=== PATIENT | female | born 1955 | race Two or more races ===

== ENCOUNTER 2017-06-18 13:33 | Inpatient (IN) | payer OTHER ==
[~2017-06-18] VITALS: Ht 160 cm; Wt 94.7 kg
[~2017-06-18 13:33] MED LIST: BENAZEPRIL; METFORMIN
[2017-06-18 15:47] VITALS: BP 140/78; RESP 18
[2017-06-18 16:08] VITALS: BMI 36.9
--- NOTE | 2017-06-18 17:47 | HP ---
Date/Time of Note Date/Time of Note DATE: 06/18/17 TIME: 17:35 Assessment/Plan VTE Prophylaxis VTE Prophylaxis Intervention: SCD's Lines/Catheters IV [facility]from [facility] [place] Assessment/Plan Chief Complaint/Hosp Course 1. 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 Diabetes NovoLog sliding scale 3. Hypertension Resume home meds Prophylaxis: SCDs Problems: HPI/ROS Admit Date/Time Admit Date/Time Jun 18, 2017 at 15:14 Hx of Present Illness Patient is a 61-year-old female with history of non-insulin requiring diabetes, hypertension as well as H pylori status post recent treatment. Patient does also have a history of reported ulcers and inflammation in her abdomen, patient did have a PET scan earlier this year with Dr Acosta that showed no malignancy in her abdomen. Patient also had a colonoscopy earlier this year that was negative. Patient states that for the past month she has been having abdominal pain, she initially had diarrhea approximately a month ago and was found to have H pylori was given antibiotics which she completed 2 weeks ago. Since then she reports constipation and she has not had a bowel movement for 1 week now. Patient continues to report abdominal discomfort, patient also reports a 15 pound weight loss and decreased appetite over the past month. Patient has no other complaints this time. ROS Weight loss with 15 pounds over the past month Constitutional: improved, no complaints Eyes: no complaints ENT: no complaints Respiratory: no complaints Cardiovascular: no complaints Gastrointestinal: constipation, pain Genitourinary: no complaints Musculoskeletal: no complaints Skin: no complaints Neurologic: no complaints Endocrine: no complaints Lymphatic: no complaints Psychological: nl mood/affect, no complaints Immunologic: no complaints PMH/Family/Social Past Medical History Non-insulin requiring diabetes, hypertension, H. pylori infection status post treatment, reported history of inflammation and ulcers in the bowel Family History Significant Family History: cancer (Father) Social History Alcohol Use: none Smoking Status: Never smoker Drug Use: none Exam/Review of Systems Vital Signs Vitals Vital Signs Date Time Temp Pulse Resp B/P Pulse Ox O2 Delivery O2 Flow Rate FiO2 06/18/17 15:47 99.1 85 18 140/78 97 Exam Constitutional: alert, oriented Head: normocephalic Respiratory: clear to auscultation Cardiovascular: regular rate and rhythm Gastrointestinal: soft, No distended Musculoskeletal: nl extremities to inspection JONA ELY Jun 18, 2017 17:46
[2017-06-18] MEDS ORDERED: BENA10TA48 PO (17:48)
[2017-06-18] MEDS ORDERED: METF500T4 PO (17:48)
[2017-06-18] MEDS ORDERED: DEXTROSE 50% 50 ML SYRINGE IV PRN ×4 (18:00→18:30)
[2017-06-18] MEDS ORDERED: GLUCOSE GEL 15 GRAM TUBE PO PRN ×4 (18:00→18:30)
[2017-06-18] MEDS ORDERED: GLUCOSE GEL 15 GRAM TUBE BUCCAL PRN ×2 (18:00→18:30)
[2017-06-18] MEDS: INSULIN ASPART [NOVOLOG] 3 ML PEN SC SCH ×2 (18:00→21:00)
[2017-06-18] MEDS ORDERED: MAGNESIUM HYDROXIDE 30ML CUP PO PRN (18:00)
[2017-06-18] MEDS ORDERED: ACETAMINOPHEN 325 MG TAB PO PRN (18:00)
[2017-06-18] MEDS ORDERED: NACL 0.9% 3 ML SYG IV SCH (18:00)
[2017-06-18] MEDS ORDERED: GLUCAGON 1 MG INJ IM PRN ×2 (18:00→18:30)
[2017-06-18] MEDS ORDERED: BISACODYL 10 MG SUPP PR ONE (18:00)
[2017-06-18] MEDS: SOD CHLORIDE 0.45% 1,000 ML IV SCH (18:10)
[2017-06-18] MEDS: BISACODYL (EC) 5 MG TAB PO SCH (18:46)
[2017-06-18] MEDS: DOCUSATE SODIUM 100 MG CAP PO SCH (18:46)
[2017-06-18] MEDS: BENAZEPRIL 10 MG TAB PO SCH (18:46)
[2017-06-18 19:30] LABS: CARCINOEMBRYONIC ANTIGEN 0.4 ng/ml (0.0-5.0)
[2017-06-18 19:44] LABS: CANCER ANTIGEN 19-9 < 1.4 U/ml (0.0-37.0)
[2017-06-18 19:51] VITALS: BP 150/69; RESP 18
[2017-06-18] MEDS ORDERED: INFLUENZA VIRUS VACCINE 0.5 ML SYG IM* ONE (22:00)
--- NOTE | 2017-06-18 22:09 | CONS ---
Date/Time of Note Date/Time of Note DATE: 06/18/17 TIME: 22:05 Assessment/Plan Assessment/Plan Chief Complaint/Hosp Course #. Concern for peritoneal carcinomatosis and bilateral adnexal masses per recent CT scan done at [place] -CA 125 is elevated to > 200, CEA and AFP normal -will need to review CT A/P which has already been ordered -recommend consult with [facility]. Pt may need laparoscopic exploration #Constipation -need to ensure there is no evidence of bowel obstruction. will follow up CT scan -continue senna/ colace as needed # Diabetes -continue NovoLog sliding scale # Hypertension -continue current blood pressure meds Problems: Consultation Date/Type/Reason Admit Date/Time Jun 18, 2017 at 15:14 Date of Consultation: Jun 19, 2017 Type of Consultation: oncology Reason for Consultation intraabdominal mass Referring Provider: JONA ELY of Present Illness 61-year-old female with multiple medical problems including history of non- insulin requiring diabetes, hypertension as well as H pylori status post recent treatment. History was obtained from patient's daughter who stated that in mid 2015 pt presented to [facility] ER with abdominal pain and was found with an abnormality on CT scan. Pt was seen by [address] Markie Acosta. Given that the scans looked like inflammation and did not appear to be malignancy, bx could not be done. Pt daughter pt now presents with 15 lb weight loss over the past month with constipation. Pt re-presented to [facility] ER for constipation. A CT A/P was done which revealed a constellation of findings highly suspicious for malignancy with peritoneal carcinomatosis, bilateral adnexal masses, and possible mesenteric lymphadenopathy. Pt was subsequently transferred to [facility] for insurance reasons. Patient apparently had a colonoscopy done earlier this year that was negative but was recently treated for H pylori. Eyes: no complaints ENT: no complaints Respiratory: no complaints Cardiovascular: no complaints Gastrointestinal: constipation, pain Genitourinary: no complaints Musculoskeletal: no complaints Skin: no complaints Neurologic: no complaints Lymphatic: no complaints Psychological: nl mood/affect, no complaints Immunologic: no complaints Past Medical History Non-insulin requiring diabetes hypertension H. pylori infection status post treatment history of peptic ulcer disease l Family History Significant Family History: no pertinent family hx Social History Alcohol Use: none Smoking Status: Never smoker Drug Use: none Exam/Review of Systems Vital Signs Vitals Vital Signs Date Time Temp Pulse Resp B/P Pulse Ox O2 Delivery O2 Flow Rate FiO2 06/18/17 19:51 98.1 88 18 150/69 96 Exam Constitutional: alert, oriented Psych: no complaints Head: normocephalic Eyes: nl conjunctiva ENMT: nl external ears & nose Neck: non-tender, supple Respiratory: clear to auscultation, normal air movement Cardiovascular: regular rate and rhythm Musculoskeletal: nl extremities to inspection Neurological: [employer]NA[employer] II-XII intact Results Results 24 hrs Laboratory Tests Test 06/18/17 18:18 06/18/17 18:23 06/18/17 21:31 Alpha Fetoprotein 2.77 Carcinoembryonic Antigen 0.4 CA 19-9 Antigen < 1.4 CA 125 Antigen 217.0 H Bedside Glucose 100 131 Medications Medications Current Medications Ondansetron HCl (Zofran Inj) 4 mg Q6H PRN IV NAUSEA AND/OR VOMITING; Start at 18:00 Acetaminophen (Tylenol Tab) 650 mg Q6H PRN PO PAIN LEVEL 1-3 OR FEVER; Start at 18:00 Acetaminophen/ Hydrocodone Bitart ([place] (5/325)) 1 tab Q6H PRN PO MODERATE PAIN LEVEL 4-6; Start 06/18/17 at 18:00 Morphine Sulfate (morphine) 2 mg Q4H PRN IV SEVERE PAIN LEVEL 7-10; Start 06/18 at 18:00 Docusate Sodium (Colace) 200 mg Q12H PO Last administered on 06/18/17 18:46; Admin Dose 200 MG; Start 06/18/17 at 18:00 Magnesium Hydroxide (Milk Of Mag) 30 ml DAILY PRN PO CONSTIPATION; Start at 18:00 Bisacodyl (Dulcolax) 10 mg DAILY PO Last administered on 06/18/17 18:46; Admin Dose 10 MG; Start 06/18/17 at 18:00 Bisacodyl (Dulcolax Supp) 10 mg DAILY PRN [place] CONSTIPATION; Start 06/19/17 at 09 :00 Zolpidem Tartrate 5 mg 5 mg QHS PRN PO SLEEP; Start 06/18/17 at 18:00 Sodium Chloride (1/2 NS) 1,000 ml @ 100 mls/hr Q10H IV Last administered on 18:10; Admin Dose 100 MLS/HR; Start 06/18/17 at 18:00; Stop 06/19/17 at 23:59 Benazepril HCl (Lotensin) 10 mg DAILY PO Last administered on 06/18/17 18:46; Admin Dose 10 MG; Start 06/18/17 at 18:00 Diagnostic Test (Pha) (Accu-Chek) 1 ea 02 XX ; Start 06/19/17 at 02:00 Miscellaneous Information 1 ea NOTE XX ; Start 06/18/17 at 18:00 Glucose (Glutose) 15 gm Q15M PRN PO DECREASED GLUCOSE; Start 06/18/17 at 18:00 Glucose (Glutose) 22.5 gm Q15M PRN PO DECREASED GLUCOSE; Start 06/18/17 at 18: 00 Dextrose (D50w Syringe) 25 ml Q15M PRN IV DECREASED GLUCOSE; Start 06/18/17 at 18:00 Dextrose (D50w Syringe) 50 ml Q15M PRN IV DECREASED GLUCOSE; Start 06/18/17 at 18:00 Glucagon (Glucagen) 1 mg Q15M PRN IM DECREASED GLUCOSE; Start 06/18/17 at 18:00 Glucose (Glutose) 15 gm Q15M PRN BUCCAL DECREASED GLUCOSE; Start 06/18/17 at 18 :00 Miscellaneous Information 1 ea NOTE XX ; Start 06/18/17 at 18:30 Glucose (Glutose) 15 gm Q15M PRN PO DECREASED GLUCOSE; Start 06/18/17 at 18:30 Glucose (Glutose) 22.5 gm Q15M PRN PO DECREASED GLUCOSE; Start 06/18/17 at 18: 30 Dextrose (D50w Syringe) 25 ml Q15M PRN IV DECREASED GLUCOSE; Start 06/18/17 at 18:30 Dextrose (D50w Syringe) 50 ml Q15M PRN IV DECREASED GLUCOSE; Start 06/18/17 at 18:30 Glucagon (Glucagen) 1 mg Q15M PRN IM DECREASED GLUCOSE; Start 06/18/17 at 18:30 Glucose (Glutose) 15 gm Q15M PRN BUCCAL DECREASED GLUCOSE; Start 06/18/17 at 18 :30 MINAL RICHARDSON M.D. Jun 18, 2017 22:09
[2017-06-18] MEDS ORDERED: INFLUENZA VIRUS VACCINE 0.5 ML (DISPENSING) IM* ONE (22:30)
[2017-06-18] MEDS: morphine 2 MG INJ IV PRN (23:01)
[2017-06-19] MEDS: ACCU-CHEK XX SCH (02:00)
[2017-06-19] MEDS ORDERED: ACCU-CHEK XX SCH (02:00)
[2017-06-19 02:17] VITALS: BP 119/60; RESP 19
[2017-06-19] MEDS: ONDANSETRON 4 MG INJ IV PRN ×2 (02:58→20:58)
[2017-06-19] MEDS: SOD CHLORIDE 0.45% 1,000 ML IV SCH ×3 (04:00→20:59)
[2017-06-19] MEDS: DOCUSATE SODIUM 100 MG CAP PO SCH ×2 (05:30→17:41)
[2017-06-19 06:43] LABS: BASOPHILS % 0.6 % (0.0-2.0); EOSINOPHILS # 0.1 10^3/ul (0.0-0.5); EOSINOPHILS % 1.8 % (0.0-7.0); HEMATOCRIT 37.9 % (37.0-47.0); HEMOGLOBIN 11.9 g/dl (12.0-16.0); LYMPHOCYTES % 14.8 % (15.0-51.0); MEAN CORPUSCULAR HEMOGLOBIN 28.3 pg (29.0-33.0); MEAN CORPUSCULAR HGB CONC 31.4 g/dl (32.0-37.0); MEAN PLATELET VOLUME 11.1 fl (7.4-10.4); MONOCYTE # 0.5 10^3/ul (0.3-0.9); MONOCYTES % 7.5 % (0.0-11.0); NEUTROPHIL # 5.1 10^3/ul (1.6-7.5); PLATELET COUNT 273 10^3/UL (140-415); RED BLOOD COUNT 4.21 10^6/ul (4.20-5.40); RED CELL DISTRIBUTION WIDTH 14.6 % (11.5-14.5); WHITE BLOOD COUNT 6.8 10^3/ul (4.8-10.8)
[2017-06-19 07:16] LABS: ALBUMIN 3.7 g/dl (3.3-4.9); ALBUMIN/GLOBULIN RATIO 1.08; BILIRUBIN,INDIRECT 0.4 mg/dl (0-1.1); BILIRUBIN,TOTAL 0.4 mg/dl (0.2-1.3); CALCIUM 8.8 mg/dl (8.4-10.2); CREATININE 0.6 mg/dl (0.44-1.00); MAGNESIUM 1.8 mg/dl (1.7-2.5); PHOSPHORUS 4.3 mg/dl (2.5-4.9); POTASSIUM 4.3 mmol/L (3.5-5.1); TOTAL PROTEIN 7.1 g/dl (6.1-8.1)
[2017-06-19 07:35] VITALS: BP 127/73; RESP 18
[2017-06-19] MEDS: INSULIN ASPART [NOVOLOG] 3 ML PEN SC SCH ×4 (07:50→21:00)
[2017-06-19] MEDS ORDERED: BISACODYL 10 MG SUPP PR PRN (09:00)
[2017-06-19] MEDS ORDERED: IODIXANOL LOCM 100 ML BTL ONE (09:14)
[2017-06-19] MEDS ORDERED: SOD CHLORIDE 0.9% 100 ML ONE (09:14)
[2017-06-19] MEDS: BENAZEPRIL 10 MG TAB PO SCH (09:50)
[2017-06-19] MEDS: BISACODYL (EC) 5 MG TAB PO SCH (09:51)
--- NOTE | 2017-06-19 11:43 | RADRPT ---
PROCEDURE: CT Chest, Abdomen and Pelvis with intravenous contrast CLINICAL INDICATION: Pain, adrenal mass. TECHNIQUE: CT of the chest, abdomen and pelvis was performed on a multidetector scanner following the uncomplicated IV administration of 100 cc of Visipaque 320. Coronal and sagittal images were re formatted from the axial data set. One or more of the following dose reduction techniques were used : automated exposure control, adjustment of the mA and/or kV according to patient size, use of iter ative reconstruction technique. CTDI = 16.78 mGy. DLP = 1268.65 mGy-cm. COMPARISON: None available FINDINGS: CT chest: There is mild bibasilar scarring/atelectasis. No acute infiltrate, pleural effusion, pulmonary edema or pneumothorax is identified. The central tracheobronchial tree is clear. No pulmonary nodule or m ass is identified. The heart size is normal, without pericardial effusion. There is no thoracic aortic aneurysm or diss ection. No mediastinal, hilar, axillary or supraclavicular lymphadenopathy is identified. CT abdomen and pelvis: Liver, gallbladder, biliary tree, pancreas, spleen, left adrenal gland and bilateral kidneys are unr emarkable. No urolithiasis or obstructive uropathy is identified. Fat density 2.8 cm right adrenal m ass is identified, compatible with a myelolipoma. The stomach is partially collapsed, but appears gr ossly unremarkable. There is no abdominal aortic aneurysm or dissection. There is no retroperitoneal lymphadenopathy. The melany hepatis region is clear. Complex solid and cystic masses are identified in the right adnexa, measuring 12.0 cm on the right ( 3-200) and 11.4 cm on the left (3-208), compatible with primary ovarian malignancy. Stranding and no dularity are identified throughout the omental fat, consistent with peritoneal carcinomatosis. Promi nent lymph nodes are present throughout the mesenteric fat, further concerning for metastatic diseas e. There is no bowel obstruction, free intraperitoneal air, or evidence of abscess. The appendix is well visualized and normal. There is no diverticulosis, diverticulitis or colitis. Urinary bladder i s grossly unremarkable. The surrounding osseous structures are remarkable for degenerative enthesopathy of the spine. No os teolytic or osteoblastic lesion is detected. IMPRESSION: 1. Complex solid and cystic masses are identified in the bilateral adnexa, measuring up to 12.0 cm on the right, compatible with primary ovarian malignancy. 2. Stranding and nodularity are seen throughout the omental fat, consistent with peritoneal carcino matosis. 3. Numerous prominent lymph nodes are present in the mesenteric fat, further concerning for metasta tic disease. 4. Fat density right adrenal mass identified, compatible with benign myelolipoma. 5. No evidence of neoplasm or metastatic disease is seen in the chest. RPTAT: AAOO .Alexys Helm MD, MD Date Time Electronically viewed and signed by .Alexys Helm MD, MD on 06/19/2017 11:43 .R/
--- NOTE | 2017-06-19 13:34 | PN ---
Date/Time of Note Date/Time of Note DATE: 06/19/17 TIME: 13:30 Assessment/Plan VTE Prophylaxis VTE Prophylaxis Intervention: SCD's Lines/Catheters IV [facility]from [facility] Peripheral IV Urinary Cath still in place: No Assessment/Plan Chief Complaint/Hosp Course 1. 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 Diabetes-stable A1c at 6.6 NovoLog sliding scale 3. Hypertension-stable Continue home meds Prophylaxis: SCDs Problems: Subjective 24 Hr Interval Summary Gastrointestinal: constipation Exam/Review of Systems Vital Signs Vitals Vital Signs Date Time Temp Pulse Resp B/P Pulse Ox O2 Delivery O2 Flow Rate FiO2 06/19/17 07:35 98.2 78 18 127/73 95 Intake and Output 06/18/17 06/18/17 06/19/17 15:00 23:00 07:00 Intake Total 150 ml 1000 ml Balance 150 ml 1000 ml Exam Constitutional: alert, oriented Head: normocephalic Respiratory: clear to auscultation Cardiovascular: regular rate and rhythm Gastrointestinal: soft, No distended Musculoskeletal: nl extremities to inspection Results Result Diagram: 06/19/17 0517 06/19/17 0517 Results 24 hrs Laboratory Tests Test 06/18/17 18:18 06/18/17 18:23 06/18/17 21:31 06/19/17 05:17 Alpha Fetoprotein 2.77 Carcinoembryonic Antigen 0.4 CA 19-9 Antigen < 1.4 CA 125 Antigen 217.0 H Bedside Glucose 100 131 White Blood Count 6.8 Red Blood Count 4.21 Hemoglobin 11.9 L Hematocrit 37.9 Mean Corpuscular Volume 90.0 Mean Corpuscular Hemoglobin 28.3 L Mean Corpuscular Hemoglobin Concent 31.4 L Red Cell Distribution Width 14.6 H Platelet Count 273 Mean Platelet Volume 11.1 H Neutrophils % 75.0 Lymphocytes % 14.8 L Monocytes % 7.5 Eosinophils % 1.8 Basophils % 0.6 Nucleated Red Blood Cells % 0.0 Neutrophils # 5.1 Lymphocytes # 1.0 Monocytes # 0.5 Eosinophils # 0.1 Basophils # 0.0 Nucleated Red Blood Cells # 0.0 Sodium Level 139 Potassium Level 4.3 Chloride Level 103 Carbon Dioxide Level 29 Anion Gap 11 Blood Urea Nitrogen 7 Creatinine 0.60 Glucose Level 135 Hemoglobin A1c 6.6 H Calcium Level 8.8 Phosphorus Level 4.3 Magnesium Level 1.8 Total Bilirubin 0.4 Direct Bilirubin 0.00 Indirect Bilirubin 0.4 Aspartate Amino Transf (AST/SGOT) 29 Alanine Aminotransferase (ALT/SGPT) 32 Alkaline Phosphatase 68 Total Protein 7.1 Albumin 3.7 Globulin 3.40 H Albumin/Globulin Ratio 1.08 Test 06/19/17 07:49 06/19/17 12:03 Bedside Glucose 111 98 Medications Medications Current Medications Ondansetron HCl (Zofran Inj) 4 mg Q6H PRN IV NAUSEA AND/OR VOMITING Last administered on 06/19/17 02:58; Admin Dose 4 MG; Start 06/18/17 at 18:00 Acetaminophen (Tylenol Tab) 650 mg Q6H PRN PO PAIN LEVEL 1-3 OR FEVER; Start at 18:00 Acetaminophen/ Hydrocodone Bitart ([place] (5/325)) 1 tab Q6H PRN PO MODERATE PAIN LEVEL 4-6; Start 06/18/17 at 18:00 Morphine Sulfate (morphine) 2 mg Q4H PRN IV SEVERE PAIN LEVEL 7-10 Last administered on 06/18/17 23:01; Admin Dose 2 MG; Start 06/18/17 at 18:00 Docusate Sodium (Colace) 200 mg Q12H PO Last administered on 06/19/17 05:30; Admin Dose 200 MG; Start 06/18/17 at 18:00 Magnesium Hydroxide (Milk Of Mag) 30 ml DAILY PRN PO CONSTIPATION; Start at 18:00 Bisacodyl (Dulcolax) 10 mg DAILY PO Last administered on 06/19/17 09:51; Admin Dose 10 MG; Start 06/18/17 at 18:00 Bisacodyl (Dulcolax Supp) 10 mg DAILY PRN [place] CONSTIPATION; Start 06/19/17 at 09 :00 Zolpidem Tartrate 5 mg 5 mg QHS PRN PO SLEEP; Start 06/18/17 at 18:00 Sodium Chloride (1/2 NS) 1,000 ml @ 100 mls/hr Q10H IV Last administered on 05:31; Admin Dose 100 MLS/HR; Start 06/18/17 at 18:00; Stop 06/19/17 at 23:59 Benazepril HCl (Lotensin) 10 mg DAILY PO Last administered on 06/19/17 09:50; Admin Dose 10 MG; Start 06/18/17 at 18:00 Diagnostic Test (Pha) (Accu-Chek) 1 ea 02 XX ; Start 06/19/17 at 02:00 Miscellaneous Information 1 ea NOTE XX ; Start 06/18/17 at 18:00 Glucose (Glutose) 15 gm Q15M PRN PO DECREASED GLUCOSE; Start 06/18/17 at 18:00 Glucose (Glutose) 22.5 gm Q15M PRN PO DECREASED GLUCOSE; Start 06/18/17 at 18: 00 Dextrose (D50w Syringe) 25 ml Q15M PRN IV DECREASED GLUCOSE; Start 06/18/17 at 18:00 Dextrose (D50w Syringe) 50 ml Q15M PRN IV DECREASED GLUCOSE; Start 06/18/17 at 18:00 Glucagon (Glucagen) 1 mg Q15M PRN IM DECREASED GLUCOSE; Start 06/18/17 at 18:00 Glucose (Glutose) 15 gm Q15M PRN BUCCAL DECREASED GLUCOSE; Start 06/18/17 at 18 :00 Miscellaneous Information 1 ea NOTE XX ; Start 06/18/17 at 18:30 Glucose (Glutose) 15 gm Q15M PRN PO DECREASED GLUCOSE; Start 06/18/17 at 18:30 Glucose (Glutose) 22.5 gm Q15M PRN PO DECREASED GLUCOSE; Start 06/18/17 at 18: 30 Dextrose (D50w Syringe) 25 ml Q15M PRN IV DECREASED GLUCOSE; Start 06/18/17 at 18:30 Dextrose (D50w Syringe) 50 ml Q15M PRN IV DECREASED GLUCOSE; Start 06/18/17 at 18:30 Glucagon (Glucagen) 1 mg Q15M PRN IM DECREASED GLUCOSE; Start 06/18/17 at 18:30 Glucose (Glutose) 15 gm Q15M PRN BUCCAL DECREASED GLUCOSE; Start 06/18/17 at 18 :30 Influenza Virus Vaccine (Fluzone) 0.5 ml ONCE ONCE IM* ; Start 06/18/17 at 22:30 ; Stop 06/18/17 at 22:31; Status UNV JONA ELY Jun 19, 2017 13:33
--- NOTE | 2017-06-19 14:22 | CONS ---
Date/Time of Note Date/Time of Note DATE: 06/19/17 TIME: 14:05 Assessment/Plan Assessment/Plan Additional Assessment/Plan Assessment * Abdominal pain/constipation CT scan abdomen . Complex solid and cystic masses are identified in the bilateral adnexa, measuring up to 12.0 cm on the right, compatible with primary ovarian malignancy. . Stranding and nodularity are seen throughout the omental fat, consistent with peritoneal carcinomatosis. Fat density right adrenal mass identified, compatible with benign myelolipoma. No evidence of neoplasm or metastatic disease is seen in the chest. * History of colonoscopy (07/2016) * Diabetes mellitus * Elevated Ca-125 Plan * continue present management * lactulose as needed * case discussed with Dr lua * further orders will depend on clinical course Consultation Date/Type/Reason Admit Date/Time Jun 18, 2017 at 15:14 Date of Consultation: Jun 19, 2017 Type of Consultation: Gastroenterology Reason for Consultation constipation Referring Provider: JONA ELY of Present Illness 61 year old female with past medical history of Diabetes mellitus ,hypertension was transferred to our institution because of insurance issues.Patient has been complaining of abdominal pain and constipation for the past week.Pain is described as crampy ,diffuse non radiating with associated constipation .She denies nausea ,vomiting ,but claims passage of flatus .She then consult [facility] CT scan of abdomen showed highly suspicious for malignancy with peritoneal carcinomatosis,tethering of the sigmoid colon to the cul de sac mass with suggestion of colocolonic fistula,probable mesenteric lymphadenopathy.Presently patient still constipated with vague abdominal pain and awaiting official result of CT abdomen/pelvis with contrast.Colonoscopy performed last year revealed Colonoscopy all the way to the cecum. Internal hemorrhoids.. No colon neoplasm was identified. CT abdomen/pelvis 1. Complex solid and cystic masses are identified in the bilateral adnexa, measuring up to 12.0 cm on the right, compatible with primary ovarian malignancy. 2. Stranding and nodularity are seen throughout the omental fat, consistent with peritoneal carcinomatosis. 3. Numerous prominent lymph nodes are present in the mesenteric fat, further concerning for metastatic disease. 4. Fat density right adrenal mass identified, compatible with benign myelolipoma. 5. No evidence of neoplasm or metastatic disease is seen in the chest. Constitutional: improved, no complaints Eyes: no complaints ENT: no complaints Respiratory: no complaints Cardiovascular: no complaints Gastrointestinal: constipation, pain Genitourinary: no complaints Musculoskeletal: no complaints Skin: no complaints Neurologic: no complaints Endocrine: no complaints Lymphatic: no complaints Psychological: no complaints Immunologic: no complaints Past Medical History Medical History: diabetes Past Surgical History Past Surgical Hx: other (colonoscopy) Social History Alcohol Use: none Smoking Status: Never smoker Drug Use: none Exam/Review of Systems Vital Signs Vitals Vital Signs Date Time Temp Pulse Resp B/P Pulse Ox O2 Delivery O2 Flow Rate FiO2 06/19/17 07:35 98.2 78 18 127/73 95 Intake and Output 06/18/17 06/18/17 06/19/17 15:00 23:00 07:00 Intake Total 150 ml 1000 ml Balance 150 ml 1000 ml Results Result Diagram: 06/19/1751606/19/17 05 Results 24 hrs Laboratory Tests Test 06/18/17 18:18 06/18/17 18:23 06/18/17 21:31 06/19/17 05:17 Alpha Fetoprotein 2.77 Carcinoembryonic Antigen 0.4 CA 19-9 Antigen < 1.4 CA 125 Antigen 217.0 H Bedside Glucose 100 131 White Blood Count 6.8 Red Blood Count 4.21 Hemoglobin 11.9 L Hematocrit 37.9 Mean Corpuscular Volume 90.0 Mean Corpuscular Hemoglobin 28.3 L Mean Corpuscular Hemoglobin Concent 31.4 L Red Cell Distribution Width 14.6 H Platelet Count 273 Mean Platelet Volume 11.1 H Neutrophils % 75.0 Lymphocytes % 14.8 L Monocytes % 7.5 Eosinophils % 1.8 Basophils % 0.6 Nucleated Red Blood Cells % 0.0 Neutrophils # 5.1 Lymphocytes # 1.0 Monocytes # 0.5 Eosinophils # 0.1 Basophils # 0.0 Nucleated Red Blood Cells # 0.0 Sodium Level 139 Potassium Level 4.3 Chloride Level 103 Carbon Dioxide Level 29 Anion Gap 11 Blood Urea Nitrogen 7 Creatinine 0.60 Glucose Level 135 Hemoglobin A1c 6.6 H Calcium Level 8.8 Phosphorus Level 4.3 Magnesium Level 1.8 Total Bilirubin 0.4 Direct Bilirubin 0.00 Indirect Bilirubin 0.4 Aspartate Amino Transf (AST/SGOT) 29 Alanine Aminotransferase (ALT/SGPT) 32 Alkaline Phosphatase 68 Total Protein 7.1 Albumin 3.7 Globulin 3.40 H Albumin/Globulin Ratio 1.08 Test 06/19/17 07:49 06/19/17 12:03 Bedside Glucose 111 98 Medications Medications Current Medications Ondansetron HCl (Zofran Inj) 4 mg Q6H PRN IV NAUSEA AND/OR VOMITING Last administered on 06/19/17 02:58; Admin Dose 4 MG; Start 06/18/17 at 18:00 Acetaminophen (Tylenol Tab) 650 mg Q6H PRN PO PAIN LEVEL 1-3 OR FEVER; Start at 18:00 Acetaminophen/ Hydrocodone Bitart ([place] (5/325)) 1 tab Q6H PRN PO MODERATE PAIN LEVEL 4-6; Start 06/18/17 at 18:00 Morphine Sulfate (morphine) 2 mg Q4H PRN IV SEVERE PAIN LEVEL 7-10 Last administered on 06/18/17 23:01; Admin Dose 2 MG; Start 06/18/17 at 18:00 Docusate Sodium (Colace) 200 mg Q12H PO Last administered on 06/19/17 05:30; Admin Dose 200 MG; Start 06/18/17 at 18:00 Magnesium Hydroxide (Milk Of Mag) 30 ml DAILY PRN PO CONSTIPATION Last administered on 06/19/17 13:33; Admin Dose 30 ML; Start 06/18/17 at 18:00 Bisacodyl (Dulcolax) 10 mg DAILY PO Last administered on 06/19/17 09:51; Admin Dose 10 MG; Start 06/18/17 at 18:00 Bisacodyl (Dulcolax Supp) 10 mg DAILY PRN [place] CONSTIPATION; Start 06/19/17 at 09 :00 Zolpidem Tartrate 5 mg 5 mg QHS PRN PO SLEEP; Start 06/18/17 at 18:00 Sodium Chloride (1/2 NS) 1,000 ml @ 100 mls/hr Q10H IV Last administered on 05:31; Admin Dose 100 MLS/HR; Start 06/18/17 at 18:00; Stop 06/19/17 at 23:59 Benazepril HCl (Lotensin) 10 mg DAILY PO Last administered on 06/19/17 09:50; Admin Dose 10 MG; Start 06/18/17 at 18:00 Diagnostic Test (Pha) (Accu-Chek) 1 ea 02 XX ; Start 06/19/17 at 02:00 Miscellaneous Information 1 ea NOTE XX ; Start 06/18/17 at 18:00 Glucose (Glutose) 15 gm Q15M PRN PO DECREASED GLUCOSE; Start 06/18/17 at 18:00 Glucose (Glutose) 22.5 gm Q15M PRN PO DECREASED GLUCOSE; Start 06/18/17 at 18: 00 Dextrose (D50w Syringe) 25 ml Q15M PRN IV DECREASED GLUCOSE; Start 06/18/17 at 18:00 Dextrose (D50w Syringe) 50 ml Q15M PRN IV DECREASED GLUCOSE; Start 06/18/17 at 18:00 Glucagon (Glucagen) 1 mg Q15M PRN IM DECREASED GLUCOSE; Start 06/18/17 at 18:00 Glucose (Glutose) 15 gm Q15M PRN BUCCAL DECREASED GLUCOSE; Start 06/18/17 at 18 :00 Miscellaneous Information 1 ea NOTE XX ; Start 06/18/17 at 18:30 Glucose (Glutose) 15 gm Q15M PRN PO DECREASED GLUCOSE; Start 06/18/17 at 18:30 Glucose (Glutose) 22.5 gm Q15M PRN PO DECREASED GLUCOSE; Start 06/18/17 at 18: 30 Dextrose (D50w Syringe) 25 ml Q15M PRN IV DECREASED GLUCOSE; Start 06/18/17 at 18:30 Dextrose (D50w Syringe) 50 ml Q15M PRN IV DECREASED GLUCOSE; Start 06/18/17 at 18:30 Glucagon (Glucagen) 1 mg Q15M PRN IM DECREASED GLUCOSE; Start 06/18/17 at 18:30 Glucose (Glutose) 15 gm Q15M PRN BUCCAL DECREASED GLUCOSE; Start 06/18/17 at 18 :30 Influenza Virus Vaccine (Fluzone) 0.5 ml ONCE ONCE IM* ; Start 06/18/17 at 22:30 ; Stop 06/18/17 at 22:31; Status UNV IRWIN PEPPER NP Jun 19, 2017 14:15
[2017-06-19 14:54] VITALS: BP 125/74; RESP 20
[2017-06-19] MEDS: HYDROCODONE/APAP (5/325) TAB PO PRN (19:05)
--- NOTE | 2017-06-19 19:14 | QN ---
Documentation Comment 61 y/o female with 2 wks of increasing abdominal girth and obvious ascites with 12 cm adnexal mass and multi site metastatic disease. Symptoms have been present for 2 weeks profoundly but started 6-8 weeks ago. Reviewed chart and did detailed examination on patient. Most likely IIIc ovarian cancer and very operable. Discussed in detail with patient and family. Will discuss with Dr. Warren and IM. Note all published data indicate best survival is from complete primary cytoreduction; multiple options of Carbo/ Taxol +/- Avastin vs IP chemo (multiple options) Will do complete consult dulce or shukri and call Med Onc, Thanks, Dwight Greene M.D. DWIGHT GREENE MD Jun 19, 2017 19:14
[2017-06-19 20:09] VITALS: BP 109/54; RESP 20
[2017-06-20] MEDS: METOCLOPRAMIDE 10 MG INJ IV PRN (00:57)
[2017-06-20] MEDS: HYDROCODONE/APAP (5/325) TAB PO PRN ×3 (00:58→21:07)
[2017-06-20] MEDS: ACCU-CHEK XX SCH (02:00)
[2017-06-20 02:20] VITALS: BP 121/63; RESP 20
[2017-06-20] MEDS: DOCUSATE SODIUM 100 MG CAP PO SCH ×2 (06:34→17:41)
[2017-06-20 07:33] VITALS: BP 127/73; RESP 18
[2017-06-20] MEDS: INSULIN ASPART [NOVOLOG] 3 ML PEN SC SCH (07:56)
[2017-06-20] MEDS: BISACODYL (EC) 5 MG TAB PO SCH (08:32)
[2017-06-20] MEDS: BENAZEPRIL 10 MG TAB PO SCH (08:33)
--- NOTE | 2017-06-20 11:47 | PN ---
Date/Time of Note Date/Time of Note DATE: 06/20/17 TIME: 11:45 Assessment/Plan VTE Prophylaxis VTE Prophylaxis Intervention: SCD's Lines/Catheters IV Catheter Type (from Nrs): Saline Lock Urinary Cath still in place: No Assessment/Plan Chief Complaint/Hosp Course 1. Constipation secondary to peritoneal carcinomatosis likely from ovarian primary CA 125 is elevated and repeat CT abdomen is suggestive of ovarian cancer, CT chest shows no malignancy in the chest [employer] oncology, GI, and medical oncology consults appreciated, patient will likely need debulking surgery and subsequent chemotherapy CT abdomen at [facility] also showed findings suspicious for malignancy with peritoneal carcinomatosis, bilateral adnexal masses suggestive of ovarian etiology versus a colonic primary, no evidence of obstruction and possible metastatic mesenteric lymphadenopathy Suppository, senna and Colace 2. Diabetes-stable A1c at 6.6 NovoLog sliding scale 3. Hypertension-stable Continue home meds Prophylaxis: SCDs Problems: Subjective 24 Hr Interval Summary Gastrointestinal: constipation Exam/Review of Systems Vital Signs Vitals Vital Signs Date Time Temp Pulse Resp B/P Pulse Ox O2 Delivery O2 Flow Rate FiO2 06/20/17 07:33 98.9 85 18 127/73 95 Intake and Output 06/19/17 06/19/17 06/20/17 15:00 23:00 07:00 Intake Total 1600 ml 1220 ml Output Total 800 ml Balance 1600 ml 420 ml Exam Constitutional: alert, oriented Head: normocephalic Respiratory: clear to auscultation Cardiovascular: regular rate and rhythm Gastrointestinal: soft, No distended Musculoskeletal: nl extremities to inspection Results Result Diagram: 06/19/17 0517 06/19/17 0517 Results 24 hrs Laboratory Tests Test 06/19/17 12:03 06/19/17 17:15 06/19/17 21:32 06/20/17 07:52 Bedside Glucose 98 126 122 125 Medications Medications Current Medications Ondansetron HCl (Zofran Inj) 4 mg Q6H PRN IV NAUSEA AND/OR VOMITING Last administered on 06/19/17t 20:58; Admin Dose 4 MG; Start 06/18/17 at 18:00 Acetaminophen (Tylenol Tab) 650 mg Q6H PRN PO PAIN LEVEL 1-3 OR FEVER; Start at 18:00 Acetaminophen/ Hydrocodone Bitart ([place] (5/325)) 1 tab Q6H PRN PO MODERATE PAIN LEVEL 4-6 Last administered on 06/20/17 10:55; Admin Dose 1 TAB; Start at 18:00 Morphine Sulfate (morphine) 2 mg Q4H PRN IV SEVERE PAIN LEVEL 7-10 Last administered on 06/18/17 23:01; Admin Dose 2 MG; Start 06/18/17 at 18:00 Docusate Sodium (Colace) 200 mg Q12H PO Last administered on 06/20/17 06:34; Admin Dose 200 MG; Start 06/18/17 at 18:00 Magnesium Hydroxide (Milk Of Mag) 30 ml DAILY PRN PO CONSTIPATION Last administered on 06/19/17 13:33; Admin Dose 30 ML; Start 06/18/17 at 18:00 Bisacodyl (Dulcolax) 10 mg DAILY PO Last administered on 06/20/17 08:32; Admin Dose 10 MG; Start 06/18/17 at 18:00 Bisacodyl (Dulcolax Supp) 10 mg DAILY PRN [place] CONSTIPATION; Start 06/19/17 at 09 :00 Zolpidem Tartrate (Ambien) 5 mg QHS PRN PO SLEEP; Start 06/18/17 at 18:00 Benazepril HCl (Lotensin) 10 mg DAILY PO Last administered on 06/20/17 08:33; Admin Dose 10 MG; Start 06/18/17 at 18:00 Diagnostic Test (Pha) (Accu-Chek) 1 ea 02 XX ; Start 06/19/17 at 02:00 Miscellaneous Information 1 ea NOTE XX ; Start 06/18/17 at 18:00 Glucose (Glutose) 15 gm Q15M PRN PO DECREASED GLUCOSE; Start 06/18/17 at 18:00 Glucose (Glutose) 22.5 gm Q15M PRN PO DECREASED GLUCOSE; Start 06/18/17 at 18: 00 Dextrose (D50w Syringe) 25 ml Q15M PRN IV DECREASED GLUCOSE; Start 06/18/17 at 18:00 Dextrose (D50w Syringe) 50 ml Q15M PRN IV DECREASED GLUCOSE; Start 06/18/17 at 18:00 Glucagon (Glucagen) 1 mg Q15M PRN IM DECREASED GLUCOSE; Start 06/18/17 at 18:00 Glucose (Glutose) 15 gm Q15M PRN BUCCAL DECREASED GLUCOSE; Start 06/18/17 at 18 :00 Miscellaneous Information 1 ea NOTE XX ; Start 06/18/17 at 18:30 Glucose (Glutose) 15 gm Q15M PRN PO DECREASED GLUCOSE; Start 06/18/17 at 18:30 Glucose (Glutose) 22.5 gm Q15M PRN PO DECREASED GLUCOSE; Start 06/18/17 at 18: 30 Dextrose (D50w Syringe) 25 ml Q15M PRN IV DECREASED GLUCOSE; Start 06/18/17 at 18:30 Dextrose (D50w Syringe) 50 ml Q15M PRN IV DECREASED GLUCOSE; Start 06/18/17 at 18:30 Glucagon (Glucagen) 1 mg Q15M PRN IM DECREASED GLUCOSE; Start 06/18/17 at 18:30 Glucose (Glutose) 15 gm Q15M PRN BUCCAL DECREASED GLUCOSE; Start 06/18/17 at 18 :30 Influenza Virus Vaccine (Fluzone) 0.5 ml ONCE ONCE IM* ; Start 06/18/17 at 22:30 ; Stop 06/18/17 at 22:31; Status UNV Metoclopramide HCl (Reglan) 10 mg Q6H PRN IV NAUSEA AND/OR VOMITING Last administered on 06/20/17t 00:57; Admin Dose 10 MG; Start 06/19/17 at 23:30 JONA ELY Jun 20, 2017 11:46
[2017-06-20] MEDS: SENNA TAB PO SCH ×2 (12:37→21:07)
[2017-06-20 13:25] VITALS: BP 106/59; RESP 16
--- NOTE | 2017-06-20 17:16 | PN ---
Date/Time of Note Date/Time of Note DATE: 06/20/17 TIME: 17:14 Assessment/Plan VTE Prophylaxis VTE Prophylaxis Intervention: SCD's Lines/Catheters [facility] Saline Lock Urinary Cath still in place: No Assessment/Plan Assessment/Plan Assessment * Abdominal pain/constipation CT scan abdomen . Complex solid and cystic masses are identified in the bilateral adnexa, measuring up to 12.0 cm on the right, compatible with primary ovarian malignancy. . Stranding and nodularity are seen throughout the omental fat, consistent with peritoneal carcinomatosis. Fat density right adrenal mass identified, compatible with benign myelolipoma. No evidence of neoplasm or metastatic disease is seen in the chest. * History of colonoscopy (07/2016) * Diabetes mellitus * Elevated Ca-125 Plan * continue present management * colonoscopy tomorrow risks and benefit explained to patient agreed with the planned procedure * case discussed with Dr lua * further orders will depend on clinical course Subjective 24 Hr Interval Summary Free Text/Dictation * Course reviewed * Patient seen and examined * still no bowel movement Exam/Review of Systems Vital Signs Vitals Vital Signs Date Time Temp Pulse Resp B/P Pulse Ox O2 Delivery O2 Flow Rate FiO2 06/20/17 13:25 99.0 83 16 106/59 93 Intake and Output 06/19/17 06/19/17 06/20/17 15:00 23:00 07:00 Intake Total 1600 ml 1220 ml Output Total 800 ml Balance 1600 ml 420 ml Exam Constitutional: alert, oriented Head: atraumatic, normocephalic Respiratory: clear to auscultation, normal air movement Cardiovascular: nl pulses, regular rate and rhythm Gastrointestinal: non-tender, soft Musculoskeletal: nl extremities to inspection, nl gait and stance Extremities: normal pulses Neurological: nl mental status Results Result Diagram: 06/19/1751606/19/17516 Results 24 hrs Laboratory Tests Test 06/19/17 17:15 06/19/17 21:32 06/20/17 07:52 Bedside Glucose 126 122 125 Medications Medications Current Medications Ondansetron HCl (Zofran Inj) 4 mg Q6H PRN IV NAUSEA AND/OR VOMITING Last administered on 06/19/17t 20:58; Admin Dose 4 MG; Start 06/18/17 at 18:00 Acetaminophen (Tylenol Tab) 650 mg Q6H PRN PO PAIN LEVEL 1-3 OR FEVER; Start at 18:00 Acetaminophen/ Hydrocodone Bitart ([place] (5/325)) 1 tab Q6H PRN PO MODERATE PAIN LEVEL 4-6 Last administered on 06/20/17 10:55; Admin Dose 1 TAB; Start at 18:00 Morphine Sulfate (morphine) 2 mg Q4H PRN IV SEVERE PAIN LEVEL 7-10 Last administered on 06/18/17 23:01; Admin Dose 2 MG; Start 06/18/17 at 18:00 Docusate Sodium (Colace) 200 mg Q12H PO Last administered on 06/20/17 06:34; Admin Dose 200 MG; Start 06/18/17 at 18:00 Magnesium Hydroxide (Milk Of Mag) 30 ml DAILY PRN PO CONSTIPATION Last administered on 06/19/17 13:33; Admin Dose 30 ML; Start 06/18/17 at 18:00 Bisacodyl (Dulcolax) 10 mg DAILY PO Last administered on 06/20/17 08:32; Admin Dose 10 MG; Start 06/18/17 at 18:00 Bisacodyl (Dulcolax Supp) 10 mg DAILY PRN [place] CONSTIPATION; Start 06/19/17 at 09 :00 Zolpidem Tartrate (Ambien) 5 mg QHS PRN PO SLEEP; Start 06/18/17 at 18:00 Benazepril HCl (Lotensin) 10 mg DAILY PO Last administered on 06/20/17 08:33; Admin Dose 10 MG; Start 06/18/17 at 18:00 Miscellaneous Information 1 ea NOTE XX ; Start 06/18/17 at 18:00 Glucose (Glutose) 15 gm Q15M PRN PO DECREASED GLUCOSE; Start 06/18/17 at 18:00 Glucose (Glutose) 22.5 gm Q15M PRN PO DECREASED GLUCOSE; Start 06/18/17 at 18: 00 Dextrose (D50w Syringe) 25 ml Q15M PRN IV DECREASED GLUCOSE; Start 06/18/17 at 18:00 Dextrose (D50w Syringe) 50 ml Q15M PRN IV DECREASED GLUCOSE; Start 06/18/17 at 18:00 Glucagon (Glucagen) 1 mg Q15M PRN IM DECREASED GLUCOSE; Start 06/18/17 at 18:00 Glucose (Glutose) 15 gm Q15M PRN BUCCAL DECREASED GLUCOSE; Start 06/18/17 at 18 :00 Miscellaneous Information 1 ea NOTE XX ; Start 06/18/17 at 18:30 Glucose (Glutose) 15 gm Q15M PRN PO DECREASED GLUCOSE; Start 06/18/17 at 18:30 Glucose (Glutose) 22.5 gm Q15M PRN PO DECREASED GLUCOSE; Start 06/18/17 at 18: 30 Dextrose (D50w Syringe) 25 ml Q15M PRN IV DECREASED GLUCOSE; Start 06/18/17 at 18:30 Dextrose (D50w Syringe) 50 ml Q15M PRN IV DECREASED GLUCOSE; Start 06/18/17 at 18:30 Glucagon (Glucagen) 1 mg Q15M PRN IM DECREASED GLUCOSE; Start 06/18/17 at 18:30 Glucose (Glutose) 15 gm Q15M PRN BUCCAL DECREASED GLUCOSE; Start 06/18/17 at 18 :30 Metoclopramide HCl (Reglan) 10 mg Q6H PRN IV NAUSEA AND/OR VOMITING Last administered on 06/20/17 00:57; Admin Dose 10 MG; Start 06/19/17 at 23:30 Senna (Senokot) 2 tab BID PO Last administered on 06/20/17 12:37; Admin Dose 2 TAB; Start 06/20/17 at 12:00 Influenza Virus Vaccine (Fluzone) 0.5 ml ONCE ONCE IM* ; Start 06/21/17 at 13:00 ; Stop 06/21/17 at 13:01 Bisacodyl (Dulcolax) 10 mg ONCE ONCE PO ; Start 06/20/17 at 17:30; Stop at 17:31 Magnesium Citrate (Citroma) 300 ml ONCE ONCE PO ; Start 06/20/17 at 17:30; Stop 06/20/17 at 17:31 Polyethylene Glycol (Miralax) 119 gm ONCE ONCE PO ; Start 06/20/17 at 18:30; Stop 06/20/17 at 18:31 IRWIN PEPPER NP Jun 20, 2017 17:16
[2017-06-20] MEDS ORDERED: BISACODYL (EC) 5 MG TAB PO ONE (17:30)
[2017-06-20] MEDS ORDERED: MAGNESIUM CITRATE 300 ML BTL PO ONE (17:30)
[2017-06-20] MEDS ORDERED: POLYETHYLENE GLYCOL 3350 119 GM POWDER PO ONE (18:30)
[2017-06-20 19:34] VITALS: BP 124/71; RESP 20
[2017-06-20 21:00] VITALS: BP 118/60; PULSE 89; RESP 18
--- NOTE | 2017-06-20 22:38 | CONS ---
Date/Time of Note Date/Time of Note DATE: 06/20/17 TIME: 22:38 Consultation Date/Type/Reason Admit Date/Time Jun 18, 2017 at 15:14 Reason for Consultation Dwight Greene M.D. [facility] History and Physical Examination Nohemi Azar Jun 19, 2017 Age:61 :1955 Physicians: [employer] Oncologist Referring MD: History of the Present Illness: This is a 61 female with abdominal/pelvic discomfort, abdominal distention consistent with ascites, a pelvic mass 12 cm and an elevated ca-125 of 217 with a normal CA 19-9 and normal CEA..There is some nausea. Medical history/ROS: all other systems unremarkable. Surgical history: no significant abdominal procedures. Medications: reviewed gardisil Allergies: No active allergies recorded Family history: unremarkable. Social history: no identified high-risk categories. Review of Systems: Negative except for above noted Physical Examination General: Alert. HEENT: Pupils are equal, round, reactive to light and accommodation. Neck: Supple with no masses of lymphadenopathy. Breast: Deferred due to recent examination and responsibility of primary care physician. Chest: Clear to auscultation and percussion with no rales, rhonchi, or wheeze. Heart: Normal rhythm with no murmur. Abdominal Exam: normal, soft, nondistended, NT, nl bowel sounds. Pelvic exam: Right sided pelvic mass and central irregular minimal cul-de-sac nodularity noted Rectal: confirmatory with pelvic exam. Neurological: Grossly intact Assessment: Probable ovarian cancer Plan: JESUS/BSO, possible cytoreduction, possiblebowel resection, fecal diversion. All risks and benefits of this procedure have been discussed in detail with the patient, as well as alternative treatment strategies and their implications. The patient is aware that there is some possibility of a blood transfusion and its associated risks and benefits. She wishes to proceed and gives her informed consent. Dwight Greene M.D. Constitutional: improved, no complaints Eyes: no complaints ENT: no complaints Respiratory: no complaints Cardiovascular: no complaints Gastrointestinal: constipation Genitourinary: no complaints Musculoskeletal: no complaints Skin: no complaints Neurologic: no complaints Endocrine: no complaints Lymphatic: no complaints Psychological: no complaints Immunologic: no complaints Past Medical History Medical History: diabetes Past Surgical History Past Surgical Hx: other (colonoscopy) Social History Alcohol Use: none Smoking Status: Never smoker Drug Use: none Exam/Review of Systems Vital Signs Vitals Vital Signs Date Time Temp Pulse Resp B/P Pulse Ox O2 Delivery O2 Flow Rate FiO2 06/20/17 19:34 98.3 107 20 124/71 94 Intake and Output 06/19/17 06/19/17 06/20/17 15:00 23:00 07:00 Intake Total 1600 ml 1220 ml Output Total 800 ml Balance 1600 ml 420 ml Results Result Diagram: 06/19/1751606/19/17516 Results 24 hrs Laboratory Tests Test 06/20/17 07:52 Bedside Glucose 125 Medications Medications Current Medications Ondansetron HCl (Zofran Inj) 4 mg Q6H PRN IV NAUSEA AND/OR VOMITING Last administered on 06/19/17 20:58; Admin Dose 4 MG; Start 06/18/17 at 18:00 Acetaminophen (Tylenol Tab) 650 mg Q6H PRN PO PAIN LEVEL 1-3 OR FEVER; Start at 18:00 Acetaminophen/ Hydrocodone Bitart ([place] (5/325)) 1 tab Q6H PRN PO MODERATE PAIN LEVEL 4-6 Last administered on 06/20/17 21:07; Admin Dose 1 TAB; Start at 18:00 Morphine Sulfate (morphine) 2 mg Q4H PRN IV SEVERE PAIN LEVEL 7-10 Last administered on 06/18/17 23:01; Admin Dose 2 MG; Start 06/18/17 at 18:00 Docusate Sodium (Colace) 200 mg Q12H PO Last administered on 06/20/17 17:41; Admin Dose 200 MG; Start 06/18/17 at 18:00 Magnesium Hydroxide (Milk Of Mag) 30 ml DAILY PRN PO CONSTIPATION Last administered on 06/19/17 13:33; Admin Dose 30 ML; Start 06/18/17 at 18:00 Bisacodyl (Dulcolax) 10 mg DAILY PO Last administered on 06/20/17 08:32; Admin Dose 10 MG; Start 06/18/17 at 18:00 Bisacodyl (Dulcolax Supp) 10 mg DAILY PRN [place] CONSTIPATION; Start 06/19/17 at 09 :00 Zolpidem Tartrate (Ambien) 5 mg QHS PRN PO SLEEP; Start 06/18/17 at 18:00 Benazepril HCl (Lotensin) 10 mg DAILY PO Last administered on 06/20/17 08:33; Admin Dose 10 MG; Start 06/18/17 at 18:00 Miscellaneous Information 1 ea NOTE XX ; Start 06/18/17 at 18:00 Glucose (Glutose) 15 gm Q15M PRN PO DECREASED GLUCOSE; Start 06/18/17 at 18:00 Glucose (Glutose) 22.5 gm Q15M PRN PO DECREASED GLUCOSE; Start 06/18/17 at 18: 00 Dextrose (D50w Syringe) 25 ml Q15M PRN IV DECREASED GLUCOSE; Start 06/18/17 at 18:00 Dextrose (D50w Syringe) 50 ml Q15M PRN IV DECREASED GLUCOSE; Start 06/18/17 at 18:00 Glucagon (Glucagen) 1 mg Q15M PRN [place] DECREASED GLUCOSE; Start 06/18/17 at 18:00 Glucose (Glutose) 15 gm Q15M PRN BUCCAL DECREASED GLUCOSE; Start 06/18/17 at 18 :00 Miscellaneous Information 1 ea NOTE XX ; Start 06/18/17 at 18:30 Glucose (Glutose) 15 gm Q15M PRN PO DECREASED GLUCOSE; Start 06/18/17 at 18:30 Glucose (Glutose) 22.5 gm Q15M PRN PO DECREASED GLUCOSE; Start 06/18/17 at 18: 30 Dextrose (D50w Syringe) 25 ml Q15M PRN IV DECREASED GLUCOSE; Start 06/18/17 at 18:30 Dextrose (D50w Syringe) 50 ml Q15M PRN IV DECREASED GLUCOSE; Start 06/18/17 at 18:30 Glucagon (Glucagen) 1 mg Q15M PRN IM DECREASED GLUCOSE; Start 06/18/17 at 18:30 Glucose (Glutose) 15 gm Q15M PRN BUCCAL DECREASED GLUCOSE; Start 06/18/17 at 18 :30 Metoclopramide HCl (Reglan) 10 mg Q6H PRN IV NAUSEA AND/OR VOMITING Last administered on 06/20/17 00:57; Admin Dose 10 MG; Start 06/19/17 at 23:30 Senna (Senokot) 2 tab BID PO Last administered on 06/20/17 21:07; Admin Dose 2 TAB; Start 06/20/17 at 12:00 Influenza Virus Vaccine (Fluzone) 0.5 ml ONCE ONCE IM* ; Start 06/21/17 at 13:00 ; Stop 06/21/17 at 13:01 DWIGHT GREENE MD Jun 20, 2017 22:38
--- NOTE | 2017-06-20 22:51 | PN ---
Date/Time of Note Date/Time of Note DATE: 06/20/17 TIME: 22:41 Assessment/Plan VTE Prophylaxis VTE Prophylaxis Intervention: SCD's Lines/Catheters IV Catheter Type (from [facility]): Saline Lock Urinary Cath still in place: No Assessment/Plan Chief Complaint/Hosp Course A- probable IIIc ovarian cancer given CA-125 of 217 and entirely normal CA-19-9 and CEA. P- I am arranging OR time as soon as possible with the operating room; but the patient told be she is having a colonoscopy tomorrow. NOTE; she had a negative colonoscopy 10 months ago. This is almost definitely a IIIC ovarian cancer given the elevated CA-125 and normal other markers but if it were a primary colon (very unikely) she would still benefit from the same primary cytoreduction. NOTE; doing a colonoscopy and biopsy even if mucinous lesion were found would not determine whether primary is colonic or ovarian with metastatic disease to colon which I commonly see and address. Problems: Subjective 24 Hr Interval Summary Free Text/Dictation Feels about the same and anxious for me to start the planned surgery. Exam/Review of Systems Vital Signs Vitals Vital Signs Date Time Temp Pulse Resp B/P Pulse Ox O2 Delivery O2 Flow Rate FiO2 06/20/17 19:34 98.3 107 20 124/71 94 Intake and Output 06/19/17 06/19/17 06/20/17 15:00 23:00 07:00 Intake Total 1600 ml 1220 ml Output Total 800 ml Balance 1600 ml 420 ml Exam Resp- clear CVS- NSR Abd- distension and mildly tender Ext- NT mild bilat edema Results Result Diagram: 06/19/1751606/19/17516 Results 24 hrs Laboratory Tests Test 06/20/17 07:52 Bedside Glucose 125 Medications Medications Current Medications Ondansetron HCl (Zofran Inj) 4 mg Q6H PRN IV NAUSEA AND/OR VOMITING Last administered on 06/19/17 20:58; Admin Dose 4 MG; Start 06/18/17 at 18:00 Acetaminophen (Tylenol Tab) 650 mg Q6H PRN PO PAIN LEVEL 1-3 OR FEVER; Start at 18:00 Acetaminophen/ Hydrocodone Bitart ([place] (5/325)) 1 tab Q6H PRN PO MODERATE PAIN LEVEL 4-6 Last administered on 06/20/17 21:07; Admin Dose 1 TAB; Start at 18:00 Morphine Sulfate (morphine) 2 mg Q4H PRN IV SEVERE PAIN LEVEL 7-10 Last administered on 06/18/17 23:01; Admin Dose 2 MG; Start 06/18/17 at 18:00 Docusate Sodium (Colace) 200 mg Q12H PO Last administered on 06/20/17 17:41; Admin Dose 200 MG; Start 06/18/17 at 18:00 Magnesium Hydroxide (Milk Of Mag) 30 ml DAILY PRN PO CONSTIPATION Last administered on 06/19/17 13:33; Admin Dose 30 ML; Start 06/18/17 at 18:00 Bisacodyl (Dulcolax) 10 mg DAILY PO Last administered on 06/20/17 08:32; Admin Dose 10 MG; Start 06/18/17 at 18:00 Bisacodyl (Dulcolax Supp) 10 mg DAILY PRN [place] CONSTIPATION; Start 06/19/17 at 09 :00 Zolpidem Tartrate (Ambien) 5 mg QHS PRN PO SLEEP; Start 06/18/17 at 18:00 Benazepril HCl (Lotensin) 10 mg DAILY PO Last administered on 06/20/17 08:33; Admin Dose 10 MG; Start 06/18/17 at 18:00 Miscellaneous Information 1 ea NOTE XX ; Start 06/18/17 at 18:00 Glucose (Glutose) 15 gm Q15M PRN PO DECREASED GLUCOSE; Start 06/18/17 at 18:00 Glucose (Glutose) 22.5 gm Q15M PRN PO DECREASED GLUCOSE; Start 06/18/17 at 18: 00 Dextrose (D50w Syringe) 25 ml Q15M PRN IV DECREASED GLUCOSE; Start 06/18/17 at 18:00 Dextrose (D50w Syringe) 50 ml Q15M PRN IV DECREASED GLUCOSE; Start 06/18/17 at 18:00 Glucagon (Glucagen) 1 mg Q15M PRN IM DECREASED GLUCOSE; Start 06/18/17 at 18:00 Glucose (Glutose) 15 gm Q15M PRN BUCCAL DECREASED GLUCOSE; Start 06/18/17 at 18 :00 Miscellaneous Information 1 ea NOTE XX ; Start 06/18/17 at 18:30 Glucose (Glutose) 15 gm Q15M PRN PO DECREASED GLUCOSE; Start 06/18/17 at 18:30 Glucose (Glutose) 22.5 gm Q15M PRN PO DECREASED GLUCOSE; Start 06/18/17 at 18: 30 Dextrose (D50w Syringe) 25 ml Q15M PRN IV DECREASED GLUCOSE; Start 06/18/17 at 18:30 Dextrose (D50w Syringe) 50 ml Q15M PRN IV DECREASED GLUCOSE; Start 06/18/17 at 18:30 Glucagon (Glucagen) 1 mg Q15M PRN IM DECREASED GLUCOSE; Start 06/18/17 at 18:30 Glucose (Glutose) 15 gm Q15M PRN BUCCAL DECREASED GLUCOSE; Start 06/18/17 at 18 :30 Metoclopramide HCl (Reglan) 10 mg Q6H PRN IV NAUSEA AND/OR VOMITING Last administered on 06/20/17 00:57; Admin Dose 10 MG; Start 06/19/17 at 23:30 Senna (Senokot) 2 tab BID PO Last administered on 06/20/17 21:07; Admin Dose 2 TAB; Start 06/20/17 at 12:00 Influenza Virus Vaccine (Fluzone) 0.5 ml ONCE ONCE IM* ; Start 06/21/17 at 13:00 ; Stop 06/21/17 at 13:01 INGRID GREENE MD Jun 20, 2017 22:50
--- NOTE | 2017-06-20 22:52 | CONS ---
Date/Time of Note Date/Time of Note DATE: 06/20/17 TIME: 22:47 Assessment/Plan Assessment/Plan Chief Complaint/Hosp Course #. Concern for peritoneal carcinomatosis and bilateral adnexal masses per recent CT scan done at [place] -CA 125 is elevated to > 200, CEA and AFP normal -will need to review CT A/P which has already been ordered -appreciate EXTRUDER OPERATOR HORIZONTAL ONC recommendations -pt will need optimal debulking surgery given the high likelihood of underlying malignancy -further recommendations for adjuvant chemotherapy will depend on the results of the surgical pathology #Abd pain -pt is scheduled for colonoscopy tomorrow # Diabetes -continue NovoLog sliding scale # Hypertension -continue current blood pressure meds Approximately 1 hour was spent in face to face time and in speaking and counseling her daughter as well as in coordination of her care Problems: Consultation Date/Type/Reason Admit Date/Time Jun 18, 2017 at 15:14 Initial Consult Date 06/19/17 Type of Consultation: Hematology Reason for Consultation EXTRUDER OPERATOR HORIZONTAL malignancy Referring Provider: JONA ELY 24 HR Interval Summary Free Text/Dictation pt was evaluated by seed and fertilizer specialist onc. still with abdominal pain and discomfort Exam/Review of Systems Vital Signs Vitals Vital Signs Date Time Temp Pulse Resp B/P Pulse Ox O2 Delivery O2 Flow Rate FiO2 06/20/17 19:34 98.3 107 20 124/71 94 Intake and Output 06/19/17 06/19/17 06/20/17 15:00 23:00 07:00 Intake Total 1600 ml 1220 ml Output Total 800 ml Balance 1600 ml 420 ml Exam Constitutional: alert Psych: no complaints Head: normocephalic Eyes: nl conjunctiva ENMT: nl external ears & nose Neck: non-tender, supple Respiratory: clear to auscultation, normal air movement Cardiovascular: nl pulses, regular rate and rhythm Gastrointestinal: soft Musculoskeletal: nl extremities to inspection Results Result Diagram: 06/19/1751606/19/17516 Results 24 hrs Laboratory Tests Test 06/20/17 07:52 Bedside Glucose 125 Medications Medications Current Medications Ondansetron HCl (Zofran Inj) 4 mg Q6H PRN IV NAUSEA AND/OR VOMITING Last administered on 06/19/17t 20:58; Admin Dose 4 MG; Start 06/18/17 at 18:00 Acetaminophen (Tylenol Tab) 650 mg Q6H PRN PO PAIN LEVEL 1-3 OR FEVER; Start at 18:00 Acetaminophen/ Hydrocodone Bitart ([place] (5/325)) 1 tab Q6H PRN PO MODERATE PAIN LEVEL 4-6 Last administered on 06/20/17 21:07; Admin Dose 1 TAB; Start at 18:00 Morphine Sulfate (morphine) 2 mg Q4H PRN IV SEVERE PAIN LEVEL 7-10 Last administered on 06/18/17 23:01; Admin Dose 2 MG; Start 06/18/17 at 18:00 Docusate Sodium (Colace) 200 mg Q12H PO Last administered on 06/20/17 17:41; Admin Dose 200 MG; Start 06/18/17 at 18:00 Magnesium Hydroxide (Milk Of Mag) 30 ml DAILY PRN PO CONSTIPATION Last administered on 06/19/17 13:33; Admin Dose 30 ML; Start 06/18/17 at 18:00 Bisacodyl (Dulcolax) 10 mg DAILY PO Last administered on 06/20/17 08:32; Admin Dose 10 MG; Start 06/18/17 at 18:00 Bisacodyl (Dulcolax Supp) 10 mg DAILY PRN [place] CONSTIPATION; Start 06/19/17 at 09 :00 Zolpidem Tartrate (Ambien) 5 mg QHS PRN PO SLEEP; Start 06/18/17 at 18:00 Benazepril HCl (Lotensin) 10 mg DAILY PO Last administered on 06/20/17 08:33; Admin Dose 10 MG; Start 06/18/17 at 18:00 Miscellaneous Information 1 ea NOTE XX ; Start 06/18/17 at 18:00 Glucose (Glutose) 15 gm Q15M PRN PO DECREASED GLUCOSE; Start 06/18/17 at 18:00 Glucose (Glutose) 22.5 gm Q15M PRN PO DECREASED GLUCOSE; Start 06/18/17 at 18: 00 Dextrose (D50w Syringe) 25 ml Q15M PRN IV DECREASED GLUCOSE; Start 06/18/17 at 18:00 Dextrose (D50w Syringe) 50 ml Q15M PRN IV DECREASED GLUCOSE; Start 06/18/17 at 18:00 Glucagon (Glucagen) 1 mg Q15M PRN IM DECREASED GLUCOSE; Start 06/18/17 at 18:00 Glucose (Glutose) 15 gm Q15M PRN BUCCAL DECREASED GLUCOSE; Start 06/18/17 at 18 :00 Miscellaneous Information 1 ea NOTE XX ; Start 06/18/17 at 18:30 Glucose (Glutose) 15 gm Q15M PRN PO DECREASED GLUCOSE; Start 06/18/17 at 18:30 Glucose (Glutose) 22.5 gm Q15M PRN PO DECREASED GLUCOSE; Start 06/18/17 at 18: 30 Dextrose (D50w Syringe) 25 ml Q15M PRN IV DECREASED GLUCOSE; Start 06/18/17 at 18:30 Dextrose (D50w Syringe) 50 ml Q15M PRN IV DECREASED GLUCOSE; Start 06/18/17 at 18:30 Glucagon (Glucagen) 1 mg Q15M PRN IM DECREASED GLUCOSE; Start 06/18/17 at 18:30 Glucose (Glutose) 15 gm Q15M PRN BUCCAL DECREASED GLUCOSE; Start 06/18/17 at 18 :30 Metoclopramide HCl (Reglan) 10 mg Q6H PRN IV NAUSEA AND/OR VOMITING Last administered on 06/20/17 00:57; Admin Dose 10 MG; Start 06/19/17 at 23:30 Senna (Senokot) 2 tab BID PO Last administered on 06/20/17 21:07; Admin Dose 2 TAB; Start 06/20/17 at 12:00 Influenza Virus Vaccine (Fluzone) 0.5 ml ONCE ONCE IM* ; Start 06/21/17 at 13:00 ; Stop 06/21/17 at 13:01 MINAL RICHARDSON M.D. Jun 20, 2017 22:52
[2017-06-21 02:55] VITALS: BP 117/56; RESP 16
[2017-06-21] MEDS: DOCUSATE SODIUM 100 MG CAP PO SCH ×2 (05:39→17:42)
[2017-06-21] MEDS ORDERED: POLYETHYLENE GLYCOL 3350 119 GM POWDER PO ONE (06:00)
[2017-06-21 07:54] VITALS: BP 111/55; RESP 18
[2017-06-21] MEDS ORDERED: BISACODYL (EC) 5 MG TAB PO ONE (08:00)
[2017-06-21] MEDS: SENNA TAB PO SCH ×2 (08:45→20:47)
[2017-06-21] MEDS: BISACODYL (EC) 5 MG TAB PO SCH (08:52)
[2017-06-21] MEDS: metFORMIN 500 MG TAB PO SCH (08:52)
[2017-06-21] MEDS: BENAZEPRIL 10 MG TAB PO SCH (08:54)
[2017-06-21] MEDS: ONDANSETRON 4 MG INJ IV PRN (10:15)
[2017-06-21] MEDS ORDERED: INFLUENZA VIRUS VACCINE 0.5 ML SYG IM* ONE (13:00)
[2017-06-21 13:32] VITALS: BP 111/58; RESP 20
--- NOTE | 2017-06-21 16:44 | PN ---
Date/Time of Note Date/Time of Note DATE: 06/21/17 TIME: 16:42 Assessment/Plan VTE Prophylaxis VTE Prophylaxis Intervention: SCD's Lines/Catheters [facility] Saline Lock Urinary Cath still in place: No Assessment/Plan Assessment/Plan Assessment * Abdominal pain/constipation CT scan abdomen . Complex solid and cystic masses are identified in the bilateral adnexa, measuring up to 12.0 cm on the right, compatible with primary ovarian malignancy. . Stranding and nodularity are seen throughout the omental fat, consistent with peritoneal carcinomatosis. Fat density right adrenal mass identified, compatible with benign myelolipoma. No evidence of neoplasm or metastatic disease is seen in the chest. * History of colonoscopy (07/2016) * Diabetes mellitus * Elevated Ca-125 Plan * continue present management * will sign out but will see patient as needs arise * case discussed with Dr lua * further orders will depend on clinical course Subjective 24 Hr Interval Summary Free Text/Dictation * course reviewed * colonoscopy discontinued * no untoward events Exam/Review of Systems Vital Signs Vitals Vital Signs Date Time Temp Pulse Resp B/P Pulse Ox O2 Delivery O2 Flow Rate FiO2 06/21/17 13:32 99.4 64 20 111/58 93 06/20/17 21:00 Room Air Intake and Output 06/20/17 06/20/17 06/21/17 15:00 23:00 07:00 Intake Total 760 ml Output Total 400 ml Balance 360 ml Exam Constitutional: alert, well developed Respiratory: clear to auscultation, normal air movement Cardiovascular: nl pulses, regular rate and rhythm Gastrointestinal: distended, non-tender, soft Musculoskeletal: nl extremities to inspection, nl gait and stance Results Result Diagram: 06/19/1751606/19/17516 Medications Medications Current Medications Ondansetron HCl (Zofran Inj) 4 mg Q6H PRN IV NAUSEA AND/OR VOMITING Last administered on 06/21/17 10:15; Admin Dose 4 MG; Start 06/18/17 at 18:00 Acetaminophen (Tylenol Tab) 650 mg Q6H PRN PO PAIN LEVEL 1-3 OR FEVER; Start at 18:00 Acetaminophen/ Hydrocodone Bitart ([place] (5/325)) 1 tab Q6H PRN PO MODERATE PAIN LEVEL 4-6 Last administered on 06/20/17 21:07; Admin Dose 1 TAB; Start at 18:00 Morphine Sulfate (morphine) 2 mg Q4H PRN IV SEVERE PAIN LEVEL 7-10 Last administered on 06/18/17 23:01; Admin Dose 2 MG; Start 06/18/17 at 18:00 Docusate Sodium (Colace) 200 mg Q12H PO Last administered on 06/21/17 05:39; Admin Dose 200 MG; Start 06/18/17 at 18:00 Magnesium Hydroxide (Milk Of Mag) 30 ml DAILY PRN PO CONSTIPATION Last administered on 06/19/17 13:33; Admin Dose 30 ML; Start 06/18/17 at 18:00 Bisacodyl (Dulcolax) 10 mg DAILY PO Last administered on 06/21/17 08:52; Admin Dose 10 MG; Start 06/18/17 at 18:00 Bisacodyl (Dulcolax Supp) 10 mg DAILY PRN [place] CONSTIPATION; Start 06/19/17 at 09 :00 Zolpidem Tartrate (Ambien) 5 mg QHS PRN PO SLEEP; Start 06/18/17 at 18:00 Benazepril HCl (Lotensin) 10 mg DAILY PO Last administered on 06/21/17 08:54; Admin Dose 10 MG; Start 06/18/17 at 18:00 Miscellaneous Information 1 ea NOTE XX ; Start 06/18/17 at 18:00 Glucose (Glutose) 15 gm Q15M PRN PO DECREASED GLUCOSE; Start 06/18/17 at 18:00 Glucose (Glutose) 22.5 gm Q15M PRN PO DECREASED GLUCOSE; Start 06/18/17 at 18: 00 Dextrose (D50w Syringe) 25 ml Q15M PRN IV DECREASED GLUCOSE; Start 06/18/17 at 18:00 Dextrose (D50w Syringe) 50 ml Q15M PRN IV DECREASED GLUCOSE; Start 06/18/17 at 18:00 Glucagon (Glucagen) 1 mg Q15M PRN IM DECREASED GLUCOSE; Start 06/18/17 at 18:00 Glucose (Glutose) 15 gm Q15M PRN BUCCAL DECREASED GLUCOSE; Start 06/18/17 at 18 :00 Miscellaneous Information 1 ea NOTE XX ; Start 06/18/17 at 18:30 Glucose (Glutose) 15 gm Q15M PRN PO DECREASED GLUCOSE; Start 06/18/17 at 18:30 Glucose (Glutose) 22.5 gm Q15M PRN PO DECREASED GLUCOSE; Start 06/18/17 at 18: 30 Dextrose (D50w Syringe) 25 ml Q15M PRN IV DECREASED GLUCOSE; Start 06/18/17 at 18:30 Dextrose (D50w Syringe) 50 ml Q15M PRN IV DECREASED GLUCOSE; Start 06/18/17 at 18:30 Glucagon (Glucagen) 1 mg Q15M PRN IM DECREASED GLUCOSE; Start 06/18/17 at 18:30 Glucose (Glutose) 15 gm Q15M PRN BUCCAL DECREASED GLUCOSE; Start 06/18/17 at 18 :30 Metoclopramide HCl (Reglan) 10 mg Q6H PRN IV NAUSEA AND/OR VOMITING Last administered on 06/20/17 00:57; Admin Dose 10 MG; Start 06/19/17 at 23:30 Senna (Senokot) 2 tab BID PO Last administered on 06/21/17 08:45; Admin Dose 2 TAB; Start 06/20/17 at 12:00 IRWIN PEPPER NP Jun 21, 2017 16:44
--- NOTE | 2017-06-21 18:55 | PN ---
Date/Time of Note Date/Time of Note DATE: 06/21/17 TIME: 18:53 Assessment/Plan VTE Prophylaxis VTE Prophylaxis Intervention: SCD's Lines/Catheters IV Catheter Type (from Nrs): Saline Lock Urinary Cath still in place: No Assessment/Plan Chief Complaint/Hosp Course 1. Constipation secondary to peritoneal carcinomatosis likely from ovarian primary Patient had bowel movement this a.m. CA 125 is elevated and repeat CT abdomen is suggestive of ovarian cancer, CT chest shows no malignancy in the chest H[facility]ER oncology, GI, and medical oncology consults appreciated, patient will need debulking surgery and subsequent chemotherapy Plan is for colonoscopy today and debulking surgery likely on Saturday CT abdomen at [facility] also showed findings suspicious for malignancy with peritoneal carcinomatosis, bilateral adnexal masses suggestive of ovarian etiology versus a colonic primary, no evidence of obstruction and possible metastatic mesenteric lymphadenopathy Suppository, senna and Colace 2. Diabetes-stable A1c at 6.6 NovoLog sliding scale 3. Hypertension-stable Continue home meds Prophylaxis: SCDs Problems: Subjective 24 Hr Interval Summary Constitutional: no complaints Exam/Review of Systems Vital Signs Vitals Vital Signs Date Time Temp Pulse Resp B/P Pulse Ox O2 Delivery O2 Flow Rate FiO2 06/21/17 13:32 99.4 64 20 111/58 93 06/20/17 21:00 Room Air Intake and Output 06/20/17 06/20/17 06/21/17 15:00 23:00 07:00 Intake Total 760 ml Output Total 400 ml Balance 360 ml Exam Constitutional: alert, oriented Respiratory: clear to auscultation Cardiovascular: regular rate and rhythm Gastrointestinal: soft, No distended Musculoskeletal: nl extremities to inspection Results Result Diagram: 06/19/17 0517 06/19/17516 Results 24 hrs Laboratory Tests Test 06/21/17 17:47 Bedside Glucose 126 Medications Medications Current Medications Ondansetron HCl (Zofran Inj) 4 mg Q6H PRN IV NAUSEA AND/OR VOMITING Last administered on 06/21/17t 10:15; Admin Dose 4 MG; Start 06/18/17 at 18:00 Acetaminophen (Tylenol Tab) 650 mg Q6H PRN PO PAIN LEVEL 1-3 OR FEVER; Start at 18:00 Acetaminophen/ Hydrocodone Bitart ([place] (5/325)) 1 tab Q6H PRN PO MODERATE PAIN LEVEL 4-6 Last administered on 06/20/17 21:07; Admin Dose 1 TAB; Start at 18:00 Morphine Sulfate (morphine) 2 mg Q4H PRN IV SEVERE PAIN LEVEL 7-10 Last administered on 06/18/17 23:01; Admin Dose 2 MG; Start 06/18/17 at 18:00 Docusate Sodium (Colace) 200 mg Q12H PO Last administered on 06/21/17 05:39; Admin Dose 200 MG; Start 06/18/17 at 18:00 Magnesium Hydroxide (Milk Of Mag) 30 ml DAILY PRN PO CONSTIPATION Last administered on 06/19/17 13:33; Admin Dose 30 ML; Start 06/18/17 at 18:00 Bisacodyl (Dulcolax) 10 mg DAILY PO Last administered on 06/21/17 08:52; Admin Dose 10 MG; Start 06/18/17 at 18:00 Bisacodyl (Dulcolax Supp) 10 mg DAILY PRN [place] CONSTIPATION; Start 06/19/17 at 09 :00 Zolpidem Tartrate (Ambien) 5 mg QHS PRN PO SLEEP; Start 06/18/17 at 18:00 Benazepril HCl (Lotensin) 10 mg DAILY PO Last administered on 06/21/17 08:54; Admin Dose 10 MG; Start 06/18/17 at 18:00 Miscellaneous Information 1 ea NOTE XX ; Start 06/18/17 at 18:00 Glucose (Glutose) 15 gm Q15M PRN PO DECREASED GLUCOSE; Start 06/18/17 at 18:00 Glucose (Glutose) 22.5 gm Q15M PRN PO DECREASED GLUCOSE; Start 06/18/17 at 18: 00 Dextrose (D50w Syringe) 25 ml Q15M PRN IV DECREASED GLUCOSE; Start 06/18/17 at 18:00 Dextrose (D50w Syringe) 50 ml Q15M PRN IV DECREASED GLUCOSE; Start 06/18/17 at 18:00 Glucagon (Glucagen) 1 mg Q15M PRN IM DECREASED GLUCOSE; Start 06/18/17 at 18:00 Glucose (Glutose) 15 gm Q15M PRN BUCCAL DECREASED GLUCOSE; Start 06/18/17 at 18 :00 Miscellaneous Information 1 ea NOTE XX ; Start 06/18/17 at 18:30 Glucose (Glutose) 15 gm Q15M PRN PO DECREASED GLUCOSE; Start 06/18/17 at 18:30 Glucose (Glutose) 22.5 gm Q15M PRN PO DECREASED GLUCOSE; Start 06/18/17 at 18: 30 Dextrose (D50w Syringe) 25 ml Q15M PRN IV DECREASED GLUCOSE; Start 06/18/17 at 18:30 Dextrose (D50w Syringe) 50 ml Q15M PRN IV DECREASED GLUCOSE; Start 06/18/17 at 18:30 Glucagon (Glucagen) 1 mg Q15M PRN IM DECREASED GLUCOSE; Start 06/18/17 at 18:30 Glucose (Glutose) 15 gm Q15M PRN BUCCAL DECREASED GLUCOSE; Start 06/18/17 at 18 :30 Metoclopramide HCl (Reglan) 10 mg Q6H PRN IV NAUSEA AND/OR VOMITING Last administered on 06/20/17 00:57; Admin Dose 10 MG; Start 06/19/17 at 23:30 Senna (Senokot) 2 tab BID PO Last administered on 06/21/17 08:45; Admin Dose 2 TAB; Start 06/20/17 at 12:00 JONA ELY Jun 21, 2017 18:55
--- NOTE | 2017-06-21 21:30 | PN ---
Date/Time of Note Date/Time of Note DATE: 06/21/17 TIME: 21:27 Assessment/Plan VTE Prophylaxis VTE Prophylaxis Intervention: LMWH Lines/Catheters IV [facility] Saline Lock Urinary Cath still in place: No Assessment/Plan Chief Complaint/Hosp Course A- probable IIIc ovarian cancer given CA-125 of 217 and entirely normal CA-19-9 and CEA. P- I am arranging OR time as soon as possible with the operating room; but the patient told be she is having a colonoscopy tomorrow. NOTE; she had a negative colonoscopy 10 months ago. This is almost definitely a IIIC ovarian cancer given the elevated CA-125 and normal other markers but if it were a primary colon (very unikely) she would still benefit from the same primary cytoreduction. NOTE; doing a colonoscopy and biopsy even if mucinous lesion were found would not determine whether primary is colonic or ovarian with metastatic disease to colon which I commonly see and address. Problems: Assessment/Plan A- no chg and plan surg Tue P- will get a doppler as a pregaution as there is a 2-5 % risk and then prep and to OR Tue Subjective 24 Hr Interval Summary Free Text/Dictation Feels about the same with some loose stools and cramps. Exam/Review of Systems Vital Signs Vitals Vital Signs Date Time Temp Pulse Resp B/P Pulse Ox O2 Delivery O2 Flow Rate FiO2 06/21/17 13:32 99.4 64 20 111/58 93 06/20/17 21:00 Room Air Intake and Output 06/20/17 06/20/17 06/21/17 15:00 23:00 07:00 Intake Total 760 ml Output Total 400 ml Balance 360 ml Exam Resp- clear Cvs- NSR Abd- soft and distended, mildly tender Ext NT no edema Results Result Diagram: 06/19/1751606/19/17516 Results 24 hrs Laboratory Tests Test 06/21/17 17:47 Bedside Glucose 126 Medications Medications Current Medications Ondansetron HCl (Zofran Inj) 4 mg Q6H PRN IV NAUSEA AND/OR VOMITING Last administered on 06/21/17t 10:15; Admin Dose 4 MG; Start 06/18/17 at 18:00 Acetaminophen (Tylenol Tab) 650 mg Q6H PRN PO PAIN LEVEL 1-3 OR FEVER; Start at 18:00 Acetaminophen/ Hydrocodone Bitart ([place] (5/325)) 1 tab Q6H PRN PO MODERATE PAIN LEVEL 4-6 Last administered on 06/20/17 21:07; Admin Dose 1 TAB; Start at 18:00 Morphine Sulfate (morphine) 2 mg Q4H PRN IV SEVERE PAIN LEVEL 7-10 Last administered on 06/18/17 23:01; Admin Dose 2 MG; Start 06/18/17 at 18:00 Docusate Sodium (Colace) 200 mg Q12H PO Last administered on 06/21/17 05:39; Admin Dose 200 MG; Start 06/18/17 at 18:00 Magnesium Hydroxide (Milk Of Mag) 30 ml DAILY PRN PO CONSTIPATION Last administered on 06/19/17 13:33; Admin Dose 30 ML; Start 06/18/17 at 18:00 Bisacodyl (Dulcolax) 10 mg DAILY PO Last administered on 06/21/17 08:52; Admin Dose 10 MG; Start 06/18/17 at 18:00 Bisacodyl (Dulcolax Supp) 10 mg DAILY PRN [place] CONSTIPATION; Start 06/19/17 at 09 :00 Zolpidem Tartrate (Ambien) 5 mg QHS PRN PO SLEEP; Start 06/18/17 at 18:00 Benazepril HCl (Lotensin) 10 mg DAILY PO Last administered on 06/21/17 08:54; Admin Dose 10 MG; Start 06/18/17 at 18:00 Miscellaneous Information 1 ea NOTE XX ; Start 06/18/17 at 18:00 Glucose (Glutose) 15 gm Q15M PRN PO DECREASED GLUCOSE; Start 06/18/17 at 18:00 Glucose (Glutose) 22.5 gm Q15M PRN PO DECREASED GLUCOSE; Start 06/18/17 at 18: 00 Dextrose (D50w Syringe) 25 ml Q15M PRN IV DECREASED GLUCOSE; Start 06/18/17 at 18:00 Dextrose (D50w Syringe) 50 ml Q15M PRN IV DECREASED GLUCOSE; Start 06/18/17 at 18:00 Glucagon (Glucagen) 1 mg Q15M PRN IM DECREASED GLUCOSE; Start 06/18/17 at 18:00 Glucose (Glutose) 15 gm Q15M PRN BUCCAL DECREASED GLUCOSE; Start 06/18/17 at 18 :00 Miscellaneous Information 1 ea NOTE XX ; Start 06/18/17 at 18:30 Glucose (Glutose) 15 gm Q15M PRN PO DECREASED GLUCOSE; Start 06/18/17 at 18:30 Glucose (Glutose) 22.5 gm Q15M PRN PO DECREASED GLUCOSE; Start 06/18/17 at 18: 30 Dextrose (D50w Syringe) 25 ml Q15M PRN IV DECREASED GLUCOSE; Start 06/18/17 at 18:30 Dextrose (D50w Syringe) 50 ml Q15M PRN IV DECREASED GLUCOSE; Start 06/18/17 at 18:30 Glucagon (Glucagen) 1 mg Q15M PRN IM DECREASED GLUCOSE; Start 06/18/17 at 18:30 Glucose (Glutose) 15 gm Q15M PRN BUCCAL DECREASED GLUCOSE; Start 06/18/17 at 18 :30 Metoclopramide HCl (Reglan) 10 mg Q6H PRN IV NAUSEA AND/OR VOMITING Last administered on 06/20/17 00:57; Admin Dose 10 MG; Start 06/19/17 at 23:30 Senna (Senokot) 2 tab BID PO Last administered on 06/21/17 08:45; Admin Dose 2 TAB; Start 06/20/17 at 12:00 INGRID GREENE MD Jun 21, 2017 21:29
[2017-06-21 21:45] VITALS: BP 125/78; RESP 20
--- NOTE | 2017-06-21 22:33 | RADRPT ---
PROCEDURE: US bilateral lower extremity veins. CLINICAL INDICATION: Bilateral leg pain and swelling. TECHNIQUE: Multiple longitudinal and transverse images of the bilateral lower extremity veins were obtained with tolentino scale and color Doppler imaging. The common femoral vein, femoral vein, and popl iteal vein were evaluated. 2D grayscale measurements with compression sonography, color Doppler, and pulsed Doppler with augmentation. COMPARISON: No prior studies are available for comparison. FINDINGS: The bilateral common femoral, femoral and popliteal veins are normally compressible throughout. Col or flow demonstrates normal filling of the vessels. Normal waveforms are visualized and there is no rmal response to augmentation. IMPRESSION: 1. No evidence of deep vein thrombosis involving either lower extremity. RPTAT: QQ .Emilio Snow MD, MD Date Time Electronically viewed and signed by .Emilio Snow MD, on 06/21/2017 22:33 .R/
[2017-06-22 01:17] VITALS: BP 135/71; RESP 18
[2017-06-22] MEDS: DOCUSATE SODIUM 100 MG CAP PO SCH ×2 (05:53→17:39)
[2017-06-22 07:45] VITALS: BP 128/60; RESP 18
[2017-06-22] MEDS: SENNA TAB PO SCH ×2 (08:18→20:59)
[2017-06-22] MEDS: BENAZEPRIL 10 MG TAB PO SCH (08:18)
[2017-06-22] MEDS: metFORMIN 500 MG TAB PO SCH (08:19)
[2017-06-22] MEDS: BISACODYL (EC) 5 MG TAB PO SCH (08:19)
--- NOTE | 2017-06-22 12:32 | PN ---
Date/Time of Note Date/Time of Note DATE: 06/22/17 TIME: 12:30 Assessment/Plan VTE Prophylaxis VTE Prophylaxis Intervention: LMWH Lines/Catheters IV C[facility]ter Type (from [facility] Saline Lock Urinary Cath still in place: No Assessment/Plan Chief Complaint/Hosp Course A- probable IIIc ovarian cancer given CA-125 of 217 and entirely normal CA-19-9 and CEA. P- I am arranging OR time as soon as possible with the operating room; but the patient told be she is having a colonoscopy tomorrow. NOTE; she had a negative colonoscopy 10 months ago. This is almost definitely a IIIC ovarian cancer given the elevated CA-125 and normal other markers but if it were a primary colon (very unikely) she would still benefit from the same primary cytoreduction. NOTE; doing a colonoscopy and biopsy even if mucinous lesion were found would not determine whether primary is colonic or ovarian with metastatic disease to colon which I commonly see and address. Problems: Assessment/Plan A- awaits OR time and doppler schd as precaution P- check doppler and start prep in a.m. Subjective 24 Hr Interval Summary Free Text/Dictation Some nausea but able to eat and OOB. Exam/Review of Systems Vital Signs Vitals Vital Signs Date Time Temp Pulse Resp B/P Pulse Ox O2 Delivery O2 Flow Rate FiO2 06/22/17 07:45 98.6 75 18 128/60 95 06/20/17 21:00 Room Air Intake and Output 06/21/17 06/21/17 06/22/17 15:00 23:00 07:00 Intake Total 1200 ml 300 ml Balance 1200 ml 300 ml Exam Resp- clear Cvs- NSR Abd- soft and distended, mildly tender Ext NT no edema Results Result Diagram: 06/19/1751606/19/17516 Results 24 hrs Laboratory Tests Test 06/21/17 17:47 06/22/17 08:02 Bedside Glucose 126 128 Medications Medications Current Medications Ondansetron HCl (Zofran Inj) 4 mg Q6H PRN IV NAUSEA AND/OR VOMITING Last administered on 06/21/17t 10:15; Admin Dose 4 MG; Start 06/18/17 at 18:00 Acetaminophen (Tylenol Tab) 650 mg Q6H PRN PO PAIN LEVEL 1-3 OR FEVER; Start at 18:00 Acetaminophen/ Hydrocodone Bitart ([place] (5/325)) 1 tab Q6H PRN PO MODERATE PAIN LEVEL 4-6 Last administered on 06/20/17 21:07; Admin Dose 1 TAB; Start at 18:00 Morphine Sulfate (morphine) 2 mg Q4H PRN IV SEVERE PAIN LEVEL 7-10 Last administered on 06/18/17 23:01; Admin Dose 2 MG; Start 06/18/17 at 18:00 Docusate Sodium (Colace) 200 mg Q12H PO Last administered on 06/22/17 05:53; Admin Dose 200 MG; Start 06/18/17 at 18:00 Magnesium Hydroxide (Milk Of Mag) 30 ml DAILY PRN PO CONSTIPATION Last administered on 06/19/17 13:33; Admin Dose 30 ML; Start 06/18/17 at 18:00 Bisacodyl (Dulcolax) 10 mg DAILY PO Last administered on 06/22/17 08:19; Admin Dose 10 MG; Start 06/18/17 at 18:00 Bisacodyl (Dulcolax Supp) 10 mg DAILY PRN [place] CONSTIPATION; Start 06/19/17 at 09 :00 Zolpidem Tartrate (Ambien) 5 mg QHS PRN PO SLEEP; Start 06/18/17 at 18:00 Miscellaneous Information 1 ea NOTE XX ; Start 06/18/17 at 18:00 Glucose (Glutose) 15 gm Q15M PRN PO DECREASED GLUCOSE; Start 06/18/17 at 18:00 Glucose (Glutose) 22.5 gm Q15M PRN PO DECREASED GLUCOSE; Start 06/18/17 at 18: 00 Dextrose (D50w Syringe) 25 ml Q15M PRN IV DECREASED GLUCOSE; Start 06/18/17 at 18:00 Dextrose (D50w Syringe) 50 ml Q15M PRN IV DECREASED GLUCOSE; Start 06/18/17 at 18:00 Glucagon (Glucagen) 1 mg Q15M PRN IM DECREASED GLUCOSE; Start 06/18/17 at 18:00 Glucose (Glutose) 15 gm Q15M PRN BUCCAL DECREASED GLUCOSE; Start 06/18/17 at 18 :00 Miscellaneous Information 1 ea NOTE XX ; Start 06/18/17 at 18:30 Glucose (Glutose) 15 gm Q15M PRN PO DECREASED GLUCOSE; Start 06/18/17 at 18:30 Glucose (Glutose) 22.5 gm Q15M PRN PO DECREASED GLUCOSE; Start 06/18/17 at 18: 30 Dextrose (D50w Syringe) 25 ml Q15M PRN IV DECREASED GLUCOSE; Start 06/18/17 at 18:30 Dextrose (D50w Syringe) 50 ml Q15M PRN IV DECREASED GLUCOSE; Start 06/18/17 at 18:30 Glucagon (Glucagen) 1 mg Q15M PRN IM DECREASED GLUCOSE; Start 06/18/17 at 18:30 Glucose (Glutose) 15 gm Q15M PRN BUCCAL DECREASED GLUCOSE; Start 06/18/17 at 18 :30 Metoclopramide HCl (Reglan) 10 mg Q6H PRN IV NAUSEA AND/OR VOMITING Last administered on 06/20/17 00:57; Admin Dose 10 MG; Start 06/19/17 at 23:30 Senna (Senokot) 2 tab BID PO Last administered on 06/22/17 08:18; Admin Dose 2 TAB; Start 06/20/17 at 12:00 INGRID GREENE MD Jun 22, 2017 12:32
[2017-06-22 13:20] VITALS: BP 107/57; RESP 18
[2017-06-22] MEDS: HYDROCODONE/APAP (5/325) TAB PO PRN (13:47)
--- NOTE | 2017-06-22 14:23 | PN ---
Date/Time of Note Date/Time of Note DATE: 06/22/17 TIME: 14:21 Assessment/Plan VTE Prophylaxis VTE Prophylaxis Intervention: LMWH Lines/Catheters IV Catheter Type (from Nrs): Saline Lock Urinary Cath still in place: No Assessment/Plan Chief Complaint/Hosp Course 61 yo female presentign wt abdominal pain and found to have diffuse peritoneal malginancy, likely ovarian ca - Plan for colonoscopy - Pain control - Management per sales forecast analyst/onc Problems: Subjective 24 Hr Interval Summary Free Text/Dictation Feels genearlly well Mild lower abdominal discomfort Awaiting procedure Exam/Review of Systems Vital Signs Vitals Vital Signs Date Time Temp Pulse Resp B/P Pulse Ox O2 Delivery O2 Flow Rate FiO2 06/22/17 13:20 98.8 92 18 107/57 95 06/20/17 21:00 Room Air Intake and Output 06/21/17 06/21/17 06/22/17 15:00 23:00 07:00 Intake Total 1200 ml 300 ml Balance 1200 ml 300 ml Exam Constitutional: alert, oriented, well developed Psych: nl mood/affect, no complaints Head: atraumatic, normocephalic Eyes: EOMI, PERRL, nl conjunctiva, nl lids, nl sclera ENMT: nl external ears & nose, nl lips & teeth, nl nasal mucosa & septum Neck: non-tender, supple Respiratory: clear to auscultation, normal air movement Cardiovascular: nl pulses, regular rate and rhythm Gastrointestinal: nl liver, spleen, non-tender, soft Musculoskeletal: nl extremities to inspection, nl gait and stance Extremities: normal pulses Neurological: 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, nl mental status, nl speech, nl strength Skin: nl turgor, No rash or lesions Lymph: nl lymph nodes Results Result Diagram: 06/19/1751606/19/17516 Results 24 hrs Laboratory Tests Test 06/21/17 17:47 06/22/17 08:02 Bedside Glucose 126 128 Medications Medications Current Medications Ondansetron HCl (Zofran Inj) 4 mg Q6H PRN IV NAUSEA AND/OR VOMITING Last administered on 06/21/17t 10:15; Admin Dose 4 MG; Start 06/18/17 at 18:00 Acetaminophen (Tylenol Tab) 650 mg Q6H PRN PO PAIN LEVEL 1-3 OR FEVER; Start at 18:00 Acetaminophen/ Hydrocodone Bitart ([place] (5/325)) 1 tab Q6H PRN PO MODERATE PAIN LEVEL 4-6 Last administered on 06/22/17 13:47; Admin Dose 1 TAB; Start at 18:00 Morphine Sulfate (morphine) 2 mg Q4H PRN IV SEVERE PAIN LEVEL 7-10 Last administered on 06/18/17 23:01; Admin Dose 2 MG; Start 06/18/17 at 18:00 Docusate Sodium (Colace) 200 mg Q12H PO Last administered on 06/22/17 05:53; Admin Dose 200 MG; Start 06/18/17 at 18:00 Magnesium Hydroxide (Milk Of Mag) 30 ml DAILY PRN PO CONSTIPATION Last administered on 06/19/17 13:33; Admin Dose 30 ML; Start 06/18/17 at 18:00 Bisacodyl (Dulcolax) 10 mg DAILY PO Last administered on 06/22/17 08:19; Admin Dose 10 MG; Start 06/18/17 at 18:00 Bisacodyl (Dulcolax Supp) [address] CONSTIPATION; Start 06/19/17 at 09 :00 Zolpidem Tartrate (Ambien) 5 mg QHS PRN PO SLEEP; Start 06/18/17 at 18:00 Miscellaneous Information 1 ea NOTE XX ; Start 06/18/17 at 18:00 Glucose (Glutose) 15 gm Q15M PRN PO DECREASED GLUCOSE; Start 06/18/17 at 18:00 Glucose (Glutose) 22.5 gm Q15M PRN PO DECREASED GLUCOSE; Start 06/18/17 at 18: 00 Dextrose (D50w Syringe) 25 ml Q15M PRN IV DECREASED GLUCOSE; Start 06/18/17 at 18:00 Dextrose (D50w Syringe) 50 ml Q15M PRN IV DECREASED GLUCOSE; Start 06/18/17 at 18:00 Glucagon (Glucagen) 1 mg Q15M PRN IM DECREASED GLUCOSE; Start 06/18/17 at 18:00 Glucose (Glutose) 15 gm Q15M PRN BUCCAL DECREASED GLUCOSE; Start 06/18/17 at 18 :00 Miscellaneous Information 1 ea NOTE XX ; Start 06/18/17 at 18:30 Glucose (Glutose) 15 gm Q15M PRN PO DECREASED GLUCOSE; Start 06/18/17 at 18:30 Glucose (Glutose) 22.5 gm Q15M PRN PO DECREASED GLUCOSE; Start 06/18/17 at 18: 30 Dextrose (D50w Syringe) 25 ml Q15M PRN IV DECREASED GLUCOSE; Start 06/18/17 at 18:30 Dextrose (D50w Syringe) 50 ml Q15M PRN IV DECREASED GLUCOSE; Start 06/18/17 at 18:30 Glucagon (Glucagen) 1 mg Q15M PRN IM DECREASED GLUCOSE; Start 06/18/17 at 18:30 Glucose (Glutose) 15 gm Q15M PRN BUCCAL DECREASED GLUCOSE; Start 06/18/17 at 18 :30 Metoclopramide HCl (Reglan) 10 mg Q6H PRN IV NAUSEA AND/OR VOMITING Last administered on 06/20/17 00:57; Admin Dose 10 MG; Start 06/19/17 at 23:30 Senna (Senokot) 2 tab BID PO Last administered on 06/22/17 08:18; Admin Dose 2 TAB; Start 06/20/17 at 12:00 DIXIE BURLESON MD Jun 22, 2017 14:23
[2017-06-22 19:28] VITALS: BP 104/53; RESP 20
[2017-06-23 03:21] VITALS: BP 119/56; RESP 18
[2017-06-23] MEDS: DOCUSATE SODIUM 100 MG CAP PO SCH ×2 (06:26→17:46)
[2017-06-23 06:54] LABS: BASOPHILS % 0.5 % (0.0-2.0); EOSINOPHILS # 0.2 10^3/ul (0.0-0.5); EOSINOPHILS % 2.3 % (0.0-7.0); HEMATOCRIT 36.6 % (37.0-47.0); HEMOGLOBIN 11.4 g/dl (12.0-16.0); LYMPHOCYTES % 15.9 % (15.0-51.0); MEAN CORPUSCULAR HEMOGLOBIN 28.5 pg (29.0-33.0); MEAN CORPUSCULAR HGB CONC 31.1 g/dl (32.0-37.0); MEAN CORPUSCULAR VOLUME 91.5 fl (82.0-101.0); MEAN PLATELET VOLUME 11.2 fl (7.4-10.4); MONOCYTE # 0.5 10^3/ul (0.3-0.9); NEUTROPHIL # 4.7 10^3/ul (1.6-7.5); NEUTROPHILS % 72.8 % (39.0-77.0); PLATELET COUNT 277 10^3/UL (140-415); RED CELL DISTRIBUTION WIDTH 14.8 % (11.5-14.5); WHITE BLOOD COUNT 6.5 10^3/ul (4.8-10.8)
[2017-06-23 07:11] LABS: INR 1.22; PROTIME 15.5 Sec (12.2-14.2); PT RATIO 1.2
[2017-06-23 07:27] VITALS: BP 125/59; RESP 18
[2017-06-23 07:45] LABS: ALBUMIN 3.2 g/dl (3.3-4.9); ALBUMIN/GLOBULIN RATIO 0.86; BILIRUBIN,INDIRECT 0.2 mg/dl (0-1.1); BILIRUBIN,TOTAL 0.2 mg/dl (0.2-1.3); CALCIUM 8.9 mg/dl (8.4-10.2); CREATININE 0.62 mg/dl (0.44-1.00); TOTAL PROTEIN 6.9 g/dl (6.1-8.1)
[2017-06-23] MEDS: SENNA TAB PO SCH ×2 (09:35→20:30)
[2017-06-23] MEDS: BISACODYL (EC) 5 MG TAB PO SCH (09:35)
[2017-06-23] MEDS ORDERED: PEG/ELECTROLYTES 4L BTL PO ONE (11:00)
[2017-06-23 13:35] VITALS: BP 131/64; RESP 20
--- NOTE | 2017-06-23 15:18 | PN ---
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 Problems: Subjective 24 Hr Interval Summary Free Text/Dictation No change to clinical status Pain controlled Awaiting colonoscopy Exam/Review of Systems Vital Signs Vitals Vital Signs Date Time Temp Pulse Resp B/P Pulse Ox O2 Delivery O2 Flow Rate FiO2 06/23/17 13:35 98.2 79 20 131/64 94 06/20/17 21:00 Room Air Intake and Output 06/22/17 06/22/17 06/23/17 15:00 23:00 07:00 Intake Total 840 ml Balance 840 ml Exam Constitutional: alert, oriented, well developed Psych: nl mood/affect, no complaints Head: atraumatic, normocephalic Eyes: EOMI, PERRL, nl conjunctiva, nl lids, nl sclera ENMT: nl external ears & nose, nl lips & teeth, nl nasal mucosa & septum Neck: non-tender, supple Respiratory: clear to auscultation, normal air movement Cardiovascular: nl pulses, regular rate and rhythm Gastrointestinal: nl liver, spleen, non-tender, soft Musculoskeletal: nl extremities to inspection, nl gait and stance Extremities: normal pulses Neurological: 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 II-XII intact, nl mental status, nl speech, nl strength Skin: nl turgor, No rash or lesions Lymph: nl lymph nodes Results Result Diagram: 06/23/17 0458 06/23/17 0458 Results 24 hrs Laboratory Tests Test 06/23/17 04:58 White Blood Count 6.5 Red Blood Count 4.00 L Hemoglobin 11.4 L Hematocrit 36.6 L Mean Corpuscular Volume 91.5 Mean Corpuscular Hemoglobin 28.5 L Mean Corpuscular Hemoglobin Concent 31.1 L Red Cell Distribution Width 14.8 H Platelet Count 277 Mean Platelet Volume 11.2 H Neutrophils % 72.8 Lymphocytes % 15.9 Monocytes % 8.0 Eosinophils % 2.3 Basophils % 0.5 Nucleated Red Blood Cells % 0.0 Neutrophils # 4.7 Lymphocytes # 1.0 Monocytes # 0.5 Eosinophils # 0.2 Basophils # 0.0 Nucleated Red Blood Cells # 0.0 Prothrombin Time 15.5 H Prothrombin Time Ratio 1.2 INR International Normalized Ratio 1.22 Sodium Level 137 Potassium Level 4.0 Chloride Level 102 Carbon Dioxide Level 29 Anion Gap 10 Blood Urea Nitrogen 12 Creatinine 0.62 Glucose Level 109 Calcium Level 8.9 Total Bilirubin 0.2 Direct Bilirubin 0.00 Indirect Bilirubin 0.2 Aspartate Amino Transf (AST/SGOT) 29 Alanine Aminotransferase (ALT/SGPT) 38 Alkaline Phosphatase 63 Total Protein 6.9 Albumin 3.2 L Globulin 3.70 H Albumin/Globulin Ratio 0.86 Medications Medications Current Medications Ondansetron HCl (Zofran Inj) 4 mg Q6H PRN IV NAUSEA AND/OR VOMITING Last administered on 06/21/17 10:15; Admin Dose 4 MG; Start 06/18/17 at 18:00 Acetaminophen (Tylenol Tab) 650 mg Q6H PRN PO PAIN LEVEL 1-3 OR FEVER; Start at 18:00 Acetaminophen/ Hydrocodone Bitart ([place] (5/325)) 1 tab Q6H PRN PO MODERATE PAIN LEVEL 4-6 Last administered on 06/22/17 13:47; Admin Dose 1 TAB; Start at 18:00 Morphine Sulfate (morphine) 2 mg Q4H PRN IV SEVERE PAIN LEVEL 7-10 Last administered on 06/18/17 23:01; Admin Dose 2 MG; Start 06/18/17 at 18:00 Docusate Sodium (Colace) 200 mg Q12H PO Last administered on 06/23/17 06:26; Admin Dose 200 MG; Start 06/18/17 at 18:00 Magnesium Hydroxide (Milk Of Mag) 30 ml DAILY PRN PO CONSTIPATION Last administered on 06/19/17 13:33; Admin Dose 30 ML; Start 06/18/17 at 18:00 Bisacodyl (Dulcolax) 10 mg DAILY PO Last administered on 06/23/17 09:35; Admin Dose 10 MG; Start 06/18/17 at 18:00 Bisacodyl (Dulcolax Supp) 10 mg DAILY PRN [place] CONSTIPATION; Start 06/19/17 at 09 :00 Zolpidem Tartrate (Ambien) 5 mg QHS PRN PO SLEEP; Start 06/18/17 at 18:00 Miscellaneous Information 1 ea NOTE XX ; Start 06/18/17 at 18:00 Glucose (Glutose) 15 gm Q15M PRN PO DECREASED GLUCOSE; Start 06/18/17 at 18:00 Glucose (Glutose) 22.5 gm Q15M PRN PO DECREASED GLUCOSE; Start 06/18/17 at 18: 00 Dextrose (D50w Syringe) 25 ml Q15M PRN IV DECREASED GLUCOSE; Start 06/18/17 at 18:00 Dextrose (D50w Syringe) 50 ml Q15M PRN IV DECREASED GLUCOSE; Start 06/18/17 at 18:00 Glucagon (Glucagen) 1 mg Q15M PRN IM DECREASED GLUCOSE; Start 06/18/17 at 18:00 Glucose (Glutose) 15 gm Q15M PRN BUCCAL DECREASED GLUCOSE; Start 06/18/17 at 18 :00 Miscellaneous Information 1 ea NOTE XX ; Start 06/18/17 at 18:30 Glucose (Glutose) 15 gm Q15M PRN PO DECREASED GLUCOSE; Start 06/18/17 at 18:30 Glucose (Glutose) 22.5 gm Q15M PRN PO DECREASED GLUCOSE; Start 06/18/17 at 18: 30 Dextrose (D50w Syringe) 25 ml Q15M PRN IV DECREASED GLUCOSE; Start 06/18/17 at 18:30 Dextrose (D50w Syringe) 50 ml Q15M PRN IV DECREASED GLUCOSE; Start 06/18/17 at 18:30 Glucagon (Glucagen) 1 mg Q15M PRN IM DECREASED GLUCOSE; Start 06/18/17 at 18:30 Glucose (Glutose) 15 gm Q15M PRN BUCCAL DECREASED GLUCOSE; Start 06/18/17 at 18 :30 Metoclopramide HCl (Reglan) 10 mg Q6H PRN IV NAUSEA AND/OR VOMITING Last administered on 06/20/17 00:57; Admin Dose 10 MG; Start 06/19/17 at 23:30 Senna (Senokot) 2 tab BID PO Last administered on 06/23/17 09:35; Admin Dose 2 TAB; Start 06/20/17 at 12:00 DIXIE BURELSON MD Jun 23, 2017 15:18
--- NOTE | 2017-06-23 18:28 | PN ---
Date/Time of Note Date/Time of Note DATE: 06/23/17 TIME: 18:25 Assessment/Plan VTE Prophylaxis VTE Prophylaxis Intervention: SCD's Lines/Catheters IV [facility]ter Type (from [email or web address] Saline Lock Urinary Cath still in place: No Assessment/Plan Chief Complaint/Hosp Course A- probable IIIc ovarian cancer given CA-125 of 217 and entirely normal CA-19-9 and CEA. P- I am arranging OR time as soon as possible with the operating room; but the patient told be she is having a colonoscopy tomorrow. NOTE; she had a negative colonoscopy 10 months ago. This is almost definitely a IIIC ovarian cancer given the elevated CA-125 and normal other markers but if it were a primary colon (very unikely) she would still benefit from the same primary cytoreduction. NOTE; doing a colonoscopy and biopsy even if mucinous lesion were found would not determine whether primary is colonic or ovarian with metastatic disease to colon which I commonly see and address. Problems: Assessment/Plan A- getting bowel prepped and prepared. P continue prep and will type and cross and consent a.m. Discussed again with pt and family. Subjective 24 Hr Interval Summary Free Text/Dictation Tolerating bowel prep marginally. OOB more. Exam/Review of Systems Vital Signs Vitals Vital Signs Date Time Temp Pulse Resp B/P Pulse Ox O2 Delivery O2 Flow Rate FiO2 06/23/17 13:35 98.2 79 20 131/64 94 06/20/17 21:00 Room Air Intake and Output 06/22/17 06/22/17 06/23/17 15:00 23:00 07:00 Intake Total 840 ml Balance 840 ml Exam Resp- clear CVS- NSR Abd- soft mildly tender and distended. Ext NT no edema Results Result Diagram: 06/23/178 06/23/17 0458 Results 24 hrs Laboratory Tests Test 06/23/17 04:58 White Blood Count 6.5 Red Blood Count 4.00 L Hemoglobin 11.4 L Hematocrit 36.6 L Mean Corpuscular Volume 91.5 Mean Corpuscular Hemoglobin 28.5 L Mean Corpuscular Hemoglobin Concent 31.1 L Red Cell Distribution Width 14.8 H Platelet Count 277 Mean Platelet Volume 11.2 H Neutrophils % 72.8 Lymphocytes % 15.9 Monocytes % 8.0 Eosinophils % 2.3 Basophils % 0.5 Nucleated Red Blood Cells % 0.0 Neutrophils # 4.7 Lymphocytes # 1.0 Monocytes # 0.5 Eosinophils # 0.2 Basophils # 0.0 Nucleated Red Blood Cells # 0.0 Prothrombin Time 15.5 H Prothrombin Time Ratio 1.2 INR International Normalized Ratio 1.22 Sodium Level 137 Potassium Level 4.0 Chloride Level 102 Carbon Dioxide Level 29 Anion Gap 10 Blood Urea Nitrogen 12 Creatinine 0.62 Glucose Level 109 Calcium Level 8.9 Total Bilirubin 0.2 Direct Bilirubin 0.00 Indirect Bilirubin 0.2 Aspartate Amino Transf (AST/SGOT) 29 Alanine Aminotransferase (ALT/SGPT) 38 Alkaline Phosphatase 63 Total Protein 6.9 Albumin 3.2 L Globulin 3.70 H Albumin/Globulin Ratio 0.86 Medications Medications Current Medications Ondansetron HCl (Zofran Inj) 4 mg Q6H PRN IV NAUSEA AND/OR VOMITING Last administered on 06/21/17 10:15; Admin Dose 4 MG; Start 06/18/17 at 18:00 Acetaminophen (Tylenol Tab) 650 mg Q6H PRN PO PAIN LEVEL 1-3 OR FEVER; Start at 18:00 Acetaminophen/ Hydrocodone Bitart ([place] (5/325)) 1 tab Q6H PRN PO MODERATE PAIN LEVEL 4-6 Last administered on 06/22/17 13:47; Admin Dose 1 TAB; Start at 18:00 Morphine Sulfate (morphine) 2 mg Q4H PRN IV SEVERE PAIN LEVEL 7-10 Last administered on 06/18/17 23:01; Admin Dose 2 MG; Start 06/18/17 at 18:00 Docusate Sodium (Colace) 200 mg Q12H PO Last administered on 06/23/17 17:46; Admin Dose 200 MG; Start 06/18/17 at 18:00 Magnesium Hydroxide (Milk Of Mag) 30 ml DAILY PRN PO CONSTIPATION Last administered on 06/19/17 13:33; Admin Dose 30 ML; Start 06/18/17 at 18:00 Bisacodyl (Dulcolax) 10 mg DAILY PO Last administered on 06/23/17 09:35; Admin Dose 10 MG; Start 06/18/17 at 18:00 Bisacodyl (Dulcolax Supp) 10 mg DAILY PRN [place] CONSTIPATION; Start 06/19/17 at 09 :00 Zolpidem Tartrate (Ambien) 5 mg QHS PRN PO SLEEP; Start 06/18/17 at 18:00 Miscellaneous Information 1 ea NOTE XX ; Start 06/18/17 at 18:00 Glucose (Glutose) 15 gm Q15M PRN PO DECREASED GLUCOSE; Start 06/18/17 at 18:00 Glucose (Glutose) 22.5 gm Q15M PRN PO DECREASED GLUCOSE; Start 06/18/17 at 18: 00 Dextrose (D50w Syringe) 25 ml Q15M PRN IV DECREASED GLUCOSE; Start 06/18/17 at 18:00 Dextrose (D50w Syringe) 50 ml Q15M PRN IV DECREASED GLUCOSE; Start 06/18/17 at 18:00 Glucagon (Glucagen) 1 mg Q15M PRN IM DECREASED GLUCOSE; Start 06/18/17 at 18:00 Glucose (Glutose) 15 gm Q15M PRN BUCCAL DECREASED GLUCOSE; Start 06/18/17 at 18 :00 Miscellaneous Information 1 ea NOTE XX ; Start 06/18/17 at 18:30 Glucose (Glutose) 15 gm Q15M PRN PO DECREASED GLUCOSE; Start 06/18/17 at 18:30 Glucose (Glutose) 22.5 gm Q15M PRN PO DECREASED GLUCOSE; Start 06/18/17 at 18: 30 Dextrose (D50w Syringe) 25 ml Q15M PRN IV DECREASED GLUCOSE; Start 06/18/17 at 18:30 Dextrose (D50w Syringe) 50 ml Q15M PRN IV DECREASED GLUCOSE; Start 06/18/17 at 18:30 Glucagon (Glucagen) 1 mg Q15M PRN IM DECREASED GLUCOSE; Start 06/18/17 at 18:30 Glucose (Glutose) 15 gm Q15M PRN BUCCAL DECREASED GLUCOSE; Start 06/18/17 at 18 :30 Metoclopramide HCl (Reglan) 10 mg Q6H PRN IV NAUSEA AND/OR VOMITING Last administered on 06/20/17 00:57; Admin Dose 10 MG; Start 06/19/17 at 23:30 Senna (Senokot) 2 tab BID PO Last administered on 06/23/17 09:35; Admin Dose 2 TAB; Start 06/20/17 at 12:00 INGRID GREENE MD Jun 23, 2017 18:27
[2017-06-23 20:13] VITALS: BP 139/52; RESP 18
[2017-06-23] MEDS: ZOLPIDEM 5 MG TAB PO PRN (22:55)
[2017-06-24 02:05] VITALS: BP 127/60; RESP 18
[2017-06-24] MEDS: DOCUSATE SODIUM 100 MG CAP PO SCH ×2 (05:53→17:55)
[2017-06-24 07:00] VITALS: BP 116/57; RESP 18
[2017-06-24] MEDS: BISACODYL (EC) 5 MG TAB PO SCH (08:38)
[2017-06-24] MEDS: SENNA TAB PO SCH ×2 (08:38→21:03)
[2017-06-24] MEDS: ONDANSETRON 4 MG INJ IV PRN (09:33)
[2017-06-24 14:00] VITALS: BP 138/80; RESP 18
[2017-06-24] MEDS ORDERED: PEG/ELECTROLYTES 4L BTL PO SCH (18:00)
[2017-06-24 19:57] VITALS: BP 137/85; RESP 18
--- NOTE | 2017-06-24 22:20 | RADRPT ---
PROCEDURE: XR Chest. CLINICAL INDICATION: Preoperative. TECHNIQUE: Single frontal view. COMPARISON: None. FINDINGS: There is elevation of the right hemidiaphragm. The lungs are clear. The heart size is normal. There is no pleural effusion. There is no pneumothorax. IMPRESSION: 1. Elevation of the right hemidiaphragm. 2. Clear lungs. RPTAT: QQ .Emilio Snow MD, MD Date Time Electronically viewed and signed by .Emilio Snow MD, on 06/24/2017 22:20 .R/
--- NOTE | 2017-06-24 23:10 | QN ---
Documentation Comment Re-emphasized procedure with risks and benefits to procurement clerk and family member and they will proceed with surgery tomorrow. INGRID GREENE MD Jun 24, 2017 23:10
[2017-06-24] MEDS ORDERED: PHYTONADIONE 10 MG in DEXTROSE 5% 50 ML IVPB ONE (23:59)
[2017-06-25] VITALS (51 sets, daily range): BP systolic 76–129; BP diastolic 56–82; PULSE 94–122; RESP 11–25
[2017-06-25] MEDS: DOCUSATE SODIUM 100 MG CAP PO SCH ×2 (05:35→18:00)
[2017-06-25 06:17] LABS: BASOPHILS % 0.6 % (0.0-2.0); EOSINOPHILS # 0.1 10^3/ul (0.0-0.5); EOSINOPHILS % 1.7 % (0.0-7.0); HEMOGLOBIN 12.1 g/dl (12.0-16.0); LYMPHOCYTES # 1.3 10^3/ul (0.8-2.9); LYMPHOCYTES % 18.5 % (15.0-51.0); MEAN CORPUSCULAR HEMOGLOBIN 27.8 pg (29.0-33.0); MEAN CORPUSCULAR VOLUME 89.4 fl (82.0-101.0); MEAN PLATELET VOLUME 10.5 fl (7.4-10.4); MONOCYTE # 0.6 10^3/ul (0.3-0.9); MONOCYTES % 8.1 % (0.0-11.0); NEUTROPHIL # 4.9 10^3/ul (1.6-7.5); NEUTROPHILS % 70.5 % (39.0-77.0); PLATELET COUNT 301 10^3/UL (140-415); RED BLOOD COUNT 4.36 10^6/ul (4.20-5.40); RED CELL DISTRIBUTION WIDTH 14.4 % (11.5-14.5); WHITE BLOOD COUNT 6.9 10^3/ul (4.8-10.8)
[2017-06-25 06:40] LABS: INR 1.17; PT RATIO 1.2
[2017-06-25 06:41] LABS: PARTIAL THROMBOPLASTIN TIME 37.1 Sec (25.0-35.0)
[2017-06-25 06:44] LABS: ALBUMIN 3.7 g/dl (3.3-4.9); ALBUMIN/GLOBULIN RATIO 1.02; BILIRUBIN,INDIRECT 0.4 mg/dl (0-1.1); BILIRUBIN,TOTAL 0.4 mg/dl (0.2-1.3); CREATININE 0.59 mg/dl (0.44-1.00); POTASSIUM 3.8 mmol/L (3.5-5.1); TOTAL PROTEIN 7.3 g/dl (6.1-8.1)
[2017-06-25] MEDS ORDERED: MIDAZOLAM 1 MG/ML 2 ML INJ ONE (07:08)
[2017-06-25] MEDS ORDERED: PROPOFOL 20 ML ONE (07:08)
[2017-06-25] MEDS ORDERED: LIDOCAINE 2% (SDV) 5 ML INJ ONE (07:08)
[2017-06-25] MEDS ORDERED: SUCCINYLCHOLINE CHLORIDE 100 MG/5 ML SYG IV ONE (07:08)
[2017-06-25] MEDS ORDERED: ROCURONIUM 50 MG INJ ONE ×2 (07:08→09:19)
[2017-06-25] MEDS ORDERED: THROMBIN 5000 UNIT VIAL ONE (07:09)
[2017-06-25] MEDS ORDERED: METHYLENE BLUE 1% 10 ML INJ ONE (07:10)
[2017-06-25] MEDS ORDERED: VASOPRESSIN 20 UNITS INJ ONE (07:10)
--- NOTE | 2017-06-25 08:00 | HPN ---
Date/Time of Note Date/Time of Note DATE: 06/25/17 TIME: 07:59 Interval H&P Admission Note Pt. seen H&P reviewed: No system changes INGRID GREENE MD Jun 25, 2017 08:00
[2017-06-25] MEDS ORDERED: EPHEDrine SULFATE 50 MG/5 ML SYG ONE (08:27)
[2017-06-25] MEDS ORDERED: CEFAZOLIN 1 GM INJ ONE (08:27)
[2017-06-25] MEDS ORDERED: metroNIDAZOLE 500 MG/NS (PMX) 100 ML IVPB ONE (08:27)
[2017-06-25] MEDS: SENNA TAB PO SCH ×2 (09:00→20:09)
[2017-06-25] MEDS: BISACODYL (EC) 5 MG TAB PO SCH (09:00)
[2017-06-25] MEDS ORDERED: MINERAL OIL LIGHT 10 ML VIAL ONE (09:04)
[2017-06-25] MEDS ORDERED: HYDROmorphONE 2 MG/ML SYG ONE (09:20)
[2017-06-25] MEDS ORDERED: ONDANSETRON 4 MG INJ ONE (09:20)
[2017-06-25] MEDS ORDERED: FAMOTIDINE 20 MG INJ ONE (09:20)
[2017-06-25] MEDS ORDERED: SUGAMMADEX SODIUM 200 MG/2 ML VIAL IV ONE (12:20)
--- NOTE | 2017-06-25 12:45 | SIPON ---
Date/Time of Note Date/Time of Note DATE: 06/25/17 TIME: 12:42 Operative Report Preoperative Diagnosis Ovarian cancer Postoperative Diagnosis probable IIIC Operation/Procedure Performed hysterectomy BSO, UDx2, Omentectomy with cytoreduction, appy, P/A LND Surgeon see signature line litigation legal assistant Twila HAHN Anesthesia: general Estimated blood loss: other Transfusion Required none Specimen multiple Grafts/Implants none Complications none INGRID GREENE MD Jun 25, 2017 12:45
[2017-06-25] MEDS ORDERED: FENTAnyl 50 MCG/ML VIAL IV PRN (13:30)
[2017-06-25] MEDS ORDERED: DIPHENHYDRAMINE 50 MG INJ IV PRN (13:30)
[2017-06-25] MEDS ORDERED: INSULIN ASPART [NOVOLOG] 3 ML PEN SC ONE (13:30)
[2017-06-25] MEDS ORDERED: PROCHLORPERAZINE 10 MG INJ IV PRN (13:30)
[2017-06-25] MEDS ORDERED: ONDANSETRON 4 MG INJ IV PRN (13:30)
[2017-06-25] MEDS ORDERED: HYDROmorphONE (0.2 MG/ML) 10ML SYG IV PRN ×3 (13:30)
[2017-06-25] MEDS ORDERED: MEPERIDINE 25 MG INJ IV PRN (13:30)
[2017-06-25 14:09] LABS: BASOPHILS % 0.2 % (0.0-2.0); HEMATOCRIT 27.9 % (37.0-47.0); HEMOGLOBIN 9.3 g/dl (12.0-16.0); LYMPHOCYTES # 0.9 10^3/ul (0.8-2.9); LYMPHOCYTES % 5.4 % (15.0-51.0); MEAN CORPUSCULAR HEMOGLOBIN 29.6 pg (29.0-33.0); MEAN CORPUSCULAR HGB CONC 33.3 g/dl (32.0-37.0); MEAN CORPUSCULAR VOLUME 88.9 fl (82.0-101.0); MEAN PLATELET VOLUME 10.8 fl (7.4-10.4); MONOCYTE # 0.9 10^3/ul (0.3-0.9); MONOCYTES % 5.7 % (0.0-11.0); NEUTROPHIL # 14.1 10^3/ul (1.6-7.5); NEUTROPHILS % 88.3 % (39.0-77.0); PLATELET COUNT 325 10^3/UL (140-415); RED BLOOD COUNT 3.14 10^6/ul (4.20-5.40); RED CELL DISTRIBUTION WIDTH 14.3 % (11.5-14.5)
--- NOTE | 2017-06-25 14:37 | PN ---
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 Problems: Subjective 24 Hr Interval Summary Free Text/Dictation Patient went to OR today, not seen on the floor Exam/Review of Systems Vital Signs Vitals Vital Signs Date Time Temp Pulse Resp B/P Pulse Ox O2 Delivery O2 Flow Rate FiO2 06/25/17 14:26 Nasal Cannula 2.0 06/25/17 01:57 98.1 85 18 129/70 92 Intake and Output 06/24/17 06/24/17 06/25/17 15:00 23:00 07:00 Intake Total 1040 ml 51 ml Output Total 4 ml Balance 1040 ml 47 ml Results Result Diagram: 06/25/17 1358 06/25/17 0532 Results 24 hrs Laboratory Tests Test 06/25/17 05:32 06/25/17 13:07 06/25/17 13:58 White Blood Count 6.9 16.0 #H Red Blood Count 4.36 3.14 #L Hemoglobin 12.1 9.3 #L Hematocrit 39.0 27.9 #L Mean Corpuscular Volume 89.4 88.9 Mean Corpuscular Hemoglobin 27.8 L 29.6 Mean Corpuscular Hemoglobin Concent 31.0 L 33.3 Red Cell Distribution Width 14.4 14.3 Platelet Count 301 325 Mean Platelet Volume 10.5 H 10.8 H Neutrophils % 70.5 88.3 H Lymphocytes % 18.5 5.4 L Monocytes % 8.1 5.7 Eosinophils % 1.7 0.0 Basophils % 0.6 0.2 Nucleated Red Blood Cells % 0.0 0.0 Neutrophils # 4.9 14.1 H Lymphocytes # 1.3 0.9 Monocytes # 0.6 0.9 Eosinophils # 0.1 0.0 Basophils # 0.0 0.0 Nucleated Red Blood Cells # 0.0 0.0 Prothrombin Time 15.0 H Prothrombin Time Ratio 1.2 INR International Normalized Ratio 1.17 Activated Partial Thromboplast Time 37.1 H Sodium Level 141 Potassium Level 3.8 Chloride Level 103 Carbon Dioxide Level 30 Anion Gap 12 Blood Urea Nitrogen 7 Creatinine 0.59 Glucose Level 104 Calcium Level 9.0 Total Bilirubin 0.4 Direct Bilirubin 0.00 Indirect Bilirubin 0.4 Aspartate Amino Transf (AST/SGOT) 29 Alanine Aminotransferase (ALT/SGPT) 39 Alkaline Phosphatase 67 Total Protein 7.3 Albumin 3.7 Globulin 3.60 H Albumin/Globulin Ratio 1.02 Bedside Glucose 204 Medications Medications Current Medications Ondansetron HCl (Zofran Inj) 4 mg Q6H PRN IV NAUSEA AND/OR VOMITING Last administered on 06/24/17 09:33; Admin Dose 4 MG; Start 06/18/17 at 18:00 Acetaminophen (Tylenol Tab) 650 mg Q6H PRN PO PAIN LEVEL 1-3 OR FEVER; Start at 18:00 Acetaminophen/ Hydrocodone Bitart ([place] (5/325)) 1 tab Q6H PRN PO MODERATE PAIN LEVEL 4-6 Last administered on 06/22/17 13:47; Admin Dose 1 TAB; Start at 18:00 Morphine Sulfate (morphine) 2 mg Q4H PRN IV SEVERE PAIN LEVEL 7-10 Last administered on 06/18/17 23:01; Admin Dose 2 MG; Start 06/18/17 at 18:00 Docusate Sodium (Colace) 200 mg Q12H PO Last administered on 06/24/17 17:55; Admin Dose 200 MG; Start 06/18/17 at 18:00 Magnesium Hydroxide (Milk Of Mag) 30 ml DAILY PRN PO CONSTIPATION Last administered on 06/19/17 13:33; Admin Dose 30 ML; Start 06/18/17 at 18:00 Bisacodyl (Dulcolax) 10 mg DAILY PO Last administered on 06/24/17 08:38; Admin Dose 10 MG; Start 06/18/17 at 18:00 Bisacodyl (Dulcolax Supp) 10 mg DAILY PRN [place] CONSTIPATION; Start 06/19/17 at 09 :00 Zolpidem Tartrate (Ambien) 5 mg QHS PRN PO SLEEP Last administered on 22:55; Admin Dose 5 MG; Start 06/18/17 at 18:00 Miscellaneous Information 1 ea NOTE XX ; Start 06/18/17 at 18:00 Glucose (Glutose) 15 gm Q15M PRN PO DECREASED GLUCOSE; Start 06/18/17 at 18:00 Glucose (Glutose) 22.5 gm Q15M PRN PO DECREASED GLUCOSE; Start 06/18/17 at 18: 00 Dextrose (D50w Syringe) 25 ml Q15M PRN IV DECREASED GLUCOSE; Start 06/18/17 at 18:00 Dextrose (D50w Syringe) 50 ml Q15M PRN IV DECREASED GLUCOSE; Start 06/18/17 at 18:00 Glucagon (Glucagen) 1 mg Q15M PRN IM DECREASED GLUCOSE; Start 06/18/17 at 18:00 Glucose (Glutose) 15 gm Q15M PRN BUCCAL DECREASED GLUCOSE; Start 06/18/17 at 18 :00 Miscellaneous Information 1 ea NOTE XX ; Start 06/18/17 at 18:30 Glucose (Glutose) 15 gm Q15M PRN PO DECREASED GLUCOSE; Start 06/18/17 at 18:30 Glucose (Glutose) 22.5 gm Q15M PRN PO DECREASED GLUCOSE; Start 06/18/17 at 18: 30 Dextrose (D50w Syringe) 25 ml Q15M PRN IV DECREASED GLUCOSE; Start 06/18/17 at 18:30 Dextrose (D50w Syringe) 50 ml Q15M PRN IV DECREASED GLUCOSE; Start 06/18/17 at 18:30 Glucagon (Glucagen) 1 mg Q15M PRN IM DECREASED GLUCOSE; Start 06/18/17 at 18:30 Glucose (Glutose) 15 gm Q15M PRN BUCCAL DECREASED GLUCOSE; Start 06/18/17 at 18 :30 Metoclopramide HCl (Reglan) 10 mg Q6H PRN IV NAUSEA AND/OR VOMITING Last administered on 06/20/17 00:57; Admin Dose 10 MG; Start 06/19/17 at 23:30 Senna 2 tab 2 tab BID PO Last administered on 06/24/17 21:03; Admin Dose 2 TAB ; Start 06/20/17 at 12:00 Cefazolin Sodium 50 ml @ 100 mls/hr Q8H IVPB ; Start 06/25/17 at 14:00; Stop 06/26/17 at 13:59 Metronidazole (Flagyl 500 Mg (Pmx)) 100 ml @ 100 mls/hr Q8H IVPB ; Start at 15:00; Stop 06/26/17 at 14:59 Hydromorphone HCl (Dilaudid) 1 mg Q2 PRN IV PAIN LEVEL 6-10; Start 06/25/17 at 13:00 Diphenhydramine HCl (Benadryl) 25 mg Q6H PRN IV ITCHING; Start 06/25/17 at 13: 00 Ondansetron HCl (Zofran Inj) 4 mg Q6H PRN IV NAUSEA AND/OR VOMITING; Start 06/25/17 at 13:00 Famotidine 20 mg 20 mg Q12 IV ; Start 06/25/17 at 14:00 Potassium Chloride/Lactated Ringer's (KCl/Lr) 1,010 ml @ 150 mls/hr Q6H44M IV ; Start 06/25/17 at 14:00 DIXIE BURLESON MD Jun 25, 2017 14:37
[2017-06-25] MEDS ORDERED: LABETALOL HCL 20MG INJ ONE (14:55)
[2017-06-25] MEDS ORDERED: LABETALOL HCL 20MG INJ IV ONE (15:00)
[2017-06-25] MEDS: metroNIDAZOLE 500 MG/NS (PMX) 100 ML IVPB SCH ×2 (15:23→22:23)
[2017-06-25 15:50] LABS: CALCIUM 7.3 mg/dl (8.4-10.2); CREATININE 0.47 mg/dl (0.44-1.00); POTASSIUM 3.9 mmol/L (3.5-5.1)
[2017-06-25] MEDS ORDERED: CEFAZOLIN 1 GM/50 ML (PMX) 50 ML IVPB ONE (17:23)
[2017-06-25] MEDS: FAMOTIDINE 20 MG INJ IV SCH ×2 (17:24→21:15)
[2017-06-25] MEDS: POTASSIUM CHLORIDE 20 MEQ in LACTATED RINGER'S 1,000 ML IV SCH ×2 (17:24→21:23)
[2017-06-25] MEDS: CEFAZOLIN 1 GM/50 ML (PMX) 50 ML IVPB SCH ×2 (17:24→21:23)
[2017-06-25] MEDS ORDERED: ALBUMIN HUMAN 25% 0 ML ONE (20:16)
[2017-06-25] MEDS: ALBUMIN HUMAN 5% 250 ML IV SCH ×2 (20:30→21:18)
[2017-06-25] MEDS: ONDANSETRON 4 MG INJ IV PRN (22:34)
[2017-06-25] MEDS: morphine 2 MG INJ IV PRN (22:38)
[2017-06-26] VITALS (42 sets, daily range): BP systolic 90–129; BP diastolic 56–84; PULSE 95–113; RESP 14–32
[2017-06-26] MEDS: HYDROmorphONE 1 MG/ML SYG IV PRN ×4 (02:30→21:30)
[2017-06-26] MEDS ORDERED: CEFAZOLIN 1 GM/50 ML (PMX) 50 ML IVPB ONE (05:06)
[2017-06-26] MEDS: CEFAZOLIN 1 GM/50 ML (PMX) 50 ML IVPB SCH (05:08)
[2017-06-26] MEDS: DOCUSATE SODIUM 100 MG CAP PO SCH ×2 (05:09→17:04)
[2017-06-26] MEDS: POTASSIUM CHLORIDE 20 MEQ in LACTATED RINGER'S 1,000 ML IV SCH ×3 (05:09→17:00)
[2017-06-26 05:20] LABS: BASOPHILS % 0.1 % (0.0-2.0); EOSINOPHILS % 0.1 % (0.0-7.0); HEMATOCRIT 23.2 % (37.0-47.0); HEMOGLOBIN 7.4 g/dl (12.0-16.0); LYMPHOCYTES # 0.9 10^3/ul (0.8-2.9); LYMPHOCYTES % 9.9 % (15.0-51.0); MEAN CORPUSCULAR HEMOGLOBIN 28.5 pg (29.0-33.0); MEAN CORPUSCULAR HGB CONC 31.9 g/dl (32.0-37.0); MEAN CORPUSCULAR VOLUME 89.2 fl (82.0-101.0); MEAN PLATELET VOLUME 10.7 fl (7.4-10.4); MONOCYTE # 0.8 10^3/ul (0.3-0.9); NEUTROPHIL # 6.9 10^3/ul (1.6-7.5); NEUTROPHILS % 80.4 % (39.0-77.0); PLATELET COUNT 262 10^3/UL (140-415); RED CELL DISTRIBUTION WIDTH 14.4 % (11.5-14.5); WHITE BLOOD COUNT 8.6 10^3/ul (4.8-10.8)
[2017-06-26 05:34] LABS: INR 1.56; PROTIME 18.8 Sec (12.2-14.2); PT RATIO 1.5
[2017-06-26 05:39] LABS: ALBUMIN 2.4 g/dl (3.3-4.9); ALBUMIN/GLOBULIN RATIO 0.92; BILIRUBIN,INDIRECT 0.3 mg/dl (0-1.1); BILIRUBIN,TOTAL 0.3 mg/dl (0.2-1.3); CALCIUM 7.9 mg/dl (8.4-10.2); CREATININE 0.55 mg/dl (0.44-1.00); POTASSIUM 4.2 mmol/L (3.5-5.1)
[2017-06-26] MEDS: metroNIDAZOLE 500 MG/NS (PMX) 100 ML IVPB SCH (06:17)
[2017-06-26] MEDS: morphine 2 MG INJ IV PRN (07:50)
[2017-06-26] MEDS: BISACODYL (EC) 5 MG TAB PO SCH (09:08)
[2017-06-26] MEDS: FAMOTIDINE 20 MG INJ IV SCH ×2 (09:08→21:12)
[2017-06-26] MEDS: SENNA TAB PO SCH ×2 (09:08→21:00)
[2017-06-26 11:15] LABS: BASOPHILS % 0.2 % (0.0-2.0); EOSINOPHILS % 0.1 % (0.0-7.0); HEMOGLOBIN 7.4 g/dl (12.0-16.0); MEAN CORPUSCULAR HGB CONC 32.2 g/dl (32.0-37.0); MEAN CORPUSCULAR VOLUME 90.2 fl (82.0-101.0); MEAN PLATELET VOLUME 10.4 fl (7.4-10.4); MONOCYTE # 0.9 10^3/ul (0.3-0.9); MONOCYTES % 9.1 % (0.0-11.0); PLATELET COUNT 256 10^3/UL (140-415); RED BLOOD COUNT 2.55 10^6/ul (4.20-5.40); RED CELL DISTRIBUTION WIDTH 14.4 % (11.5-14.5); WHITE BLOOD COUNT 9.9 10^3/ul (4.8-10.8)
--- NOTE | 2017-06-26 16:03 | PN ---
Date/Time of Note Date/Time of Note DATE: 06/26/17 TIME: 16:00 Assessment/Plan VTE Prophylaxis VTE Prophylaxis Intervention: LMWH Lines/Catheters IV Catheter Type (from Nrs): Peripheral IV Urinary Cath still in place: Yes Reason Cath still needed: urinary retention Assessment/Plan Chief Complaint/Hosp Course 61 yo female presentign wtih abdominal pain and found to have diffuse peritoneal malginancy, likely ovarian ca - s/p abdominal hysterectomy, bilateral salpingooopherectomy, omentectomy w. 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 cyto reduction, appendectomy & lymph node dissection yetserday Transferred to ICU post op Doing well, not much pain Exam/Review of Systems Vital Signs Vitals Vital Signs Date Time Temp Pulse Resp B/P Pulse Ox O2 Delivery O2 Flow Rate FiO2 06/26/17 15:00 101 21 125/60 96 Nasal Cannula 2.0 06/26/17 12:00 97.6 Intake and Output 06/25/17 06/25/17 06/26/17 14:59 22:59 06:59 Intake Total 5300 ml 1350 ml 1125 ml Output Total 1010 ml 370 ml 320 ml Balance 4290 ml 980 ml 805 ml Results Result Diagram: 06/26/17 1030 06/26/17 0430 Results 24 hrs Laboratory Tests Test 06/25/17 17:40 06/26/17 04:30 06/26/17 10:30 Bedside Glucose 195 White Blood Count 8.6 # 9.9 Red Blood Count 2.60 L 2.55 L Hemoglobin 7.4 #L 7.4 L Hematocrit 23.2 L 23.0 L Mean Corpuscular Volume 89.2 90.2 Mean Corpuscular Hemoglobin 28.5 L 29.0 Mean Corpuscular Hemoglobin Concent 31.9 L 32.2 Red Cell Distribution Width 14.4 14.4 Platelet Count 262 256 Mean Platelet Volume 10.7 H 10.4 Neutrophils % 80.4 H 80.0 H Lymphocytes % 9.9 L 10.0 L Monocytes % 9.0 9.1 Eosinophils % 0.1 0.1 Basophils % 0.1 0.2 Nucleated Red Blood Cells % 0.0 0.0 Neutrophils # 6.9 8.0 H Lymphocytes # 0.9 1.0 Monocytes # 0.8 0.9 Eosinophils # 0.0 0.0 Basophils # 0.0 0.0 Nucleated Red Blood Cells # 0.0 0.0 Prothrombin Time 18.8 #H Prothrombin Time Ratio 1.5 INR International Normalized Ratio 1.56 Sodium Level 135 Potassium Level 4.2 Chloride Level 104 Carbon Dioxide Level 27 Anion Gap 8 Blood Urea Nitrogen 8 Creatinine 0.55 Glucose Level 164 Calcium Level 7.9 L Total Bilirubin 0.3 Direct Bilirubin 0.00 Indirect Bilirubin 0.3 Aspartate Amino Transf (AST/SGOT) 36 Alanine Aminotransferase (ALT/SGPT) 45 Alkaline Phosphatase 33 #L Total Protein 5.0 #L Albumin 2.4 #L Globulin 2.60 Albumin/Globulin Ratio 0.92 Medications Medications Current Medications Acetaminophen (Tylenol Tab) 650 mg Q6H PRN PO PAIN LEVEL 1-3 OR FEVER; Start at 18:00 Acetaminophen/ Hydrocodone Bitart ([place] (5/325)) 1 tab Q6H PRN PO MODERATE PAIN LEVEL 4-6 Last administered on 06/22/17 13:47; Admin Dose 1 TAB; Start at 18:00 Morphine Sulfate (morphine) 2 mg Q4H PRN IV SEVERE PAIN LEVEL 7-10 Last administered on 06/26/17 07:50; Admin Dose 2 MG; Start 06/18/17 at 18:00 Docusate Sodium (Colace) 200 mg Q12H PO Last administered on 06/24/17 17:55; Admin Dose 200 MG; Start 06/18/17 at 18:00 Magnesium Hydroxide (Milk Of Mag) 30 ml DAILY PRN PO CONSTIPATION Last administered on 06/19/17 13:33; Admin Dose 30 ML; Start 06/18/17 at 18:00 Bisacodyl (Dulcolax) 10 mg DAILY PO Last administered on 06/26/17 09:08; Admin Dose 10 MG; Start 06/18/17 at 18:00 Bisacodyl (Dulcolax Supp) 10 mg DAILY PRN [place] CONSTIPATION; Start 06/19/17 at 09 :00 Zolpidem Tartrate (Ambien) 5 mg QHS PRN PO SLEEP Last administered on 22:55; Admin Dose 5 MG; Start 06/18/17 at 18:00 Miscellaneous Information 1 ea NOTE XX ; Start 06/18/17 at 18:00 Glucose (Glutose) 15 gm Q15M PRN PO DECREASED GLUCOSE; Start 06/18/17 at 18:00 Glucose (Glutose) 22.5 gm Q15M PRN PO DECREASED GLUCOSE; Start 06/18/17 at 18: 00 Dextrose (D50w Syringe) 25 ml Q15M PRN IV DECREASED GLUCOSE; Start 06/18/17 at 18:00 Dextrose (D50w Syringe) 50 ml Q15M PRN IV DECREASED GLUCOSE; Start 06/18/17 at 18:00 Glucagon (Glucagen) 1 mg Q15M PRN IM DECREASED GLUCOSE; Start 06/18/17 at 18:00 Glucose (Glutose) 15 gm Q15M PRN BUCCAL DECREASED GLUCOSE; Start 06/18/17 at 18 :00 Metoclopramide HCl (Reglan) 10 mg Q6H PRN IV NAUSEA AND/OR VOMITING Last administered on 06/20/17 00:57; Admin Dose 10 MG; Start 06/19/17 at 23:30 Senna (Senokot) 2 tab BID PO Last administered on 06/26/17 09:08; Admin Dose 2 TAB; Start 06/20/17 at 12:00 Hydromorphone HCl (Dilaudid) 1 mg Q2 PRN IV PAIN LEVEL 6-10 Last administered on 06/26/17 09:43; Admin Dose 1 MG; Start 06/25/17 at 13:00 Diphenhydramine HCl (Benadryl) 25 mg Q6H PRN IV ITCHING; Start 06/25/17 at 13: 00 Ondansetron HCl (Zofran Inj) 4 mg Q6H PRN IV NAUSEA AND/OR VOMITING; Start 06/25/17 at 13:00 Famotidine 20 mg 20 mg Q12 IV Last administered on 06/26/17 09:08; Admin Dose 20 MG; Start 06/25/17 at 14:00 Potassium Chloride/Lactated Ringer's (KCl/Lr) 1,010 ml @ 150 mls/hr Q6H44M IV Last administered on 06/26/17 05:09; Admin Dose 150 MLS/HR; Start 06/25/17 at 14:00 DIXIE BURLESON MD Jun 26, 2017 16:03
[2017-06-26] MEDS: ZOLPIDEM 5 MG TAB PO PRN (21:30)
[2017-06-27] VITALS (32 sets, daily range): BP systolic 99–134; BP diastolic 54–82; PULSE 85–107; RESP 14–26
[2017-06-27] MEDS: POTASSIUM CHLORIDE 20 MEQ in LACTATED RINGER'S 1,000 ML IV SCH ×4 (00:26→22:12)
[2017-06-27] MEDS: HYDROmorphONE 1 MG/ML SYG IV PRN ×5 (03:56→19:58)
[2017-06-27] MEDS: ONDANSETRON 4 MG INJ IV PRN (03:56)
[2017-06-27 05:16] LABS: BASOPHILS % 0.2 % (0.0-2.0); EOSINOPHILS # 0.1 10^3/ul (0.0-0.5); EOSINOPHILS % 0.8 % (0.0-7.0); HEMATOCRIT 26.9 % (37.0-47.0); HEMOGLOBIN 8.8 g/dl (12.0-16.0); LYMPHOCYTES % 9.3 % (15.0-51.0); MEAN CORPUSCULAR HEMOGLOBIN 29.2 pg (29.0-33.0); MEAN CORPUSCULAR HGB CONC 32.7 g/dl (32.0-37.0); MEAN CORPUSCULAR VOLUME 89.4 fl (82.0-101.0); MEAN PLATELET VOLUME 10.5 fl (7.4-10.4); MONOCYTE # 0.8 10^3/ul (0.3-0.9); MONOCYTES % 7.9 % (0.0-11.0); NEUTROPHIL # 8.6 10^3/ul (1.6-7.5); NEUTROPHILS % 81.2 % (39.0-77.0); PLATELET COUNT 227 10^3/UL (140-415); RED BLOOD COUNT 3.01 10^6/ul (4.20-5.40); RED CELL DISTRIBUTION WIDTH 14.8 % (11.5-14.5); WHITE BLOOD COUNT 10.6 10^3/ul (4.8-10.8)
[2017-06-27 05:53] LABS: ALBUMIN 2.4 g/dl (3.3-4.9); ALBUMIN/GLOBULIN RATIO 0.96; BILIRUBIN,INDIRECT 0.6 mg/dl (0-1.1); BILIRUBIN,TOTAL 0.6 mg/dl (0.2-1.3); CALCIUM 7.8 mg/dl (8.4-10.2); CREATININE 0.5 mg/dl (0.44-1.00); POTASSIUM 4.2 mmol/L (3.5-5.1); TOTAL PROTEIN 4.9 g/dl (6.1-8.1)
[2017-06-27] MEDS: DOCUSATE SODIUM 100 MG CAP PO SCH ×2 (06:00→17:12)
[2017-06-27] MEDS: BISACODYL (EC) 5 MG TAB PO SCH (09:00)
[2017-06-27] MEDS: SENNA TAB PO SCH ×2 (09:00→21:00)
--- NOTE | 2017-06-27 09:16 | RADRPT ---
Vent Rate: 81 bpm RR Interval: 0 msec AL Interval: 156 msec QRS Duration: 74 msec QT Interval: 374 msec QTC Interval: 434 msec P-R-T [place]: 62 - 5 - 49 degrees Normal sinus rhythm Low voltage QRS Cannot rule out Anterior infarct , age undetermined Abnormal ECG Electronically Signed By: Garett Carrera [id number]
[2017-06-27] MEDS: FAMOTIDINE 20 MG INJ IV SCH ×2 (09:40→20:33)
--- NOTE | 2017-06-27 12:10 | OPR ---
Date/Time of Note Date/Time of Note DATE: 06/27/17 TIME: 12:07 Operative Report Free Text/Dictation 4 OPERATIVE REPORT [facility] Name: Lawson Azar Medical Date: 06/24/17 Preoperative Diagnosis: 1-Pelvic mass and elevated CA-125 2- Probable ovarian cancer 3- Ascites. Postoperative Diagnosis: Procedures: 1- Extended supracervical hysterectomy with bilateral salpingoophorectomy 2- Bilateral ureteral dissection with repositioning 3- Pelvic and aortic lymph node dissection 4- Omentectomy and cytoreduction 5- Appendectomy Surgeon: Dr. Escalona Electrical Automation Engineer: Twila Zavala Anesthesia: General Indications for surgery: The patient is a 61- year old female with primary advanced stage ovarian cancer cancer on the basis of physical findings with elevated markers, radiographic findings, and symptoms of whom a cytoreduction was undertaken after addressing all options with risks and benefits. Findings and Summary After opening and exploration we removed 600cc ascites and noted upper abdominal disease involving the omentum, diaphragm minimally, and bowel with minimal metastatic implants which were addressed and the pelvic disease was Name: Lawson Pringle resected. The retroperitoneal nodes were enlarged. At the completion of the procedure the patient was rendered visibly free of residual disease although disease distribution and desmoplastic reaction would suggest possible residual disease that was sub-millimeter. Procedure: After being prepped and draped in the usual manner a midline skin incision was made of appropriate length. The electrocautery was then used to dissect thru the adipose tissue to the level of the fascia. The fascia was incised sharply and the peritoneum identified. At this time the peritoneum was elevated and incised with a Metzenbaum scissors. Upon entering the peritoneal cavity and during enterolysis 600 cc of ascetic fluid was removed. At this time adhesions of intestine to the anterior abdominal wall were lysed with great care. We then searched the abdominal and pelvic contents and found that the left upper quadrant metastatic disease involved the greater omentum with confluent disease involving the gastrocolic ligament, (rank #2). The right upper quadrant diseases involved approximately 5 % of the diaphragm surface hepatic surface with tiny nodularity (rank #1). Exploration of the central abdomen revealed approximately 5-10 implants involving the mesentery, intestinal, and gutter regions with dimensions of 1 mm to 2 mm (rank # 1). The pelvic disease consisted of involvement of possibly both adnexia with the cul-de-sac involved with confluent metastatic disease (rank 2). The largest metastatic disease was 4-5 cm in dimension and involved the omentum and [id number]-[id number]-pelvic organs. We then placed an aortic Bellfower retractor. At this time, the omentum was dissected from the transverse colon with sharp dissection and electrocautery when possible. Vessels to large to be managed by electrocautery or too close to the colon were addressed with the cutting phase of the Gyrus bipolar cutting forceps or sutured with 3-0 silk suture if needed. This procedure was carried out throughout the length of the omentum and transverse colon. Larger vascular pedicles were divided using the Ligasure if the pedicle was vascular but Name: Lawson Azar [facility] somewhat skeletonized. Oozing areas in the cautery line with either devise were either recauterized or sutured with 3-0 silk. We then entered the lesser sac bluntly and the gastro-colic ligament from the greater curvature of the stomach with electrocautery and 3-0 silk suture used as needed. Any small disease in the lesser sac was ablated with an argon beam conductor sleeping car. The Gyrus bipolar cutting forceps forceps was used for small pedicles and Ligasure for larger pedicles as the gastro-colic ligament was from the stomach. Oozing areas in any cautery lines were either cauterized or sutured with 3-0 silk depending on the proximity to adjacent gastric serosa. The specimen was removed en-bloc, after which the transverse colon was thoroughly inspected and any sero-muscular defects encountered were repaired with interrupted 3-0 Silk suture. Subsequently the minimal RUQ metastatic disease was biopsied and then ablated with the argon beam conductor sleeping car at appropriate wattage. The central disease was then addressed. Additional enterolysis was completed and the appendix was noted to be densely adherent to the sidewall and right sided pelvic mass. The appendix was mobilized with sharp dissection and digitally but due to possible involvement was removed. Initially the base of the appendix was dissected away from the cecum with a tonsil. Subsequently, the appendix was from the cecum with and endo-LESLYE stapler. We then divided the appendiceal mesentery with a Gyrus bipolar cutting forceps and Ligasure with additional 3-0 Silk suture used as needed. At this time, the pelvic disease was addressed. Because of the extensive disease involving the reproductive organs, especially the right adnexa densely adherent to the sidewall as well as the pelvic peritoneum an en-bloc procedure was planned with ureteral dissection and repositioning to facilitate resection. Initially the right round ligament was transected with a Gyrus bipolar cutting forceps uneventfully. The retroperitoneal area was opened and the ureter was identified. The ureter was dissected with a right angle clamp and lateralized and then further repositioned with a peanut and digital dissection due to adherent metastatic disease on the peritoneum and Name: Lawson Azar [facility] adjacent firm/large mass. After repositioning the ureter laterally away from the adherent peritoneum that was densely involved with disease, the infundibulopelvic ligament was transected by cauterizing with a Gyrus bipolar cutting forceps and then clamping, transecting and suturing with 0- Vicryl suture. Attention was then addressed contralateralally in that the left round ligament was transected with an a Ligasure uneventfully. The retroperitoneal area was opened and the ureter was identified. The ureter were dissected with a right angle clamp and lateralized and then further repositioned with a peanut and digitally due to adherent metastatic disease on the peritoneum and adjacent smaller but notable mass. After repositioning the ureter laterally away from the adherent peritoneum that was densely involved with disease, the IP ligament was transected by cauterizing with a Gyrus bipolar cutting forceps and then clamping, transecting and suturing with 0- Vicryl suture. The bladder flap was then developed with a Bovie and any implants on the anterior bladder peritoneum were ablated with an ABC conductor sleeping car. At this time a large right angle clamp was used to dissect the ureters bilaterally, away from the uterine vessels in a manner used during a type-2 hysterectomy. The uterine arteries were clipped and cut, along with the veins. The ureters were then tunneled through the parametria with a large right angle clamp, and the parametrial pedicles were transected with an endo-LESLYE bilaterally. The bladder pillars were then dissected and clipped, after which the ureters were confirmed to be undamaged. Hence, remaining parametrial tissue was transected with the Gyrus bipolar cutting forceps and the uterosacral ligaments were clamped with Toro clamps. The rectum and colon were also mobilized considerably from the lower uterine segment and cervix, allowing the rectum to be from the cul-de- sac and the confluent disease to be included with the specimen, leaving the rectum deperitonealized but intact as proven by inserting and EEA sizer. The uterus was from the cervix and the cervix closed with figure of eight sutures using 0-vicryl. Additional implants were excised from the sigmoid and the muscular-serosal defects repaired with Name: Lawson Azar [facility] interrupted 3-0 silk suture and possible serosal implants and sidewall metastatic disease aspirated with a CUSA and ablated with the argon beam conductor sleeping car at appropriate low wattage. After confirming hemostasis we addressed the lymph node dissection since we had adequate exposure. Initially lymph node tissue adjacent to the right external iliac artery and vein, hypogastric artery and vein, as well as obturator fossa were removed with sharp and blunt dissection, using the Gyrus bipolar cutting forceps for hemostasis and lymphostasis. The dissection was continued to include alirio tissue adjacent to the common iliac vessels. The retractors were adjusted and alirio tissue adjacent to the vena cava, as well as aorto-caval nodes were removed using identical technique. At this time we adjusted the retractors and all lymph node tissue adjacent to the left external iliac artery and vein, hypogastric artery and vein, as well as obturator fossa were removed with sharp and blunt dissection, using the Gyrus bipolar cutting forceps for hemostasis and lymphostasis. The dissection was continued to include alirio tissue adjacent to the common iliac vessels. Subsequently, the retractors were adjusted and any alirio tissue adjacent to the aorta were dissected using sharp and blunt dissection with the Gyrus bipolar cutting forceps for hemostasis and lymphostasis. At this time, after all packing was removed, the abdomen thoroughly irrigated, hemostasis confirmed. Subsequently anterior abdomen implants were resected with electrocautery and ablated with the argon beam conductor sleeping car at appropriate wattage. At this time, after all packing was removed , the abdomen thoroughly irrigated with water to visualize any bleeding, and hemostasis confirmed, and a Pelvic Angelo drain was placed. A figure of eight suture was placed at the caudal apex of the incision with 1- Vicryl suture and used for exposure by elevating with a Pean clamp. Continuous 1 Vicryl suture was used from the rostral apex and run to the supra-pubic area. The final suture was tied appropriately, after which the figure of eight was tied. The subcutaneous tissue was irrigated and the skin was closed with a deep layer of 3 -0 Vicryl suture and 4-0 subcutaneous Monocryl suture. The sponge, needle, Name: Lawson Azar [facility] and instrument were correct two times. The estimated blood loss was 500ml. The patient tolerated the procedure well and left the OR in good condition. It should be noted that all visible disease was resected, ablated, or aspirated, although disease distribution and desmoplastic reaction would suggest a possibility of residual disease that was sub-millimeter that was not possible to observe. Ingrid Escalona M.D. Preoperative Diagnosis as above Postoperative Diagnosis as above Operation/Procedure Performed as above Surgeon see signature line Electrical Automation Engineer as above Anesthesia Type: general Estimated Blood Loss: other Transfusion none Specimen multiple Grafts/Implants none Tubes/Drains as above Complications none Procedure Description as above INGRID ESCALONA MD Jun 27, 2017 12:10
--- NOTE | 2017-06-27 17:35 | PN ---
Date/Time of Note Date/Time of Note DATE: 06/27/17 TIME: 17:34 Assessment/Plan VTE Prophylaxis VTE Prophylaxis Intervention: LMWH Lines/Catheters IV Catheter Type (from Nrsg): Peripheral IV Urinary Cath still in place: Yes Reason Cath still needed: urinary retention Assessment/Plan Chief Complaint/Hosp Course 61 yo female presentign wtih abdominal pain and found to have diffuse peritoneal malginancy, likely ovarian ca - s/p abdominal hysterectomy, bilateral salpingooopherectomy, omentectomy w. cyto reduction, appendectomy & lymph node dissection 06/26 - Post op care per Dr Escalona - Pain control - Management of malignancy per Dr Monroy pending biopsy result - Biopsy results pending Problems: Subjective 24 Hr Interval Summary Free Text/Dictation Patient stable Pain controlled Requests food Requests further info about prognosis Exam/Review of Systems Vital Signs Vitals Vital Signs Date Time Temp Pulse Resp B/P Pulse Ox O2 Delivery O2 Flow Rate FiO2 06/27/17 14:00 Nasal Cannula 2.0 06/27/17 14:00 98.8 90 20 116/59 96 Intake and Output 06/26/17 06/26/17 06/27/17 15:00 23:00 07:00 Intake Total 450 ml 505 ml 1425 ml Output Total 260 ml 325 ml 450 ml Balance 190 ml 180 ml 975 ml Results Result Diagram: 06/27/17 0445 06/27/17 0445 Results 24 hrs Laboratory Tests Test 06/27/17 04:45 06/27/17 05:12 White Blood Count 10.6 Red Blood Count 3.01 L Hemoglobin 8.8 L Hematocrit 26.9 L Mean Corpuscular Volume 89.4 Mean Corpuscular Hemoglobin 29.2 Mean Corpuscular Hemoglobin Concent 32.7 Red Cell Distribution Width 14.8 H Platelet Count 227 Mean Platelet Volume 10.5 H Neutrophils % 81.2 H Lymphocytes % 9.3 L Monocytes % 7.9 Eosinophils % 0.8 Basophils % 0.2 Nucleated Red Blood Cells % 0.0 Neutrophils # 8.6 H Lymphocytes # 1.0 Monocytes # 0.8 Eosinophils # 0.1 Basophils # 0.0 Nucleated Red Blood Cells # 0.0 Sodium Level 137 Potassium Level 4.2 Chloride Level 104 Carbon Dioxide Level 29 Anion Gap 8 Blood Urea Nitrogen 6 L Creatinine 0.50 Glucose Level 110 # Calcium Level 7.8 L Total Bilirubin 0.6 Direct Bilirubin 0.00 Indirect Bilirubin 0.6 Aspartate Amino Transf (AST/SGOT) 22 Alanine Aminotransferase (ALT/SGPT) 34 Alkaline Phosphatase 36 L Total Protein 4.9 L Albumin 2.4 L Globulin 2.50 Albumin/Globulin Ratio 0.96 Lab Scanned Report BLOOD TRANSFUSION Medications Medications Current Medications Acetaminophen (Tylenol Tab) 650 mg Q6H PRN PO PAIN LEVEL 1-3 OR FEVER; Start at 18:00 Acetaminophen/ Hydrocodone Bitart ([place] (5/325)) 1 tab Q6H PRN PO MODERATE PAIN LEVEL 4-6 Last administered on 06/22/17 13:47; Admin Dose 1 TAB; Start at 18:00 Morphine Sulfate (morphine) 2 mg Q4H PRN IV SEVERE PAIN LEVEL 7-10 Last administered on 06/26/17 07:50; Admin Dose 2 MG; Start 06/18/17 at 18:00 Docusate Sodium (Colace) 200 mg Q12H PO Last administered on 06/24/17 17:55; Admin Dose 200 MG; Start 06/18/17 at 18:00 Magnesium Hydroxide (Milk Of Mag) 30 ml DAILY PRN PO CONSTIPATION Last administered on 06/19/17 13:33; Admin Dose 30 ML; Start 06/18/17 at 18:00 Bisacodyl (Dulcolax) 10 mg DAILY PO Last administered on 06/26/17 09:08; Admin Dose 10 MG; Start 06/18/17 at 18:00 Bisacodyl (Dulcolax Supp) 10 mg DAILY PRN [place] CONSTIPATION; Start 06/19/17 at 09 :00 Zolpidem Tartrate (Ambien) 5 mg QHS PRN PO SLEEP Last administered on 21:30; Admin Dose 5 MG; Start 06/18/17 at 18:00 Miscellaneous Information 1 ea NOTE XX ; Start 06/18/17 at 18:00 Glucose (Glutose) 15 gm Q15M PRN PO DECREASED GLUCOSE; Start 06/18/17 at 18:00 Glucose (Glutose) 22.5 gm Q15M PRN PO DECREASED GLUCOSE; Start 06/18/17 at 18: 00 Dextrose (D50w Syringe) 25 ml Q15M PRN IV DECREASED GLUCOSE; Start 06/18/17 at 18:00 Dextrose (D50w Syringe) 50 ml Q15M PRN IV DECREASED GLUCOSE; Start 06/18/17 at 18:00 Glucagon (Glucagen) 1 mg Q15M PRN IM DECREASED GLUCOSE; Start 06/18/17 at 18:00 Glucose (Glutose) 15 gm Q15M PRN BUCCAL DECREASED GLUCOSE; Start 06/18/17 at 18 :00 Metoclopramide HCl (Reglan) 10 mg Q6H PRN IV NAUSEA AND/OR VOMITING Last administered on 06/20/17 00:57; Admin Dose 10 MG; Start 06/19/17 at 23:30 Senna (Senokot) 2 tab BID PO Last administered on 06/26/17 09:08; Admin Dose 2 TAB; Start 06/20/17 at 12:00 Hydromorphone HCl (Dilaudid) 1 mg Q2 PRN IV PAIN LEVEL 6-10 Last administered on 06/27/17 14:57; Admin Dose 1 MG; Start 06/25/17 at 13:00 Diphenhydramine HCl (Benadryl) 25 mg Q6H PRN IV ITCHING; Start 06/25/17 at 13: 00 Ondansetron HCl (Zofran Inj) 4 mg Q6H PRN IV NAUSEA AND/OR VOMITING Last administered on 06/27/17 03:56; Admin Dose 4 MG; Start 06/25/17 at 13:00 Famotidine 20 mg 20 mg Q12 IV Last administered on 06/27/17 09:40; Admin Dose 20 MG; Start 06/25/17 at 14:00 Potassium Chloride/Lactated Ringer's (KCl/Lr) 1,010 ml @ 150 mls/hr Q6H44M IV Last administered on 06/27/17 15:04; Admin Dose 150 MLS/HR; Start 06/25/17 at 14:00 DIXIE BURLESON MD Jun 27, 2017 17:35
--- NOTE | 2017-06-27 18:20 | PN ---
Date/Time of Note Date/Time of Note DATE: 06/27/17 TIME: 18:15 Assessment/Plan VTE Prophylaxis VTE Prophylaxis Intervention: SCD's Lines/Catheters [facility] ([facility] Peripheral IV Urinary Cath still in place: Yes Reason Cath still needed: urinary retention Assessment/Plan Chief Complaint/Hosp Course A- probable IIIc ovarian cancer given CA-125 of 217 and entirely normal CA-19-9 and CEA. P- I am arranging OR time as soon as possible with the operating room; but the patient told be she is having a colonoscopy tomorrow. NOTE; she had a negative colonoscopy 10 months ago. This is almost definitely a IIIC ovarian cancer given the elevated CA-125 and normal other markers but if it were a primary colon (very unikely) she would still benefit from the same primary cytoreduction. NOTE; doing a colonoscopy and biopsy even if mucinous lesion were found would not determine whether primary is colonic or ovarian with metastatic disease to colon which I commonly see and address. Problems: Assessment/Plan A- improving P- mobilize. Operation discussed Subjective 24 Hr Interval Summary Free Text/Dictation Less pain but not OOB and no latus Exam/Review of Systems Vital Signs Vitals Vital Signs Date Time Temp Pulse Resp B/P Pulse Ox O2 Delivery O2 Flow Rate FiO2 06/27/17 14:00 Nasal Cannula 2.0 06/27/17 14:00 98.8 90 20 116/59 96 Intake and Output 06/26/17 06/26/17 06/27/17 15:00 23:00 07:00 Intake Total 450 ml 505 ml 1425 ml Output Total 260 ml 325 ml 450 ml Balance 190 ml 180 ml 975 ml Exam Resp- clear CVS- NSR Abd- soft NT Ext NT no edema Results Result Diagram: 06/27/1744406/27/17444 Results 24 hrs Laboratory Tests Test 06/27/17 04:45 06/27/17 05:12 White Blood Count 10.6 Red Blood Count 3.01 L Hemoglobin 8.8 L Hematocrit 26.9 L Mean Corpuscular Volume 89.4 Mean Corpuscular Hemoglobin 29.2 Mean Corpuscular Hemoglobin Concent 32.7 Red Cell Distribution Width 14.8 H Platelet Count 227 Mean Platelet Volume 10.5 H Neutrophils % 81.2 H Lymphocytes % 9.3 L Monocytes % 7.9 Eosinophils % 0.8 Basophils % 0.2 Nucleated Red Blood Cells % 0.0 Neutrophils # 8.6 H Lymphocytes # 1.0 Monocytes # 0.8 Eosinophils # 0.1 Basophils # 0.0 Nucleated Red Blood Cells # 0.0 Sodium Level 137 Potassium Level 4.2 Chloride Level 104 Carbon Dioxide Level 29 Anion Gap 8 Blood Urea Nitrogen 6 L Creatinine 0.50 Glucose Level 110 # Calcium Level 7.8 L Total Bilirubin 0.6 Direct Bilirubin 0.00 Indirect Bilirubin 0.6 Aspartate Amino Transf (AST/SGOT) 22 Alanine Aminotransferase (ALT/SGPT) 34 Alkaline Phosphatase 36 L Total Protein 4.9 L Albumin 2.4 L Globulin 2.50 Albumin/Globulin Ratio 0.96 Lab Scanned Report BLOOD TRANSFUSION Medications Medications Current Medications Acetaminophen (Tylenol Tab) 650 mg Q6H PRN PO PAIN LEVEL 1-3 OR FEVER; Start at 18:00 Acetaminophen/ Hydrocodone Bitart ([place] (5/325)) 1 tab Q6H PRN PO MODERATE PAIN LEVEL 4-6 Last administered on 06/22/17 13:47; Admin Dose 1 TAB; Start at 18:00 Morphine Sulfate (morphine) 2 mg Q4H PRN IV SEVERE PAIN LEVEL 7-10 Last administered on 06/26/17 07:50; Admin Dose 2 MG; Start 06/18/17 at 18:00 Docusate Sodium (Colace) 200 mg Q12H PO Last administered on 06/24/17 17:55; Admin Dose 200 MG; Start 06/18/17 at 18:00 Magnesium Hydroxide (Milk Of Mag) 30 ml DAILY PRN PO CONSTIPATION Last administered on 06/19/17 13:33; Admin Dose 30 ML; Start 06/18/17 at 18:00 Bisacodyl (Dulcolax) 10 mg DAILY PO Last administered on 06/26/17 09:08; Admin Dose 10 MG; Start 06/18/17 at 18:00 Bisacodyl (Dulcolax Supp) 10 mg DAILY PRN [place] CONSTIPATION; Start 06/19/17 at 09 :00 Zolpidem Tartrate (Ambien) 5 mg QHS PRN PO SLEEP Last administered on 21:30; Admin Dose 5 MG; Start 06/18/17 at 18:00 Miscellaneous Information 1 ea NOTE XX ; Start 06/18/17 at 18:00 Glucose (Glutose) 15 gm Q15M PRN PO DECREASED GLUCOSE; Start 06/18/17 at 18:00 Glucose (Glutose) 22.5 gm Q15M PRN PO DECREASED GLUCOSE; Start 06/18/17 at 18: 00 Dextrose (D50w Syringe) 25 ml Q15M PRN IV DECREASED GLUCOSE; Start 06/18/17 at 18:00 Dextrose (D50w Syringe) 50 ml Q15M PRN IV DECREASED GLUCOSE; Start 06/18/17 at 18:00 Glucagon (Glucagen) 1 mg Q15M PRN IM DECREASED GLUCOSE; Start 06/18/17 at 18:00 Glucose (Glutose) 15 gm Q15M PRN BUCCAL DECREASED GLUCOSE; Start 06/18/17 at 18 :00 Metoclopramide HCl (Reglan) 10 mg Q6H PRN IV NAUSEA AND/OR VOMITING Last administered on 06/20/17 00:57; Admin Dose 10 MG; Start 06/19/17 at 23:30 Senna (Senokot) 2 tab BID PO Last administered on 06/26/17 09:08; Admin Dose 2 TAB; Start 06/20/17 at 12:00 Hydromorphone HCl (Dilaudid) 1 mg Q2 PRN IV PAIN LEVEL 6-10 Last administered on 06/27/17 14:57; Admin Dose 1 MG; Start 06/25/17 at 13:00 Diphenhydramine HCl (Benadryl) 25 mg Q6H PRN IV ITCHING; Start 06/25/17 at 13: 00 Ondansetron HCl (Zofran Inj) 4 mg Q6H PRN IV NAUSEA AND/OR VOMITING Last administered on 06/27/17 03:56; Admin Dose 4 MG; Start 06/25/17 at 13:00 Famotidine 20 mg 20 mg Q12 IV Last administered on 06/27/17 09:40; Admin Dose 20 MG; Start 06/25/17 at 14:00 Potassium Chloride/Lactated Ringer's (KCl/Lr) 1,010 ml @ 150 mls/hr Q6H44M IV Last administered on 06/27/17 15:04; Admin Dose 150 MLS/HR; Start 06/25/17 at 14:00 Enoxaparin Sodium (Lovenox) 40 mg DAILY SC ; Start 06/28/17 at 09:00 INGRID GREENE MD Jun 27, 2017 18:20
[2017-06-28 00:23] VITALS: BP 116/62; RESP 20
[2017-06-28] MEDS: HYDROmorphONE 1 MG/ML SYG IV PRN ×4 (01:13→21:17)
[2017-06-28] MEDS: POTASSIUM CHLORIDE 20 MEQ in LACTATED RINGER'S 1,000 ML IV SCH ×4 (04:24→19:56)
[2017-06-28] MEDS: DOCUSATE SODIUM 100 MG CAP PO SCH ×2 (06:00→18:00)
[2017-06-28 06:05] LABS: BASOPHILS % 0.3 % (0.0-2.0); EOSINOPHILS # 0.2 10^3/ul (0.0-0.5); EOSINOPHILS % 1.5 % (0.0-7.0); HEMATOCRIT 28.2 % (37.0-47.0); LYMPHOCYTES # 1.1 10^3/ul (0.8-2.9); MEAN CORPUSCULAR HEMOGLOBIN 29.1 pg (29.0-33.0); MEAN CORPUSCULAR HGB CONC 31.9 g/dl (32.0-37.0); MEAN CORPUSCULAR VOLUME 91.3 fl (82.0-101.0); MEAN PLATELET VOLUME 10.5 fl (7.4-10.4); MONOCYTE # 0.7 10^3/ul (0.3-0.9); MONOCYTES % 6.6 % (0.0-11.0); NEUTROPHIL # 8.1 10^3/ul (1.6-7.5); PLATELET COUNT 250 10^3/UL (140-415); RED BLOOD COUNT 3.09 10^6/ul (4.20-5.40); RED CELL DISTRIBUTION WIDTH 14.5 % (11.5-14.5); WHITE BLOOD COUNT 10.1 10^3/ul (4.8-10.8)
[2017-06-28 06:46] LABS: CALCIUM 8.3 mg/dl (8.4-10.2); CREATININE 0.51 mg/dl (0.44-1.00); POTASSIUM 4.6 mmol/L (3.5-5.1)
[2017-06-28 07:25] VITALS: BP 142/82; RESP 18
[2017-06-28] MEDS: SENNA TAB PO SCH ×2 (09:00→20:07)
[2017-06-28] MEDS: BISACODYL (EC) 5 MG TAB PO SCH (09:00)
[2017-06-28] MEDS: FAMOTIDINE 20 MG INJ IV SCH ×2 (09:15→20:25)
[2017-06-28] MEDS: ENOXAPARIN 40 MG/0.4 ML SYG SC SCH (09:34)
--- NOTE | 2017-06-28 14:23 | PN ---
Date/Time of Note Date/Time of Note DATE: 06/28/17 TIME: 14:21 Assessment/Plan VTE Prophylaxis VTE Prophylaxis Intervention: LMWH Lines/Catheters IV Catheter Type (from Nrs): [place] Urinary Cath still in place: Yes Reason Cath still needed: urinary retention Assessment/Plan Chief Complaint/Hosp Course 61 yo female presentign wtih abdominal pain and found to have diffuse peritoneal malginancy, likely ovarian ca - s/p abdominal hysterectomy, bilateral salpingooopherectomy, omentectomy w. cyto reduction, appendectomy & lymph node dissection 06/26 - Path showing stage IIIC ovarian carcinoma - Post op care per Dr Escalona - Pain control - Management of malignancy per Dr Monroy - Clear liquid diet tonight Problems: Subjective 24 Hr Interval Summary Free Text/Dictation NG still in place Eager to eat, though not sure if she has passed flatus No BM yet Very much wants to hear prognosis, treatment plan Pathology prelim shows ovarian stage IIIC Exam/Review of Systems Vital Signs Vitals Vital Signs Date Time Temp Pulse Resp B/P Pulse Ox O2 Delivery O2 Flow Rate FiO2 06/28/17 09:15 Nasal Cannula 3.0 06/28/17 07:25 98.1 78 18 142/82 98 Intake and Output 06/27/17 06/27/17 06/28/17 15:00 23:00 07:00 Intake Total 900 ml 310 ml 0 ml Output Total 745 ml 510 ml 2820 ml Balance 155 ml -200 ml -2820 ml Results Result Diagram: 06/28/17 0442 06/28/17 0442 Results 24 hrs Laboratory Tests Test 06/28/17 04:42 White Blood Count 10.1 Red Blood Count 3.09 L Hemoglobin 9.0 L Hematocrit 28.2 L Mean Corpuscular Volume 91.3 Mean Corpuscular Hemoglobin 29.1 Mean Corpuscular Hemoglobin Concent 31.9 L Red Cell Distribution Width 14.5 Platelet Count 250 Mean Platelet Volume 10.5 H Neutrophils % 80.0 H Lymphocytes % 11.0 L Monocytes % 6.6 Eosinophils % 1.5 Basophils % 0.3 Nucleated Red Blood Cells % 0.0 Neutrophils # 8.1 H Lymphocytes # 1.1 Monocytes # 0.7 Eosinophils # 0.2 Basophils # 0.0 Nucleated Red Blood Cells # 0.0 Sodium Level 135 Potassium Level 4.6 Chloride Level 100 Carbon Dioxide Level 33 H Anion Gap 7 L Blood Urea Nitrogen 5 L Creatinine 0.51 Glucose Level 76 Calcium Level 8.3 L Medications Medications Current Medications Acetaminophen (Tylenol Tab) 650 mg Q6H PRN PO PAIN LEVEL 1-3 OR FEVER; Start at 18:00 Acetaminophen/ Hydrocodone Bitart ([place] (5/325)) 1 tab Q6H PRN PO MODERATE PAIN LEVEL 4-6 Last administered on 06/22/17 13:47; Admin Dose 1 TAB; Start at 18:00 Morphine Sulfate (morphine) 2 mg Q4H PRN IV SEVERE PAIN LEVEL 7-10 Last administered on 06/26/17 07:50; Admin Dose 2 MG; Start 06/18/17 at 18:00 Docusate Sodium (Colace) 200 mg Q12H PO Last administered on 06/24/17 17:55; Admin Dose 200 MG; Start 06/18/17 at 18:00 Magnesium Hydroxide (Milk Of Mag) 30 ml DAILY PRN PO CONSTIPATION Last administered on 06/19/17 13:33; Admin Dose 30 ML; Start 06/18/17 at 18:00 Bisacodyl (Dulcolax) 10 mg DAILY PO Last administered on 06/26/17 09:08; Admin Dose 10 MG; Start 06/18/17 at 18:00 Bisacodyl (Dulcolax Supp) 10 mg DAILY PRN [place] CONSTIPATION; Start 06/19/17 at 09 :00 Zolpidem Tartrate (Ambien) 5 mg QHS PRN PO SLEEP Last administered on 21:30; Admin Dose 5 MG; Start 06/18/17 at 18:00 Miscellaneous Information 1 ea NOTE XX ; Start 06/18/17 at 18:00 Glucose (Glutose) 15 gm Q15M PRN PO DECREASED GLUCOSE; Start 06/18/17 at 18:00 Glucose (Glutose) 22.5 gm Q15M PRN PO DECREASED GLUCOSE; Start 06/18/17 at 18: 00 Dextrose (D50w Syringe) 25 ml Q15M PRN IV DECREASED GLUCOSE; Start 06/18/17 at 18:00 Dextrose (D50w Syringe) 50 ml Q15M PRN IV DECREASED GLUCOSE; Start 06/18/17 at 18:00 Glucagon (Glucagen) 1 mg Q15M PRN IM DECREASED GLUCOSE; Start 06/18/17 at 18:00 Glucose (Glutose) 15 gm Q15M PRN BUCCAL DECREASED GLUCOSE; Start 06/18/17 at 18 :00 Metoclopramide HCl (Reglan) 10 mg Q6H PRN IV NAUSEA AND/OR VOMITING Last administered on 06/20/17 00:57; Admin Dose 10 MG; Start 06/19/17 at 23:30 Senna (Senokot) 2 tab BID PO Last administered on 06/26/17 09:08; Admin Dose 2 TAB; Start 06/20/17 at 12:00 Hydromorphone HCl (Dilaudid) 1 mg Q2 PRN IV PAIN LEVEL 6-10 Last administered on 06/28/17 09:15; Admin Dose 1 MG; Start 06/25/17 at 13:00 Diphenhydramine HCl (Benadryl) 25 mg Q6H PRN IV ITCHING; Start 06/25/17 at 13: 00 Ondansetron HCl (Zofran Inj) 4 mg Q6H PRN IV NAUSEA AND/OR VOMITING Last administered on 06/27/17 03:56; Admin Dose 4 MG; Start 06/25/17 at 13:00 Famotidine 20 mg 20 mg Q12 IV Last administered on 06/28/17 09:15; Admin Dose 20 MG; Start 06/25/17 at 14:00 Potassium Chloride/Lactated Ringer's (KCl/Lr) 1,010 ml @ 150 mls/hr Q6H44M IV Last administered on 06/28/17 10:48; Admin Dose 150 MLS/HR; Start 06/25/17 at 14:00 Enoxaparin Sodium (Lovenox) 40 mg DAILY SC Last administered on 06/28/17 09:34 ; Admin Dose 40 MG; Start 06/28/17 at 09:00 DIXIE BURLESON MD Jun 28, 2017 14:23
[2017-06-28 20:55] VITALS: BP 118/66; RESP 20
--- NOTE | 2017-06-28 21:07 | CONS ---
Date/Time of Note Date/Time of Note DATE: 06/28/17 TIME: 20:59 Assessment/Plan Assessment/Plan Chief Complaint/Hosp Course #. STAGE IIIC ovarian cancer -pt now s/p optimal debulking surgery -CA 125 is elevated to > 200, CEA and AFP normal -given patient has stage III disease, she will need adjuvant chemotherapy with carboplatin and taxol -once patient has recovered from surgery, will try to give first dose of chemotherapy in the hospital #Abd pain -pt is scheduled for colonoscopy tomorrow # Diabetes -continue NovoLog sliding scale # Hypertension -continue current blood pressure meds Approximately 1 hour was spent in face to face time and in speaking and counseling her, her son and daughter as well as in coordination of her care Problems: Consultation Date/Type/Reason Admit Date/Time Jun 18, 2017 at 15:14 Initial Consult Date 06/19/17 Type of Consultation: Oncology Reason for Consultation STAGE IIIC ovarian cancer Referring Provider: JONA ELY 24 HR Interval Summary Free Text/Dictation pt is s/p optimal debulking surgery . 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 pt is recovering from surgery. states her pain is controlled Exam/Review of Systems Vital Signs Vitals Vital Signs Date Time Temp Pulse Resp B/P Pulse Ox O2 Delivery O2 Flow Rate FiO2 06/28/17 09:15 Nasal Cannula 3.0 06/28/17 07:25 98.1 78 18 142/82 98 Intake and Output 06/27/17 06/27/17 06/28/17 15:00 23:00 07:00 Intake Total 900 ml 310 ml 0 ml Output Total 745 ml 510 ml 2820 ml Balance 155 ml -200 ml -2820 ml Exam Constitutional: alert, frail, oriented Psych: anxiety, depression, no complaints Head: normocephalic Eyes: nl conjunctiva ENMT: nl external ears & nose, other (NGT in place) Neck: non-tender, supple Respiratory: clear to auscultation Cardiovascular: nl pulses, regular rate and rhythm Gastrointestinal: soft, surgical scars, tender Musculoskeletal: nl extremities to inspection Extremities: normal pulses Results Result Diagram: 06/28/172 06/28/17441 Results 24 hrs Laboratory Tests Test 06/28/17 04:42 White Blood Count 10.1 Red Blood Count 3.09 L Hemoglobin 9.0 L Hematocrit 28.2 L Mean Corpuscular Volume 91.3 Mean Corpuscular Hemoglobin 29.1 Mean Corpuscular Hemoglobin Concent 31.9 L Red Cell Distribution Width 14.5 Platelet Count 250 Mean Platelet Volume 10.5 H Neutrophils % 80.0 H Lymphocytes % 11.0 L Monocytes % 6.6 Eosinophils % 1.5 Basophils % 0.3 Nucleated Red Blood Cells % 0.0 Neutrophils # 8.1 H Lymphocytes # 1.1 Monocytes # 0.7 Eosinophils # 0.2 Basophils # 0.0 Nucleated Red Blood Cells # 0.0 Sodium Level 135 Potassium Level 4.6 Chloride Level 100 Carbon Dioxide Level 33 H Anion Gap 7 L Blood Urea Nitrogen 5 L Creatinine 0.51 Glucose Level 76 Calcium Level 8.3 L Medications Medications Current Medications Acetaminophen (Tylenol Tab) 650 mg Q6H PRN PO PAIN LEVEL 1-3 OR FEVER; Start at 18:00 Acetaminophen/ Hydrocodone Bitart ([place] (5/325)) 1 tab Q6H PRN PO MODERATE PAIN LEVEL 4-6 Last administered on 06/22/17 13:47; Admin Dose 1 TAB; Start at 18:00 Morphine Sulfate (morphine) 2 mg Q4H PRN IV SEVERE PAIN LEVEL 7-10 Last administered on 06/26/17 07:50; Admin Dose 2 MG; Start 06/18/17 at 18:00 Docusate Sodium (Colace) 200 mg Q12H PO Last administered on 06/24/17 17:55; Admin Dose 200 MG; Start 06/18/17 at 18:00 Magnesium Hydroxide (Milk Of Mag) 30 ml DAILY PRN PO CONSTIPATION Last administered on 06/19/17 13:33; Admin Dose 30 ML; Start 06/18/17 at 18:00 Bisacodyl (Dulcolax) 10 mg DAILY PO Last administered on 06/26/17 09:08; Admin Dose 10 MG; Start 06/18/17 at 18:00 Bisacodyl (Dulcolax Supp) 10 mg DAILY PRN [place] CONSTIPATION; Start 06/19/17 at 09 :00 Zolpidem Tartrate (Ambien) 5 mg QHS PRN PO SLEEP Last administered on 21:30; Admin Dose 5 MG; Start 06/18/17 at 18:00 Miscellaneous Information 1 ea NOTE XX ; Start 06/18/17 at 18:00 Glucose (Glutose) 15 gm Q15M PRN PO DECREASED GLUCOSE; Start 06/18/17 at 18:00 Glucose (Glutose) 22.5 gm Q15M PRN PO DECREASED GLUCOSE; Start 06/18/17 at 18: 00 Dextrose (D50w Syringe) 25 ml Q15M PRN IV DECREASED GLUCOSE; Start 06/18/17 at 18:00 Dextrose (D50w Syringe) 50 ml Q15M PRN IV DECREASED GLUCOSE; Start 06/18/17 at 18:00 Glucagon (Glucagen) 1 mg Q15M PRN IM DECREASED GLUCOSE; Start 06/18/17 at 18:00 Glucose (Glutose) 15 gm Q15M PRN BUCCAL DECREASED GLUCOSE; Start 06/18/17 at 18 :00 Metoclopramide HCl (Reglan) 10 mg Q6H PRN IV NAUSEA AND/OR VOMITING Last administered on 06/20/17 00:57; Admin Dose 10 MG; Start 06/19/17 at 23:30 Senna (Senokot) 2 tab BID PO Last administered on 06/26/17 09:08; Admin Dose 2 TAB; Start 06/20/17 at 12:00 Hydromorphone HCl (Dilaudid) 1 mg Q2 PRN IV PAIN LEVEL 6-10 Last administered on 06/28/17 14:22; Admin Dose 1 MG; Start 06/25/17 at 13:00 Diphenhydramine HCl (Benadryl) 25 mg Q6H PRN IV ITCHING; Start 06/25/17 at 13: 00 Ondansetron HCl (Zofran Inj) 4 mg Q6H PRN IV NAUSEA AND/OR VOMITING Last administered on 06/27/17 03:56; Admin Dose 4 MG; Start 06/25/17 at 13:00 Famotidine 20 mg 20 mg Q12 IV Last administered on 06/28/17 20:25; Admin Dose 20 MG; Start 06/25/17 at 14:00 Potassium Chloride/Lactated Ringer's (KCl/Lr) 1,010 ml @ 150 mls/hr Q6H44M IV Last administered on 06/28/17 19:56; Admin Dose 150 MLS/HR; Start 06/25/17 at 14:00 Enoxaparin Sodium (Lovenox) 40 mg DAILY SC Last administered on 06/28/17t 09:34 ; Admin Dose 40 MG; Start 06/28/17 at 09:00 MINAL RICHARDSON M.D. Jun 28, 2017 21:07
[2017-06-28] MEDS: DIPHENHYDRAMINE 50 MG INJ IV PRN (21:23)
[2017-06-29 02:12] VITALS: BP 121/65; RESP 20
[2017-06-29] MEDS: POTASSIUM CHLORIDE 20 MEQ in LACTATED RINGER'S 1,000 ML IV SCH ×2 (02:50→11:36)
[2017-06-29] MEDS: DOCUSATE SODIUM 100 MG CAP PO SCH (05:56)
[2017-06-29] MEDS: BISACODYL (EC) 5 MG TAB PO SCH (08:22)
[2017-06-29] MEDS: SENNA TAB PO SCH ×2 (08:22→21:00)
[2017-06-29 08:46] VITALS: BP 129/64; RESP 18
--- NOTE | 2017-06-29 09:03 | PN ---
Date/Time of Note Date/Time of Note DATE: 06/29/17 TIME: 09:00 Assessment/Plan VTE Prophylaxis VTE Prophylaxis Intervention: SCD's Lines/Catheters IV [facility] Type (from [email or web address] Saline Lock Urinary Cath still in place: Yes Reason Cath still needed: urinary retention Assessment/Plan Chief Complaint/Hosp Course A- probable IIIc ovarian cancer given CA-125 of 217 and entirely normal CA-19-9 and CEA. P- I am arranging OR time as soon as possible with the operating room; but the patient told be she is having a colonoscopy tomorrow. NOTE; she had a negative colonoscopy 10 months ago. This is almost definitely a IIIC ovarian cancer given the elevated CA-125 and normal other markers but if it were a primary colon (very unikely) she would still benefit from the same primary cytoreduction. NOTE; doing a colonoscopy and biopsy even if mucinous lesion were found would not determine whether primary is colonic or ovarian with metastatic disease to colon which I commonly see and address. Problems: Assessment/Plan A- doing well P- adv diet further tomorrow and bladder train Subjective 24 Hr Interval Summary Free Text/Dictation + BM and less pain. Exam/Review of Systems Vital Signs Vitals Vital Signs Date Time Temp Pulse Resp B/P Pulse Ox O2 Delivery O2 Flow Rate FiO2 06/29/17 08:46 99.1 82 18 129/64 100 06/29/17 06:26 2.0 06/28/17 09:15 Nasal Cannula Intake and Output 06/28/17 06/28/17 06/29/17 15:00 23:00 07:00 Intake Total 1010 ml 900 ml 1310 ml Output Total 30 ml 2520 ml Balance 1010 ml 870 ml -1210 ml Exam Resp- clear CVS- NSR Abd- Soft NT and clean Ext - NT no edema Results Result Diagram: 06/28/1744106/28/17441 Results 24 hrs Laboratory Tests Test 06/29/17 08:19 Bedside Glucose 70 Medications Medications Current Medications Acetaminophen (Tylenol Tab) 650 mg Q6H PRN PO PAIN LEVEL 1-3 OR FEVER; Start at 18:00 Acetaminophen/ Hydrocodone Bitart ([place] (5/325)) 1 tab Q6H PRN PO MODERATE PAIN LEVEL 4-6 Last administered on 06/22/17t 13:47; Admin Dose 1 TAB; Start at 18:00 Morphine Sulfate (morphine) 2 mg Q4H PRN IV SEVERE PAIN LEVEL 7-10 Last administered on 06/26/17 07:50; Admin Dose 2 MG; Start 06/18/17 at 18:00 Docusate Sodium (Colace) 200 mg Q12H PO Last administered on 06/29/17 05:56; Admin Dose 200 MG; Start 06/18/17 at 18:00 Magnesium Hydroxide (Milk Of Mag) 30 ml DAILY PRN PO CONSTIPATION Last administered on 06/19/17 13:33; Admin Dose 30 ML; Start 06/18/17 at 18:00 Bisacodyl (Dulcolax) 10 mg DAILY PO Last administered on 06/26/17 09:08; Admin Dose 10 MG; Start 06/18/17 at 18:00 Bisacodyl (Dulcolax Supp) 10 mg DAILY PRN [place] CONSTIPATION; Start 06/19/17 at 09 :00 Zolpidem Tartrate (Ambien) 5 mg QHS PRN PO SLEEP Last administered on 21:30; Admin Dose 5 MG; Start 06/18/17 at 18:00 Miscellaneous Information 1 ea NOTE XX ; Start 06/18/17 at 18:00 Glucose (Glutose) 15 gm Q15M PRN PO DECREASED GLUCOSE; Start 06/18/17 at 18:00 Glucose (Glutose) 22.5 gm Q15M PRN PO DECREASED GLUCOSE; Start 06/18/17 at 18: 00 Dextrose (D50w Syringe) 25 ml Q15M PRN IV DECREASED GLUCOSE; Start 06/18/17 at 18:00 Dextrose (D50w Syringe) 50 ml Q15M PRN IV DECREASED GLUCOSE; Start 06/18/17 at 18:00 Glucagon (Glucagen) 1 mg Q15M PRN IM DECREASED GLUCOSE; Start 06/18/17 at 18:00 Glucose (Glutose) 15 gm Q15M PRN BUCCAL DECREASED GLUCOSE; Start 06/18/17 at 18 :00 Metoclopramide HCl (Reglan) 10 mg Q6H PRN IV NAUSEA AND/OR VOMITING Last administered on 06/20/17 00:57; Admin Dose 10 MG; Start 06/19/17 at 23:30 Senna (Senokot) 2 tab BID PO Last administered on 06/26/17 09:08; Admin Dose 2 TAB; Start 06/20/17 at 12:00 Hydromorphone HCl (Dilaudid) 1 mg Q2 PRN IV PAIN LEVEL 6-10 Last administered on 06/28/17 21:17; Admin Dose 1 MG; Start 06/25/17 at 13:00 Diphenhydramine HCl (Benadryl) 25 mg Q6H PRN IV ITCHING Last administered on 21:23; Admin Dose 25 MG; Start 06/25/17 at 13:00 Ondansetron HCl (Zofran Inj) 4 mg Q6H PRN IV NAUSEA AND/OR VOMITING Last administered on 06/27/17 03:56; Admin Dose 4 MG; Start 06/25/17 at 13:00 Famotidine 20 mg 20 mg Q12 IV Last administered on 06/28/17 20:25; Admin Dose 20 MG; Start 06/25/17 at 14:00 Potassium Chloride/Lactated Ringer's (KCl/Lr) 1,010 ml @ 150 mls/hr Q6H44M IV Last administered on 06/29/17 02:50; Admin Dose 150 MLS/HR; Start 06/25/17 at 14:00 Enoxaparin Sodium (Lovenox) 40 mg DAILY SC Last administered on 06/28/17 09:34 ; Admin Dose 40 MG; Start 06/28/17 at 09:00 INGRID GREENE MD Jun 29, 2017 09:03
[2017-06-29] MEDS: ENOXAPARIN 40 MG/0.4 ML SYG SC SCH (09:07)
[2017-06-29] MEDS: FAMOTIDINE 20 MG INJ IV SCH ×2 (09:09→21:26)
[2017-06-29] MEDS: HYDROCODONE/APAP (5/325) TAB PO PRN (12:24)
[2017-06-29 13:59] VITALS: BP 134/63; RESP 17
--- NOTE | 2017-06-29 14:02 | PN ---
Date/Time of Note Date/Time of Note DATE: 06/29/17 TIME: 14:01 Assessment/Plan VTE Prophylaxis VTE Prophylaxis Intervention: LMWH Lines/Catheters IV C[facility]ter Type (from [facility]): Saline Lock Urinary Cath still in place: Yes Reason Cath still needed: urinary retention Assessment/Plan Chief Complaint/Hosp Course 61 yo female presentign [facility] abdominal pain and found to have diffuse peritoneal malginancy, found to have ovarian cancer stage IIIC Ovarian cancer IIIC: - s/p abdominal hysterectomy, bilateral salpingooopherectomy, omentectomy w. cyto reduction, appendectomy & lymph node dissection 06/26 - Path showing stage IIIC ovarian carcinoma - Management of malignancy per Dr Monroy, prefers chemo in house when stable from surgery - Clear liquid diet, advance as tolerated LMWH ppx Problems: Subjective 24 Hr Interval Summary Free Text/Dictation Arpan seemed emotionally upset today, did not want to speak to me much Is eating food, does not want to advance diet Had a BM Exam/Review of Systems Vital Signs Vitals Vital Signs Date Time Temp Pulse Resp B/P Pulse Ox O2 Delivery O2 Flow Rate FiO2 06/29/17 13:59 98.7 91 17 134/63 100 06/29/17 06:26 2.0 06/28/17 09:15 Nasal Cannula Intake and Output 06/28/17 06/28/17 06/29/17 15:00 23:00 07:00 Intake Total 1010 ml 900 ml 1310 ml Output Total 30 ml 2520 ml Balance 1010 ml 870 ml -1210 ml Exam Constitutional: alert, oriented, well developed Psych: nl mood/affect, no complaints Head: atraumatic, normocephalic Eyes: EOMI, PERRL, nl conjunctiva, nl lids, nl sclera ENMT: nl external ears & nose, nl lips & teeth, nl nasal mucosa & septum Neck: non-tender, supple Respiratory: clear to auscultation, normal air movement Cardiovascular: nl pulses, regular rate and rhythm Gastrointestinal: nl liver, spleen, non-tender, soft Musculoskeletal: nl extremities to inspection, nl gait and stance Extremities: normal pulses Neurological: [employer] II-XII intact, nl mental status, nl speech, nl strength Skin: nl turgor, No rash or lesions Lymph: nl lymph nodes Results Result Diagram: 06/28/1744106/28/17441 Results 24 hrs Laboratory Tests Test 06/29/17 08:19 06/29/17 12:26 Bedside Glucose 70 76 Medications Medications Current Medications Acetaminophen (Tylenol Tab) 650 mg Q6H PRN PO PAIN LEVEL 1-3 OR FEVER; Start at 18:00 Acetaminophen/ Hydrocodone Bitart ([place] (5/325)) 1 tab Q6H PRN PO MODERATE PAIN LEVEL 4-6 Last administered on 06/29/17 12:24; Admin Dose 1 TAB; Start at 18:00 Morphine Sulfate (morphine) 2 mg Q4H PRN IV SEVERE PAIN LEVEL 7-10 Last administered on 06/26/17 07:50; Admin Dose 2 MG; Start 06/18/17 at 18:00 Magnesium Hydroxide (Milk Of Mag) 30 ml DAILY PRN PO CONSTIPATION Last administered on 06/19/17 13:33; Admin Dose 30 ML; Start 06/18/17 at 18:00 Bisacodyl (Dulcolax) 10 mg DAILY PO Last administered on 06/26/17 09:08; Admin Dose 10 MG; Start 06/18/17 at 18:00 Bisacodyl (Dulcolax Supp) 10 mg DAILY PRN [place] CONSTIPATION; Start 06/19/17 at 09 :00 Zolpidem Tartrate (Ambien) 5 mg QHS PRN PO SLEEP Last administered on 21:30; Admin Dose 5 MG; Start 06/18/17 at 18:00 Miscellaneous Information 1 ea NOTE XX ; Start 06/18/17 at 18:00 Glucose (Glutose) 15 gm Q15M PRN PO DECREASED GLUCOSE; Start 06/18/17 at 18:00 Glucose (Glutose) 22.5 gm Q15M PRN PO DECREASED GLUCOSE; Start 06/18/17 at 18: 00 Dextrose (D50w Syringe) 25 ml Q15M PRN IV DECREASED GLUCOSE; Start 06/18/17 at 18:00 Dextrose (D50w Syringe) 50 ml Q15M PRN IV DECREASED GLUCOSE; Start 06/18/17 at 18:00 Glucagon (Glucagen) 1 mg Q15M PRN IM DECREASED GLUCOSE; Start 06/18/17 at 18:00 Glucose (Glutose) 15 gm Q15M PRN BUCCAL DECREASED GLUCOSE; Start 06/18/17 at 18 :00 Metoclopramide HCl (Reglan) 10 mg Q6H PRN IV NAUSEA AND/OR VOMITING Last administered on 06/20/17 00:57; Admin Dose 10 MG; Start 06/19/17 at 23:30 Senna (Senokot) 2 tab BID PO Last administered on 06/26/17 09:08; Admin Dose 2 TAB; Start 06/20/17 at 12:00 Hydromorphone HCl (Dilaudid) 1 mg Q2 PRN IV PAIN LEVEL 6-10 Last administered on 06/28/17 21:17; Admin Dose 1 MG; Start 06/25/17 at 13:00 Diphenhydramine HCl (Benadryl) 25 mg Q6H PRN IV ITCHING Last administered on 21:23; Admin Dose 25 MG; Start 06/25/17 at 13:00 Ondansetron HCl (Zofran Inj) 4 mg Q6H PRN IV NAUSEA AND/OR VOMITING Last administered on 06/27/17 03:56; Admin Dose 4 MG; Start 06/25/17 at 13:00 Famotidine 20 mg 20 mg Q12 IV Last administered on 06/29/17 09:09; Admin Dose 20 MG; Start 06/25/17 at 14:00 Potassium Chloride/Lactated Ringer's (KCl/Lr) 1,010 ml @ 80 mls/hr [id number] IV Last administered on 06/29/17 11:36; Admin Dose 80 MLS/HR; Start 06/25/17 at 14 :00 Enoxaparin Sodium (Lovenox) 40 mg DAILY SC Last administered on 06/29/17 09:07 ; Admin Dose 40 MG; Start 06/28/17 at 09:00 DIXIE BURLESON MD Jun 29, 2017 14:02
[2017-06-29] MEDS: INSULIN ASPART [NOVOLOG] 3 ML PEN SC SCH ×2 (17:55→21:00)
[2017-06-29 20:35] VITALS: BP 133/64; RESP 19
[2017-06-29] MEDS: ACCU-CHEK XX SCH (21:00)
[2017-06-29] MEDS: DIPHENHYDRAMINE 50 MG INJ IV PRN (23:06)
[2017-06-30] MEDS: ACCU-CHEK XX SCH ×5 (02:00→21:19)
[2017-06-30 02:27] VITALS: BP 130/72; RESP 18
[2017-06-30 05:25] LABS: BASOPHILS % 0.6 % (0.0-2.0); EOSINOPHILS # 0.2 10^3/ul (0.0-0.5); EOSINOPHILS % 2.1 % (0.0-7.0); HEMATOCRIT 30.9 % (37.0-47.0); HEMOGLOBIN 9.9 g/dl (12.0-16.0); LYMPHOCYTES % 13.5 % (15.0-51.0); MEAN CORPUSCULAR HEMOGLOBIN 29.1 pg (29.0-33.0); MEAN CORPUSCULAR VOLUME 90.9 fl (82.0-101.0); MEAN PLATELET VOLUME 9.9 fl (7.4-10.4); MONOCYTE # 0.6 10^3/ul (0.3-0.9); MONOCYTES % 8.1 % (0.0-11.0); NEUTROPHIL # 5.4 10^3/ul (1.6-7.5); NEUTROPHILS % 74.5 % (39.0-77.0); PLATELET COUNT 314 10^3/UL (140-415); RED CELL DISTRIBUTION WIDTH 14.2 % (11.5-14.5); WHITE BLOOD COUNT 7.3 10^3/ul (4.8-10.8)
[2017-06-30 05:48] LABS: CALCIUM 8.3 mg/dl (8.4-10.2); CREATININE 0.49 mg/dl (0.44-1.00); POTASSIUM 4.1 mmol/L (3.5-5.1)
[2017-06-30] MEDS: INSULIN ASPART [NOVOLOG] 3 ML PEN SC SCH ×4 (07:50→21:00)
[2017-06-30 08:00] VITALS: BP 134/85; RESP 18
[2017-06-30] MEDS: FAMOTIDINE 20 MG INJ IV SCH ×2 (09:06→21:19)
[2017-06-30] MEDS: BISACODYL (EC) 5 MG TAB PO SCH (09:11)
[2017-06-30] MEDS: SENNA TAB PO SCH ×2 (09:11→21:00)
[2017-06-30] MEDS: ENOXAPARIN 40 MG/0.4 ML SYG SC SCH (09:23)
[2017-06-30] MEDS: HYDROCODONE/APAP (5/325) TAB PO PRN (10:28)
[2017-06-30 14:00] VITALS: BP 133/79; RESP 19
--- NOTE | 2017-06-30 15:25 | PN ---
Date/Time of Note Date/Time of Note DATE: 06/30/17 TIME: 15:22 Assessment/Plan VTE Prophylaxis VTE Prophylaxis Intervention: LMWH Lines/Catheters IV C[facility] Type (from [facility] Saline Lock Urinary Cath still in place: Yes Reason Cath still needed: urinary retention Assessment/Plan Chief Complaint/Hosp Course A- probable IIIc ovarian cancer given CA-125 of 217 and entirely normal CA-19-9 and CEA. P- I am arranging OR time as soon as possible with the operating room; but the patient told be she is having a colonoscopy tomorrow. NOTE; she had a negative colonoscopy 10 months ago. This is almost definitely a IIIC ovarian cancer given the elevated CA-125 and normal other markers but if it were a primary colon (very unikely) she would still benefit from the same primary cytoreduction. NOTE; doing a colonoscopy and biopsy even if mucinous lesion were found would not determine whether primary is colonic or ovarian with metastatic disease to colon which I commonly see and address. Problems: Assessment/Plan A- doing well dx IIIC clear cell ovarian P: Adv diet tomorrow and OOB, bladder train Subjective 24 Hr Interval Summary Free Text/Dictation Feels better and + flatus and BM. Minimally OOB. Exam/Review of Systems Vital Signs Vitals Vital Signs Date Time Temp Pulse Resp B/P Pulse Ox O2 Delivery O2 Flow Rate FiO2 06/30/17 14:00 98.5 99 19 133/79 95 06/29/17 15:59 2.0 28 06/28/17 09:15 Nasal Cannula Intake and Output 06/29/17 06/29/17 06/30/17 15:00 23:00 07:00 Intake Total 700 ml 700 ml 360 ml Output Total 2120 ml 1510 ml Balance 700 ml -1420 ml -1150 ml Exam Resp- clear CVS- NSR Abd- soft NT Ext: NT no edema Results Result Diagram: 06/30/177 06/30/17456 Results 24 hrs Laboratory Tests Test 06/29/17 17:24 06/29/17 21:06 06/30/17 04:57 06/30/17 08:39 Bedside Glucose 91 87 88 White Blood Count 7.3 # Red Blood Count 3.40 L Hemoglobin 9.9 L Hematocrit 30.9 L Mean Corpuscular Volume 90.9 Mean Corpuscular Hemoglobin 29.1 Mean Corpuscular Hemoglobin Concent 32.0 Red Cell Distribution Width 14.2 Platelet Count 314 # Mean Platelet Volume 9.9 Neutrophils % 74.5 Lymphocytes % 13.5 L Monocytes % 8.1 Eosinophils % 2.1 Basophils % 0.6 Nucleated Red Blood Cells % 0.0 Neutrophils # 5.4 Lymphocytes # 1.0 Monocytes # 0.6 Eosinophils # 0.2 Basophils # 0.0 Nucleated Red Blood Cells # 0.0 Sodium Level 138 Potassium Level 4.1 Chloride Level 102 Carbon Dioxide Level 28 Anion Gap 12 Blood Urea Nitrogen 6 L Creatinine 0.49 Glucose Level 93 Calcium Level 8.3 L Test 06/30/17 12:39 Bedside Glucose 97 Medications Medications Current Medications Acetaminophen (Tylenol Tab) 650 mg Q6H PRN PO PAIN LEVEL 1-3 OR FEVER; Start at 18:00 Acetaminophen/ Hydrocodone Bitart ([place] (5/325)) 1 tab Q6H PRN PO MODERATE PAIN LEVEL 4-6 Last administered on 06/30/17 10:28; Admin Dose 1 TAB; Start at 18:00 Morphine Sulfate (morphine) 2 mg Q4H PRN IV SEVERE PAIN LEVEL 7-10 Last administered on 06/26/17 07:50; Admin Dose 2 MG; Start 06/18/17 at 18:00 Magnesium Hydroxide (Milk Of Mag) 30 ml DAILY PRN PO CONSTIPATION Last administered on 06/19/17 13:33; Admin Dose 30 ML; Start 06/18/17 at 18:00 Bisacodyl (Dulcolax) 10 mg DAILY PO Last administered on 06/30/17 09:11; Admin Dose 10 MG; Start 06/18/17 at 18:00 Bisacodyl (Dulcolax Supp) 10 mg DAILY PRN [place] CONSTIPATION; Start 06/19/17 at 09 :00 Zolpidem Tartrate (Ambien) 5 mg QHS PRN PO SLEEP Last administered on 21:30; Admin Dose 5 MG; Start 06/18/17 at 18:00 Miscellaneous Information 1 ea NOTE XX ; Start 06/18/17 at 18:00 Glucose (Glutose) 15 gm Q15M PRN PO DECREASED GLUCOSE; Start 06/18/17 at 18:00 Glucose (Glutose) 22.5 gm Q15M PRN PO DECREASED GLUCOSE; Start 06/18/17 at 18: 00 Dextrose (D50w Syringe) 25 ml Q15M PRN IV DECREASED GLUCOSE; Start 06/18/17 at 18:00 Dextrose (D50w Syringe) 50 ml Q15M PRN IV DECREASED GLUCOSE; Start 06/18/17 at 18:00 Glucagon (Glucagen) 1 mg Q15M PRN IM DECREASED GLUCOSE; Start 06/18/17 at 18:00 Glucose (Glutose) 15 gm Q15M PRN BUCCAL DECREASED GLUCOSE; Start 06/18/17 at 18 :00 Metoclopramide HCl (Reglan) 10 mg Q6H PRN IV NAUSEA AND/OR VOMITING Last administered on 06/20/17 00:57; Admin Dose 10 MG; Start 06/19/17 at 23:30 Senna (Senokot) 2 tab BID PO Last administered on 06/30/17 09:11; Admin Dose 2 TAB; Start 06/20/17 at 12:00 Hydromorphone HCl (Dilaudid) 1 mg Q2 PRN IV PAIN LEVEL 6-10 Last administered on 06/28/17 21:17; Admin Dose 1 MG; Start 06/25/17 at 13:00 Diphenhydramine HCl (Benadryl) 25 mg Q6H PRN IV ITCHING Last administered on 23:06; Admin Dose 25 MG; Start 06/25/17 at 13:00 Ondansetron HCl (Zofran Inj) 4 mg Q6H PRN IV NAUSEA AND/OR VOMITING Last administered on 06/27/17 03:56; Admin Dose 4 MG; Start 06/25/17 at 13:00 Famotidine (Pepcid Iv) 20 mg Q12 IV Last administered on 06/30/17 09:06; Admin Dose 20 MG; Start 06/25/17 at 14:00 Enoxaparin Sodium (Lovenox) 40 mg DAILY SC Last administered on 06/30/17 09:23 ; Admin Dose 40 MG; Start 06/28/17 at 09:00 Diagnostic Test (Pha) (Accu-Chek) 1 ea 02 XX ; Start 06/30/17 at 02:00 INGRID GREENE MD Jun 30, 2017 15:25
--- NOTE | 2017-06-30 17:32 | PN ---
Date/Time of Note Date/Time of Note DATE: 06/30/17 TIME: 17:31 Assessment/Plan VTE Prophylaxis VTE Prophylaxis Intervention: LMWH Lines/Catheters IV [facility] Type (from [facility] Saline Lock Urinary Cath still in place: Yes Reason Cath still needed: urinary retention Assessment/Plan Chief Complaint/Hosp Course 61 yo female presentign wt abdominal pain and found to have diffuse peritoneal malginancy, found to have ovarian cancer stage IIIC Ovarian cancer IIIC: - s/p abdominal hysterectomy, bilateral salpingooopherectomy, omentectomy w. cyto reduction, appendectomy & lymph node dissection 06/26 - Path showing stage IIIC ovarian carcinoma - Management of malignancy per Dr Monroy, prefers chemo in house when stable from surgery - Clear liquid diet, advance as tolerated - Post operative care per Dr Escalona LMWH ppx Problems: Subjective 24 Hr Interval Summary Free Text/Dictation Doing well Tolerating diet Pain controlled Exam/Review of Systems Vital Signs Vitals Vital Signs Date Time Temp Pulse Resp B/P Pulse Ox O2 Delivery O2 Flow Rate FiO2 06/30/17 14:00 98.5 99 19 133/79 95 06/29/17 15:59 2.0 28 06/28/17 09:15 Nasal Cannula Intake and Output 06/29/17 06/29/17 06/30/17 15:00 23:00 07:00 Intake Total 700 ml 700 ml 360 ml Output Total 2120 ml 1510 ml Balance 700 ml -1420 ml -1150 ml Results Result Diagram: 06/30/17 0457 06/30/17 0457 Results 24 hrs Laboratory Tests Test 06/29/17 21:06 06/30/17 04:57 06/30/17 08:39 06/30/17 12:39 Bedside Glucose 87 88 97 White Blood Count 7.3 # Red Blood Count 3.40 L Hemoglobin 9.9 L Hematocrit 30.9 L Mean Corpuscular Volume 90.9 Mean Corpuscular Hemoglobin 29.1 Mean Corpuscular Hemoglobin Concent 32.0 Red Cell Distribution Width 14.2 Platelet Count 314 # Mean Platelet Volume 9.9 Neutrophils % 74.5 Lymphocytes % 13.5 L Monocytes % 8.1 Eosinophils % 2.1 Basophils % 0.6 Nucleated Red Blood Cells % 0.0 Neutrophils # 5.4 Lymphocytes # 1.0 Monocytes # 0.6 Eosinophils # 0.2 Basophils # 0.0 Nucleated Red Blood Cells # 0.0 Sodium Level 138 Potassium Level 4.1 Chloride Level 102 Carbon Dioxide Level 28 Anion Gap 12 Blood Urea Nitrogen 6 L Creatinine 0.49 Glucose Level 93 Calcium Level 8.3 L Medications Medications Current Medications Acetaminophen (Tylenol Tab) 650 mg Q6H PRN PO PAIN LEVEL 1-3 OR FEVER; Start at 18:00 Acetaminophen/ Hydrocodone Bitart ([place] (5/325)) 1 tab Q6H PRN PO MODERATE PAIN LEVEL 4-6 Last administered on 06/30/17 10:28; Admin Dose 1 TAB; Start at 18:00 Morphine Sulfate (morphine) 2 mg Q4H PRN IV SEVERE PAIN LEVEL 7-10 Last administered on 06/26/17 07:50; Admin Dose 2 MG; Start 06/18/17 at 18:00 Magnesium Hydroxide (Milk Of Mag) 30 ml DAILY PRN PO CONSTIPATION Last administered on 06/19/17 13:33; Admin Dose 30 ML; Start 06/18/17 at 18:00 Bisacodyl (Dulcolax) 10 mg DAILY PO Last administered on 06/30/17 09:11; Admin Dose 10 MG; Start 06/18/17 at 18:00 Bisacodyl (Dulcolax Supp) 10 mg DAILY PRN [place] CONSTIPATION; Start 06/19/17 at 09 :00 Zolpidem Tartrate (Ambien) 5 mg QHS PRN PO SLEEP Last administered on 21:30; Admin Dose 5 MG; Start 06/18/17 at 18:00 Miscellaneous Information 1 ea NOTE XX ; Start 06/18/17 at 18:00 Glucose (Glutose) 15 gm Q15M PRN PO DECREASED GLUCOSE; Start 06/18/17 at 18:00 Glucose (Glutose) 22.5 gm Q15M PRN PO DECREASED GLUCOSE; Start 06/18/17 at 18: 00 Dextrose (D50w Syringe) 25 ml Q15M PRN IV DECREASED GLUCOSE; Start 06/18/17 at 18:00 Dextrose (D50w Syringe) 50 ml Q15M PRN IV DECREASED GLUCOSE; Start 06/18/17 at 18:00 Glucagon (Glucagen) 1 mg Q15M PRN IM DECREASED GLUCOSE; Start 06/18/17 at 18:00 Glucose (Glutose) 15 gm Q15M PRN BUCCAL DECREASED GLUCOSE; Start 06/18/17 at 18 :00 Metoclopramide HCl (Reglan) 10 mg Q6H PRN IV NAUSEA AND/OR VOMITING Last administered on 06/20/17 00:57; Admin Dose 10 MG; Start 06/19/17 at 23:30 Senna (Senokot) 2 tab BID PO Last administered on 06/30/17 09:11; Admin Dose 2 TAB; Start 06/20/17 at 12:00 Hydromorphone HCl (Dilaudid) 1 mg Q2 PRN IV PAIN LEVEL 6-10 Last administered on 06/28/17 21:17; Admin Dose 1 MG; Start 06/25/17 at 13:00 Diphenhydramine HCl (Benadryl) 25 mg Q6H PRN IV ITCHING Last administered on 23:06; Admin Dose 25 MG; Start 06/25/17 at 13:00 Ondansetron HCl (Zofran Inj) 4 mg Q6H PRN IV NAUSEA AND/OR VOMITING Last administered on 06/27/17 03:56; Admin Dose 4 MG; Start 06/25/17 at 13:00 Famotidine (Pepcid Iv) 20 mg Q12 IV Last administered on 06/30/17 09:06; Admin Dose 20 MG; Start 06/25/17 at 14:00 Enoxaparin Sodium (Lovenox) 40 mg DAILY SC Last administered on 06/30/17 09:23 ; Admin Dose 40 MG; Start 06/28/17 at 09:00 Diagnostic Test (Pha) (Accu-Chek) 1 ea 02 XX ; Start 06/30/17 at 02:00 DIXIE BURLESON MD Jun 30, 2017 17:32
[2017-06-30 20:27] VITALS: BP 125/69; RESP 18
[2017-07-01] MEDS: ACCU-CHEK XX SCH ×5 (02:00→21:58)
[2017-07-01 02:45] VITALS: BP 131/71; RESP 19
[2017-07-01 05:11] LABS: BASOPHILS % 0.5 % (0.0-2.0); EOSINOPHILS # 0.2 10^3/ul (0.0-0.5); EOSINOPHILS % 1.9 % (0.0-7.0); HEMATOCRIT 30.6 % (37.0-47.0); HEMOGLOBIN 9.7 g/dl (12.0-16.0); LYMPHOCYTES % 11.3 % (15.0-51.0); MEAN CORPUSCULAR HEMOGLOBIN 28.4 pg (29.0-33.0); MEAN CORPUSCULAR HGB CONC 31.7 g/dl (32.0-37.0); MEAN CORPUSCULAR VOLUME 89.7 fl (82.0-101.0); MEAN PLATELET VOLUME 10.4 fl (7.4-10.4); MONOCYTE # 0.6 10^3/ul (0.3-0.9); NEUTROPHIL # 6.8 10^3/ul (1.6-7.5); NEUTROPHILS % 77.9 % (39.0-77.0); PLATELET COUNT 320 10^3/UL (140-415); RED BLOOD COUNT 3.41 10^6/ul (4.20-5.40); RED CELL DISTRIBUTION WIDTH 14.6 % (11.5-14.5); WHITE BLOOD COUNT 8.8 10^3/ul (4.8-10.8)
[2017-07-01 05:16] LABS: ALBUMIN 2.8 g/dl (3.3-4.9); ALBUMIN/GLOBULIN RATIO 0.8; BILIRUBIN,INDIRECT 0.2 mg/dl (0-1.1); BILIRUBIN,TOTAL 0.2 mg/dl (0.2-1.3); CALCIUM 8.6 mg/dl (8.4-10.2); CREATININE 0.55 mg/dl (0.44-1.00); TOTAL PROTEIN 6.3 g/dl (6.1-8.1)
[2017-07-01] MEDS: INSULIN ASPART [NOVOLOG] 3 ML PEN SC SCH ×4 (07:50→21:00)
[2017-07-01 07:57] VITALS: BP 138/74; RESP 19
[2017-07-01] MEDS: FAMOTIDINE 20 MG INJ IV SCH ×2 (08:33→20:40)
[2017-07-01] MEDS: ENOXAPARIN 40 MG/0.4 ML SYG SC SCH (08:40)
[2017-07-01] MEDS: SENNA TAB PO SCH ×2 (08:42→21:00)
[2017-07-01] MEDS: BISACODYL (EC) 5 MG TAB PO SCH (08:42)
[2017-07-01] MEDS: HYDROCODONE/APAP (5/325) TAB PO PRN ×2 (13:55→20:41)
--- NOTE | 2017-07-01 15:08 | PN ---
Date/Time of Note Date/Time of Note DATE: 07/01/17 TIME: 15:05 Assessment/Plan VTE Prophylaxis VTE Prophylaxis Intervention: SCD's Lines/Catheters IV Catheter Type (from [facility]): Saline Lock Assessment/Plan Chief Complaint/Hosp Course 1. STAGE IIIC ovarian cancer -pt now s/p optimal debulking surgery -Plan is for adjuvant chemotherapy with carboplatin and taxol in house once patient has recovered from surgery 2. Diabetes -continue NovoLog sliding scale 3. Hypertension -continue current blood pressure meds Prophylaxis: SCDs Problems: Subjective 24 Hr Interval Summary Constitutional: no complaints Exam/Review of Systems Vital Signs Vitals Vital Signs Date Time Temp Pulse Resp B/P Pulse Ox O2 Delivery O2 Flow Rate FiO2 07/01/17 08:15 Nasal Cannula 07/01/17 07:57 98.0 97 19 138/74 98 06/29/17 15:59 2.0 28 Intake and Output 06/30/17 06/30/17 07/01/17 15:00 23:00 07:00 Intake Total 1300 ml 480 ml Output Total 615 ml 560 ml Balance 685 ml -80 ml Exam Constitutional: alert, oriented Respiratory: clear to auscultation Cardiovascular: regular rate and rhythm Gastrointestinal: soft, No distended Musculoskeletal: nl extremities to inspection Results Result Diagram: 07/01/1741907/01/17 0420 Results 24 hrs Laboratory Tests Test 06/30/17 17:38 06/30/17 21:09 07/01/17 04:20 07/01/17 08:34 Bedside Glucose 100 124 101 White Blood Count 8.8 # Red Blood Count 3.41 L Hemoglobin 9.7 L Hematocrit 30.6 L Mean Corpuscular Volume 89.7 Mean Corpuscular Hemoglobin 28.4 L Mean Corpuscular Hemoglobin Concent 31.7 L Red Cell Distribution Width 14.6 H Platelet Count 320 Mean Platelet Volume 10.4 Neutrophils % 77.9 H Lymphocytes % 11.3 L Monocytes % 7.0 Eosinophils % 1.9 Basophils % 0.5 Nucleated Red Blood Cells % 0.0 Neutrophils # 6.8 Lymphocytes # 1.0 Monocytes # 0.6 Eosinophils # 0.2 Basophils # 0.0 Nucleated Red Blood Cells # 0.0 Sodium Level 136 Potassium Level 4.0 Chloride Level 102 Carbon Dioxide Level 27 Anion Gap 11 Blood Urea Nitrogen 8 Creatinine 0.55 Glucose Level 115 Calcium Level 8.6 Total Bilirubin 0.2 Direct Bilirubin 0.00 Indirect Bilirubin 0.2 Aspartate Amino Transf (AST/SGOT) 31 Alanine Aminotransferase (ALT/SGPT) 35 Alkaline Phosphatase 54 Total Protein 6.3 Albumin 2.8 L Globulin 3.50 H Albumin/Globulin Ratio 0.80 Test 07/01/17 12:04 Bedside Glucose 115 Medications Medications Current Medications Acetaminophen (Tylenol Tab) 650 mg Q6H PRN PO PAIN LEVEL 1-3 OR FEVER; Start at 18:00 Acetaminophen/ Hydrocodone Bitart ([place] (5/325)) 1 tab Q6H PRN PO MODERATE PAIN LEVEL 4-6 Last administered on 07/01/17 13:55; Admin Dose 1 TAB; Start at 18:00 Morphine Sulfate (morphine) 2 mg Q4H PRN IV SEVERE PAIN LEVEL 7-10 Last administered on 06/26/17 07:50; Admin Dose 2 MG; Start 06/18/17 at 18:00 Magnesium Hydroxide (Milk Of Mag) 30 ml DAILY PRN PO CONSTIPATION Last administered on 06/19/17 13:33; Admin Dose 30 ML; Start 06/18/17 at 18:00 Bisacodyl (Dulcolax) 10 mg DAILY PO Last administered on 06/30/17 09:11; Admin Dose 10 MG; Start 06/18/17 at 18:00 Bisacodyl (Dulcolax Supp) 10 mg DAILY PRN [place] CONSTIPATION; Start 06/19/17 at 09 :00 Zolpidem Tartrate (Ambien) 5 mg QHS PRN PO SLEEP Last administered on 21:30; Admin Dose 5 MG; Start 06/18/17 at 18:00 Miscellaneous Information 1 ea NOTE XX ; Start 06/18/17 at 18:00 Glucose (Glutose) 15 gm Q15M PRN PO DECREASED GLUCOSE; Start 06/18/17 at 18:00 Glucose (Glutose) 22.5 gm Q15M PRN PO DECREASED GLUCOSE; Start 06/18/17 at 18: 00 Dextrose (D50w Syringe) 25 ml Q15M PRN IV DECREASED GLUCOSE; Start 06/18/17 at 18:00 Dextrose (D50w Syringe) 50 ml Q15M PRN IV DECREASED GLUCOSE; Start 06/18/17 at 18:00 Glucagon (Glucagen) 1 mg Q15M PRN IM DECREASED GLUCOSE; Start 06/18/17 at 18:00 Glucose (Glutose) 15 gm Q15M PRN BUCCAL DECREASED GLUCOSE; Start 06/18/17 at 18 :00 Metoclopramide HCl (Reglan) 10 mg Q6H PRN IV NAUSEA AND/OR VOMITING Last administered on 06/20/17 00:57; Admin Dose 10 MG; Start 06/19/17 at 23:30 Senna (Senokot) 2 tab BID PO Last administered on 06/30/17 09:11; Admin Dose 2 TAB; Start 06/20/17 at 12:00 Hydromorphone HCl (Dilaudid) 1 mg Q2 PRN IV PAIN LEVEL 6-10 Last administered on 06/28/17 21:17; Admin Dose 1 MG; Start 06/25/17 at 13:00 Diphenhydramine HCl (Benadryl) 25 mg Q6H PRN IV ITCHING Last administered on 23:06; Admin Dose 25 MG; Start 06/25/17 at 13:00 Ondansetron HCl (Zofran Inj) 4 mg Q6H PRN IV NAUSEA AND/OR VOMITING Last administered on 06/27/17 03:56; Admin Dose 4 MG; Start 06/25/17 at 13:00 Famotidine (Pepcid Iv) 20 mg Q12 IV Last administered on 07/01/17 08:33; Admin Dose 20 MG; Start 06/25/17 at 14:00 Enoxaparin Sodium (Lovenox) 40 mg DAILY SC Last administered on 07/01/17 08:40 ; Admin Dose 40 MG; Start 06/28/17 at 09:00 Diagnostic Test (Pha) (Accu-Chek) 1 ea 02 XX ; Start 06/30/17 at 02:00 JONA ELY Jul 01, 2017 15:08
[2017-07-01 19:15] VITALS: BP 132/64; RESP 18
--- NOTE | 2017-07-01 21:59 | CONS ---
Date/Time of Note Date/Time of Note DATE: 07/01/17 TIME: 21:57 Assessment/Plan Assessment/Plan Chief Complaint/Hosp Course #. STAGE IIIC ovarian cancer -pt now s/p optimal debulking surgery -CA 125 is elevated to > 200, CEA and AFP normal -given patient has stage III disease, she will need adjuvant chemotherapy with carboplatin and taxol -pt still recovering from surgery. now OOB . -once patient has recovered from surgery and is tolerating a diet, will try to give first dose of chemotherapy in the hospital # Diabetes -continue NovoLog sliding scale # Hypertension -continue current blood pressure meds Approximately 40min was spent in face to face time and in speaking and counseling her, as well as in coordination of her care Problems: Consultation Date/Type/Reason Admit Date/Time Jun 18, 2017 at 15:14 Initial Consult Date 06/19/17 Type of Consultation: Oncology Reason for Consultation ovarian ca, clear cell Referring Provider: JONA ELY 24 HR Interval Summary Free Text/Dictation pt is slowly trying to ambulate. passing gas. to try po intake today Exam/Review of Systems Vital Signs Vitals Vital Signs Date Time Temp Pulse Resp B/P Pulse Ox O2 Delivery O2 Flow Rate FiO2 07/01/17 19:15 98.3 87 18 132/64 95 07/01/17 08:15 Nasal Cannula 06/29/17 15:59 2.0 28 Intake and Output 06/30/17 06/30/17 07/01/17 15:00 23:00 07:00 Intake Total 1300 ml 480 ml Output Total 615 ml 560 ml Balance 685 ml -80 ml Exam Constitutional: alert, frail, oriented Psych: no complaints Head: normocephalic Eyes: nl conjunctiva ENMT: nl external ears & nose Neck: non-tender, supple Respiratory: clear to auscultation Cardiovascular: regular rate and rhythm Gastrointestinal: surgical scars, tender Results Result Diagram: 07/01/1741907/01/17419 Results 24 hrs Laboratory Tests Test 07/01/17 04:20 07/01/17 08:34 07/01/17 12:04 07/01/17 17:51 White Blood Count 8.8 # Red Blood Count 3.41 L Hemoglobin 9.7 L Hematocrit 30.6 L Mean Corpuscular Volume 89.7 Mean Corpuscular Hemoglobin 28.4 L Mean Corpuscular Hemoglobin Concent 31.7 L Red Cell Distribution Width 14.6 H Platelet Count 320 Mean Platelet Volume 10.4 Neutrophils % 77.9 H Lymphocytes % 11.3 L Monocytes % 7.0 Eosinophils % 1.9 Basophils % 0.5 Nucleated Red Blood Cells % 0.0 Neutrophils # 6.8 Lymphocytes # 1.0 Monocytes # 0.6 Eosinophils # 0.2 Basophils # 0.0 Nucleated Red Blood Cells # 0.0 Sodium Level 136 Potassium Level 4.0 Chloride Level 102 Carbon Dioxide Level 27 Anion Gap 11 Blood Urea Nitrogen 8 Creatinine 0.55 Glucose Level 115 Calcium Level 8.6 Total Bilirubin 0.2 Direct Bilirubin 0.00 Indirect Bilirubin 0.2 Aspartate Amino Transf (AST/SGOT) 31 Alanine Aminotransferase (ALT/SGPT) 35 Alkaline Phosphatase 54 Total Protein 6.3 Albumin 2.8 L Globulin 3.50 H Albumin/Globulin Ratio 0.80 Bedside Glucose 101 115 109 Test 07/01/17 20:48 Bedside Glucose 120 Medications Medications Current Medications Acetaminophen (Tylenol Tab) 650 mg Q6H PRN PO PAIN LEVEL 1-3 OR FEVER; Start at 18:00 Acetaminophen/ Hydrocodone Bitart ([place] (5/325)) 1 tab Q6H PRN PO MODERATE PAIN LEVEL 4-6 Last administered on 07/01/17 20:41; Admin Dose 1 TAB; Start at 18:00 Morphine Sulfate (morphine) 2 mg Q4H PRN IV SEVERE PAIN LEVEL 7-10 Last administered on 06/26/17 07:50; Admin Dose 2 MG; Start 06/18/17 at 18:00 Magnesium Hydroxide (Milk Of Mag) 30 ml DAILY PRN PO CONSTIPATION Last administered on 06/19/17 13:33; Admin Dose 30 ML; Start 06/18/17 at 18:00 Bisacodyl (Dulcolax) 10 mg DAILY PO Last administered on 06/30/17 09:11; Admin Dose 10 MG; Start 06/18/17 at 18:00 Bisacodyl (Dulcolax Supp) 10 mg DAILY PRN [place] CONSTIPATION; Start 06/19/17 at 09 :00 Zolpidem Tartrate (Ambien) 5 mg QHS PRN PO SLEEP Last administered on 21:30; Admin Dose 5 MG; Start 06/18/17 at 18:00 Miscellaneous Information 1 ea NOTE XX ; Start 06/18/17 at 18:00 Glucose (Glutose) 15 gm Q15M PRN PO DECREASED GLUCOSE; Start 06/18/17 at 18:00 Glucose (Glutose) 22.5 gm Q15M PRN PO DECREASED GLUCOSE; Start 06/18/17 at 18: 00 Dextrose (D50w Syringe) 25 ml Q15M PRN IV DECREASED GLUCOSE; Start 06/18/17 at 18:00 Dextrose (D50w Syringe) 50 ml Q15M PRN IV DECREASED GLUCOSE; Start 06/18/17 at 18:00 Glucagon (Glucagen) 1 mg Q15M PRN IM DECREASED GLUCOSE; Start 06/18/17 at 18:00 Glucose (Glutose) 15 gm Q15M PRN BUCCAL DECREASED GLUCOSE; Start 06/18/17 at 18 :00 Metoclopramide HCl (Reglan) 10 mg Q6H PRN IV NAUSEA AND/OR VOMITING Last administered on 06/20/17 00:57; Admin Dose 10 MG; Start 06/19/17 at 23:30 Senna (Senokot) 2 tab BID PO Last administered on 06/30/17 09:11; Admin Dose 2 TAB; Start 06/20/17 at 12:00 Hydromorphone HCl (Dilaudid) 1 mg Q2 PRN IV PAIN LEVEL 6-10 Last administered on 06/28/17 21:17; Admin Dose 1 MG; Start 06/25/17 at 13:00 Diphenhydramine HCl (Benadryl) 25 mg Q6H PRN IV ITCHING Last administered on 23:06; Admin Dose 25 MG; Start 06/25/17 at 13:00 Ondansetron HCl (Zofran Inj) 4 mg Q6H PRN IV NAUSEA AND/OR VOMITING Last administered on 06/27/17 03:56; Admin Dose 4 MG; Start 06/25/17 at 13:00 Famotidine (Pepcid Iv) 20 mg Q12 IV Last administered on 07/01/17 20:40; Admin Dose 20 MG; Start 06/25/17 at 14:00 Enoxaparin Sodium (Lovenox) 40 mg DAILY SC Last administered on 07/01/17 08:40 ; Admin Dose 40 MG; Start 06/28/17 at 09:00 Diagnostic Test (Pha) (Accu-Chek) 1 02 XX ; Start 06/30/17 at 02:00 MINAL RICHARDSON M.D. Jul 01, 2017 21:59
[2017-07-02] MEDS: ACCU-CHEK XX SCH ×5 (02:00→21:26)
[2017-07-02 02:37] VITALS: BP 122/72; RESP 18
[2017-07-02 07:35] VITALS: BP 128/69; RESP 18
[2017-07-02] MEDS: SENNA TAB PO SCH ×2 (08:20→21:35)
[2017-07-02] MEDS: BISACODYL (EC) 5 MG TAB PO SCH (08:20)
[2017-07-02] MEDS: FAMOTIDINE 20 MG INJ IV SCH ×2 (08:21→21:35)
[2017-07-02] MEDS: ENOXAPARIN 40 MG/0.4 ML SYG SC SCH (08:28)
[2017-07-02] MEDS: INSULIN ASPART [NOVOLOG] 3 ML PEN SC SCH ×4 (08:50→21:00)
[2017-07-02] MEDS ORDERED: LIDOCAINE 1% (MPF) 5 ML VIAL SC ONE (10:00)
--- NOTE | 2017-07-02 11:43 | CONS ---
Date/Time of Note Date/Time of Note DATE: 07/02/17 TIME: 11:38 Assessment/Plan Assessment/Plan Chief Complaint/Hosp Course #. STAGE IIIC ovarian cancer -pt now s/p optimal debulking surgery -CA 125 is elevated to > 200, CEA and AFP normal -given patient has stage III disease, she will need adjuvant chemotherapy with carboplatin and taxol -will order chemotherapy today and try to start tomorrow depending on when medication arrives -once patient has recovered from surgery and is tolerating a diet, will try to give first dose of chemotherapy in the hospital # Diabetes -continue NovoLog sliding scale # Hypertension -continue current blood pressure meds Approximately 40min was spent in face to face time and in speaking and counseling her, as well as in coordination of her care Problems: Consultation Date/Type/Reason Admit Date/Time Jun 18, 2017 at 15:14 Initial Consult Date 06/19/17 Type of Consultation: Oncology Reason for Consultation stage IIIc ovarian cancer Referring Provider: JONA ELY 24 HR Interval Summary Free Text/Dictation pt is now ambulating and tolerating her diet Exam/Review of Systems Vital Signs Vitals Vital Signs Date Time Temp Pulse Resp B/P Pulse Ox O2 Delivery O2 Flow Rate FiO2 07/02/17 07:35 98.1 82 18 128/69 91 07/01/17 08:15 Nasal Cannula 06/29/17 15:59 2.0 28 Intake and Output 07/01/17 07/01/17 07/02/17 15:00 23:00 07:00 Intake Total 720 ml 600 ml Output Total 560 ml 705 ml Balance 160 ml -105 ml Exam Constitutional: alert, oriented Psych: no complaints Head: normocephalic Eyes: nl conjunctiva ENMT: nl external ears & nose Neck: supple Respiratory: clear to auscultation, normal air movement Cardiovascular: regular rate and rhythm Musculoskeletal: nl extremities to inspection Extremities: normal pulses Results Result Diagram: 07/01/1741907/01/17419 Results 24 hrs Laboratory Tests Test 07/01/17 12:04 07/01/17 17:51 07/01/17 20:48 07/02/17 08:49 Bedside Glucose 115 109 120 99 Medications Medications Current Medications Acetaminophen (Tylenol Tab) 650 mg Q6H PRN PO PAIN LEVEL 1-3 OR FEVER; Start at 18:00 Acetaminophen/ Hydrocodone Bitart ([place] (5/325)) 1 tab Q6H PRN PO MODERATE PAIN LEVEL 4-6 Last administered on 07/01/17 20:41; Admin Dose 1 TAB; Start at 18:00 Morphine Sulfate (morphine) 2 mg Q4H PRN IV SEVERE PAIN LEVEL 7-10 Last administered on 06/26/17 07:50; Admin Dose 2 MG; Start 06/18/17 at 18:00 Magnesium Hydroxide (Milk Of Mag) 30 ml DAILY PRN PO CONSTIPATION Last administered on 06/19/17 13:33; Admin Dose 30 ML; Start 06/18/17 at 18:00 Bisacodyl (Dulcolax) 10 mg DAILY PO Last administered on 06/30/17 09:11; Admin Dose 10 MG; Start 06/18/17 at 18:00 Bisacodyl (Dulcolax Supp) 10 mg DAILY PRN [place] CONSTIPATION; Start 06/19/17 at 09 :00 Zolpidem Tartrate (Ambien) 5 mg QHS PRN PO SLEEP Last administered on 21:30; Admin Dose 5 MG; Start 06/18/17 at 18:00 Miscellaneous Information 1 ea NOTE XX ; Start 06/18/17 at 18:00 Glucose (Glutose) 15 gm Q15M PRN PO DECREASED GLUCOSE; Start 06/18/17 at 18:00 Glucose (Glutose) 22.5 gm Q15M PRN PO DECREASED GLUCOSE; Start 06/18/17 at 18: 00 Dextrose (D50w Syringe) 25 ml Q15M PRN IV DECREASED GLUCOSE; Start 06/18/17 at 18:00 Dextrose (D50w Syringe) 50 ml Q15M PRN IV DECREASED GLUCOSE; Start 06/18/17 at 18:00 Glucagon (Glucagen) 1 mg Q15M PRN IM DECREASED GLUCOSE; Start 06/18/17 at 18:00 Glucose (Glutose) 15 gm Q15M PRN BUCCAL DECREASED GLUCOSE; Start 06/18/17 at 18 :00 Metoclopramide HCl (Reglan) 10 mg Q6H PRN IV NAUSEA AND/OR VOMITING Last administered on 06/20/17 00:57; Admin Dose 10 MG; Start 06/19/17 at 23:30 Senna (Senokot) 2 tab BID PO Last administered on 06/30/17 09:11; Admin Dose 2 TAB; Start 06/20/17 at 12:00 Hydromorphone HCl (Dilaudid) 1 mg Q2 PRN IV PAIN LEVEL 6-10 Last administered on 06/28/17 21:17; Admin Dose 1 MG; Start 06/25/17 at 13:00 Diphenhydramine HCl (Benadryl) 25 mg Q6H PRN IV ITCHING Last administered on 23:06; Admin Dose 25 MG; Start 06/25/17 at 13:00 Ondansetron HCl (Zofran Inj) 4 mg Q6H PRN IV NAUSEA AND/OR VOMITING Last administered on 06/27/17 03:56; Admin Dose 4 MG; Start 06/25/17 at 13:00 Famotidine (Pepcid Iv) 20 mg Q12 IV Last administered on 07/02/17 08:21; Admin Dose 20 MG; Start 06/25/17 at 14:00 Enoxaparin Sodium (Lovenox) 40 mg DAILY SC Last administered on 07/02/17 08: 28; Admin Dose 40 MG; Start 06/28/17 at 09:00 Diagnostic Test (Pha) (Accu-Chek) 1 02 XX ; Start 06/30/17 at 02:00 MINAL RICHARDSON M.D. Jul 02, 2017 11:43
[2017-07-02] MEDS: HYDROCODONE/APAP (5/325) TAB PO PRN ×2 (11:48→21:34)
[2017-07-02 14:39] VITALS: BP 129/64; RESP 18
--- NOTE | 2017-07-02 15:04 | PN ---
Date/Time of Note Date/Time of Note DATE: 07/02/17 TIME: 15:00 Assessment/Plan VTE Prophylaxis VTE Prophylaxis Intervention: SCD's Lines/Catheters IV Catheter Type (from Nrsg): [place] Assessment/Plan Chief Complaint/Hosp Course 1. STAGE IIIC ovarian cancer -pt now s/p optimal debulking surgery -Plan is for adjuvant chemotherapy with carboplatin and taxol in house once patient has recovered from surgery, in 1-2 days 2. Diabetes -continue NovoLog sliding scale 3. Hypertension -continue current blood pressure meds Prophylaxis: SCDs Problems: Subjective 24 Hr Interval Summary Constitutional: no complaints Exam/Review of Systems Vital Signs Vitals Vital Signs Date Time Temp Pulse Resp B/P Pulse Ox O2 Delivery O2 Flow Rate FiO2 07/02/17 14:39 98.0 80 18 129/64 98 07/01/17 08:15 Nasal Cannula 06/29/17 15:59 2.0 28 Intake and Output 07/01/17 07/01/17 07/02/17 15:00 23:00 07:00 Intake Total 720 ml 600 ml Output Total 560 ml 705 ml Balance 160 ml -105 ml Exam Constitutional: alert Respiratory: clear to auscultation Cardiovascular: regular rate and rhythm Gastrointestinal: soft, No distended Musculoskeletal: nl extremities to inspection Results Result Diagram: 07/01/1741907/01/17419 Results 24 hrs Laboratory Tests Test 07/01/17 17:51 07/01/17 20:48 07/02/17 08:49 07/02/17 13:09 Bedside Glucose 109 120 99 106 Medications Medications Current Medications Acetaminophen (Tylenol Tab) 650 mg Q6H PRN PO PAIN LEVEL 1-3 OR FEVER; Start at 18:00 Acetaminophen/ Hydrocodone Bitart ([place] (5/325)) 1 tab Q6H PRN PO MODERATE PAIN LEVEL 4-6 Last administered on 07/02/17 11:48; Admin Dose 1 TAB; Start at 18:00 Morphine Sulfate (morphine) 2 mg Q4H PRN IV SEVERE PAIN LEVEL 7-10 Last administered on 06/26/17 07:50; Admin Dose 2 MG; Start 06/18/17 at 18:00 Magnesium Hydroxide (Milk Of Mag) 30 ml DAILY PRN PO CONSTIPATION Last administered on 06/19/17 13:33; Admin Dose 30 ML; Start 06/18/17 at 18:00 Bisacodyl (Dulcolax) 10 mg DAILY PO Last administered on 06/30/17 09:11; Admin Dose 10 MG; Start 06/18/17 at 18:00 Bisacodyl (Dulcolax Supp) 10 mg DAILY PRN [place] CONSTIPATION; Start 06/19/17 at 09 :00 Zolpidem Tartrate (Ambien) 5 mg QHS PRN PO SLEEP Last administered on 21:30; Admin Dose 5 MG; Start 06/18/17 at 18:00 Miscellaneous Information 1 ea NOTE XX ; Start 06/18/17 at 18:00 Glucose (Glutose) 15 gm Q15M PRN PO DECREASED GLUCOSE; Start 06/18/17 at 18:00 Glucose (Glutose) 22.5 gm Q15M PRN PO DECREASED GLUCOSE; Start 06/18/17 at 18: 00 Dextrose (D50w Syringe) 25 ml Q15M PRN IV DECREASED GLUCOSE; Start 06/18/17 at 18:00 Dextrose (D50w Syringe) 50 ml Q15M PRN IV DECREASED GLUCOSE; Start 06/18/17 at 18:00 Glucagon (Glucagen) 1 mg Q15M PRN IM DECREASED GLUCOSE; Start 06/18/17 at 18:00 Glucose (Glutose) 15 gm Q15M PRN BUCCAL DECREASED GLUCOSE; Start 06/18/17 at 18 :00 Metoclopramide HCl (Reglan) 10 mg Q6H PRN IV NAUSEA AND/OR VOMITING Last administered on 06/20/17 00:57; Admin Dose 10 MG; Start 06/19/17 at 23:30 Senna (Senokot) 2 tab BID PO Last administered on 06/30/17 09:11; Admin Dose 2 TAB; Start 06/20/17 at 12:00 Hydromorphone HCl (Dilaudid) 1 mg Q2 PRN IV PAIN LEVEL 6-10 Last administered on 06/28/17 21:17; Admin Dose 1 MG; Start 06/25/17 at 13:00 Diphenhydramine HCl (Benadryl) 25 mg Q6H PRN IV ITCHING Last administered on 23:06; Admin Dose 25 MG; Start 06/25/17 at 13:00 Ondansetron HCl (Zofran Inj) 4 mg Q6H PRN IV NAUSEA AND/OR VOMITING Last administered on 06/27/17 03:56; Admin Dose 4 MG; Start 06/25/17 at 13:00 Famotidine (Pepcid Iv) 20 mg Q12 IV Last administered on 07/02/17 08:21; Admin Dose 20 MG; Start 06/25/17 at 14:00 Enoxaparin Sodium (Lovenox) 40 mg DAILY SC Last administered on 07/02/17 08: 28; Admin Dose 40 MG; Start 06/28/17 at 09:00 Diagnostic Test (Pha) (Accu-Chek) 1 ea 02 XX ; Start 06/30/17 at 02:00 JONA ELY Jul 02, 2017 15:04
--- NOTE | 2017-07-02 16:48 | RADRPT ---
PROCEDURE: XR Chest. CLINICAL INDICATION: Check PICC line position. TECHNIQUE: Single frontal view. COMPARISON: 06/24/2017. FINDINGS: There is a left arm PICC line with the tip in the lower right atrium. There is mild atelectasis at the right lung base and elevation of the right hemidiaphragm. The lungs are otherwise clear. The heart size is normal. There is no pleural effusion. There is no pneumothorax. IMPRESSION: 1. Left arm PICC line tip in lower right atrium. This should be retracted 4 cm. PICC line are somew here. 2. Mild right basilar atelectasis and elevation of the right hemidiaphragm. 3. Otherwise unremarkable study. RPTAT: QQ .Emilio Snow MD, Date Time Electronically viewed and signed by .Emilio Snow MD, on 07/02/2017 16:48 .R/
--- NOTE | 2017-07-02 16:49 | RADRPT ---
PROCEDURE: XR Chest. CLINICAL INDICATION: Check PICC line position. TECHNIQUE: Single frontal view. COMPARISON: Prior study done earlier the same day. FINDINGS: There is a left arm PICC line with the tip in the cavoatrial junction. There is mild elevation of t he right hemidiaphragm and right basilar atelectasis. The lungs are otherwise clear. The heart size is normal. There is no pleural effusion. There is no pneumothorax. IMPRESSION: 1. Left arm PICC line tip in satisfactory position. 2. Mild elevation of the right hemidiaphragm and right basilar atelectasis, unchanged. 3. Otherwise unremarkable study. RPTAT: QQ .Emilio Snow MD, Date Time Electronically viewed and signed by .Emilio Snow MD, on 07/02/2017 16:49 .R/
--- NOTE | 2017-07-02 17:09 | RADRPT ---
PROCEDURE: US guidance for PICC line CLINICAL INDICATION: PICC line placement TECHNIQUE: Multiple real-time images were acquired of the patient's arm utilizing a high resolutio n transducer. This was performed by the PICC line nurse for venous access. COMPARISON: None FINDINGS: Ultrasound guidance for PICC line placement. IMPRESSION: Ultrasound guidance for PICC line placement. RPTAT: AA .Marciano Thomas MD, MD Date Time Electronically viewed and signed by .Marciano Thomas MD, on 07/02/2017 17:09 .S/
[2017-07-02] MEDS ORDERED: SOD CHLORIDE 0.9% 100 ML ONE (17:31)
[2017-07-02 19:05] VITALS: BP 135/63; RESP 20
[2017-07-02] MEDS ORDERED: VITAMIN A & D 5 GM OINT PACKET TOP ONE (19:34)
[2017-07-02] MEDS: SILVER SULFADIAZINE 1% 25 GM CR TOP SCH (22:28)
[2017-07-03 01:57] VITALS: BP 138/78; RESP 18
[2017-07-03] MEDS: ACCU-CHEK XX SCH ×5 (02:00→21:00)
[2017-07-03] MEDS: HYDROCODONE/APAP (5/325) TAB PO PRN (05:09)
[2017-07-03 07:41] VITALS: BP 118/73; RESP 20
[2017-07-03] MEDS: INSULIN ASPART [NOVOLOG] 3 ML PEN SC SCH ×4 (08:30→21:00)
[2017-07-03] MEDS: ENOXAPARIN 40 MG/0.4 ML SYG SC SCH (08:53)
[2017-07-03] MEDS: HYDROmorphONE 1 MG/ML SYG IV PRN (08:53)
[2017-07-03] MEDS: BISACODYL (EC) 5 MG TAB PO SCH (08:54)
[2017-07-03] MEDS: SENNA TAB PO SCH ×2 (08:54→21:20)
[2017-07-03] MEDS: SILVER SULFADIAZINE 1% 25 GM CR TOP SCH ×2 (08:54→21:00)
[2017-07-03] MEDS: FAMOTIDINE 20 MG INJ IV SCH (10:00)
[2017-07-03] MEDS: METOCLOPRAMIDE 10 MG INJ IV PRN (14:09)
--- NOTE | 2017-07-03 17:00 | CONS ---
Date/Time of Note Date/Time of Note DATE: 07/03/17 TIME: 16:59 Assessment/Plan Assessment/Plan Chief Complaint/Hosp Course #. STAGE IIIC ovarian cancer -pt now s/p optimal debulking surgery -CA 125 is elevated to > 200, CEA and AFP normal -given patient has stage III disease, she will need adjuvant chemotherapy with carboplatin and taxol -will order chemotherapy today and try to start tomorrow depending on when medication arrives -once patient has recovered from surgery and is tolerating a diet, will try to give first dose of chemotherapy in the hospital # Diabetes -continue NovoLog sliding scale # Hypertension -continue current blood pressure meds Approximately 40min was spent in face to face time and in speaking and counseling her, as well as in coordination of her care Problems: Consultation Date/Type/Reason Admit Date/Time Jun 18, 2017 at 15:14 Initial Consult Date 06/19/17 Type of Consultation: Oncology Reason for Consultation stage IIIc ovarian cancer Referring Provider: JONA ELY 24 HR Interval Summary Free Text/Dictation pt felt nausea this am. Exam/Review of Systems Vital Signs Vitals Vital Signs Date Time Temp Pulse Resp B/P Pulse Ox O2 Delivery O2 Flow Rate FiO2 07/03/17 07:41 97.8 82 20 118/73 93 07/01/17 08:15 Nasal Cannula 06/29/17 15:59 2.0 28 Intake and Output 07/02/17 07/02/17 07/03/17 15:00 23:00 07:00 Intake Total 1160 ml 480 ml Output Total 710 ml 907 ml Balance 450 ml -427 ml Exam Constitutional: alert Psych: nl mood/affect, no complaints Head: normocephalic Eyes: nl conjunctiva ENMT: nl external ears & nose Neck: non-tender, supple Respiratory: clear to auscultation Cardiovascular: regular rate and rhythm Musculoskeletal: other (picc line in place) Results Result Diagram: 07/01/1741907/01/17419 Results 24 hrs Laboratory Tests Test 07/02/17 17:58 07/02/17 21:16 07/03/17 08:28 07/03/17 12:35 Bedside Glucose 108 151 99 145 Medications Medications Current Medications Acetaminophen (Tylenol Tab) 650 mg Q6H PRN PO PAIN LEVEL 1-3 OR FEVER; Start at 18:00 Acetaminophen/ Hydrocodone Bitart ([place] (5/325)) 1 tab Q6H PRN PO MODERATE PAIN LEVEL 4-6 Last administered on 07/03/17 05:09; Admin Dose 1 TAB; Start at 18:00 Morphine Sulfate (morphine) 2 mg Q4H PRN IV SEVERE PAIN LEVEL 7-10 Last administered on 06/26/17 07:50; Admin Dose 2 MG; Start 06/18/17 at 18:00 Magnesium Hydroxide (Milk Of Mag) 30 ml DAILY PRN PO CONSTIPATION Last administered on 06/19/17 13:33; Admin Dose 30 ML; Start 06/18/17 at 18:00 Bisacodyl (Dulcolax) 10 mg DAILY PO Last administered on 07/03/17 08:54; Admin Dose 10 MG; Start 06/18/17 at 18:00 Bisacodyl (Dulcolax Supp) 10 mg DAILY PRN [place] CONSTIPATION; Start 06/19/17 at 09 :00 Zolpidem Tartrate (Ambien) 5 mg QHS PRN PO SLEEP Last administered on 21:30; Admin Dose 5 MG; Start 06/18/17 at 18:00 Miscellaneous Information 1 ea NOTE XX ; Start 06/18/17 at 18:00 Glucose (Glutose) 15 gm Q15M PRN PO DECREASED GLUCOSE; Start 06/18/17 at 18:00 Glucose (Glutose) 22.5 gm Q15M PRN PO DECREASED GLUCOSE; Start 06/18/17 at 18: 00 Dextrose (D50w Syringe) 25 ml Q15M PRN IV DECREASED GLUCOSE; Start 06/18/17 at 18:00 Dextrose (D50w Syringe) 50 ml Q15M PRN IV DECREASED GLUCOSE; Start 06/18/17 at 18:00 Glucagon (Glucagen) 1 mg Q15M PRN IM DECREASED GLUCOSE; Start 06/18/17 at 18:00 Glucose (Glutose) 15 gm Q15M PRN BUCCAL DECREASED GLUCOSE; Start 06/18/17 at 18 :00 Metoclopramide HCl (Reglan) 10 mg Q6H PRN IV NAUSEA AND/OR VOMITING Last administered on 07/03/17 14:09; Admin Dose 10 MG; Start 06/19/17 at 23:30 Senna (Senokot) 2 tab BID PO Last administered on 07/03/17 08:54; Admin Dose 2 TAB; Start 06/20/17 at 12:00 Hydromorphone HCl (Dilaudid) 1 mg Q2 PRN IV PAIN LEVEL 6-10 Last administered on 07/03/17 08:53; Admin Dose 1 MG; Start 06/25/17 at 13:00 Diphenhydramine HCl (Benadryl) 25 mg Q6H PRN IV ITCHING Last administered on 23:06; Admin Dose 25 MG; Start 06/25/17 at 13:00 Ondansetron HCl (Zofran Inj) 4 mg Q6H PRN IV NAUSEA AND/OR VOMITING Last administered on 06/27/17 03:56; Admin Dose 4 MG; Start 06/25/17 at 13:00 Famotidine (Pepcid Iv) 20 mg Q12 IV Last administered on 07/02/17 21:35; Admin Dose 20 MG; Start 06/25/17 at 14:00 Enoxaparin Sodium (Lovenox) 40 mg DAILY SC Last administered on 07/03/17 08: 53; Admin Dose 40 MG; Start 06/28/17 at 09:00 Diagnostic Test (Pha) (Accu-Chek) 1 ea 02 XX ; Start 06/30/17 at 02:00 IV Flush (NS 10 ml) 10 ml PRN PRN IV IV PROTOCOL; Start 07/02/17 at 17:00 Silver Sulfadiazine (Thermazene 1% 25 Gm) 1 applic BID TOP Last administered on 07/03/17 08:54; Admin Dose 1 APPLIC; Start 07/02/17 at 22:30 MINAL RICHARDSON M.D. Jul 03, 2017 17:00
--- NOTE | 2017-07-03 18:05 | PN ---
Date/Time of Note Date/Time of Note DATE: 07/03/17 TIME: 18:04 Assessment/Plan VTE Prophylaxis VTE Prophylaxis Intervention: SCD's Assessment/Plan Chief Complaint/Hosp Course 1. STAGE IIIC ovarian cancer -pt now s/p optimal debulking surgery -Plan is for adjuvant chemotherapy with carboplatin and taxol in house tomorrow 2. Diabetes -continue NovoLog sliding scale 3. Hypertension -continue current blood pressure meds Prophylaxis: SCDs Problems: Subjective 24 Hr Interval Summary Constitutional: no complaints Exam/Review of Systems Vital Signs Vitals Vital Signs Date Time Temp Pulse Resp B/P Pulse Ox O2 Delivery O2 Flow Rate FiO2 07/03/17 07:41 97.8 82 20 118/73 93 07/01/17 08:15 Nasal Cannula 06/29/17 15:59 2.0 28 Intake and Output 07/02/17 07/02/17 07/03/17 15:00 23:00 07:00 Intake Total 1160 ml 480 ml Output Total 710 ml 907 ml Balance 450 ml -427 ml Exam Constitutional: alert, oriented Respiratory: clear to auscultation Cardiovascular: regular rate and rhythm Gastrointestinal: soft, No distended Musculoskeletal: nl extremities to inspection Results Result Diagram: 07/01/170 07/01/17 0420 Results 24 hrs Laboratory Tests Test 07/02/17 21:16 07/03/17 08:28 07/03/17 12:35 07/03/17 17:37 Bedside Glucose 151 99 145 148 Medications Medications Current Medications Acetaminophen (Tylenol Tab) 650 mg Q6H PRN PO PAIN LEVEL 1-3 OR FEVER; Start at 18:00 Acetaminophen/ Hydrocodone Bitart ([place] (5/325)) 1 tab Q6H PRN PO MODERATE PAIN LEVEL 4-6 Last administered on 07/03/17 05:09; Admin Dose 1 TAB; Start at 18:00 Morphine Sulfate (morphine) 2 mg Q4H PRN IV SEVERE PAIN LEVEL 7-10 Last administered on 06/26/17 07:50; Admin Dose 2 MG; Start 06/18/17 at 18:00 Magnesium Hydroxide (Milk Of Mag) 30 ml DAILY PRN PO CONSTIPATION Last administered on 06/19/17 13:33; Admin Dose 30 ML; Start 06/18/17 at 18:00 Bisacodyl (Dulcolax) 10 mg DAILY PO Last administered on 07/03/17 08:54; Admin Dose 10 MG; Start 06/18/17 at 18:00 Bisacodyl (Dulcolax Supp) 10 mg DAILY PRN [place] CONSTIPATION; Start 06/19/17 at 09 :00 Zolpidem Tartrate (Ambien) 5 mg QHS PRN PO SLEEP Last administered on 21:30; Admin Dose 5 MG; Start 06/18/17 at 18:00 Miscellaneous Information 1 ea NOTE XX ; Start 06/18/17 at 18:00 Glucose (Glutose) 15 gm Q15M PRN PO DECREASED GLUCOSE; Start 06/18/17 at 18:00 Glucose (Glutose) 22.5 gm Q15M PRN PO DECREASED GLUCOSE; Start 06/18/17 at 18: 00 Dextrose (D50w Syringe) 25 ml Q15M PRN IV DECREASED GLUCOSE; Start 06/18/17 at 18:00 Dextrose (D50w Syringe) 50 ml Q15M PRN IV DECREASED GLUCOSE; Start 06/18/17 at 18:00 Glucagon (Glucagen) 1 mg Q15M PRN IM DECREASED GLUCOSE; Start 06/18/17 at 18:00 Glucose (Glutose) 15 gm Q15M PRN BUCCAL DECREASED GLUCOSE; Start 06/18/17 at 18 :00 Metoclopramide HCl (Reglan) 10 mg Q6H PRN IV NAUSEA AND/OR VOMITING Last administered on 07/03/17 14:09; Admin Dose 10 MG; Start 06/19/17 at 23:30 Senna (Senokot) 2 tab BID PO Last administered on 07/03/17 08:54; Admin Dose 2 TAB; Start 06/20/17 at 12:00 Hydromorphone HCl (Dilaudid) 1 mg Q2 PRN IV PAIN LEVEL 6-10 Last administered on 07/03/17 08:53; Admin Dose 1 MG; Start 06/25/17 at 13:00 Diphenhydramine HCl (Benadryl) 25 mg Q6H PRN IV ITCHING Last administered on 23:06; Admin Dose 25 MG; Start 06/25/17 at 13:00 Ondansetron HCl (Zofran Inj) 4 mg Q6H PRN IV NAUSEA AND/OR VOMITING Last administered on 06/27/17 03:56; Admin Dose 4 MG; Start 06/25/17 at 13:00 Famotidine (Pepcid Iv) 20 mg Q12 IV Last administered on 07/02/17 21:35; Admin Dose 20 MG; Start 06/25/17 at 14:00 Enoxaparin Sodium (Lovenox) 40 mg DAILY SC Last administered on 07/03/17 08: 53; Admin Dose 40 MG; Start 06/28/17 at 09:00 Diagnostic Test (Pha) (Accu-Chek) 1 ea 02 XX ; Start 06/30/17 at 02:00 IV Flush (NS 10 ml) 10 ml PRN PRN IV IV PROTOCOL; Start 07/02/17 at 17:00 Silver Sulfadiazine (Thermazene 1% 25 Gm) 1 applic BID TOP Last administered on 07/03/17 08:54; Admin Dose 1 APPLIC; Start 07/02/17 at 22:30 JONA ELY Jul 03, 2017 18:05
--- NOTE | 2017-07-03 18:07 | PN ---
Date/Time of Note Date/Time of Note DATE: 07/03/17 TIME: 17:59 Assessment/Plan VTE Prophylaxis VTE Prophylaxis Intervention: SCD's Lines/Catheters IV C[facility]ter Type ([facility] PICC Line Central line still needed: Yes Urinary Cath still in place: Yes Reason Cath still needed: urinary retention Assessment/Plan Chief Complaint/Hosp Course A- probable IIIc ovarian cancer given CA-125 of 217 and entirely normal CA-19-9 and CEA. P- I am arranging OR time as soon as possible with the operating room; but the patient told be she is having a colonoscopy tomorrow. NOTE; she had a negative colonoscopy 10 months ago. This is almost definitely a IIIC ovarian cancer given the elevated CA-125 and normal other markers but if it were a primary colon (very unikely) she would still benefit from the same primary cytoreduction. NOTE; doing a colonoscopy and biopsy even if mucinous lesion were found would not determine whether primary is colonic or ovarian with metastatic disease to colon which I commonly see and address. Problems: Assessment/Plan A- doing well P- concur with chemo and will d.c drain Subjective 24 Hr Interval Summary Free Text/Dictation comfortable and little diet. Exam/Review of Systems Vital Signs Vitals Vital Signs Date Time Temp Pulse Resp B/P Pulse Ox O2 Delivery O2 Flow Rate FiO2 07/03/17 07:41 97.8 82 20 118/73 93 07/01/17 08:15 Nasal Cannula 06/29/17 15:59 2.0 28 Intake and Output 07/02/17 07/02/17 07/03/17 15:00 23:00 07:00 Intake Total 1160 ml 480 ml Output Total 710 ml 907 ml Balance 450 ml -427 ml Exam Resp- clear CVS- NSR Abd- Soft nt healed well Et nt no edema Results Result Diagram: 07/01/17 04207/01/17 042 Results 24 hrs Laboratory Tests Test 07/02/17 21:16 07/03/17 08:28 07/03/17 12:35 07/03/17 17:37 Bedside Glucose 151 99 145 148 Medications Medications Current Medications Acetaminophen (Tylenol Tab) 650 mg Q6H PRN PO PAIN LEVEL 1-3 OR FEVER; Start at 18:00 Acetaminophen/ Hydrocodone Bitart ([place] (5/325)) 1 tab Q6H PRN PO MODERATE PAIN LEVEL 4-6 Last administered on 07/03/17 05:09; Admin Dose 1 TAB; Start at 18:00 Morphine Sulfate (morphine) 2 mg Q4H PRN IV SEVERE PAIN LEVEL 7-10 Last administered on 06/26/17 07:50; Admin Dose 2 MG; Start 06/18/17 at 18:00 Magnesium Hydroxide (Milk Of Mag) 30 ml DAILY PRN PO CONSTIPATION Last administered on 06/19/17 13:33; Admin Dose 30 ML; Start 06/18/17 at 18:00 Bisacodyl (Dulcolax) 10 mg DAILY PO Last administered on 07/03/17 08:54; Admin Dose 10 MG; Start 06/18/17 at 18:00 Bisacodyl (Dulcolax Supp) 10 mg DAILY PRN [place] CONSTIPATION; Start 06/19/17 at 09 :00 Zolpidem Tartrate (Ambien) 5 mg QHS PRN PO SLEEP Last administered on 21:30; Admin Dose 5 MG; Start 06/18/17 at 18:00 Miscellaneous Information 1 ea NOTE XX ; Start 06/18/17 at 18:00 Glucose (Glutose) 15 gm Q15M PRN PO DECREASED GLUCOSE; Start 06/18/17 at 18:00 Glucose (Glutose) 22.5 gm Q15M PRN PO DECREASED GLUCOSE; Start 06/18/17 at 18: 00 Dextrose (D50w Syringe) 25 ml Q15M PRN IV DECREASED GLUCOSE; Start 06/18/17 at 18:00 Dextrose (D50w Syringe) 50 ml Q15M PRN IV DECREASED GLUCOSE; Start 06/18/17 at 18:00 Glucagon (Glucagen) 1 mg Q15M PRN IM DECREASED GLUCOSE; Start 06/18/17 at 18:00 Glucose (Glutose) 15 gm Q15M PRN BUCCAL DECREASED GLUCOSE; Start 06/18/17 at 18 :00 Metoclopramide HCl (Reglan) 10 mg Q6H PRN IV NAUSEA AND/OR VOMITING Last administered on 07/03/17 14:09; Admin Dose 10 MG; Start 06/19/17 at 23:30 Senna (Senokot) 2 tab BID PO Last administered on 07/03/17 08:54; Admin Dose 2 TAB; Start 06/20/17 at 12:00 Hydromorphone HCl (Dilaudid) 1 mg Q2 PRN IV PAIN LEVEL 6-10 Last administered on 07/03/17 08:53; Admin Dose 1 MG; Start 06/25/17 at 13:00 Diphenhydramine HCl (Benadryl) 25 mg Q6H PRN IV ITCHING Last administered on 23:06; Admin Dose 25 MG; Start 06/25/17 at 13:00 Ondansetron HCl (Zofran Inj) 4 mg Q6H PRN IV NAUSEA AND/OR VOMITING Last administered on 06/27/17 03:56; Admin Dose 4 MG; Start 06/25/17 at 13:00 Famotidine (Pepcid Iv) 20 mg Q12 IV Last administered on 07/02/17 21:35; Admin Dose 20 MG; Start 06/25/17 at 14:00 Enoxaparin Sodium (Lovenox) 40 mg DAILY SC Last administered on 07/03/17 08: 53; Admin Dose 40 MG; Start 06/28/17 at 09:00 Diagnostic Test (Pha) (Accu-Chek) 1 ea 02 XX ; Start 06/30/17 at 02:00 IV Flush (NS 10 ml) 10 ml PRN PRN IV IV PROTOCOL; Start 07/02/17 at 17:00 Silver Sulfadiazine (Thermazene 1% 25 Gm) 1 applic BID TOP Last administered on 07/03/17 08:54; Admin Dose 1 APPLIC; Start 07/02/17 at 22:30 INGRID GREENE MD Jul 03, 2017 18:07
[2017-07-03] MEDS ORDERED: METHYLPREDNISOLONE 125 MG INJ IV PRN (20:00)
[2017-07-03] MEDS ORDERED: MEPERIDINE 50 MG INJ IV PRN (20:00)
[2017-07-03] MEDS ORDERED: DIPHENHYDRAMINE 50 MG INJ IV PRN (20:00)
[2017-07-03 20:36] VITALS: BP 115/70; RESP 20
[2017-07-03] MEDS: FAMOTIDINE 20 MG TAB PO SCH (21:20)
[2017-07-03] MEDS: SOD CHLORIDE 0.9% 1,000 ML IV SCH (21:21)
[2017-07-04] MEDS: ACCU-CHEK XX SCH ×5 (02:00→21:00)
[2017-07-04 02:36] VITALS: BP 122/59; RESP 20
[2017-07-04] MEDS: SOD CHLORIDE 0.9% 1,000 ML IV SCH ×3 (06:00→18:45)
[2017-07-04 06:57] VITALS: Ht 160 cm; Wt 94.7 kg
[2017-07-04] MEDS: INSULIN ASPART [NOVOLOG] 3 ML PEN SC SCH ×4 (07:50→20:55)
[2017-07-04 08:09] VITALS: BP 138/72; RESP 19
[2017-07-04] MEDS: SENNA TAB PO SCH ×2 (08:40→20:52)
[2017-07-04] MEDS: FAMOTIDINE 20 MG TAB PO SCH ×2 (08:40→20:52)
[2017-07-04] MEDS: ENOXAPARIN 40 MG/0.4 ML SYG SC SCH (08:43)
[2017-07-04] MEDS: BISACODYL (EC) 5 MG TAB PO SCH (08:44)
--- NOTE | 2017-07-04 08:53 | CONS ---
Date/Time of Note Date/Time of Note DATE: 07/04/17 TIME: 08:49 Assessment/Plan Assessment/Plan Chief Complaint/Hosp Course #. STAGE IIIC ovarian cancer -pt now s/p optimal debulking surgery -CA 125 is elevated to > 200, CEA and AFP normal -given patient has stage III disease, she will need adjuvant chemotherapy with carboplatin and taxol -chemotherapy is to arrive this morning. will start premedication with Decadron 20mg po 12 hours and 6 hours prior to chemo and plan to start this evening -once patient has recovered from surgery and is tolerating a diet, will try to give first dose of chemotherapy in the hospital # Diabetes -continue NovoLog sliding scale # Hypertension -continue current blood pressure meds Approximately 40min was spent in face to face time and in speaking and counseling her, as well as in coordination of her care Problems: Consultation Date/Type/Reason Admit Date/Time Jun 18, 2017 at 15:14 Initial Consult Date 06/19/17 Type of Consultation: Oncology Reason for Consultation stage III ovarian ca Referring Provider: JONA ELY 24 HR Interval Summary Free Text/Dictation tolerating her diet this morning. ambulating Exam/Review of Systems Vital Signs Vitals Vital Signs Date Time Temp Pulse Resp B/P Pulse Ox O2 Delivery O2 Flow Rate FiO2 07/04/17 08:09 97.1 60 19 138/72 98 07/01/17 08:15 Nasal Cannula Intake and Output 07/03/17 07/03/17 07/04/17 15:00 23:00 07:00 Intake Total 500 ml 1280 ml Output Total 810 ml 1200 ml Balance -310 ml 80 ml Exam Constitutional: alert, oriented Psych: no complaints Head: normocephalic ENMT: nl external ears & nose Neck: non-tender, supple Respiratory: clear to auscultation Cardiovascular: regular rate and rhythm Gastrointestinal: soft, surgical scars, tender Musculoskeletal: nl extremities to inspection Extremities: normal pulses Results Result Diagram: 07/01/1741907/01/17419 Results 24 hrs Laboratory Tests Test 07/03/17 12:35 07/03/17 17:37 07/03/17 21:24 07/04/17 08:39 Bedside Glucose 145 148 123 105 Medications Medications Current Medications Acetaminophen (Tylenol Tab) 650 mg Q6H PRN PO PAIN LEVEL 1-3 OR FEVER; Start at 18:00 Acetaminophen/ Hydrocodone Bitart ([place] (5/325)) 1 tab Q6H PRN PO MODERATE PAIN LEVEL 4-6 Last administered on 07/03/17 05:09; Admin Dose 1 TAB; Start at 18:00 Morphine Sulfate (morphine) 2 mg Q4H PRN IV SEVERE PAIN LEVEL 7-10 Last administered on 06/26/17 07:50; Admin Dose 2 MG; Start 06/18/17 at 18:00 Magnesium Hydroxide (Milk Of Mag) 30 ml DAILY PRN PO CONSTIPATION Last administered on 06/19/17 13:33; Admin Dose 30 ML; Start 06/18/17 at 18:00 Bisacodyl (Dulcolax) 10 mg DAILY PO Last administered on 07/04/17 08:44; Admin Dose 10 MG; Start 06/18/17 at 18:00 Bisacodyl (Dulcolax Supp) 10 mg DAILY PRN [place] CONSTIPATION; Start 06/19/17 at 09 :00 Zolpidem Tartrate (Ambien) 5 mg QHS PRN PO SLEEP Last administered on 21:30; Admin Dose 5 MG; Start 06/18/17 at 18:00 Miscellaneous Information 1 ea NOTE XX ; Start 06/18/17 at 18:00 Glucose (Glutose) 15 gm Q15M PRN PO DECREASED GLUCOSE; Start 06/18/17 at 18:00 Glucose (Glutose) 22.5 gm Q15M PRN PO DECREASED GLUCOSE; Start 06/18/17 at 18: 00 Dextrose (D50w Syringe) 25 ml Q15M PRN IV DECREASED GLUCOSE; Start 06/18/17 at 18:00 Dextrose (D50w Syringe) 50 ml Q15M PRN IV DECREASED GLUCOSE; Start 06/18/17 at 18:00 Glucagon (Glucagen) 1 mg Q15M PRN IM DECREASED GLUCOSE; Start 06/18/17 at 18:00 Glucose (Glutose) 15 gm Q15M PRN BUCCAL DECREASED GLUCOSE; Start 06/18/17 at 18 :00 Metoclopramide HCl (Reglan) 10 mg Q6H PRN IV NAUSEA AND/OR VOMITING Last administered on 07/03/17 14:09; Admin Dose 10 MG; Start 06/19/17 at 23:30 Senna (Senokot) 2 tab BID PO Last administered on 07/04/17 08:40; Admin Dose 2 TAB; Start 06/20/17 at 12:00 Hydromorphone HCl (Dilaudid) 1 mg Q2 PRN IV PAIN LEVEL 6-10 Last administered on 07/03/17 08:53; Admin Dose 1 MG; Start 06/25/17 at 13:00 Diphenhydramine HCl (Benadryl) 25 mg Q6H PRN IV ITCHING Last administered on 23:06; Admin Dose 25 MG; Start 06/25/17 at 13:00 Ondansetron HCl (Zofran Inj) 4 mg Q6H PRN IV NAUSEA AND/OR VOMITING Last administered on 06/27/17 03:56; Admin Dose 4 MG; Start 06/25/17 at 13:00 Enoxaparin Sodium (Lovenox) 40 mg DAILY SC Last administered on 07/04/17 08: 43; Admin Dose 40 MG; Start 06/28/17 at 09:00 Diagnostic Test (Pha) (Accu-Chek) 1 ea 02 XX ; Start 06/30/17 at 02:00 IV Flush (NS 10 ml) 10 ml PRN PRN IV IV PROTOCOL; Start 07/02/17 at 17:00 Silver Sulfadiazine (Thermazene 1% 25 Gm) 1 applic BID TOP Last administered on 07/03/17 08:54; Admin Dose 1 APPLIC; Start 07/02/17 at 22:30 Famotidine (Pepcid) 20 mg BID PO Last administered on 07/04/17 08:40; Admin Dose 20 MG; Start 07/03/17 at 21:00 Meperidine HCl (Demerol) 25 mg Q4H PRN IV ALLERGIC RXN; Start 07/03/17 at 20: 00 Methylprednisolone Sodium Succinate (Solu-Medrol) 60 mg Q2H PRN IV ALLERGIC RXN ; Start 07/03/17 at 20:00 Diphenhydramine HCl 25 mg 25 mg Q2H PRN IV ALLERGIC REACTION; Start 07/03/17 at 20:00 Sodium Chloride (NS) 1,000 ml @ 100 mls/hr Q10H IV Last administered on 07:56; Admin Dose 100 MLS/HR; Start 07/03/17 at 20:00 Dexamethasone (Decadron) 20 mg Q6H PO ; Start 07/04/17 at 10:00; Stop at 16:01 MINAL RICHARDSON M.D. Jul 04, 2017 08:53
[2017-07-04] MEDS: SILVER SULFADIAZINE 1% 25 GM CR TOP SCH ×2 (08:58→21:00)
[2017-07-04] MEDS: DEXAMETHASONE 4 MG TAB PO SCH ×2 (10:13→16:06)
--- NOTE | 2017-07-04 14:03 | PN ---
Date/Time of Note Date/Time of Note DATE: 07/04/17 TIME: 13:59 Assessment/Plan VTE Prophylaxis VTE Prophylaxis Intervention: SCD's Assessment/Plan Chief Complaint/Hosp Course 1. STAGE IIIC ovarian cancer -pt now s/p optimal debulking surgery -Plan is for adjuvant chemotherapy with carboplatin and taxol in house today 2. Diabetes -continue NovoLog sliding scale 3. Hypertension -continue current blood pressure meds Prophylaxis: SCDs Problems: Subjective 24 Hr Interval Summary Constitutional: no complaints Exam/Review of Systems Vital Signs Vitals Vital Signs Date Time Temp Pulse Resp B/P Pulse Ox O2 Delivery O2 Flow Rate FiO2 07/04/17 08:09 97.1 60 19 138/72 98 07/01/17 08:15 Nasal Cannula Intake and Output 07/03/17 07/03/17 07/04/17 15:00 23:00 07:00 Intake Total 500 ml 1280 ml Output Total 810 ml 1200 ml Balance -310 ml 80 ml Exam Constitutional: alert, oriented Respiratory: clear to auscultation Cardiovascular: regular rate and rhythm Gastrointestinal: soft, No distended Musculoskeletal: nl extremities to inspection Results Result Diagram: 07/01/1741907/01/17 0420 Results 24 hrs Laboratory Tests Test 07/03/17 17:37 07/03/17 21:24 07/04/17 08:39 07/04/17 12:37 Bedside Glucose 148 123 105 115 Medications Medications Current Medications Acetaminophen (Tylenol Tab) 650 mg Q6H PRN PO PAIN LEVEL 1-3 OR FEVER; Start at 18:00 Acetaminophen/ Hydrocodone Bitart ([place] (5/325)) 1 tab Q6H PRN PO MODERATE PAIN LEVEL 4-6 Last administered on 07/03/17 05:09; Admin Dose 1 TAB; Start at 18:00 Morphine Sulfate (morphine) 2 mg Q4H PRN IV SEVERE PAIN LEVEL 7-10 Last administered on 06/26/17 07:50; Admin Dose 2 MG; Start 06/18/17 at 18:00 Magnesium Hydroxide (Milk Of Mag) 30 ml DAILY PRN PO CONSTIPATION Last administered on 06/19/17 13:33; Admin Dose 30 ML; Start 06/18/17 at 18:00 Bisacodyl (Dulcolax) 10 mg DAILY PO Last administered on 07/04/17 08:44; Admin Dose 10 MG; Start 06/18/17 at 18:00 Bisacodyl (Dulcolax Supp) 10 mg DAILY PRN [place] CONSTIPATION; Start 06/19/17 at 09 :00 Zolpidem Tartrate (Ambien) 5 mg QHS PRN PO SLEEP Last administered on 21:30; Admin Dose 5 MG; Start 06/18/17 at 18:00 Miscellaneous Information 1 ea NOTE XX ; Start 06/18/17 at 18:00 Glucose (Glutose) 15 gm Q15M PRN PO DECREASED GLUCOSE; Start 06/18/17 at 18:00 Glucose (Glutose) 22.5 gm Q15M PRN PO DECREASED GLUCOSE; Start 06/18/17 at 18: 00 Dextrose (D50w Syringe) 25 ml Q15M PRN IV DECREASED GLUCOSE; Start 06/18/17 at 18:00 Dextrose (D50w Syringe) 50 ml Q15M PRN IV DECREASED GLUCOSE; Start 06/18/17 at 18:00 Glucagon (Glucagen) 1 mg Q15M PRN IM DECREASED GLUCOSE; Start 06/18/17 at 18:00 Glucose (Glutose) 15 gm Q15M PRN BUCCAL DECREASED GLUCOSE; Start 06/18/17 at 18 :00 Metoclopramide HCl (Reglan) 10 mg Q6H PRN IV NAUSEA AND/OR VOMITING Last administered on 07/03/17 14:09; Admin Dose 10 MG; Start 06/19/17 at 23:30 Senna (Senokot) 2 tab BID PO Last administered on 07/04/17 08:40; Admin Dose 2 TAB; Start 06/20/17 at 12:00 Hydromorphone HCl (Dilaudid) 1 mg Q2 PRN IV PAIN LEVEL 6-10 Last administered on 07/03/17 08:53; Admin Dose 1 MG; Start 06/25/17 at 13:00 Diphenhydramine HCl (Benadryl) 25 mg Q6H PRN IV ITCHING Last administered on 23:06; Admin Dose 25 MG; Start 06/25/17 at 13:00 Ondansetron HCl (Zofran Inj) 4 mg Q6H PRN IV NAUSEA AND/OR VOMITING Last administered on 06/27/17 03:56; Admin Dose 4 MG; Start 06/25/17 at 13:00 Enoxaparin Sodium (Lovenox) 40 mg DAILY SC Last administered on 07/04/17 08: 43; Admin Dose 40 MG; Start 06/28/17 at 09:00 Diagnostic Test (Pha) (Accu-Chek) 1 ea 02 XX ; Start 06/30/17 at 02:00 IV Flush (NS 10 ml) 10 ml PRN PRN IV IV PROTOCOL; Start 07/02/17 at 17:00 Silver Sulfadiazine (Thermazene 1% 25 Gm) 1 applic BID TOP Last administered on 07/03/17 08:54; Admin Dose 1 APPLIC; Start 07/02/17 at 22:30 Famotidine (Pepcid) 20 mg BID PO Last administered on 07/04/17 08:40; Admin Dose 20 MG; Start 07/03/17 at 21:00 Meperidine HCl (Demerol) 25 mg Q4H PRN IV ALLERGIC RXN; Start 07/03/17 at 20: 00 Methylprednisolone Sodium Succinate (Solu-Medrol) 60 mg Q2H PRN IV ALLERGIC RXN ; Start 07/03/17 at 20:00 Diphenhydramine HCl 25 mg 25 mg Q2H PRN IV ALLERGIC REACTION; Start 07/03/17 at 20:00 Sodium Chloride (NS) 1,000 ml @ 100 mls/hr Q10H IV Last administered on 07:56; Admin Dose 100 MLS/HR; Start 07/03/17 at 20:00 Dexamethasone (Decadron) 20 mg Q6H PO Last administered on 07/04/17 10:13; Admin Dose 20 MG; Start 07/04/17 at 10:00; Stop 07/04/17 at 16:01 JONA ELY Jul 04, 2017 14:03
[2017-07-04 19:18] VITALS: BP 130/64; RESP 22
[2017-07-04] MEDS ORDERED: DIPHENHYDRAMINE 50 MG INJ IV SCH (21:30)
[2017-07-04] MEDS ORDERED: DEXAMETHASONE IVPB SCH (21:30)
[2017-07-04] MEDS ORDERED: SOD CHLORIDE 0.9% IVPB SCH (21:30)
[2017-07-04] MEDS ORDERED: ONDANSETRON IVPB SCH (21:30)
[2017-07-04] MEDS ORDERED: SOD CHLORIDE 0.9% IV SCH (22:00)
[2017-07-04] MEDS ORDERED: PACLITAXEL IV SCH (22:00)
[2017-07-04 22:50] VITALS: BP 156/76; PULSE 87; RESP 19
[2017-07-04 23:20] VITALS: BP 148/75; PULSE 84; RESP 19
[2017-07-04] MEDS: HYDROCODONE/APAP (5/325) TAB PO PRN (23:23)
[2017-07-04 23:38] VITALS: BP 141/70; PULSE 82; RESP 20
[2017-07-05] VITALS (7 sets, daily range): BP systolic 117–150; BP diastolic 70–82; PULSE 64–88; RESP 18–20
[2017-07-05] MEDS: ZOLPIDEM 5 MG TAB PO PRN (00:34)
[2017-07-05] MEDS ORDERED: VITAMIN A & D 5 GM OINT PACKET TOP ONE ×2 (00:49→12:36)
[2017-07-05] MEDS ORDERED: SOD CHLORIDE 0.9% IV SCH ×4 (01:00)
[2017-07-05] MEDS ORDERED: CARBOPLATIN IV SCH ×4 (01:00)
[2017-07-05] MEDS: ACCU-CHEK XX SCH ×5 (02:58→20:52)
[2017-07-05] MEDS: SILVER SULFADIAZINE 1% 25 GM CR TOP SCH ×2 (09:00→20:52)
[2017-07-05] MEDS: BISACODYL (EC) 5 MG TAB PO SCH (09:48)
[2017-07-05] MEDS: SENNA TAB PO SCH ×2 (09:49→20:51)
[2017-07-05] MEDS: FAMOTIDINE 20 MG TAB PO SCH ×2 (09:49→20:51)
[2017-07-05] MEDS: INSULIN ASPART [NOVOLOG] 3 ML PEN SC SCH ×4 (09:54→20:51)
[2017-07-05] MEDS: ENOXAPARIN 40 MG/0.4 ML SYG SC SCH (10:01)
[2017-07-05] MEDS: SOD CHLORIDE 0.9% 1,000 ML IV SCH ×4 (10:02→21:58)
--- NOTE | 2017-07-05 15:54 | PN ---
Date/Time of Note Date/Time of Note DATE: 07/05/17 TIME: 15:53 Assessment/Plan VTE Prophylaxis VTE Prophylaxis Intervention: SCD's Assessment/Plan Chief Complaint/Hosp Course 1. STAGE IIIC ovarian cancer -pt now s/p optimal debulking surgery -Status post adjuvant chemotherapy with carboplatin and taxol -Patient still has drain in place as well as [place] catheter, follow-up with gynecology oncology 2. Diabetes -continue NovoLog sliding scale -Resume home metformin 3. Hypertension -continue current blood pressure meds Prophylaxis: SCDs Discharge planning: Likely DC home tomorrow Problems: Subjective 24 Hr Interval Summary Constitutional: no complaints Exam/Review of Systems Vital Signs Vitals Vital Signs Date Time Temp Pulse Resp B/P Pulse Ox O2 Delivery O2 Flow Rate FiO2 07/05/17 08:55 97.7 85 19 119/74 94 Room Air 07/05/17 05:20 2.0 Intake and Output 07/04/17 07/04/17 07/05/17 15:00 23:00 07:00 Intake Total 1060 ml 2206.7 ml Output Total 40 ml 1620 ml Balance 1020 ml 586.7 ml Exam Constitutional: alert, oriented Respiratory: clear to auscultation Cardiovascular: regular rate and rhythm Gastrointestinal: soft, No distended Musculoskeletal: nl extremities to inspection Results Result Diagram: 07/01/1741907/01/17419 Results 24 hrs Laboratory Tests Test 07/04/17 18:01 07/04/17 20:48 07/05/17 01:47 07/05/17 08:41 Bedside Glucose 213 212 157 174 Test 07/05/17 12:31 Bedside Glucose 171 Medications Medications Current Medications Acetaminophen (Tylenol Tab) 650 mg Q6H PRN PO PAIN LEVEL 1-3 OR FEVER; Start at 18:00 Acetaminophen/ Hydrocodone Bitart ([place] (5/325)) 1 tab Q6H PRN PO MODERATE PAIN LEVEL 4-6 Last administered on 07/04/17 23:23; Admin Dose 1 TAB; Start at 18:00 Morphine Sulfate (morphine) 2 mg Q4H PRN IV SEVERE PAIN LEVEL 7-10 Last administered on 06/26/17 07:50; Admin Dose 2 MG; Start 06/18/17 at 18:00 Magnesium Hydroxide (Milk Of Mag) 30 ml DAILY PRN PO CONSTIPATION Last administered on 06/19/17 13:33; Admin Dose 30 ML; Start 06/18/17 at 18:00 Bisacodyl (Dulcolax) 10 mg DAILY PO Last administered on 07/05/17 09:48; Admin Dose 10 MG; Start 06/18/17 at 18:00 Bisacodyl (Dulcolax Supp) 10 mg DAILY PRN [place] CONSTIPATION; Start 06/19/17 at 09 :00 Zolpidem Tartrate (Ambien) 5 mg QHS PRN PO SLEEP Last administered on 00:34; Admin Dose 5 MG; Start 06/18/17 at 18:00 Miscellaneous Information 1 ea NOTE XX ; Start 06/18/17 at 18:00 Glucose (Glutose) 15 gm Q15M PRN PO DECREASED GLUCOSE; Start 06/18/17 at 18:00 Glucose (Glutose) 22.5 gm Q15M PRN PO DECREASED GLUCOSE; Start 06/18/17 at 18: 00 Dextrose (D50w Syringe) 25 ml Q15M PRN IV DECREASED GLUCOSE; Start 06/18/17 at 18:00 Dextrose (D50w Syringe) 50 ml Q15M PRN IV DECREASED GLUCOSE; Start 06/18/17 at 18:00 Glucagon (Glucagen) 1 mg Q15M PRN IM DECREASED GLUCOSE; Start 06/18/17 at 18:00 Glucose (Glutose) 15 gm Q15M PRN BUCCAL DECREASED GLUCOSE; Start 06/18/17 at 18 :00 Metoclopramide HCl (Reglan) 10 mg Q6H PRN IV NAUSEA AND/OR VOMITING Last administered on 07/03/17 14:09; Admin Dose 10 MG; Start 06/19/17 at 23:30 Senna (Senokot) 2 tab BID PO Last administered on 07/05/17 09:49; Admin Dose 2 TAB; Start 06/20/17 at 12:00 Hydromorphone HCl (Dilaudid) 1 mg Q2 PRN IV PAIN LEVEL 6-10 Last administered on 07/03/17 08:53; Admin Dose 1 MG; Start 06/25/17 at 13:00 Diphenhydramine HCl (Benadryl) 25 mg Q6H PRN IV ITCHING Last administered on 23:06; Admin Dose 25 MG; Start 06/25/17 at 13:00 Ondansetron HCl (Zofran Inj) 4 mg Q6H PRN IV NAUSEA AND/OR VOMITING Last administered on 06/27/17 03:56; Admin Dose 4 MG; Start 06/25/17 at 13:00 Enoxaparin Sodium (Lovenox) 40 mg DAILY SC Last administered on 07/05/17 10: 01; Admin Dose 40 MG; Start 06/28/17 at 09:00 Diagnostic Test (Pha) (Accu-Chek) 1 ea 02 XX Last administered on 07/05/17 02 :58; Admin Dose 1 EA; Start 06/30/17 at 02:00 IV Flush (NS 10 ml) 10 ml PRN PRN IV IV PROTOCOL; Start 07/02/17 at 17:00 Silver Sulfadiazine (Thermazene 1% 25 Gm) 1 applic BID TOP Last administered on 07/03/17 08:54; Admin Dose 1 APPLIC; Start 07/02/17 at 22:30 Famotidine (Pepcid) 20 mg BID PO Last administered on 07/05/17 09:49; Admin Dose 20 MG; Start 07/03/17 at 21:00 Meperidine HCl (Demerol) 25 mg Q4H PRN IV ALLERGIC RXN; Start 07/03/17 at 20: 00 Methylprednisolone Sodium Succinate (Solu-Medrol) 60 mg Q2H PRN IV ALLERGIC RXN ; Start 07/03/17 at 20:00 Diphenhydramine HCl 25 mg 25 mg Q2H PRN IV ALLERGIC REACTION; Start 07/03/17 at 20:00 Sodium Chloride (NS) 1,000 ml @ 100 mls/hr Q10H IV Last administered on 10:02; Admin Dose 100 MLS/HR; Start 07/03/17 at 20:00 JONA ELY Jul 05, 2017 15:54
[2017-07-05] MEDS: HYDROCODONE/APAP (5/325) TAB PO PRN ×2 (16:58→22:30)
--- NOTE | 2017-07-05 18:51 | CONS ---
Date/Time of Note Date/Time of Note DATE: 07/05/17 TIME: 18:46 Assessment/Plan Assessment/Plan Chief Complaint/Hosp Course #. STAGE IIIC ovarian cancer -pt now s/p optimal debulking surgery -CA 125 is elevated to > 200, CEA and AFP normal -given patient has stage III disease, pt was given chemotherapy with carboplatin and taxol -upon discharge pt will need weekly hydration, weekly cbc cmp and picc line care # Diabetes -continue NovoLog sliding scale # Hypertension -continue current blood pressure meds Approximately 40min was spent in face to face time and in speaking and counseling her, as well as in coordination of her care Problems: Consultation Date/Type/Reason Admit Date/Time Jun 18, 2017 at 15:14 Initial Consult Date 06/19/17 Type of Consultation: Oncology Reason for Consultation stage III ovarian Referring Provider: JONA ELY 24 HR Interval Summary Free Text/Dictation received carboplatin and taxol yesterday. tolerated chemotherapy well Exam/Review of Systems Vital Signs Vitals Vital Signs Date Time Temp Pulse Resp B/P Pulse Ox O2 Delivery O2 Flow Rate FiO2 07/05/17 16:05 98.2 67 18 117/73 98 07/05/17 08:55 Room Air 07/05/17 05:20 2.0 Intake and Output 07/04/17 07/04/17 07/05/17 15:00 23:00 07:00 Intake Total 1060 ml 2206.7 ml Output Total 40 ml 1620 ml Balance 1020 ml 586.7 ml Exam Constitutional: alert, oriented Psych: no complaints Head: normocephalic Eyes: nl conjunctiva ENMT: nl external ears & nose Neck: non-tender, supple Respiratory: clear to auscultation, normal air movement Cardiovascular: nl pulses, regular rate and rhythm Gastrointestinal: soft Musculoskeletal: nl extremities to inspection Results Result Diagram: 07/01/1741907/01/17419 Results 24 hrs Laboratory Tests Test 07/04/17 20:48 07/05/17 01:47 07/05/17 08:41 07/05/17 12:31 Bedside Glucose 212 157 174 171 Test 07/05/17 17:54 Bedside Glucose 121 Medications Medications Current Medications Acetaminophen (Tylenol Tab) 650 mg Q6H PRN PO PAIN LEVEL 1-3 OR FEVER; Start at 18:00 Acetaminophen/ Hydrocodone Bitart ([place] (5/325)) 1 tab Q6H PRN PO MODERATE PAIN LEVEL 4-6 Last administered on 07/05/17 16:58; Admin Dose 1 TAB; Start at 18:00 Morphine Sulfate (morphine) 2 mg Q4H PRN IV SEVERE PAIN LEVEL 7-10 Last administered on 06/26/17 07:50; Admin Dose 2 MG; Start 06/18/17 at 18:00 Magnesium Hydroxide (Milk Of Mag) 30 ml DAILY PRN PO CONSTIPATION Last administered on 06/19/17 13:33; Admin Dose 30 ML; Start 06/18/17 at 18:00 Bisacodyl (Dulcolax) 10 mg DAILY PO Last administered on 07/05/17 09:48; Admin Dose 10 MG; Start 06/18/17 at 18:00 Bisacodyl (Dulcolax Supp) 10 mg DAILY PRN [place] CONSTIPATION; Start 06/19/17 at 09 :00 Zolpidem Tartrate (Ambien) 5 mg QHS PRN PO SLEEP Last administered on 00:34; Admin Dose 5 MG; Start 06/18/17 at 18:00 Miscellaneous Information 1 ea NOTE XX ; Start 06/18/17 at 18:00 Glucose (Glutose) 15 gm Q15M PRN PO DECREASED GLUCOSE; Start 06/18/17 at 18:00 Glucose (Glutose) 22.5 gm Q15M PRN PO DECREASED GLUCOSE; Start 06/18/17 at 18: 00 Dextrose (D50w Syringe) 25 ml Q15M PRN IV DECREASED GLUCOSE; Start 06/18/17 at 18:00 Dextrose (D50w Syringe) 50 ml Q15M PRN IV DECREASED GLUCOSE; Start 06/18/17 at 18:00 Glucagon (Glucagen) 1 mg Q15M PRN IM DECREASED GLUCOSE; Start 06/18/17 at 18:00 Glucose (Glutose) 15 gm Q15M PRN BUCCAL DECREASED GLUCOSE; Start 06/18/17 at 18 :00 Metoclopramide HCl (Reglan) 10 mg Q6H PRN IV NAUSEA AND/OR VOMITING Last administered on 07/03/17 14:09; Admin Dose 10 MG; Start 06/19/17 at 23:30 Senna (Senokot) 2 tab BID PO Last administered on 07/05/17 09:49; Admin Dose 2 TAB; Start 06/20/17 at 12:00 Hydromorphone HCl (Dilaudid) 1 mg Q2 PRN IV PAIN LEVEL 6-10 Last administered on 07/03/17 08:53; Admin Dose 1 MG; Start 06/25/17 at 13:00 Diphenhydramine HCl (Benadryl) 25 mg Q6H PRN IV ITCHING Last administered on 23:06; Admin Dose 25 MG; Start 06/25/17 at 13:00 Ondansetron HCl (Zofran Inj) 4 mg Q6H PRN IV NAUSEA AND/OR VOMITING Last administered on 06/27/17 03:56; Admin Dose 4 MG; Start 06/25/17 at 13:00 Enoxaparin Sodium (Lovenox) 40 mg DAILY SC Last administered on 07/05/17 10: 01; Admin Dose 40 MG; Start 06/28/17 at 09:00 Diagnostic Test (Pha) (Accu-Chek) 1 ea 02 XX Last administered on 07/05/17 02 :58; Admin Dose 1 EA; Start 06/30/17 at 02:00 IV Flush (NS 10 ml) 10 ml PRN PRN IV IV PROTOCOL; Start 07/02/17 at 17:00 Silver Sulfadiazine (Thermazene 1% 25 Gm) 1 applic BID TOP Last administered on 07/03/17 08:54; Admin Dose 1 APPLIC; Start 07/02/17 at 22:30 Famotidine (Pepcid) 20 mg BID PO Last administered on 07/05/17 09:49; Admin Dose 20 MG; Start 07/03/17 at 21:00 Meperidine HCl (Demerol) 25 mg Q4H PRN IV ALLERGIC RXN; Start 07/03/17 at 20: 00 Methylprednisolone Sodium Succinate (Solu-Medrol) 60 mg Q2H PRN IV ALLERGIC RXN ; Start 07/03/17 at 20:00 Diphenhydramine HCl 25 mg 25 mg Q2H PRN IV ALLERGIC REACTION; Start 07/03/17 at 20:00 Sodium Chloride (NS) 1,000 ml @ 100 mls/hr Q10H IV Last administered on 17:55; Admin Dose 100 MLS/HR; Start 07/03/17 at 20:00 MINAL RICHARDSON M.D. Jul 05, 2017 18:51
--- NOTE | 2017-07-05 21:59 | PN ---
Date/Time of Note Date/Time of Note DATE: 07/05/17 TIME: 21:42 Assessment/Plan VTE Prophylaxis VTE Prophylaxis Intervention: SCD's Lines/Catheters IV [facility] ([facility] PICC Line Central line still needed: Yes Assessment/Plan Chief Complaint/Hosp Course A- probable IIIc ovarian cancer given CA-125 of 217 and entirely normal CA-19-9 and CEA. P- I am arranging OR time as soon as possible with the operating room; but the patient told be she is having a colonoscopy tomorrow. NOTE; she had a negative colonoscopy 10 months ago. This is almost definitely a IIIC ovarian cancer given the elevated CA-125 and normal other markers but if it were a primary colon (very unikely) she would still benefit from the same primary cytoreduction. NOTE; doing a colonoscopy and biopsy even if mucinous lesion were found would not determine whether primary is colonic or ovarian with metastatic disease to colon which I commonly see and address. Problems: Assessment/Plan A- doing well and little chemo P- d/c drain and discharge when OK with IM and drain remived and Meeks d/c ofdered Subjective 24 Hr Interval Summary Free Text/Dictation Tolerated chemo and little diet. Exam/Review of Systems Vital Signs Vitals Vital Signs Date Time Temp Pulse Resp B/P Pulse Ox O2 Delivery O2 Flow Rate FiO2 07/05/17 19:59 98.1 72 18 120/72 98 Room Air 07/05/17 05:20 2.0 Intake and Output 07/04/17 07/04/17 07/05/17 15:00 23:00 07:00 Intake Total 1060 ml 2206.7 ml Output Total 40 ml 1620 ml Balance 1020 ml 586.7 ml Exam Resp- clear CVS- NSR Abd- Soft NT clear Ext- NT no edema Results Result Diagram: 07/01/1741907/01/17419 Results 24 hrs Laboratory Tests Test 07/05/17 01:47 07/05/17 08:41 07/05/17 12:31 07/05/17 17:54 Bedside Glucose 157 174 171 121 Test 07/05/17 20:11 Bedside Glucose 112 Medications Medications Current Medications Acetaminophen (Tylenol Tab) 650 mg Q6H PRN PO PAIN LEVEL 1-3 OR FEVER; Start at 18:00 Acetaminophen/ Hydrocodone Bitart ([place] (5/325)) 1 tab Q6H PRN PO MODERATE PAIN LEVEL 4-6 Last administered on 07/05/17 16:58; Admin Dose 1 TAB; Start at 18:00 Morphine Sulfate (morphine) 2 mg Q4H PRN IV SEVERE PAIN LEVEL 7-10 Last administered on 06/26/17 07:50; Admin Dose 2 MG; Start 06/18/17 at 18:00 Magnesium Hydroxide (Milk Of Mag) 30 ml DAILY PRN PO CONSTIPATION Last administered on 06/19/17 13:33; Admin Dose 30 ML; Start 06/18/17 at 18:00 Bisacodyl (Dulcolax) 10 mg DAILY PO Last administered on 07/05/17 09:48; Admin Dose 10 MG; Start 06/18/17 at 18:00 Bisacodyl (Dulcolax Supp) 10 mg DAILY PRN [place] CONSTIPATION; Start 06/19/17 at 09 :00 Zolpidem Tartrate (Ambien) 5 mg QHS PRN PO SLEEP Last administered on 00:34; Admin Dose 5 MG; Start 06/18/17 at 18:00 Miscellaneous Information 1 ea NOTE XX ; Start 06/18/17 at 18:00 Glucose (Glutose) 15 gm Q15M PRN PO DECREASED GLUCOSE; Start 06/18/17 at 18:00 Glucose (Glutose) 22.5 gm Q15M PRN PO DECREASED GLUCOSE; Start 06/18/17 at 18: 00 Dextrose (D50w Syringe) 25 ml Q15M PRN IV DECREASED GLUCOSE; Start 06/18/17 at 18:00 Dextrose (D50w Syringe) 50 ml Q15M PRN IV DECREASED GLUCOSE; Start 06/18/17 at 18:00 Glucagon (Glucagen) 1 mg Q15M PRN IM DECREASED GLUCOSE; Start 06/18/17 at 18:00 Glucose (Glutose) 15 gm Q15M PRN BUCCAL DECREASED GLUCOSE; Start 06/18/17 at 18 :00 Metoclopramide HCl (Reglan) 10 mg Q6H PRN IV NAUSEA AND/OR VOMITING Last administered on 07/03/17 14:09; Admin Dose 10 MG; Start 06/19/17 at 23:30 Senna (Senokot) 2 tab BID PO Last administered on 07/05/17 09:49; Admin Dose 2 TAB; Start 06/20/17 at 12:00 Hydromorphone HCl (Dilaudid) 1 mg Q2 PRN IV PAIN LEVEL 6-10 Last administered on 07/03/17 08:53; Admin Dose 1 MG; Start 06/25/17 at 13:00 Diphenhydramine HCl (Benadryl) 25 mg Q6H PRN IV ITCHING Last administered on 23:06; Admin Dose 25 MG; Start 06/25/17 at 13:00 Ondansetron HCl (Zofran Inj) 4 mg Q6H PRN IV NAUSEA AND/OR VOMITING Last administered on 06/27/17 03:56; Admin Dose 4 MG; Start 06/25/17 at 13:00 Enoxaparin Sodium (Lovenox) 40 mg DAILY SC Last administered on 07/05/17 10: 01; Admin Dose 40 MG; Start 06/28/17 at 09:00 Diagnostic Test (Pha) (Accu-Chek) 1 ea 02 XX Last administered on 07/05/17 02 :58; Admin Dose 1 EA; Start 06/30/17 at 02:00 IV Flush (NS 10 ml) 10 ml PRN PRN IV IV PROTOCOL; Start 07/02/17 at 17:00 Silver Sulfadiazine (Thermazene 1% 25 Gm) 1 applic BID TOP Last administered on 07/03/17 08:54; Admin Dose 1 APPLIC; Start 07/02/17 at 22:30 Famotidine (Pepcid) 20 mg BID PO Last administered on 07/05/17 20:51; Admin Dose 20 MG; Start 07/03/17 at 21:00 Meperidine HCl (Demerol) 25 mg Q4H PRN IV ALLERGIC RXN; Start 07/03/17 at 20: 00 Methylprednisolone Sodium Succinate (Solu-Medrol) 60 mg Q2H PRN IV ALLERGIC RXN ; Start 07/03/17 at 20:00 Diphenhydramine HCl 25 mg 25 mg Q2H PRN IV ALLERGIC REACTION; Start 07/03/17 at 20:00 Sodium Chloride (NS) 1,000 ml @ 100 mls/hr Q10H IV Last administered on 10/13/ 17at 17:55; Admin Dose 100 MLS/HR; Start 07/03/17 at 20:00 INGRID GREENE MD Jul 05, 2017 21:59
[2017-07-06 02:00] VITALS: BP 122/65; RESP 18
[2017-07-06] MEDS: ACCU-CHEK XX SCH ×3 (02:00→11:36)
[2017-07-06 03:00] VITALS: BP 135/65; PULSE 76; RESP 18
[2017-07-06] MEDS: SOD CHLORIDE 0.9% 1,000 ML IV SCH (03:56)
[2017-07-06] MEDS: ONDANSETRON 4 MG INJ IV PRN ×2 (04:10→12:43)
[2017-07-06 06:12] LABS: ALBUMIN/GLOBULIN RATIO 0.93; BILIRUBIN,INDIRECT 0.3 mg/dl (0-1.1); BILIRUBIN,TOTAL 0.3 mg/dl (0.2-1.3); CREATININE 0.59 mg/dl (0.44-1.00); POTASSIUM 3.3 mmol/L (3.5-5.1); TOTAL PROTEIN 6.2 g/dl (6.1-8.1)
[2017-07-06] MEDS: INSULIN ASPART [NOVOLOG] 3 ML PEN SC SCH ×2 (07:50→11:40)
[2017-07-06] MEDS ORDERED: metFORMIN 500 MG TAB PO SCH (07:50)
[2017-07-06 08:02] VITALS: BP 144/71; RESP 16
[2017-07-06] MEDS: METOCLOPRAMIDE 10 MG INJ IV PRN (08:07)
[2017-07-06] MEDS: HYDROCODONE/APAP (5/325) TAB PO PRN (08:09)
[2017-07-06 08:26] LABS: ABNORMAL IP MESSAGE 1; BASOPHILS % 0.2 % (0.0-2.0); EOSINOPHILS # 0.1 10^3/ul (0.0-0.5); HEMATOCRIT 30.1 % (37.0-47.0); HEMOGLOBIN 9.6 g/dl (12.0-16.0); LYMPHOCYTES # 0.9 10^3/ul (0.8-2.9); LYMPHOCYTES % 14.4 % (15.0-51.0); MEAN CORPUSCULAR HEMOGLOBIN 29.4 pg (29.0-33.0); MEAN CORPUSCULAR HGB CONC 31.9 g/dl (32.0-37.0); MEAN PLATELET VOLUME 11.4 fl (7.4-10.4); MONOCYTE # 0.3 10^3/ul (0.3-0.9); MONOCYTES % 4.4 % (0.0-11.0); NEUTROPHIL # 4.7 10^3/ul (1.6-7.5); RED BLOOD COUNT 3.27 10^6/ul (4.20-5.40); RED CELL DISTRIBUTION WIDTH 14.9 % (11.5-14.5)
[2017-07-06 08:33] LABS: POSITIVE DIFF @See below
[2017-07-06] MEDS: BISACODYL (EC) 5 MG TAB PO SCH (09:00)
[2017-07-06] MEDS: SILVER SULFADIAZINE 1% 25 GM CR TOP SCH (09:00)
[2017-07-06] MEDS: SENNA TAB PO SCH (09:00)
[2017-07-06] MEDS ORDERED: POTASSIUM CHLORIDE (SR) 20 MEQ TAB PO STA (09:01)
[2017-07-06] MEDS ORDERED: ZOF8 PO (09:03)
--- NOTE | 2017-07-06 09:05 | PDOCDIS ---
Discharge Instructions CONDITION Patient Condition: Good HOME CARE INSTRUCTIONS: Diet Instructions: Regular ACTIVITY: Activity Restrictions: No Restrictions FOLLOW UP/APPOINTMENTS Follow-up Plan F/U WITH DR SMITH OF ONCOLOGY IN 1-2 WEEKS JONA ELY Jul 06, 2017 09:05
[2017-07-06] MEDS ORDERED: HYDR-906 PO (09:07)
[2017-07-06 09:17] LABS: MONOCYTES % (M) 6 % (0-11); PLATELET ESTIMATE DECREASED; POIKILOCYTOSIS 2+ (0-0)
[2017-07-06 09:18] LABS: PLATELET COUNT 64 10^3/UL (140-415)
[2017-07-06] MEDS: FAMOTIDINE 20 MG TAB PO SCH (09:53)
[2017-07-06] MEDS: ENOXAPARIN 40 MG/0.4 ML SYG SC SCH (09:55)
[2017-07-06] MEDS ORDERED: NITR-58 PO (23:55)
[2017-07-06] MEDS ORDERED: ONDA4TAB14 PO (23:55)
[2017-07-06] MEDS ORDERED: CEPH-443 PO (23:55)
--- NOTE | 2017-07-07 19:29 | DS ---
Date/Time of Note Date/Time of Note DATE: 07/07/17 TIME: 19:23 Discharge Summary Admission/Discharge Info Admit Date/Time Jun 18, 2017 at 15:14 Discharge Date/Time Jul 06, 2017 at 14:30 Discharge Diagnosis 1. STAGE IIIC ovarian cancer -s/p optimal debulking surgery -Status post adjuvant chemotherapy with carboplatin and taxol -Follow-up with oncology for further chemotherapy 2. Diabetes -Resume home metformin 3. Hypertension -continue home medications Hospital Course Patient is a 61-year-old female with history of non-insulin requiring diabetes, hypertension as well as H pylori status post recent treatment. Patient does also have a history of reported ulcers and inflammation in her abdomen, patient presents with 1 month of abdominal pain. Workup with elevated CA [address] abdomen suggested ovarian cancer, patient was seen by oncology and gynecology oncology, recommendation was for surgery and patient did have optimal debulking surgery during the hospital stay. Patient did also receive chemotherapy with carboplatin and Taxol which she tolerated fairly well, patient was diagnosed with stage IIIc ovarian cancer. Patient was stable for discharge per oncology and gynecology oncology with plans to follow-up with home health and with oncology for further chemotherapy. On the day of discharge patient vitals labs and physical exam were stable, she had no further acute complaints and questions are answered. Of note patient did have some expected nausea that was resolved with Zofran. Home Meds Active Scripts Ondansetron (Ondansetron Odt) 4 Mg Tab.rapdis, 4 MG PO Q6H Y for NAUSEA AND/OR VOMITING, #10 TAB Prov:REBECCA VÁSQUEZ DO 07/06/17 Nitrofurantoin Monohyd Macrocr* (Macrobid*) 100 Mg Capsr, 100 MG PO HS for 5 Days, CAP Prov:REBECCA VÁSQUEZ DO 07/06/17 Cephalexin* (Keflex*) 500 Mg Capsule, 500 MG PO QID for 7 Days, CAP Prov:REBECCA VÁSQUEZ DO 07/06/17 Hydrocodone/Acetaminophen ([place] 5-325 Tablet) 1 Each Tablet, 1 EACH PO Q4 Y for PAIN, #40 TAB Prov:JONA ELY 07/06/17 Ondansetron Hcl* (Zofran*) 8 Mg Tab, 8 MG PO Q8 Y for NAUSEA, #60 TAB Prov:JONA ELY 07/06/17 Reported Medications Benazepril Hcl* (Benazepril Hcl*) 10 Mg Tablet, 10 MG PO DAILY, #30 TAB 06/18/17 Metformin* (Glucophage*) 500 Mg Tab, 500 MG PO WITH BREAKFAST, #30 TAB 06/18/17 [Metformin] No Conflict Check 08/09/16 [Benazepril] No Conflict Check 08/09/16 Follow-up Plan F/U WITH DR SMITH OF ONCOLOGY IN 1-2 WEEKS Primary Care Provider [facility] Time spent on discharge: > 30 minutes JONA ELY Jul 07, 2017 19:29
== END 2017-07-06 14:30 | disposition home or self-care (01) | DRG 738 ==
LOC: MS2 15:14 → ICU 06-25 18:00 → MS1 06-27 13:18
PROVIDERS: ADMIT Internal Medicine; ATTEND Internal Medicine
PROC: 0DBU0ZZ Excision of Omentum, Open Approach (ICD-10-PCS; 2017-06-25)
PROC: 07BD0ZZ Excision of Aortic Lymphatic, Open Approach (ICD-10-PCS; 2017-06-25)
PROC: 07BC0ZZ Excision of Pelvis Lymphatic, Open Approach (ICD-10-PCS; 2017-06-25)
PROC: 0DTJ0ZZ Resection of Appendix, Open Approach (ICD-10-PCS; 2017-06-25)
PROC: 0UT50ZZ Resection of Right Fallopian Tube, Open Approach (ICD-10-PCS; 2017-06-25)
PROC: 0UT20ZZ Resection of Bilateral Ovaries, Open Approach (ICD-10-PCS; 2017-06-25)
PROC: 0UT90ZL Resection of Uterus, Supracervical, Open Approach (ICD-10-PCS; principal; 2017-06-25 07:30)
PROC: 02HV33Z Insertion of Infusion Device into Superior Vena Cava, Percutaneous Approach (ICD-10-PCS; 2017-07-02)
PROC: B548ZZA Ultrasonography of Superior Vena Cava, Guidance (ICD-10-PCS; 2017-07-02)
PROC: 3E03305 Introduction of Other Antineoplastic into Peripheral Vein, Percutaneous Approach (ICD-10-PCS; 2017-07-05)
DX: C56.2 Malignant neoplasm of left ovary (principal); C56.1 Malignant neoplasm of right ovary; I10 Essential (primary) hypertension; E11.9 Type 2 diabetes mellitus without complications
CPT/HCPCS: 36430; 36569; 71010; 71260; 74177; 76937; 80048; 80053; 82105; 82378; 82962; 83036; 83735; 84100; 85025; 85610; 85730; 86300; 86301; 86304; 86850; 86900; 86901; 86920; 87081; 87086; 88104; 88304; 88307; 88313; 88331; 90686; 93005; 93970; 97116; 97163; 97530; J9045; J9267; A4310; J0690; J1100; J1170; J1200; J1644; J1650; J1815; J2175; J2250; J2270; J2405; J2765; J2930; J3010; J3480; J7030; J7040; J7120; J7999; P9016; P9045; P9047; Q9967

== ENCOUNTER 2017-07-06 19:16 | Inpatient (IN) | payer OTHER ==
[~2017-07-06] VITALS: Ht 162.6 cm; Wt 89.4 kg
[~2017-07-06 19:16] MED LIST changes: +BENA10TA48 PO; +HYDR-906 PO; +METF500T4 PO; +ZOF8 PO
[2017-07-06 20:01] LABS: URINE BLOOD (Dip) POC 2+ (NEGATIVE)
[2017-07-06] MEDS ORDERED: PIPER-TAZO 3.375 GM IV (PMX) 100 ML IVPB STA (20:03)
[2017-07-06] MEDS ORDERED: SODIUM CHLORIDE 0.9% 1L BAG IV* STA (20:03)
[2017-07-06 20:27] LABS: ABNORMAL IP MESSAGE 1; BASOPHILS % 0.3 % (0.0-2.0); EOSINOPHILS % 0.3 % (0.0-7.0); HEMATOCRIT 33.1 % (37.0-47.0); HEMOGLOBIN 10.8 g/dl (12.0-16.0); LYMPHOCYTES # 0.7 10^3/ul (0.8-2.9); LYMPHOCYTES % 9.1 % (15.0-51.0); MEAN CORPUSCULAR HEMOGLOBIN 29.1 pg (29.0-33.0); MEAN CORPUSCULAR HGB CONC 32.6 g/dl (32.0-37.0); MEAN CORPUSCULAR VOLUME 89.2 fl (82.0-101.0); MEAN PLATELET VOLUME 11.3 fl (7.4-10.4); MONOCYTE # 0.2 10^3/ul (0.3-0.9); MONOCYTES % 2.8 % (0.0-11.0); NEUTROPHIL # 6.6 10^3/ul (1.6-7.5); NEUTROPHILS % 86.8 % (39.0-77.0); PLATELET COUNT 64 10^3/UL (140-415); RED BLOOD COUNT 3.71 10^6/ul (4.20-5.40); RED CELL DISTRIBUTION WIDTH 14.6 % (11.5-14.5); WHITE BLOOD COUNT 7.6 10^3/ul (4.8-10.8)
[2017-07-06 20:29] LABS: POSITIVE DIFF @See below
[2017-07-06 20:46] LABS: ALANINE AMINOTRANSFERASE 52 IU/L (13-69); ALBUMIN 3.5 g/dl (3.3-4.9); ALBUMIN/GLOBULIN RATIO 0.97; ALKALINE PHOSPHATASE 69 IU/L (42-121); ANION GAP 12 (8-16); ASPARTATE AMINO TRANSFERASE 42 IU/L (15-46); BILIRUBIN,INDIRECT 0.8 mg/dl (0-1.1); BILIRUBIN,TOTAL 0.8 mg/dl (0.2-1.3); BLOOD UREA NITROGEN 8 mg/dl (7-20); CALCIUM 8.7 mg/dl (8.4-10.2); CARBON DIOXIDE 27 mmol/L (21-31); CHLORIDE 102 mmol/L (97-110); GLUCOSE 131 mg/dl (70-220); POTASSIUM 3.8 mmol/L (3.5-5.1); SODIUM 137 mmol/L (135-144); TOTAL PROTEIN 7.1 g/dl (6.1-8.1)
[2017-07-06 21:14] LABS: TROPONIN-I < 0.012 ng/ml (0.00-0.12)
--- NOTE | 2017-07-06 21:52 | RADRPT ---
PROCEDURE: X-ray Chest. CLINICAL INDICATION: Sepsis. TECHNIQUE: Single view chest x-ray. COMPARISON: Exam dated 07/02/2017. FINDINGS: There is a well-positioned left-sided PICC tip overlying the upper SVC. There is elevatio n of the right hemidiaphragm, not significantly changed. The cardiomediastinal silhouette is within normal limits. There is right perihilar parenchymal disease, new when compared the prior. The left lung is clear. There is no effusion or pneumothorax. There are no acute osseous abnormalities. IMPRESSION: 1. Right perihilar parenchymal disease, new when compared with the prior. RPTAT: HLBP .Asael Mustafa MD, Date Time Electronically viewed and signed by .Asael Mustafa MD, MD on 07/06/2017 21:52 .P/
[2017-07-06 21:58] LABS: ADD UMIC YES; UR ASCORBIC ACID NEGATIVE (NEGATIVE); UR BACTERIA MODERATE /HPF (NONE SEEN); UR BILIRUBIN (Dip) NEGATIVE (NEGATIVE); UR BLOOD (Dip) 2+ mg/dL (NEGATIVE); UR CLARITY CLOUDY (CLEAR); UR COLOR YELLOW (YELLOW); UR GLUCOSE (Dip) NEGATIVE (NEGATIVE); UR KETONES (Dip) 1+ mg/dL (NEGATIVE); UR LEUKOCYTE ESTERASE (Dip) 3+ Leu/ul (NEGATIVE); UR NITRITE (Dip) POSITIVE (NEGATIVE); UR RBC 23 /HPF (0-5); UR SPECIFIC GRAVITY (Dip) 1.012 (1.003-1.030); UR SQUAMOUS EPITHELIAL CELL FEW /HPF (FEW); UR TOTAL PROTEIN (Dip) 1+ mg/dl (NEGATIVE); UR UROBILINOGEN (Dip) NEGATIVE (NEGATIVE)
[2017-07-06 22:54] VITALS: TEMP 99.8
[2017-07-06] MEDS ORDERED: CEPH-443 PO (23:55)
[2017-07-06] MEDS ORDERED: ONDA4TAB14 PO (23:55)
[2017-07-06] MEDS ORDERED: NITR-58 PO (23:55)
--- NOTE | 2017-07-07 00:02 | ERD ---
ER Documentation Chief Complaint Date/Time DATE: 07/06/17 TIME: 23:55 Chief Complaint [facility], c/o fever . hx ovarian CA w/ chemo HPI This 61-year-old female presents with a fever even though she was diagnosed 3 hours ago she was told return for any fevers. Does have some frequent urination with mild discomfort. She did have an indwelling Meeks for several weeks was removed for she was discharged. She denies nausea vomiting chest pain. He did not have any fevers this morning. She did have some nausea vomiting this morning prior to discharge. ROS All systems reviewed and are negative except as per history of present illness. Medications Home Meds Active Scripts Ondansetron (Ondansetron Odt) 4 Mg Tab.rapdis, 4 MG PO Q6H Y for NAUSEA AND/OR VOMITING, #10 TAB Prov:REBECCA VÁSQUEZ DO 07/06/17 Nitrofurantoin Monohyd Macrocr* (Macrobid*) 100 Mg Capsr, 100 MG PO HS for 5 Days, CAP Prov:REBECCA VÁSQUEZ DO 07/06/17 Cephalexin* (Keflex*) 500 Mg Capsule, 500 MG PO QID for 7 Days, CAP Prov:REBECCA VÁSQUEZ DO 07/06/17 Hydrocodone/Acetaminophen ([place] 5-325 Tablet) 1 Each Tablet, 1 EACH PO Q4 Y for PAIN, #40 TAB Prov:JONA ELY 07/06/17 Ondansetron Hcl* (Zofran*) 8 Mg Tab, 8 MG PO Q8 Y for NAUSEA, #60 TAB Prov:JONA ELY 07/06/17 Reported Medications Benazepril Hcl* (Benazepril Hcl*) 10 Mg Tablet, 10 MG PO DAILY, #30 TAB 06/18/17 Metformin* (Glucophage*) 500 Mg Tab, 500 MG PO WITH BREAKFAST, #30 TAB 06/18/17 [Metformin] No Conflict Check 08/09/16 [Benazepril] No Conflict Check 08/09/16 Allergies Allergies: Coded Allergies: No Known Drug Allergies (Verified Allergy, Unknown, 06/27/17) PMhx/Soc History of Surgery: No Anesthesia Reaction: No Hx Neurological Disorder: No Hx Respiratory Disorders: No Hx Cardiac Disorders: Yes (HX OF HTN ) Hx Psychiatric Problems: No Hx Miscellaneous Medical Probl: Yes (stage 3 ovarian CA) Hx Alcohol Use: No Hx Substance Use: No Hx Tobacco Use: No Smoking Status: Never smoker Physical Exam Vitals Vital Signs Date Time Temp Pulse Resp B/P Pulse Ox O2 Delivery O2 Flow Rate FiO2 07/06/17 22:54 99.8 91 22 131/70 99 Nasal Cannula 2.0 07/06/17 21:03 99.9 103 22 123/65 96 Nasal Cannula 2.0 07/06/17 20:15 Nasal Cannula 2 07/06/17 19:18 101.5 131 20 136/71 95 Physical Exam Const: [] No distress Eyes: Normal Conjunctiva ENT: Normal External Ears, Nose and Mouth. Neck: Full range of motion..~ No meningismus. Resp: Clear to auscultation bilaterally Cardio: Regular rate and rhythm, no murmurs Abd: Soft, non tender, non distended. Normal bowel sounds Skin: No petechiae or rashes Ext: No cyanosis, or edema Neur: Awake and alert oriented 3, no focal deficits Psych: Normal Mood and Affect Result Diagram: 07/06/17200207/06/171999 Results 24 hrs Laboratory Tests Test 07/06/17 20:00 07/06/17 20:03 07/06/17 20:09 07/06/17 21:54 Urine Color YELLOW Urine Clarity CLOUDY Urine pH 6.0 Urine Specific [place] 1.012 Urine Ketones 1+mg/dL Urine Nitrite POSITIVEmg/dL Urine Bilirubin NEGATIVEmg/dL Urine Urobilinogen NEGATIVEmg/dL Urine Leukocyte Esterase 3+Opal/ul Urine Microscopic RBC 23/HPF Urine Microscopic WBC > 182/HPF Urine Squamous Epithelial Cells FEW/HPF Urine Bacteria MODERATE/HPF Urine Hemoglobin 2+mg/dL Urine Glucose NEGATIVEmg/dL Urine Total Protein 1+mg/dl Sodium Level 137mmol/L Potassium Level 3.8mmol/L Chloride Level 102mmol/L Carbon Dioxide Level 27mmol/L Anion Gap 12 Blood Urea Nitrogen 8mg/dl Creatinine 0.60mg/dl Glucose Level 131mg/dl Lactic Acid Level 1.3mmol/L 0.6mmol/L Calcium Level 8.7mg/dl Total Bilirubin 0.8mg/dl Direct Bilirubin 0.00mg/dl Indirect Bilirubin 0.8mg/dl Aspartate Amino Transf (AST/SGOT) 42IU/L Alanine Aminotransferase (ALT/SGPT) 52IU/L Alkaline Phosphatase 69IU/L Troponin I < 0.012ng/ml Total Protein 7.1g/dl Albumin 3.5g/dl Globulin 3.60g/dl Albumin/Globulin Ratio 0.97 White Blood Count 7.610^3/ul Red Blood Count 3.7110^6/ul Hemoglobin 10.8g/dl Hematocrit 33.1% Mean Corpuscular Volume 89.2fl Mean Corpuscular Hemoglobin 29.1pg Mean Corpuscular Hemoglobin Concent 32.6g/dl Red Cell Distribution Width 14.6% Platelet Count 6410^3/UL Mean Platelet Volume 11.3fl Neutrophils % 86.8% Lymphocytes % 9.1% Monocytes % 2.8% Eosinophils % 0.3% Basophils % 0.3% Nucleated Red Blood Cells % 0.0/100WBC Neutrophils # 6.610^3/ul Lymphocytes # 0.710^3/ul Monocytes # 0.210^3/ul Eosinophils # 0.010^3/ul Basophils # 0.010^3/ul Nucleated Red Blood Cells # 0.010^3/ul Bedside Urine pH (LAB) 6.0 Bedside Urine Protein (LAB) 2+ Bedside Urine Glucose (UA) Negative Bedside Urine Ketones (LAB) 2+ Bedside Urine Blood 2+ Bedside Urine Nitrite (LAB) Positive Bedside Urine Leukocyte Esterase (L 3+ Current Medications Medications (Trade) Dose Ordered Sig/Burak Route PRN Reason Start Time Stop Time Status Last Admin Dose Admin Sodium Chloride 2730 ml 2,730 ml BOLUS OVER 2 HOURS STAT IV* 07/06/17 20:03 07/06/17 20:07 DC 07/06/17 20:26 Piperacillin Sod/ Tazobactam Sod (Zosyn 3.375gm/ 100 ml (Pmx)) 100 ml @ 200 mls/hr ONCE STAT IVPB 07/06/17 20:03 07/06/17 20:32 DC 07/06/17 20:26 Procedures/MDM UTI with fever and patient was just discharged today. She was given Zosyn empirically as well as IV fluids. She does not want to be readmitted to the hospital if it is possible not to. All vital signs were corrected with normal saline alone. Patient does have ovarian cancer and has laboratories similar to prior values. I am going to discharge her with strict return precautions primary care follow-up as well as both Keflex and Macrobid for 7 and 5 days respectively for complicated UTI. Does have a radiology read of increasing perihilar opacity. As the patient has no cough I doubt pneumonia. [place] interpretation: I see no acute process, slight increase of right perihilar fullness, no pneumothorax, no obvious infiltrates, no fractures youth nutritional monitor interpretation: Sinus sinus tachycardia followed by normal sinus rhythm and no arrhythmias EKG interpretation: Sinus tachycardia rate of 108, normal axis, no ST or T-wave changes concerning for acute ischemia. Departure Diagnosis: Primary Impression: Fever Additional Impressions: UTI (urinary tract infection) Thrombocytopenia Condition: Stable Patient Instructions: Understanding Urinary Tract Infections (UTIs) Additional Instructions: Call your primary care doctor TOMORROW for an appointment during the next 2-3 days.See the doctor sooner or return here if your condition worsens before your appointment time. REBECCA VÁSQUEZ DO Jul 07, 2017 00:02
[2017-07-07] MEDS ORDERED: ACETAMINOPHEN 325 MG TAB PO PRN (00:30)
[2017-07-07] MEDS ORDERED: ONDANSETRON 4 MG INJ IV PRN (00:30)
[2017-07-07 02:44] VITALS: Ht 162.6 cm; Wt 89.4 kg
[2017-07-07 02:45] VITALS: BP 146/68; PULSE 96; RESP 20
[2017-07-07] MEDS ORDERED: ONDANSETRON 4 MG INJ IV SCH (03:30)
[2017-07-07] MEDS ORDERED: morphine 2 MG INJ IV PRN (03:30)
[2017-07-07] MEDS: ONDANSETRON 4 MG INJ IV PRN ×2 (03:52→22:17)
[2017-07-07] MEDS: DEXTROSE 5%-0.45% NACL 1,000 ML IV SCH ×2 (03:54→14:40)
[2017-07-07] MEDS ORDERED: DEXTROSE 50% 50 ML SYRINGE IV PRN ×2 (04:30)
[2017-07-07] MEDS ORDERED: GLUCOSE GEL 15 GRAM TUBE PO PRN ×2 (04:30)
[2017-07-07] MEDS ORDERED: GLUCOSE GEL 15 GRAM TUBE BUCCAL PRN (04:30)
[2017-07-07] MEDS ORDERED: GLUCAGON 1 MG INJ IM PRN (04:30)
[2017-07-07] MEDS ORDERED: HYDROCODONE/APAP (5/325) TAB PO PRN (06:00)
--- NOTE | 2017-07-07 06:44 | HP ---
Date/Time of Note Date/Time of Note DATE: 07/07/17 TIME: 06:36 Assessment/Plan VTE Prophylaxis VTE Prophylaxis Intervention: heparin Lines/Catheters IV [facility] P[facility] Line Assessment/Plan Assessment/Plan 1. Sepsis, as evidenced by fever and tachycardia, secondary to UTI -IV antibiotic -Follow-up culture results -IV fluid 2. Stage III ovarian cancer -Status post debulking surgery and initiation of chemotherapy earlier this month -Will notify her oncologist, Dr. Monroy about patient's admission 3. History of hypertension: BP within goal - Continue antihypertensives adjustment as needed 4. Type 2 diabetes - Insulin while in-house 5. Thrombocytopenia, likely chemo induced -Monitor and transfuse as needed HPI/ROS Admit Date/Time Admit Date/Time Jul 07, 2017 at 00:21 Hx of Present Illness This is a 61-year-old female with a history of hypertension, type 2 diabetes, stage III ovarian cancer status post debulking surgery as well as chemoradiation who presented to the ER complaining of fever, dysuria. Patient was just discharged from [facility] a few hours ago. She said when she got home, she started having fever as well as dysuria and increased urination and as such she came back to the ER for evaluation. During her recent hospitalization, patient underwent Extended supracervical hysterectomy with bilateral salpingoophorectomy , Bilateral ureteral dissection with repositioning, Pelvic and aortic lymph node dissection, Omentectomy and cytoreduction and appendectomy. She also received chemotherapy. When she presented to the ER, she was febrile with a temperature of 101.5 and tachycardic with a heart rate of 131. Urinalysis consistent with UTI. PMH/Family/Social Past Surgical History Past Surgical Hx: other Social History Smoking Status: Never smoker Exam/Review of Systems Vital Signs Vitals Vital Signs Date Time Temp Pulse Resp B/P Pulse Ox O2 Delivery O2 Flow Rate FiO2 07/07/17 02:45 99.1 96 20 146/68 98 Room Air 07/07/17 01:50 2.0 Exam Constitutional: alert, oriented Head: atraumatic, normocephalic Eyes: EOMI, PERRL Respiratory: clear to auscultation, normal air movement Cardiovascular: other (Tachycardic with regular rhythm) Gastrointestinal: non-tender, soft Extremities: normal pulses Labs Result Diagram: 07/06/17200207/06/171999 Medications Medications Current Medications Ondansetron HCl 4 mg 4 mg Q6H PRN IV NAUSEA AND/OR VOMITING; Start 07/07/17 at 06:30 Dextrose/Sodium Chloride (D5-1/2ns) 1,000 ml @ 100 mls/hr Q10H IV Last administered on 07/07/17t 03:54; Admin Dose 100 MLS/HR; Start 07/07/17 at 03: 45 Morphine Sulfate 2 mg 2 mg Q4H PRN IV PAIN; Start 07/07/17 at 03:30 Ceftriaxone Sodium (Rocephin) 50 ml @ 100 mls/hr Q12 IVPB ; Start 07/07/17 at 09:00 Diagnostic Test (Pha) (Accu-Chek) 1 ea 02 XX ; Start 07/08/17 at 02:00 Diagnostic Test (Pha) (Accu-Chek) 1 ea 02 XX ; Start 07/08/17 at 02:00 Miscellaneous Information 1 ea NOTE XX ; Start 07/07/17 at 04:30 Glucose (Glutose) 15 gm Q15M PRN PO DECREASED GLUCOSE; Start 07/07/17 at 04:30 Glucose (Glutose) 22.5 gm Q15M PRN PO DECREASED GLUCOSE; Start 07/07/17 at 04: 30 Dextrose (D50w Syringe) 25 ml Q15M PRN IV DECREASED GLUCOSE; Start 07/07/17 at 04:30 Dextrose (D50w Syringe) 50 ml Q15M PRN IV DECREASED GLUCOSE; Start 07/07/17 at 04:30 Glucagon (Glucagen) 1 mg Q15M PRN IM DECREASED GLUCOSE; Start 07/07/17 at 04: 30 Glucose (Glutose) 15 gm Q15M PRN BUCCAL DECREASED GLUCOSE; Start 07/07/17 at 04:30 Heparin Sodium (Porcine) (Heparin (5000 Units/0.5 ml)) 5,000 unit DAILY SC ; Start 07/07/17 at 09:00 Benazepril HCl (Lotensin) 10 mg DAILY PO ; Start 07/07/17 at 09:00 Acetaminophen/ Hydrocodone Bitart ([place] (5/325)) 1 tab Q4 PRN PO PAIN; Start 07/07/17 at 06:00 Nitrofurantoin Macrocrystals (Macrobid) 100 mg HS PO ; Start 07/07/17 at 21:00 PATRICIA CORDOBA MD Jul 07, 2017 06:44
[2017-07-07 07:44] VITALS: BP 136/64; RESP 18
[2017-07-07] MEDS ORDERED: HEPARIN 5,000 UNIT/0.5 ML VIAL SC SCH (09:00)
[2017-07-07] MEDS: CEFTRIAXONE 1 GM/50 ML (PMX) 50 ML IVPB SCH ×2 (09:05→20:49)
[2017-07-07] MEDS: BENAZEPRIL 10 MG TAB PO SCH (09:06)
[2017-07-07] MEDS: HEPARIN 5,000 UNIT/0.5 ML VIAL SC SCH (09:17)
[2017-07-07] MEDS: INSULIN ASPART [NOVOLOG] 3 ML PEN SC SCH ×4 (09:17→20:52)
[2017-07-07 14:22] VITALS: BP 114/61; RESP 20
[2017-07-07] MEDS ORDERED: NITROFURANTOIN (SR) 100 MG CAP PO SCH (21:00)
[2017-07-07 21:43] VITALS: BP 112/60; RESP 20
[2017-07-08 01:54] VITALS: BP 131/71; RESP 20
[2017-07-08] MEDS ORDERED: ACCU-CHEK XX SCH ×2 (02:00)
[2017-07-08 05:18] LABS: ABNORMAL IP MESSAGE 1; HEMATOCRIT 29.9 % (37.0-47.0); HEMOGLOBIN 9.6 g/dl (12.0-16.0); MEAN CORPUSCULAR HEMOGLOBIN 28.7 pg (29.0-33.0); MEAN CORPUSCULAR HGB CONC 32.1 g/dl (32.0-37.0); MEAN CORPUSCULAR VOLUME 89.5 fl (82.0-101.0); MEAN PLATELET VOLUME 12.7 fl (7.4-10.4); PLATELET COUNT 39 10^3/UL (140-415); RED BLOOD COUNT 3.34 10^6/ul (4.20-5.40); RED CELL DISTRIBUTION WIDTH 14.4 % (11.5-14.5); WHITE BLOOD COUNT 3.7 10^3/ul (4.8-10.8)
[2017-07-08 05:29] LABS: POSITIVE DIFF @See below
[2017-07-08 05:50] LABS: CALCIUM 8.6 mg/dl (8.4-10.2); CREATININE 0.5 mg/dl (0.44-1.00); MAGNESIUM 1.9 mg/dl (1.7-2.5); POTASSIUM 3.5 mmol/L (3.5-5.1)
[2017-07-08 07:34] VITALS: BP 118/64; RESP 16
[2017-07-08 08:15] LABS: ANISOCYTOSIS 1+ (0-0); EOSINOPHILS % (M) 1 % (0-7); GIANT THROMBO% (M) 2 % (0-0); MICROCYTOSIS 1+ (0-0); MONOCYTES % (M) 1 % (0-11); PLATELET ESTIMATE NORMAL; POLYCHROMASIA 2+ (0-0)
[2017-07-08] MEDS: CEFTRIAXONE 1 GM/50 ML (PMX) 50 ML IVPB SCH (08:50)
[2017-07-08] MEDS: BENAZEPRIL 10 MG TAB PO SCH (08:50)
[2017-07-08] MEDS: HEPARIN 5,000 UNIT/0.5 ML VIAL SC SCH (08:53)
[2017-07-08] MEDS: INSULIN ASPART [NOVOLOG] 3 ML PEN SC SCH ×3 (08:59→17:24)
--- NOTE | 2017-07-08 09:19 | CONS ---
Date/Time of Note Date/Time of Note DATE: 07/08/17 TIME: 09:10 Assessment/Plan Assessment/Plan Chief Complaint/Hosp Course #. STAGE IIIC ovarian cancer -pt now s/p optimal debulking surgery -CA 125 is elevated to > 200, CEA and AFP normal -given patient has stage III disease, pt was given chemotherapy with carboplatin and taxol. today is cycle 1 day 5 -chemotherapy to continue as an out patient #poor po intake -2/2 chemotherapy -continue hydration and antiemetics #UTI -continue Ceftriaxone and Zoxyn # Diabetes -continue NovoLog sliding scale # Hypertension -continue current blood pressure meds Approximately 40min was spent in face to face time and in speaking and counseling her, as well as in coordination of her care Problems: Consultation Date/Type/Reason Admit Date/Time Jul 07, 2017 at 00:21 Date of Consultation: Jul 08, 2017 Type of Consultation: Oncology Reason for Consultation STAGE IIIc ovarian cancer Referring Provider: PATRICIA CORDOBA MD Hx of Present Illness 61-year-old female with multiple medical problems including history of non- insulin requiring diabetes, hypertension as well as H pylori status post recent treatment. 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 06/27/17: Pt underwent optimal debulking surgery with Extended supracervical hysterectomy with bilateral salpingoophorectomy, Bilateral ureteral dissection, Pelvic and aortic lymph node dissection, Omentectomy and cytoreduction, Appendectomy 07/04/17: Pt given first dose of carboplatin/ taxol Now admitted with fevers, and weakness. UCx positive for Klebsiella Pneumoniae. Pt now being treated for UTI Subjective hx not possible: other (very weak) Constitutional: diaphoresis, poor po Eyes: no complaints ENT: no complaints Respiratory: no complaints Cardiovascular: lightheadedness Gastrointestinal: decreased appetite, nausea Genitourinary: no complaints Musculoskeletal: back pain, bone/joint pain Skin: no complaints Neurologic: no complaints Endocrine: no complaints Lymphatic: no complaints Psychological: anxiety, depression Past Medical History HTN DM STAGE IIIc clear cell ovarian ca Past Surgical History Past Surgical Hx: other Family History Significant Family History: no pertinent family hx Social History Alcohol Use: none Smoking Status: Never smoker Drug Use: none Exam/Review of Systems Vital Signs Vitals Vital Signs Date Time Temp Pulse Resp B/P Pulse Ox O2 Delivery O2 Flow Rate FiO2 07/08/17 07:34 98.6 85 16 118/64 93 07/07/17 02:45 Room Air 07/07/17 01:50 2.0 Intake and Output 07/07/17 07/07/17 07/08/17 15:00 23:00 07:00 Intake Total 850 ml 700 ml 250 ml Output Total 1000 ml Balance 850 ml -300 ml 250 ml Exam Constitutional: alert, distress, frail, oriented Psych: anxiety, depression Head: normocephalic Eyes: nl conjunctiva ENMT: nl external ears & nose Neck: non-tender, supple Respiratory: clear to auscultation Cardiovascular: regular rate and rhythm Gastrointestinal: soft Musculoskeletal: nl extremities to inspection Extremities: normal pulses Results Result Diagram: 07/08/17 0438 07/08/17 0438 Results 24 hrs Laboratory Tests Test 07/07/17 12:43 07/07/17 17:42 07/07/17 20:50 07/08/17 04:38 Bedside Glucose 155 164 169 White Blood Count 3.7 #L Red Blood Count 3.34 L Hemoglobin 9.6 L Hematocrit 29.9 L Mean Corpuscular Volume 89.5 Mean Corpuscular Hemoglobin 28.7 L Mean Corpuscular Hemoglobin Concent 32.1 Red Cell Distribution Width 14.4 Platelet Count 39 #L Mean Platelet Volume 12.7 H Neutrophils % Segmented Neutrophils % (Manual) 86 H Band Neutrophils % (Manual) 6 H Lymphocytes % Lymphocytes % (Manual) 6 L Monocytes % Monocytes % (Manual) 1 Eosinophils % Eosinophils % (Manual) 1 Basophils % Nucleated Red Blood Cells % 0.0 Neutrophils # Neutrophils # (Manual) 3.2 Band Neutrophils # 0.2 Absolute Lymphocytes (Manual) 0.2 L Lymphocytes # Monocytes # Absolute Monocytes (Manual) 0.0 L Eosinophils # Basophils # Nucleated Red Blood Cells # Platelet Estimate NORMAL Giant Platelets 2 H Polychromasia 2+ Anisocytosis 1+ Microcytosis 1+ Sodium Level 137 Potassium Level 3.5 Chloride Level 100 Carbon Dioxide Level 31 Anion Gap 10 Blood Urea Nitrogen 5 L Creatinine 0.50 Glucose Level 123 Calcium Level 8.6 Magnesium Level 1.9 Medications Medications Current Medications Ondansetron HCl (Zofran Inj) 4 mg Q6H PRN IV NAUSEA AND/OR VOMITING Last administered on 07/07/17 22:17; Admin Dose 4 MG; Start 07/07/17 at 06:30 Morphine Sulfate 2 mg 2 mg Q4H PRN IV PAIN Last administered on 07/07/17 06: 54; Admin Dose 2 MG; Start 07/07/17 at 03:30 Ceftriaxone Sodium (Rocephin) 50 ml @ 100 mls/hr Q12 IVPB Last administered on 07/08/17 08:50; Admin Dose 100 MLS/HR; Start 07/07/17 at 09:00 Diagnostic Test (Pha) (Accu-Chek) 1 ea 02 XX ; Start 07/08/17 at 02:00 Diagnostic Test (Pha) (Accu-Chek) 1 ea 02 XX ; Start 07/08/17 at 02:00 Miscellaneous Information 1 ea NOTE XX ; Start 07/07/17 at 04:30 Glucose (Glutose) 15 gm Q15M PRN PO DECREASED GLUCOSE; Start 07/07/17 at 04:30 Glucose (Glutose) 22.5 gm Q15M PRN PO DECREASED GLUCOSE; Start 07/07/17 at 04: 30 Dextrose (D50w Syringe) 25 ml Q15M PRN IV DECREASED GLUCOSE; Start 07/07/17 at 04:30 Dextrose (D50w Syringe) 50 ml Q15M PRN IV DECREASED GLUCOSE; Start 07/07/17 at 04:30 Glucagon (Glucagen) 1 mg Q15M PRN IM DECREASED GLUCOSE; Start 07/07/17 at 04: 30 Glucose (Glutose) 15 gm Q15M PRN BUCCAL DECREASED GLUCOSE; Start 07/07/17 at 04:30 Heparin Sodium (Porcine) (Heparin (5000 Units/0.5 ml)) 5,000 unit DAILY SC Last administered on 07/07/17 09:17; Admin Dose 5,000 UNIT; Start 07/07/17 at 09:00 Benazepril HCl (Lotensin) 10 mg DAILY PO Last administered on 07/08/17 08:50 ; Admin Dose 10 MG; Start 07/07/17 at 09:00 Acetaminophen/ Hydrocodone Bitart ([place] (5/325)) 1 tab Q4 PRN PO PAIN Last administered on 07/07/17 13:26; Admin Dose 1 TAB; Start 07/07/17 at 06:00 Nitrofurantoin Macrocrystals (Macrobid) 100 mg HS PO Last administered on 07/07t 20:49; Admin Dose 100 MG; Start 07/07/17 at 21:00 MINAL RICHARDSON M.D. Jul 08, 2017 09:19
--- NOTE | 2017-07-08 13:43 | PN ---
Date/Time of Note Date/Time of Note DATE: 07/08/17 TIME: 13:37 Assessment/Plan VTE Prophylaxis VTE Prophylaxis Intervention: LMWH Lines/Catheters IV Catheter Type (from Nrs): PICC Line Central line still needed: Yes Urinary Cath still in place: No Reason Cath still needed: urinary retention Assessment/Plan Chief Complaint/Hosp Course 61 yo female with newly diagnosed stage IIIC ovarian cancer who presents with UTI Sepsis/UTI: - Continue 7 days abx, can go home tomorrow on PO abx if ok with Dr Monroy Stage IIIC ovarian cancer: - chemo per Dr michael Ward of chronic disease: - Stable Problems: Subjective 24 Hr Interval Summary Free Text/Dictation Patient doing much better she says, no dysuria Wants to stay in the hopsital one more day Exam/Review of Systems Vital Signs Vitals Vital Signs Date Time Temp Pulse Resp B/P Pulse Ox O2 Delivery O2 Flow Rate FiO2 07/08/17 07:34 98.6 85 16 118/64 93 07/07/17 02:45 Room Air 07/07/17 01:50 2.0 Intake and Output 07/07/17 07/07/17 07/08/17 15:00 23:00 07:00 Intake Total 850 ml 700 ml 250 ml Output Total 1000 ml Balance 850 ml -300 ml 250 ml Exam Constitutional: alert, oriented, well developed Psych: nl mood/affect, no complaints Head: atraumatic, normocephalic Eyes: EOMI, PERRL, nl conjunctiva, nl lids, nl sclera ENMT: nl external ears & nose, nl lips & teeth, nl nasal mucosa & septum Neck: non-tender, supple Respiratory: clear to auscultation, normal air movement Cardiovascular: nl pulses, regular rate and rhythm Gastrointestinal: nl liver, spleen, non-tender, soft Musculoskeletal: nl extremities to inspection, nl gait and stance Extremities: normal pulses Neurological: [employer] II-XII intact, nl mental status, nl speech, nl strength Skin: nl turgor, No rash or lesions Lymph: nl lymph nodes Results Result Diagram: 07/08/17 0438 07/08/17 0438 Results 24 hrs Laboratory Tests Test 07/07/17 17:42 07/07/17 20:50 07/08/17 04:38 07/08/17 08:55 Bedside Glucose 164 169 175 White Blood Count 3.7 #L Red Blood Count 3.34 L Hemoglobin 9.6 L Hematocrit 29.9 L Mean Corpuscular Volume 89.5 Mean Corpuscular Hemoglobin 28.7 L Mean Corpuscular Hemoglobin Concent 32.1 Red Cell Distribution Width 14.4 Platelet Count 39 #L Mean Platelet Volume 12.7 H Neutrophils % Segmented Neutrophils % (Manual) 86 H Band Neutrophils % (Manual) 6 H Lymphocytes % Lymphocytes % (Manual) 6 L Monocytes % Monocytes % (Manual) 1 Eosinophils % Eosinophils % (Manual) 1 Basophils % Nucleated Red Blood Cells % 0.0 Neutrophils # Neutrophils # (Manual) 3.2 Band Neutrophils # 0.2 Absolute Lymphocytes (Manual) 0.2 L Lymphocytes # Monocytes # Absolute Monocytes (Manual) 0.0 L Eosinophils # Basophils # Nucleated Red Blood Cells # Platelet Estimate NORMAL Giant Platelets 2 H Polychromasia 2+ Anisocytosis 1+ Microcytosis 1+ Sodium Level 137 Potassium Level 3.5 Chloride Level 100 Carbon Dioxide Level 31 Anion Gap 10 Blood Urea Nitrogen 5 L Creatinine 0.50 Glucose Level 123 Calcium Level 8.6 Magnesium Level 1.9 Test 07/08/17 11:53 Bedside Glucose 109 Medications Medications Current Medications Ondansetron HCl (Zofran Inj) 4 mg Q6H PRN IV NAUSEA AND/OR VOMITING Last administered on 07/07/17 22:17; Admin Dose 4 MG; Start 07/07/17 at 06:30 Morphine Sulfate 2 mg 2 mg Q4H PRN IV PAIN Last administered on 07/07/17 06: 54; Admin Dose 2 MG; Start 07/07/17 at 03:30 Ceftriaxone Sodium (Rocephin) 50 ml @ 100 mls/hr Q12 IVPB Last administered on 07/08/17 08:50; Admin Dose 100 MLS/HR; Start 07/07/17 at 09:00 Diagnostic Test (Pha) (Accu-Chek) 1 ea 02 XX ; Start 07/08/17 at 02:00 Diagnostic Test (Pha) (Accu-Chek) 1 ea 02 XX ; Start 07/08/17 at 02:00 Miscellaneous Information 1 ea NOTE XX ; Start 07/07/17 at 04:30 Glucose (Glutose) 15 gm Q15M PRN PO DECREASED GLUCOSE; Start 07/07/17 at 04:30 Glucose (Glutose) 22.5 gm Q15M PRN PO DECREASED GLUCOSE; Start 07/07/17 at 04: 30 Dextrose (D50w Syringe) 25 ml Q15M PRN IV DECREASED GLUCOSE; Start 07/07/17 at 04:30 Dextrose (D50w Syringe) 50 ml Q15M PRN IV DECREASED GLUCOSE; Start 07/07/17 at 04:30 Glucagon (Glucagen) 1 mg Q15M PRN IM DECREASED GLUCOSE; Start 07/07/17 at 04: 30 Glucose (Glutose) 15 gm Q15M PRN BUCCAL DECREASED GLUCOSE; Start 07/07/17 at 04:30 Heparin Sodium (Porcine) (Heparin (5000 Units/0.5 ml)) 5,000 unit DAILY SC Last administered on 07/07/17 09:17; Admin Dose 5,000 UNIT; Start 07/07/17 at 09:00 Benazepril HCl (Lotensin) 10 mg DAILY PO Last administered on 07/08/17 08:50 ; Admin Dose 10 MG; Start 07/07/17 at 09:00 Acetaminophen/ Hydrocodone Bitart ([place] (5/325)) 1 tab Q4 PRN PO PAIN Last administered on 07/07/17 13:26; Admin Dose 1 TAB; Start 07/07/17 at 06:00 Nitrofurantoin Macrocrystals (Macrobid) 100 mg HS PO Last administered on 07/07 20:49; Admin Dose 100 MG; Start 07/07/17 at 21:00 DIXIE BURLESON MD Jul 08, 2017 13:43
[2017-07-08 16:13] VITALS: BP 109/58; RESP 18
[2017-07-08] MEDS ORDERED: LEVO500T72 PO (16:31)
--- NOTE | 2017-07-08 16:33 | PDOCDIS ---
Discharge Instructions DIAGNOSIS Discharge Diagnosis Urinary tract infection CONDITION Patient Condition: Fair FOLLOW UP/APPOINTMENTS Follow-up Plan take the antibiotic you have been prescribed for the next 3 days starting tomorrow Return to the hospital if you feel you are not improving or have any concerning symptoms Follow up for treatment of your cancer with DIXIE Urbano MD Jul 08, 2017 16:33
--- NOTE | 2017-07-08 16:33 | DS ---
Date/Time of Note Date/Time of Note DATE: 07/08/17 TIME: 16:33 Discharge Summary Admission/Discharge Info Admit Date/Time Jul 07, 2017 at 00:21 Discharge Date/Time Discharge Diagnosis Urinary tract infection Hx of Present Illness This is a 61-year-old female with a history of hypertension, type 2 diabetes, stage III ovarian cancer status post debulking surgery as well as chemoradiation who presented to the ER complaining of fever, dysuria. Patient was just discharged from [facility] a few hours ago. She said when she got home, she started having fever as well as dysuria and increased urination and as such she came back to the ER for evaluation. During her recent hospitalization, patient underwent Extended supracervical hysterectomy with bilateral salpingoophorectomy , Bilateral ureteral dissection with repositioning, Pelvic and aortic lymph node dissection, Omentectomy and cytoreduction and appendectomy. She also received chemotherapy. When she presented to the ER, she was febrile with a temperature of 101.5 and tachycardic with a heart rate of 131. Urinalysis consistent with UTI. Hospital Course 61 yo female with newly diagnosed stage IIIC ovarian cancer who presents with UTI She was treated with IV abx and rapidly improved. Urine culture revealed jane sensitive organism and she was given a Rx of levaquin to complete a course of antibiotisc as an outpatient Home Meds Active Scripts Levofloxacin* (Levaquin*) 500 Mg Tablet, 500 MG PO DAILY for 3 Days, #3 TAB Prov:DIXIE BURLESON MD 07/08/17 Hydrocodone/Acetaminophen ([place] 5-325 Tablet) 1 Each Tablet, 1 EACH PO Q4 Y for PAIN, #40 TAB Prov:JONA ELY 07/06/17 Reported Medications Metformin* (Glucophage*) 500 Mg Tab, 500 MG PO WITH BREAKFAST, #30 TAB 06/18/17 Discontinued Reported Medications Benazepril Hcl* (Benazepril Hcl*) 10 Mg Tablet, 10 MG PO DAILY, #30 TAB 06/18/17 [Metformin] No Conflict Check 08/09/16 [Benazepril] No Conflict Check 08/09/16 Discontinued Scripts Ondansetron (Ondansetron Odt) 4 Mg Tab.rapdis, 4 MG PO Q6H Y for NAUSEA AND/OR VOMITING, #10 TAB Prov:REBECCA VÁSQUEZ DO 07/06/17 Nitrofurantoin Monohyd Macrocr* (Macrobid*) 100 Mg Capsr, 100 MG PO HS for 5 Days, CAP Prov:REBECCA VÁSQUEZ DO 07/06/17 Cephalexin* (Keflex*) 500 Mg Capsule, 500 MG PO QID for 7 Days, CAP Prov:REBECCA VÁSQUEZ DO 07/06/17 Ondansetron Hcl* (Zofran*) 8 Mg Tab, 8 MG PO Q8 Y for NAUSEA, #60 TAB Prov:JONA ELY 07/06/17 Follow-up Plan take the antibiotic you have been prescribed for the next 3 days starting tomorrow Return to the hospital if you feel you are not improving or have any concerning symptoms Follow up for treatment of your cancer with Dr Monroy Primary Care Provider [facility] Pending Labs Laboratory Tests Test 07/07/17 17:42 07/07/17 20:50 07/08/17 04:38 07/08/17 08:55 Bedside Glucose 164mg/dL (70-220) 169mg/dL (70-220) 175mg/dL (70-220) White Blood Count 3.710^3/ul (4.8-10.8) Red Blood Count 3.3410^6/ul (4.20-5.40) Hemoglobin 9.6g/dl (12.0-16.0) Hematocrit 29.9% (37.0-47.0) Mean Corpuscular Volume 89.5fl (82.0-101.0) Mean Corpuscular Hemoglobin 28.7pg (29.0-33.0) Mean Corpuscular Hemoglobin Concent 32.1g/dl (32.0-37.0) Red Cell Distribution Width 14.4% (11.5-14.5) Platelet Count 3910^3/UL (140-415) Mean Platelet Volume 12.7fl (7.4-10.4) Neutrophils % % (39.0-77.0) Segmented Neutrophils % (Manual) 86% (39-77) Band Neutrophils % (Manual) 6% (0-4) Lymphocytes % % (15.0-51.0) Lymphocytes % (Manual) 6% (15-51) Monocytes % % (0.0-11.0) Monocytes % (Manual) 1% (0-11) Eosinophils % % (0.0-7.0) Eosinophils % (Manual) 1% (0-7) Basophils % % (0.0-2.0) Nucleated Red Blood Cells % 0.0/100WBC (0.0-0.0) Neutrophils # 10^3/ul (1.6-7.5) Neutrophils # (Manual) 3.210^3/ul (1.7-7.5) Band Neutrophils # 0.210^3/ul (0.0-0.6) Absolute Lymphocytes (Manual) 0.210^3/ul (0.8-2.9) Lymphocytes # 10^3/ul (0.8-2.9) Monocytes # 10^3/ul (0.3-0.9) Absolute Monocytes (Manual) 0.010^3/ul (0.3-0.9) Eosinophils # 10^3/ul (0.0-0.5) Basophils # 10^3/ul (0.0-0.1) Nucleated Red Blood Cells # 10^3/ul (0.0-0.0) Platelet Estimate NORMAL Giant Platelets 2% (0-0) Polychromasia 2+ (0-0) Anisocytosis 1+ (0-0) Microcytosis 1+ (0-0) Sodium Level 137mmol/L (135-144) Potassium Level 3.5mmol/L (3.5-5.1) Chloride Level 100mmol/L (97-110) Carbon Dioxide Level 31mmol/L (21-31) Anion Gap 10 (8-16) Blood Urea Nitrogen 5mg/dl (7-20) Creatinine 0.50mg/dl (0.44-1.00) Glucose Level 123mg/dl (70-220) Calcium Level 8.6mg/dl (8.4-10.2) Magnesium Level 1.9mg/dl (1.7-2.5) Test 07/08/17 11:53 Bedside Glucose 109mg/dL (70-220) DIXIE BURLESON MD Jul 08, 2017 16:33
== END 2017-07-08 18:30 | disposition home or self-care (01) | DRG 690 ==
LOC: E/R 19:16 → MS1 07-07 00:21
PROVIDERS: ADMIT Internal Medicine; ATTEND Internal Medicine
DX: N39.0 Urinary tract infection, site not specified (principal); D69.59 Other secondary thrombocytopenia; C56.9 Malignant neoplasm of unspecified ovary; I10 Essential (primary) hypertension; D63.8 Anemia in other chronic diseases classified elsewhere; E11.9 Type 2 diabetes mellitus without complications; Z79.84 Long term (current) use of oral hypoglycemic drugs; T45.1X5A Adverse effect of antineoplastic and immunosuppressive drugs, initial encounter
CPT/HCPCS: 36415; 71010; 80048; 80053; 81001; 81003; 82962; 83605; 83735; 84484; 85025; 87040; 87086; 93005; 96374; J0696; J1644; J1815; J2270; J2405; J2543; J7030; J7042

== ENCOUNTER 2017-07-31 19:52 | Inpatient (IN) | payer OTHER ==
[~2017-07-31] VITALS: Ht 157.5 cm; Wt 86.8 kg
[~2017-07-31 19:52] MED LIST changes: -BENA10TA48 PO; -BENAZEPRIL; +LEVO500T72 PO; -METFORMIN; -ZOF8 PO
[2017-08-01 00:41] VITALS: Ht 157.5 cm; Wt 86.8 kg
[2017-08-01 00:44] VITALS: BP 141/80; PULSE 103; RESP 20
[2017-08-01] MEDS ORDERED: GLUCAGON 1 MG INJ IM PRN (01:00)
[2017-08-01] MEDS ORDERED: DEXTROSE 50% 50 ML SYRINGE IV PRN ×2 (01:00)
[2017-08-01] MEDS ORDERED: METOCLOPRAMIDE 10 MG INJ IV PRN (01:00)
[2017-08-01] MEDS ORDERED: ONDANSETRON INJ 8 MG in DEXTROSE 5% 50 ML IV PRN (01:00)
[2017-08-01] MEDS ORDERED: LORAZEPAM 2 MG INJ IV PRN (01:00)
[2017-08-01] MEDS ORDERED: morphine 4 MG/ML VIAL IV PRN (01:00)
[2017-08-01] MEDS ORDERED: GLUCOSE GEL 15 GRAM TUBE BUCCAL PRN (01:00)
[2017-08-01] MEDS ORDERED: GLUCOSE GEL 15 GRAM TUBE PO PRN ×2 (01:00)
[2017-08-01] MEDS: DEXTROSE 5%-0.45% NACL 1,000 ML IV SCH ×2 (01:07→11:02)
[2017-08-01] MEDS ORDERED: ACCU-CHEK XX SCH ×2 (02:00→17:45)
[2017-08-01 02:04] LABS: ALBUMIN 3.5 g/dl (3.3-4.9); ALBUMIN/GLOBULIN RATIO 0.97; BILIRUBIN,INDIRECT 0.5 mg/dl (0-1.1); BILIRUBIN,TOTAL 0.5 mg/dl (0.2-1.3); CALCIUM 8.8 mg/dl (8.4-10.2); CREATININE 0.65 mg/dl (0.44-1.00); POTASSIUM 3.7 mmol/L (3.5-5.1); TOTAL PROTEIN 7.1 g/dl (6.1-8.1)
[2017-08-01] MEDS: INSULIN ASPART [NOVOLOG] 3 ML PEN SC SCH ×4 (06:00→21:00)
--- NOTE | 2017-08-01 06:19 | HP ---
Date/Time of Note Date/Time of Note DATE: 08/01/17 TIME: 06:12 Assessment/Plan VTE Prophylaxis VTE Prophylaxis Intervention: heparin Lines/Catheters IV Catheter Type (from Nrs): PICC Line Urinary Cath still in place: No Assessment/Plan Assessment/Plan ASSESSMENT 61-year-old female with a history of hypertension, type 2 diabetes, stage III ovarian cancer status post debulking surgery and chemoradiation is admitted for sepsis secondary to UTI, also possible line sepsis from PICC PLAN IV antibiotic and IV fluids Follow-up culture results Insulin for her diabetes Adjust antihypertensive as needed Oncology consult to notify patient's admission HPI/ROS Admit Date/Time Admit Date/Time Aug 01, 2017 at 00:21 Hx of Present Illness This is a 61-year-old female with a history of hypertension, type 2 diabetes, stage III ovarian cancer status post debulking surgery as well as chemoradiation who initially presented to [facility] ER with fever and tachycardia and was diagnosed with UTI. She was transferred to [facility] because of insurance reasons. Patient was admitted here twice last month. During first hospitalization, for her ovarian cancer, she underwent Extended supracervical hysterectomy with bilateral salpingoophorectomy, Bilateral ureteral dissection with repositioning , Pelvic and aortic lymph node dissection, Omentectomy and cytoreduction and appendectomy. She also received chemotherapy. She was readmitted the same day that she was discharged because of urinary symptoms and was treated for UTI. Once admitted here, patient had temp of 100.3 and was tachycardic with a heart rate of 103. PMH/Family/Social Past Surgical History Past Surgical Hx: other Social History Smoking Status: Never smoker Exam/Review of Systems Vital Signs Vitals Vital Signs Date Time Temp Pulse Resp B/P Pulse Ox O2 Delivery O2 Flow Rate FiO2 08/01/17 00:44 100.3 103 20 141/80 94 Room Air Exam Constitutional: alert, oriented, well developed Head: atraumatic, normocephalic Eyes: EOMI, PERRL Respiratory: clear to auscultation, normal air movement Cardiovascular: other (Tachycardic with regular rhythm) Gastrointestinal: non-tender, soft Extremities: normal pulses Labs Result Diagram: 08/01/17 0125 Medications Medications Current Medications Ondansetron HCl/ Dextrose (Zofran Inj/D5W) 54 ml @ 108 mls/hr Q6H PRN IV NAUSEA AND/OR VOMITING; Start 08/01/17 at 01:00 Metoclopramide HCl (Reglan) 10 mg Q6 PRN IV nausea and vomiting Last administered on 08/01/17 01:06; Admin Dose 10 MG; Start 08/01/17 at 01:00 Lorazepam 1 mg 1 mg Q4 PRN IV anxiety; Start 08/01/17 at 01:00 Cefepime HCl (Maxipime 1gm/50 ml (Pmx)) 50 ml @ 100 mls/hr Q12 IVPB ; Start at 09:00 Morphine Sulfate 4 mg 4 mg Q4H PRN IV pain; Start 08/01/17 at 01:00 Dextrose/Sodium Chloride (D5-1/2ns) 1,000 ml @ 100 mls/hr Q10H IV Last administered on 08/01/17 01:07; Admin Dose 100 MLS/HR; Start 08/01/17 at 01:00 Acetaminophen (Tylenol Tab) 650 mg Q6H PRN PO PAIN AND OR ELEVATED TEMP; Start 08/01/17 at 01:00 Diagnostic Test (Pha) (Accu-Chek) 1 ea 02 XX ; Start 08/01/17 at 02:00 Insulin Aspart (Novolog Insulin Pen) NOVOLOG *MILD* ALGORI... Q6 SC ; Start 08/01/17 at 06:00 Insulin Glargine (Lantus) 10 unit DAILY@08 SC ; Start 08/01/17 at 08:00 Miscellaneous Information 1 ea NOTE XX ; Start 08/01/17 at 01:00 Glucose (Glutose) 15 gm Q15M PRN PO DECREASED GLUCOSE; Start 08/01/17 at 01:00 Glucose (Glutose) 22.5 gm Q15M PRN PO DECREASED GLUCOSE; Start 08/01/17 at 01: 00 Dextrose (D50w Syringe) 25 ml Q15M PRN IV DECREASED GLUCOSE; Start 08/01/17 at 01:00 Dextrose (D50w Syringe) 50 ml Q15M PRN IV DECREASED GLUCOSE; Start 08/01/17 at 01:00 Glucagon (Glucagen) 1 mg Q15M PRN IM DECREASED GLUCOSE; Start 08/01/17 at 01:00 Glucose (Glutose) 15 gm Q15M PRN BUCCAL DECREASED GLUCOSE; Start 08/01/17 at 01 :00 PATRICIA CORDOBA MD Aug 01, 2017 06:19
[2017-08-01 08:22] VITALS: BP 130/72; RESP 20
[2017-08-01] MEDS: CEFEPIME 1GM/50 ML (PMX) 50 ML IVPB SCH ×2 (08:26→21:09)
[2017-08-01] MEDS: INSULIN GLARGINE [LANtus] 3 ML PEN SC SCH (08:28)
[2017-08-01 10:05] LABS: ADD UMIC YES; UR ASCORBIC ACID NEGATIVE (NEGATIVE); UR BACTERIA MODERATE /HPF (NONE SEEN); UR BILIRUBIN (Dip) NEGATIVE (NEGATIVE); UR BLOOD (Dip) 1+ mg/dL (NEGATIVE); UR CLARITY CLOUDY (CLEAR); UR COLOR YELLOW (YELLOW); UR GLUCOSE (Dip) NEGATIVE (NEGATIVE); UR KETONES (Dip) NEGATIVE (NEGATIVE); UR LEUKOCYTE ESTERASE (Dip) 3+ Leu/ul (NEGATIVE); UR NITRITE (Dip) NEGATIVE (NEGATIVE); UR RBC 11 /HPF (0-5); UR SPECIFIC GRAVITY (Dip) 1.008 (1.003-1.030); UR SQUAMOUS EPITHELIAL CELL FEW /HPF (FEW); UR TOTAL PROTEIN (Dip) 1+ mg/dl (NEGATIVE); UR UROBILINOGEN (Dip) NEGATIVE (NEGATIVE)
[2017-08-01] MEDS: ACETAMINOPHEN 325 MG TAB PO PRN ×2 (10:54→18:29)
[2017-08-01 14:20] VITALS: BP 116/63; RESP 18
[2017-08-01] MEDS: SOD CHLORIDE 0.45% 1,000 ML IV SCH (17:21)
[2017-08-01 19:09] VITALS: BP 142/73; RESP 20
[2017-08-02] MEDS ORDERED: ACCU-CHEK XX SCH (02:00)
[2017-08-02] MEDS: ACCU-CHEK XX SCH (02:00)
[2017-08-02 02:12] VITALS: BP 138/74; RESP 20
[2017-08-02] MEDS: SOD CHLORIDE 0.45% 1,000 ML IV SCH ×5 (02:45→23:20)
[2017-08-02 05:48] LABS: BASOPHILS % 0.6 % (0.0-2.0); EOSINOPHILS # 0.1 10^3/ul (0.0-0.5); EOSINOPHILS % 1.7 % (0.0-7.0); HEMATOCRIT 27.9 % (37.0-47.0); HEMOGLOBIN 8.6 g/dl (12.0-16.0); LYMPHOCYTES # 0.9 10^3/ul (0.8-2.9); LYMPHOCYTES % 12.2 % (15.0-51.0); MEAN CORPUSCULAR HEMOGLOBIN 28.4 pg (29.0-33.0); MEAN CORPUSCULAR HGB CONC 30.8 g/dl (32.0-37.0); MEAN CORPUSCULAR VOLUME 92.1 fl (82.0-101.0); MEAN PLATELET VOLUME 9.8 fl (7.4-10.4); MONOCYTE # 0.6 10^3/ul (0.3-0.9); MONOCYTES % 8.1 % (0.0-11.0); NEUTROPHIL # 5.3 10^3/ul (1.6-7.5); PLATELET COUNT 172 10^3/UL (140-415); RED BLOOD COUNT 3.03 10^6/ul (4.20-5.40); RED CELL DISTRIBUTION WIDTH 15.5 % (11.5-14.5); WHITE BLOOD COUNT 6.9 10^3/ul (4.8-10.8)
[2017-08-02 06:34] LABS: CALCIUM 8.6 mg/dl (8.4-10.2); CREATININE 0.52 mg/dl (0.44-1.00); MAGNESIUM 1.7 mg/dl (1.7-2.5); PHOSPHORUS 3.8 mg/dl (2.5-4.9); POTASSIUM 3.5 mmol/L (3.5-5.1)
[2017-08-02] MEDS: INSULIN ASPART [NOVOLOG] 3 ML PEN SC SCH ×4 (07:57→20:31)
[2017-08-02 08:00] VITALS: BP 134/72; PULSE 87; RESP 20
[2017-08-02] MEDS: INSULIN GLARGINE [LANtus] 3 ML PEN SC SCH (08:07)
[2017-08-02] MEDS: CEFEPIME 1GM/50 ML (PMX) 50 ML IVPB SCH ×2 (08:42→20:30)
[2017-08-02] MEDS: ACETAMINOPHEN 325 MG TAB PO PRN ×2 (11:12→20:31)
[2017-08-02 14:00] VITALS: BP 106/64; RESP 18
[2017-08-02 16:03] VITALS: BP 106/64; RESP 18
--- NOTE | 2017-08-02 17:06 | PN ---
Date/Time of Note Date/Time of Note DATE: 08/02/17 TIME: 16:48 Assessment/Plan VTE Prophylaxis VTE Prophylaxis Intervention: ambulation Lines/Catheters Urinary Cath still in place: No Assessment/Plan Chief Complaint/Hosp Course 1. Sepsis secondary to UTI Urine culture shows gram-negative rods this time Continue cefepime Patient has persistent fevers 2 Stage III ovarian cancer status post debulking surgery and chemoradiation Follow-up with oncology as outpatient 3. Diabetes Continue insulin while in house Prophylaxis: Ambulation Problems: Subjective 24 Hr Interval Summary Constitutional: no complaints Exam/Review of Systems Vital Signs Vitals Vital Signs Date Time Temp Pulse Resp B/P Pulse Ox O2 Delivery O2 Flow Rate FiO2 08/02/17 16:03 98.6 97 18 106/64 96 08/02/17 08:00 Room Air Intake and Output 08/01/17 08/01/17 08/02/17 15:00 23:00 07:00 Intake Total 650 ml 360 ml 1590 ml Output Total 300 ml Balance 650 ml 60 ml 1590 ml Exam Constitutional: alert, oriented Respiratory: clear to auscultation Cardiovascular: regular rate and rhythm Gastrointestinal: soft, No distended Musculoskeletal: nl extremities to inspection Results Result Diagram: 08/02/1751808/02/17 05 Results 24 hrs Laboratory Tests Test 08/01/17 17:25 08/01/17 21:11 08/02/17 05:19 08/02/17 07:53 Bedside Glucose 157 139 138 White Blood Count 6.9 # Red Blood Count 3.03 L Hemoglobin 8.6 L Hematocrit 27.9 L Mean Corpuscular Volume 92.1 Mean Corpuscular Hemoglobin 28.4 L Mean Corpuscular Hemoglobin Concent 30.8 L Red Cell Distribution Width 15.5 H Platelet Count 172 # Mean Platelet Volume 9.8 # Neutrophils % 77.0 Lymphocytes % 12.2 L Monocytes % 8.1 Eosinophils % 1.7 Basophils % 0.6 Nucleated Red Blood Cells % 0.0 Neutrophils # 5.3 Lymphocytes # 0.9 Monocytes # 0.6 Eosinophils # 0.1 Basophils # 0.0 Nucleated Red Blood Cells # 0.0 Sodium Level 139 Potassium Level 3.5 Chloride Level 104 Carbon Dioxide Level 27 Anion Gap 12 Blood Urea Nitrogen 4 L Creatinine 0.52 Glucose Level 166 Calcium Level 8.6 Phosphorus Level 3.8 Magnesium Level 1.7 Test 08/02/17 12:17 Bedside Glucose 128 Medications Medications Current Medications Ondansetron HCl/ Dextrose (Zofran Inj/D5W) 54 ml @ 108 mls/hr Q6H PRN IV NAUSEA AND/OR VOMITING; Start 08/01/17 at 01:00 Metoclopramide HCl (Reglan) 10 mg Q6 PRN IV nausea and vomiting Last administered on 08/01/17 01:06; Admin Dose 10 MG; Start 08/01/17 at 01:00 Lorazepam 1 mg 1 mg Q4 PRN IV anxiety; Start 08/01/17 at 01:00 Cefepime HCl (Maxipime 1gm/50 ml (Pmx)) 50 ml @ 100 mls/hr Q12 IVPB Last administered on 08/02/17 08:42; Admin Dose 100 MLS/HR; Start 08/01/17 at 09:00 Morphine Sulfate (morphine) 4 mg Q4H PRN IV pain; Start 08/01/17 at 01:00 Acetaminophen (Tylenol Tab) 650 mg Q6H PRN PO PAIN AND OR ELEVATED TEMP Last administered on 08/02/17 11:12; Admin Dose 650 MG; Start 08/01/17 at 01:00 Insulin Glargine (Lantus) 10 unit DAILY@08 SC Last administered on 08/02/17 08:07; Admin Dose 10 UNIT; Start 08/01/17 at 08:00 Miscellaneous Information 1 ea NOTE XX ; Start 08/01/17 at 01:00 Glucose (Glutose) 15 gm Q15M PRN PO DECREASED GLUCOSE; Start 08/01/17 at 01:00 Glucose (Glutose) 22.5 gm Q15M PRN PO DECREASED GLUCOSE; Start 08/01/17 at 01: 00 Dextrose (D50w Syringe) 25 ml Q15M PRN IV DECREASED GLUCOSE; Start 08/01/17 at 01:00 Dextrose (D50w Syringe) 50 ml Q15M PRN IV DECREASED GLUCOSE; Start 08/01/17 at 01:00 Glucagon (Glucagen) 1 mg Q15M PRN IM DECREASED GLUCOSE; Start 08/01/17 at 01:00 Glucose 15 gm 15 gm Q15M PRN BUCCAL DECREASED GLUCOSE; Start 08/01/17 at 01:00 Sodium Chloride (1/2 NS) 1,000 ml @ 100 mls/hr Q10H IV Last administered on t 13:49; Admin Dose 100 MLS/HR; Start 08/01/17 at 16:30 Diagnostic Test (Pha) (Accu-Chek) 1 ea 02 XX ; Start 08/02/17 at 02:00 JONA ELY Aug 02, 2017 16:58
[2017-08-02 19:41] VITALS: BP 136/77; RESP 20
[2017-08-03] MEDS: ACCU-CHEK XX SCH (02:00)
[2017-08-03 02:07] VITALS: BP 122/61; RESP 20
[2017-08-03 06:32] LABS: CALCIUM 8.5 mg/dl (8.4-10.2); CREATININE 0.49 mg/dl (0.44-1.00); MAGNESIUM 1.9 mg/dl (1.7-2.5); POTASSIUM 3.6 mmol/L (3.5-5.1)
[2017-08-03 07:21] VITALS: BP 130/80; RESP 18
[2017-08-03] MEDS: CEFEPIME 1GM/50 ML (PMX) 50 ML IVPB SCH (08:04)
[2017-08-03] MEDS: SOD CHLORIDE 0.45% 1,000 ML IV SCH (08:05)
[2017-08-03] MEDS: INSULIN ASPART [NOVOLOG] 3 ML PEN SC SCH ×2 (08:06→11:53)
[2017-08-03] MEDS: INSULIN GLARGINE [LANtus] 3 ML PEN SC SCH (08:18)
[2017-08-03] MEDS ORDERED: CIPR500T4 PO (09:56)
--- NOTE | 2017-08-03 09:57 | PDOCDIS ---
Discharge Instructions CONDITION Patient Condition: Good HOME CARE INSTRUCTIONS: Special Diet: LOW CARB ACTIVITY: Activity Restrictions: No Restrictions FOLLOW UP/APPOINTMENTS Follow-up Plan F/U WITH YOUR PCP IN 1-2 WEEKS, F/U WITH YOUR ONCOLOGIST SCHEDULED JONA ELY Aug 03, 2017 09:57
--- NOTE | 2017-08-03 12:29 | DS ---
Date/Time of Note Date/Time of Note DATE: 08/03/17 TIME: 12:27 Discharge Summary Admission/Discharge Info Admit Date/Time Aug 01, 2017 at 00:21 Discharge Date/Time Aug 03, 2017 at 11:55 Discharge Diagnosis 1. Sepsis secondary to UTI-resolved Urine culture shows Klebsiella pneumonia Status post cefepime DC with Cipro 2 Stage III ovarian cancer status post debulking surgery and chemoradiation Follow-up with oncology as outpatient 3. Diabetes Continue home regimen Hospital Course Patient is a 61-year-old female with a history of hypertension, type 2 diabetes , stage III ovarian cancer status post debulking surgery as well as chemoradiation who initially presented to [facility] ER with fever and tachycardia and was diagnosed with UTI. She was transferred to [facility] because of insurance reasons. Patient had evidence of sepsis and was febrile, urine culture ultimately showed Klebsiella pneumonia sensitive to multiple antibiotics. Patient received cefepime while in-house. Sepsis ultimately resolved and patient was felt to be stable for DC, on the day of discharge patient's vitals, labs and physical exam are stable she had no further acute complaints questions are answered. Home Meds Active Scripts Ciprofloxacin Hcl* (Ciprofloxacin Hcl*) 500 Mg Tablet, 500 MG PO BID for 5 Days , #10 TAB Prov:JONA ELY 08/03/17 Hydrocodone/Acetaminophen ([place] 5-325 Tablet) 1 Each Tablet, 1 EACH PO Q4 Y for PAIN, #40 TAB Prov:JONA ELY 07/06/17 Reported Medications Metformin* (Glucophage*) 500 Mg Tab, 500 MG PO WITH BREAKFAST, #30 TAB 06/18/17 Discontinued Scripts Levofloxacin* (Levaquin*) 500 Mg Tablet, 500 MG PO DAILY for 3 Days, #3 TAB Prov:DIXIE BURLESON MD 07/08/17 Follow-up Plan F/U WITH YOUR PCP IN 1-2 WEEKS, F/U WITH YOUR ONCOLOGIST SCHEDULED Primary Care Provider [facility] Time spent on discharge: > 30 minutes JONA ELY Aug 03, 2017 12:29
== END 2017-08-03 11:55 | disposition home or self-care (01) | DRG 872 ==
LOC: MS2 08-01 00:21
PROVIDERS: ADMIT Hospitalist; ATTEND Hospitalist
DX: A41.9 Sepsis, unspecified organism (principal); I10 Essential (primary) hypertension; N39.0 Urinary tract infection, site not specified; B96.1 Klebsiella pneumoniae [K. pneumoniae] as the cause of diseases classified elsewhere; E11.9 Type 2 diabetes mellitus without complications; Z85.43 Personal history of malignant neoplasm of ovary; Z92.21 Personal history of antineoplastic chemotherapy; Z92.3 Personal history of irradiation
CPT/HCPCS: 80048; 80053; 81001; 82962; 83735; 84100; 85025; 87040; 87081; 87086; J0692; J1815; J2765; J7042

== ENCOUNTER 2018-04-26 11:04 | Emergency (ER) | END 2018-04-26 14:46 | disposition home or self-care (01) ==

== ENCOUNTER 2018-06-03 14:29 | Inpatient (IN) | END 2018-06-09 15:50 | disposition home or self-care (01) | DRG 394 ==

== ENCOUNTER 2018-11-04 11:43 | Inpatient (IN) | payer OTHER ==
[~2018-11-04] VITALS: Ht 165.1 cm; Wt 87.5 kg
[~2018-11-04 11:43] MED LIST changes: -HYDR-906 PO; -LEVO500T72 PO; +METF500T24 PO; -METF500T4 PO
[2018-11-04 11:56] VITALS: Ht 165.1 cm; Wt 87.5 kg
[2018-11-04] MEDS ORDERED: CEFEPIME 2GM/50 ML (PMX) 50 ML IVPB STA (12:18)
[2018-11-04] MEDS ORDERED: SODIUM CHLORIDE 0.9% 1L BAG IV* STA (12:18)
[2018-11-04] MEDS ORDERED: ONDANSETRON 4 MG INJ IV STA (12:24)
[2018-11-04] MEDS ORDERED: HYDROmorphONE 1 MG/ML SYG IV STA (12:24)
[2018-11-04] MEDS ORDERED: ACETAMINOPHEN 325 MG TAB PO ONE (12:30)
--- NOTE | 2018-11-04 13:27 | ERD ---
ER Documentation Chief Complaint Chief Complaint c/o abdominal pain rad to back, Hx: ovarian CA, last chemo 2 weeks ago HPI 63-year-old female history of metastatic ovarian versus uterine malignancy with associated carcinomatosis with recent hospitalization for abdominal pain who presents to the emergency room because of generalized malaise weakness and fever at home. Patient is also describing persistent abdominal pain similar to her chronic abdominal pain. No cough no sore throat no difficulty breathing. She denies any headache rash or neck stiffness. She did recently receive chemotherapy within the last 7-14 days. Her hematology oncology physician, Dr. Monroy sent her to the emergency room for further evaluation and admission. ROS All systems reviewed and are negative except as per history of present illness. Medications Home Meds Reported Medications Metformin Hcl* (Metformin Hcl*) 500 Mg Tablet, 500 MG PO WITH BREAKFAST, #30 TAB 10/30/18 Discontinued Reported Medications Metformin Hcl* (Metformin Hcl*) 500 Mg Tablet, 500 MG PO WITH BREAKFAST DINNE, #60 TAB 04/26/18 Allergies Allergies: Coded Allergies: No Known Drug Allergies (Verified Allergy, Unknown, 11/04/18) PMhx/Soc History of Surgery: Yes (oophorectomy, hysterectomy) Anesthesia Reaction: No Hx Neurological Disorder: No Hx Respiratory Disorders: No Hx Cardiac Disorders: Yes (DM) Hx Psychiatric Problems: No Hx Miscellaneous Medical Probl: Yes (ovarain vs uterine cancer with mets) Hx Alcohol Use: No Hx Substance Use: No Hx Tobacco Use: No Smoking Status: Never smoker FmHx Family History: No diabetes Physical Exam Vitals Vital Signs Date Temp Pulse Resp B/P (MAP) Pulse Ox O2 O2 Flow FiO2 Time Delivery Rate 11/04/18 85 20 111/69 98 Room Air 13:19 (83) 11/04/18 99.5 12:32 11/04/18 99.5 75 18 123/76 98 Room Air 12:20 (92) 11/04/18 100.0 90 22 136/73 98 11:56 (94) Physical Exam General: Generally weak Head: Normocephalic, atraumatic. Eyes: Pupils equally reactive, EOM intact ENT: Moist mucous membranes Neck: Supple, no lymphadenopathy Respiratory: Lungs clear bilaterally, no distress Cardiovascular: RRR, no murmurs, rubs, or gallops Abdominal: Soft, mild generalized abdominal tenderness without rebound or guarding : Deferred MSK: No edema, no unilateral swelling, 5/5 strength Neurologic: Alert and oriented, moving all extremities, normal speech, no focal weakness, no cerebellar signs, no meningismus Skin: No rash Psych: Normal mood Result Diagram: 11/04/18 1227 11/04/18 1227 Results 24 hrs Laboratory Tests Test 11/04/18 12:25 11/04/18 12:27 POC Venous Lactate 1.5 mmol/L White Blood Count 7.8 10^3/ul Red Blood Count 3.45 10^6/ul Hemoglobin 9.9 g/dl Hematocrit 31.0 % Mean Corpuscular Volume 89.9 fl Mean Corpuscular Hemoglobin 28.7 pg Mean Corpuscular Hemoglobin Concent 31.9 g/dl Red Cell Distribution Width 17.7 % Platelet Count 305 10^3/UL Mean Platelet Volume 9.9 fl Immature Granulocytes % 0.600 % Neutrophils % 74.0 % Lymphocytes % 13.2 % Monocytes % 11.8 % Eosinophils % 0.1 % Basophils % 0.3 % Nucleated Red Blood Cells % 0.0 /100WBC Immature Granulocytes # 0.050 10^3/ul Neutrophils # 5.8 10^3/ul Lymphocytes # 1.0 10^3/ul Monocytes # 0.9 10^3/ul Eosinophils # 0.0 10^3/ul Basophils # 0.0 10^3/ul Nucleated Red Blood Cells # 0.0 10^3/ul Prothrombin Time 17.7 Sec Prothrombin Time Ratio 1.4 INR International Normalized Ratio 1.45 Activated Partial Thromboplast Time 37.7 Sec Sodium Level 136 mmol/L Potassium Level 3.8 mmol/L Chloride Level 99 mmol/L Carbon Dioxide Level 32 mmol/L Anion Gap 5 Blood Urea Nitrogen 7 mg/dl Creatinine 0.65 mg/dl Est Glomerular Filtrat Rate mL/min > 60 mL/min Glucose Level 126 mg/dl Calcium Level 9.0 mg/dl Total Bilirubin 0.4 mg/dl Direct Bilirubin 0.00 mg/dl Indirect Bilirubin 0.4 mg/dl Aspartate Amino Transf (AST/SGOT) 25 IU/L Alanine Aminotransferase (ALT/SGPT) 14 IU/L Alkaline Phosphatase 76 IU/L Troponin I < 0.012 ng/ml Total Protein 7.9 g/dl Albumin 3.4 g/dl Globulin 4.50 g/dl Albumin/Globulin Ratio 0.75 Current Medications Medications Dose Sig/Burak Start Time Status Last (Trade) Ordered Route PRN Stop Time Admin Dose Reason Admin Sodium 2,630 ml BOLUS OVER 2 11/04/18 DC 11/04/18 Chloride HOURS STAT 12:18 12:32 (NS) IV* 11/04/18 12:20 Cefepime HCl 50 ml @ ONCE STAT 11/04/18 DC 11/04/18 100 mls/hr IVPB 12:18 12:32 11/04/18 12:47 650 mg ONCE ONCE 11/04/18 DC 11/04/18 Acetaminophen PO 12:30 12:32 (Tylenol 11/04/18 12:31 Tab) 1 mg ONCE STAT 11/04/18 DC 11/04/18 Hydromorphone IV 12:24 12:32 HCl 11/04/18 12:25 (Dilaudid) Ondansetron 4 mg ONCE STAT 11/04/18 DC 11/04/18 HCl (Zofran IV 12:24 12:32 Inj) 11/04/18 12:25 Ondansetron 4 mg BRIDGE ORDER 11/04/18 HCl (Zofran PRN IV 13:30 Inj) NAUSEA/VOMITI 11/05/18 13:29 NG 650 mg ER BRIDGE 11/04/18 Acetaminophen PRN PO 13:30 (Tylenol .MILD PAIN 11/05/18 13:29 Tab) 1-3 OR TEMP Procedures/MDM EKG, MONITORS, & DIAGNOSTIC IMAGING: [EKG: I reviewed and interpreted a 12-lead EKG. Rhythm: Normal sinus rhythm ST Changes: No contiguous ST segment elevations T waves: No contiguous T wave inversions Impression: [No evidence of acute cardiac ischemia] Chest x-ray: I reviewed and interpreted a 1 view of the chest Mediastinum: No enlargement Cardiac silhouette: No cardiomegaly Airspace: Clear lung crespo bilaterally without evidence of pneumothorax Bones: No evidence of fracture LAB INTERPRETATION: I reviewed the laboratory testing and it shows no neutropenia, hemoglobin of 9.9, negative troponin, normal lactic acid MEDICAL DECISION MAKING: The patient presents with recent chemotherapy and a fever. She has persistent abdominal pain and appears to be clinically dehydrated. The patient will benefit from IV fluids, empiric antibiotics and culture monitoring. I discussed the case with Dr. Monroy who agrees with plan of care. ER COURSE: * The patient received IV fluids, pain control medication, blood cultures prior to red spectrum antibiotic in the form of cefepime * Influenza screen is pending, urinalysis is pending * Patient is him dynamically stable be closely monitored on inpatient basis CONSULTATION: Hematology oncology, Dr. Monroy DISPOSITION PLAN: Admission for culture monitoring, empiric antibiotics and pain control. Accepting care team and consultations: I discussed the current laboratory data, diagnostic imaging and emergency care provided. Admitting team: Dr. Crabtree Admitting team indication: Insurance directed, [facility] Departure Diagnosis: Primary Impression: Abdominal pain Abdominal location: generalized Qualified Codes: R10.84 - Generalized abdominal pain Additional Impressions: Fever Fever type: unspecified Qualified Codes: R50.9 - Fever, unspecified Metastatic cancer Condition: Stable REJI GONZALEZ MD Nov 04, 2018 13:27
[2018-11-04] MEDS ORDERED: ACETAMINOPHEN 325 MG TAB PO PRN ×2 (13:30→17:00)
[2018-11-04] MEDS ORDERED: ONDANSETRON 4 MG INJ IV PRN ×2 (13:30→17:00)
[2018-11-04 14:00] VITALS: BP 118/64; PULSE 86; RESP 18
--- NOTE | 2018-11-04 16:25 | QN ---
Documentation Comment seen and examined LIZZETH LAWRENCE MD Nov 04, 2018 16:25
[2018-11-04] MEDS ORDERED: SOD CHLORIDE 0.9% 1,000 ML IV SCH (16:40)
[2018-11-04] MEDS ORDERED: NACL 0.9% 3 ML SYG IV SCH (17:00)
[2018-11-04] MEDS ORDERED: MAGNESIUM HYDROXIDE 30ML CUP PO PRN (17:00)
[2018-11-04] MEDS ORDERED: morphine 2 MG INJ IV PRN (17:00)
[2018-11-04] MEDS ORDERED: HYDROCODONE/APAP (5/325) TAB PO PRN (17:00)
--- NOTE | 2018-11-04 17:17 | HP ---
DATE OF ADMISSION: 11/04/2018 REASON FOR ADMISSION: Fevers. HISTORY OF PRESENTING ILLNESS: This is a 63-year-old female with a past medical history of diabetes, hypertension, hyperlipidemia, stage III ovarian cancer, normocytic, normochromic anemia, obesity, wh o was recently admitted in 10/30/2018 secondary to abdominal pain to [facility]. A t that time, the patient had paracentesis done. The patient was seen by Dr. Richardson. The patient had progressed through her Carbo/Taxol and needed to change therapy to gemcitabine. Plan was to do that as an outpatient. The patient was feeling better and was discharged home. However the patient said that when she went home, she started having some epigastric pain, pain going to the back, also had 2 episodes of vomiting. The patient was also having fevers and chills up to fevers of 102 and then was told to come to the emergency department. She sees Dr. Richardson and was started on p.o. antibiotics wi thout any improvement and was told to come to the emergency for further evaluation. On arrival to ED , vital signs showed a temperature of 100.0, heart rate 90, respirations 22, blood pressure 136/73. White count 7.8, hemoglobin 9.9, platelet count 305. BMP within normal limit. INR of 1.45. Chest x -ray: Elevation of right diaphragm. The patient was given cefepime and Dilaudid and was admitted fo r further management. PAST MEDICAL HISTORY: 1. Insulin-dependent diabetes mellitus. 2. Hypertension. 3. Hyperlipidemia. 4. Obesity. 5. Stage III ovarian cancer. ALLERGIES: NONE. PAST SURGICAL HISTORY: Status post debulking surgery in 06/2017. SOCIAL HISTORY: Denies any history of smoking, alcohol or any drug use. Denies any recreational zarina g use. Currently lives at home with family. MEDICATIONS TAKING AT HOME: Metformin 500 p.o. with breakfast. REVIEW OF SYSTEMS: The patient complained of fevers at home and some epigastric pain, back pain, gertrudis sea, vomiting and fevers. Denies any headache, any blurry vision. Denies any chest pain, any shortn ess of breath. Denies any hematemesis, any melena, any bright red blood per rectum. Denies any foca l neurological deficits. PHYSICAL EXAMINATION: VITAL SIGNS: Temperature 100.0, heart rate 90, respirations 22, blood pressure 136/73. GENERAL: The patient is awake, alert, oriented, does not appear to be in any acute distress. HEENT: Pupils are equal, round, reactive to light. The patient has alopecia. NECK: Supple. No JVD. HEART: Regular rate and rhythm. LUNGS: Clear to auscultate bilaterally. ABDOMEN: The patient has some tenderness present in the suprapubic region. Positive bowel sounds. Some ascites present. EXTREMITIES: A 1+ edema. LABORATORY DATA: BUN of 7, creatinine 0.65. White count of 7.8, hemoglobin is 9.9, platelet count 3 05. DIAGNOSTIC DATA: Chest x-ray is negative. ASSESSMENT AND PLAN: 1. This is a 63-year-old female with fevers, abdominal pain, nausea, vomiting, questionable secondar y to gastrointestinal source, could be secondary to ascitic fluid/colitis/pancreatitis. 2. Rule out urinary tract infection. 3. Stage III ovarian cancer. 4. Diabetes. 5. Hypertension. 6. Obesity. PLAN: At this period of time, the patient will be admitted to med/surg unit. She will be started on clear liquid. We will get a CT of the abdomen and pelvis and also get UA. The patient will be star reji on IV cefepime. Dr. Richardson has been consulted. She will also be on IV fluids and pain control. We will send her for blood cultures. Rest of the treatment will depend on the patient's hospitalizat ion course. Dictated By: LIZZETH RAMOS/LOREN Conf#: [id number] DID#: [id number] CC: MINAL RICHARDSON MD;*End*
[2018-11-04 20:00] VITALS: BP 100/56; PULSE 73; RESP 20
[2018-11-04] MEDS: CEFEPIME 1GM/50 ML (PMX) 50 ML IVPB SCH (22:22)
[2018-11-05 02:25] VITALS: BP 110/61; PULSE 83; RESP 18
[2018-11-05] MEDS ORDERED: PANTOPRAZOLE 40 MG INJ ONE (04:16)
[2018-11-05] MEDS: PANTOPRAZOLE 40 MG INJ IV SCH (05:08)
[2018-11-05] MEDS: CEFEPIME 1GM/50 ML (PMX) 50 ML IVPB SCH ×2 (08:05→20:34)
[2018-11-05 08:15] VITALS: BP 100/62; PULSE 78; RESP 18
[2018-11-05 11:19] VITALS: BP 99/59; PULSE 72; RESP 18
--- NOTE | 2018-11-05 14:30 | CONS ---
Assessment/Plan Assessment/Plan Assessment/Plan (Daily) #. STAGE IIIC ovarian cancer -s/p optimal debulking surgery in 06/2017 followed by 6 cycles of adjuvant chemotherapy with carboplatin and taxol -07/17/[address] reveals new peritoneal carcinomatosis and malignant ascites -07/2018-10/16/18 restarted on carboplatin and taxol -10/2018 CA 125 increasing and new 10/30/[address] reveals : PET only was done as an out patent which demonstrates worsening extensive mesenteric adenopathy in mid abdominal mesentery. omental disease is stable. new pelvic and inguinal LAD. new hepatic mets -given patient has progressed through carbo/ taxol we need to change the therapy at this time to carboplatin and gemcitabine per the following regimen: Carboplatin (Paraplatin) AUC 5 IV over 30 minutes once on day 1, given second Gemcitabine (Gemzar) 1000 mg/m2 IV over 30 minutes once per day on days 1 & 8, given first 21-day cycle for up to 6 cycles #fevers -continue cefipime -blood and urine cultures so far are negative #Pain -continue morphine IV in house -patient can be discharged once pain is under control to initiate new chemotherapy as an out patient # Diabetes -continue NovoLog sliding scale # Hypertension -continue current blood pressure meds Consultation Date/Type/Reason Admit Date/Time Nov 05, 2018 at 09:24 Date of Consultation: Nov 05, 2018 Type of Consult oncology Reason for Consultation metastatic ovarian cancer Requesting Provider: LIZZETH LAWRENCE MD Date/Time of Note DATE: 11/05/18 TIME: 14:23 Hx of Present Illness 63-year-old female with multiple medical problems including history of non- insulin requiring diabetes, hypertension as well as H pylori status post recent treatment. 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 06/27/17: Pt underwent optimal debulking surgery with Extended supracervical hysterectomy with bilateral salpingo oophorectomy, Bilateral ureteral dissection, Pelvic and aortic lymph node dissection, Omentectomy and cytoreduction, Appendectomy Surgical Path :reveals clear cell carcinoma with oncocytic features in right and left Right ovary: 5.5 cm in greatest dimension. Left ovary: 2.0 cm in greatest dimension. Endometrium: 1.0 cm in greatest dimension. 5/10 LN Involved with disease 07/04/17-11/05/17 : pt received 6 cycles of carboplatin / taxol 12/18/17 CT A/P demonstrates a stable prominent mesenteric lymph nodes measuring 2.7x1.1cm 01/23/[address] demonstrates stable mesenteric LAD. These were thought to be calcified LN and were observed 07/17/[address] reveals new peritoneal carcinomatosis and malignant ascites. mesenteric root LAD is stable 08/12/2018 pt was again started on carboplatin and taxol 08/28/18 CA 125 181 10/30/18 pt admitted to [facility] with intractable abdominal pain. PET only was done as an out patent which demonstrates worsening extensive mesenteric adenopathy in mid abdominal mesentery. omental disease is stable. new pelvic and inguinal LAD. new hepatic mets Currently 11/04/18 - just 3 days after discharge, pt began to experience fevers to 102 at home associated with fevers and chills. Due to concern for sepsis. Pt as admitted. Pt was found to to have a normal lactate and normal WBC count. Pt was since been started on cefepime. Blood and Urine culture are so far negative Constitutional: no complaints, chills, diaphoresis, poor po Eyes: no complaints ENT: no complaints Respiratory: shortness of breath Cardiovascular: lightheadedness Gastrointestinal: pain, constipation, decreased appetite, nausea Genitourinary: no complaints Musculoskeletal: back pain, bone/joint pain Neurologic: no complaints Past Medical History HTN DM Home Meds Reported Medications Metformin Hcl* (Metformin Hcl*) 500 Mg Tablet, 500 MG PO WITH BREAKFAST, #30 TAB 10/30/18 Discontinued Reported Medications Metformin Hcl* (Metformin Hcl*) 500 Mg Tablet, 500 MG PO WITH BREAKFAST DINNE, #60 TAB 04/26/18 Medications Current Medications Sodium Chloride 1,000 ml @ 50 mls/hr Q20H IV Last administered on 11/04/18at 22:22; Admin Dose 50 MLS/HR; Start 11/04/18 at 16:40 IV Flush (NS 3 ml) 3 ml PER PROTOCOL IV ; Start 11/04/18 at 17:00 Ondansetron HCl (Zofran Inj) 4 mg Q6H PRN IV NAUSEA/VOMITING; Start 11/04/18 at 17:00 Acetaminophen (Tylenol Tab) 650 mg Q6H PRN PO .PAIN 1-3 OR TEMP; Start 11/04/18 at 17:00 Acetaminophen/ Hydrocodone Bitart ([place] (5/325)) 1 tab Q6H PRN PO .MOD PAIN 4- 6 Last administered on 11/05/18at 08:05; Admin Dose 1 TAB; Start 11/04/18 at 1 7:00 Morphine Sulfate (morphine) 2 mg Q4H PRN IV .SEVERE PAIN 7-10; Start 11/04/18 at 17:00 Magnesium Hydroxide (Milk Of Mag) 30 ml DAILY PRN PO .CONSTIPATION; Start 11/04/18 at 17:00 Pantoprazole (Protonix Iv) 40 mg DAILY@06 IV Last administered on 11/05/18at 05:08; Admin Dose 40 MG; Start 11/05/18 at 06:00 Cefepime HCl 50 ml @ 100 mls/hr Q12 IVPB Last administered on 11/05/18at 08:05; Admin Dose 100 MLS/HR; Start 11/04/18 at 21:00 Allergies: Coded Allergies: No Known Drug Allergies (Verified Allergy, Unknown, 11/04/18) Past Surgical History S/P JESUS-BSO Past Surgical Hx: other Family History Significant Family History: no pertinent family hx Social History Alcohol Use: none Smoking Status: Never smoker Drug Use: none Exam/Review of Systems Exam Vitals Vital Signs Date Temp Pulse Resp B/P (MAP) Pulse Ox O2 O2 Flow FiO2 Time Delivery Rate 11/05/18 97.7 72 18 99/59 (72) 93 Room Air 11:19 Intake and Output 11/04/18 11/04/18 11/05/18 1515:00 23:00 07:00 IntakeIntake Total 400 ml 300 ml BalanceBalance 400 ml 300 ml Constitutional: alert, oriented Psych: anxiety, depression Head: normocephalic Eyes: nl conjunctiva ENMT: nl external ears & nose Neck: supple Respiratory: clear to auscultation Cardiovascular: regular rate and rhythm Gastrointestinal: ascites, mass, tender Musculoskeletal: nl extremities to inspection Extremities: normal pulses Neurological: [employer] II-XII intact Results Result Diagram: 11/04/18 1227 11/05/18 2139 Results 24hrs Laboratory Tests Test 11/04/18 16:30 11/04/18 19:30 11/05/18 04:49 Lactic Acid Level 1.1 Lipase 11 L Urine Color YELLOW Urine Clarity CLEAR Urine pH 6.0 Urine Specific [place] 1.010 Urine Ketones NEGATIVE Urine Nitrite NEGATIVE Urine Bilirubin NEGATIVE Urine Urobilinogen NEGATIVE Urine Leukocyte Esterase NEGATIVE Urine Microscopic RBC 2 Urine Microscopic WBC 1 Urine Hemoglobin 1+ H Urine Glucose NEGATIVE Urine Total Protein NEGATIVE Sodium Level 139 Potassium Level 3.6 Chloride Level 103 Carbon Dioxide Level 27 Anion Gap 9 Blood Urea Nitrogen 5 L Creatinine 0.53 Est Glomerular Filtrat Rate mL/min > 60 Glucose Level 95 Calcium Level 8.6 Phosphorus Level 3.7 Magnesium Level 1.7 Total Bilirubin 0.2 Direct Bilirubin 0.00 Indirect Bilirubin 0.2 Aspartate Amino Transf (AST/SGOT) 23 Alanine Aminotransferase (ALT/SGPT) 16 Alkaline Phosphatase 72 Total Protein 7.2 Albumin 3.1 L Globulin 4.10 H Albumin/Globulin Ratio 0.75 Medications Medication Current Medications Sodium Chloride 1,000 ml @ 50 mls/hr Q20H IV Last administered on 11/04/18at 22:22; Admin Dose 50 MLS/HR; Start 11/04/18 at 16:40 IV Flush (NS 3 ml) 3 ml PER PROTOCOL IV ; Start 11/04/18 at 17:00 Ondansetron HCl (Zofran Inj) 4 mg Q6H PRN IV NAUSEA/VOMITING; Start 11/04/18 at 17:00 Acetaminophen (Tylenol Tab) 650 mg Q6H PRN PO .PAIN 1-3 OR TEMP; Start 11/04/18 at 17:00 Acetaminophen/ Hydrocodone Bitart ([place] (5/325)) 1 tab Q6H PRN PO .MOD PAIN 4- 6 Last administered on 11/05/18at 08:05; Admin Dose 1 TAB; Start 11/04/18 at 17:00 Morphine Sulfate (morphine) 2 mg Q4H PRN IV .SEVERE PAIN 7-10; Start 11/04/18 at 17:00 Magnesium Hydroxide (Milk Of Mag) 30 ml DAILY PRN PO .CONSTIPATION; Start 11/04/18 at 17:00 Pantoprazole (Protonix Iv) 40 mg DAILY@06 IV Last administered on 11/05/18at 05:08; Admin Dose 40 MG; Start 11/05/18 at 06:00 Cefepime HCl 50 ml @ 100 mls/hr Q12 IVPB Last administered on 11/05/18at 08:05; Admin Dose 100 MLS/HR; Start 11/04/18 at 21:00 MINAL RICHARDSON M.D. Nov 05, 2018 14:30
[2018-11-05 15:58] VITALS: BP 130/61; PULSE 81; RESP 18
--- NOTE | 2018-11-05 17:16 | PN ---
Date/Time of Note Date/Time of Note DATE: 11/05/18 TIME: 17:15 Assessment/Plan VTE Prophylaxis Risk score (from [facility] [place])>0 risk: 3 SCD applied (from [facility] [place]): No SCD contraindicated: low risk/ambulating Pharmacological prophylaxis: NA/contraindicated Pharm contraindication: low risk/ambulating Lines/Catheters IV Catheter Type (from [facility] Peripheral IV Urinary Cath still in place: No Assessment/Plan Hospital Course This is a 63-year-old female 1 with fevers, abdominal pain, nausea, vomiting, questionable secondary to gastrointestinal source, could be secondary to ascitic fluid/colitis/pancreatitis. 2. Rule out urinary tract infection. 3. Stage III ovarian cancer. 4. Diabetes. 5. Hypertension. 6. Obesity. plan - CT A+P - Monitor fevers - cw cefepime - cx neg o far - advance diabetic diet - lft wnl Result Diagram: 11/04/18 1227 11/05/18 0449 Results 24hrs Laboratory Tests Test 11/04/18 19:30 11/05/18 04:49 Urine Color YELLOW Urine Clarity CLEAR Urine pH 6.0 Urine Specific [place] 1.010 Urine Ketones NEGATIVE Urine Nitrite NEGATIVE Urine Bilirubin NEGATIVE Urine Urobilinogen NEGATIVE Urine Leukocyte Esterase NEGATIVE Urine Microscopic RBC 2 Urine Microscopic WBC 1 Urine Hemoglobin 1+ H Urine Glucose NEGATIVE Urine Total Protein NEGATIVE Sodium Level 139 Potassium Level 3.6 Chloride Level 103 Carbon Dioxide Level 27 Anion Gap 9 Blood Urea Nitrogen 5 L Creatinine 0.53 Est Glomerular Filtrat Rate mL/min > 60 Glucose Level 95 Calcium Level 8.6 Phosphorus Level 3.7 Magnesium Level 1.7 Total Bilirubin 0.2 Direct Bilirubin 0.00 Indirect Bilirubin 0.2 Aspartate Amino Transf (AST/SGOT) 23 Alanine Aminotransferase (ALT/SGPT) 16 Alkaline Phosphatase 72 Total Protein 7.2 Albumin 3.1 L Globulin 4.10 H Albumin/Globulin Ratio 0.75 Subjective 24 Hr Interval Summary Free Text/Dictation feesl well. No fevers Exam/Review of Systems Exam Vitals Vital Signs Date Temp Pulse Resp B/P (MAP) Pulse Ox O2 O2 Flow FiO2 Time Delivery Rate 11/05/18 98.1 81 18 130/61 98 Room Air 15:58 (84) Intake and Output 11/04/18 11/04/18 11/05/18 1414:59 22:59 06:59 IntakeIntake Total 400 ml 300 ml BalanceBalance 400 ml 300 ml Exam GENERAL: The patient is awake, alert, oriented, does not appear to be in any acute distress. HEENT: Pupils are equal, round, reactive to light. The patient has alopecia. NECK: Supple. No JVD. HEART: Regular rate and rhythm. LUNGS: Clear to auscultate bilaterally. ABDOMEN: The patient has some tenderness present in the suprapubic region. Positive bowel sounds. Some ascites present. EXTREMITIES: A 1+ edema. Results Results 24hrs Laboratory Tests Test 11/04/18 19:30 11/05/18 04:49 Urine Color YELLOW Urine Clarity CLEAR Urine pH 6.0 Urine Specific [place] 1.010 Urine Ketones NEGATIVE Urine Nitrite NEGATIVE Urine Bilirubin NEGATIVE Urine Urobilinogen NEGATIVE Urine Leukocyte Esterase NEGATIVE Urine Microscopic RBC 2 Urine Microscopic WBC 1 Urine Hemoglobin 1+ H Urine Glucose NEGATIVE Urine Total Protein NEGATIVE Sodium Level 139 Potassium Level 3.6 Chloride Level 103 Carbon Dioxide Level 27 Anion Gap 9 Blood Urea Nitrogen 5 L Creatinine 0.53 Est Glomerular Filtrat Rate mL/min > 60 Glucose Level 95 Calcium Level 8.6 Phosphorus Level 3.7 Magnesium Level 1.7 Total Bilirubin 0.2 Direct Bilirubin 0.00 Indirect Bilirubin 0.2 Aspartate Amino Transf (AST/SGOT) 23 Alanine Aminotransferase (ALT/SGPT) 16 Alkaline Phosphatase 72 Total Protein 7.2 Albumin 3.1 L Globulin 4.10 H Albumin/Globulin Ratio 0.75 Medications Medication Current Medications Sodium Chloride 1,000 ml @ 50 mls/hr Q20H IV Last administered on 11/04/18at 22:22; Admin Dose 50 MLS/HR; Start 11/04/18 at 16:40 IV Flush (NS 3 ml) 3 ml PER PROTOCOL IV ; Start 11/04/18 at 17:00 Ondansetron HCl (Zofran Inj) 4 mg Q6H PRN IV NAUSEA/VOMITING; Start 11/04/18 at 17:00 Acetaminophen (Tylenol Tab) 650 mg Q6H PRN PO .PAIN 1-3 OR TEMP; Start 11/04/18 at 17:00 Acetaminophen/ Hydrocodone Bitart ([place] (5/325)) 1 tab Q6H PRN PO .MOD PAIN 4- 6 Last administered on 11/05/18at 08:05; Admin Dose 1 TAB; Start 11/04/18 at 17:00 Morphine Sulfate (morphine) 2 mg Q4H PRN IV .SEVERE PAIN 7-10; Start 11/04/18 at 17:00 Magnesium Hydroxide (Milk Of Mag) 30 ml DAILY PRN PO .CONSTIPATION; Start 11/04/18 at 17:00 Pantoprazole (Protonix Iv) 40 mg DAILY@06 IV Last administered on 11/05/18at 05:08; Admin Dose 40 MG; Start 11/05/18 at 06:00 Cefepime HCl 50 ml @ 100 mls/hr Q12 IVPB Last administered on 11/05/18at 08:05; Admin Dose 100 MLS/HR; Start 11/04/18 at 21:00 LIZZETH LAWRENCE MD Nov 05, 2018 17:16
[2018-11-05 20:20] VITALS: BP 112/60; PULSE 67; RESP 18
[2018-11-05] MEDS ORDERED: morphine LIQ (10 MG/5 ML) CUP PO PRN (23:00)
[2018-11-05 23:53] VITALS: BP 109/55; PULSE 84; RESP 18
--- NOTE | 2018-11-06 07:21 | CONS ---
Assessment/Plan Assessment/Plan Assessment/Plan (Daily) #. STAGE IIIC ovarian cancer -s/p optimal debulking surgery in 06/2017 followed by 6 cycles of adjuvant chemotherapy with carboplatin and Taxol -07/17/[address] reveals new peritoneal carcinomatosis and malignant ascites -07/2018-10/16/18 restarted on carboplatin and Taxol -10/2018 CA 125 increasing and new 10/30/[address] reveals : PET only was done as an out patent which demonstrates worsening extensive mesenteric adenopathy in mid abdominal mesentery. omental disease is stable. new pelvic and inguinal LAD. new hepatic mets -given patient has progressed through carbo/ taxol we need to change the therapy at this time to carboplatin and gemcitabine per the following regimen: Carboplatin (Paraplatin) AUC 5 IV over 30 minutes once on day 1, given second Gemcitabine (Gemzar) 1000 mg/m2 IV over 30 minutes once per day on days 1 & 8, given first 21-day cycle for up to 6 cycles #fevers -continue cefepime -blood and urine cultures so far are negative #Pain -continue morphine IV in house -patient can be discharged once pain is under control to initiate new chemotherapy as an out patient # Diabetes -continue NovoLog sliding scale # Hypertension -continue current blood pressure meds Patient seen in collaboration with Dr Monroy Consultation Date/Type/Reason Admit Date/Time Nov 05, 2018 at 9:24 am Initial Consult Date 11/05/18 Type of Consult oncology Reason for Consultation Ovarian Cancer Requesting Provider: LIZZETH LAWRENCE MD Date/Time of Note DATE: 11/06/18 TIME: 07:12 24 HR Interval Summary Free Text/Dictation resting; feels better no new complaints reported last night Detailed Summary Eyes: no complaints ENT: no complaints Respiratory: no complaints Cardiovascular: no complaints Gastrointestinal: no complaints Genitourinary: no complaints Musculoskeletal: no complaints Skin: no complaints Neurologic: no complaints Endocrine: no complaints Lymphatic: no complaints Psychological: nl mood/affect Exam/Review of Systems Exam Vitals Vital Signs Date Temp Pulse Resp B/P (MAP) Pulse Ox O2 O2 Flow FiO2 Time Delivery Rate 11/05/18 97.8 84 18 109/55 97 23:53 (73) 11/05/18 Room Air 15:58 Intake and Output 11/05/18 11/05/18 11/06/18 1515:00 23:00 07:00 IntakeIntake Total 1120 ml 535 ml BalanceBalance 1120 ml 535 ml Constitutional: alert, well developed Psych: nl mood/affect Head: normocephalic Eyes: EOMI, nl lids, nl sclera ENMT: nl external ears & nose Neck: non-tender Respiratory: clear to auscultation (bilaterally) Cardiovascular: nl pulses, other (s1s2) Gastrointestinal: soft, non-tender Musculoskeletal: nl extremities to inspection Extremities: normal pulses Neurological: nl speech, other Skin: nl turgor Lymph: nontender Results Result Diagram: 11/06/18 0431 11/05/18 0449 Results 24hrs Laboratory Tests Test 11/06/18 04:31 White Blood Count 5.7 # Red Blood Count 3.11 L Hemoglobin 8.8 L Hematocrit 28.3 L Mean Corpuscular Volume 91.0 Mean Corpuscular Hemoglobin 28.3 L Mean Corpuscular Hemoglobin Concent 31.1 L Red Cell Distribution Width 17.8 H Platelet Count 272 Mean Platelet Volume 9.5 Immature Granulocytes % 0.700 H Neutrophils % 72.6 Lymphocytes % 15.8 Monocytes % 10.0 Eosinophils % 0.5 Basophils % 0.4 Nucleated Red Blood Cells % 0.0 Immature Granulocytes # 0.040 H Neutrophils # 4.1 Lymphocytes # 0.9 Monocytes # 0.6 Eosinophils # 0.0 Basophils # 0.0 Nucleated Red Blood Cells # 0.0 Medications Medication Current Medications IV Flush (NS 3 ml) 3 ml PER PROTOCOL IV ; Start 11/04/18 at 17:00 Ondansetron HCl (Zofran Inj) 4 mg Q6H PRN IV NAUSEA/VOMITING; Start 11/04/18 at 17:00 Acetaminophen (Tylenol Tab) 650 mg Q6H PRN PO .PAIN 1-3 OR TEMP; Start 11/04/18 at 17:00 Acetaminophen/ Hydrocodone Bitart ([place] (5/325)) 1 tab Q6H PRN PO .MOD PAIN 4- 6 Last administered on 11/05/18at 08:05; Admin Dose 1 TAB; Start 11/04/18 at 17:00 Magnesium Hydroxide (Milk Of Mag) 30 ml DAILY PRN PO .CONSTIPATION; Start 11/04/18 at 17:00 Pantoprazole (Protonix Iv) 40 mg DAILY@06 IV Last administered on 11/05/18at 05:08; Admin Dose 40 MG; Start 11/05/18 at 06:00 Cefepime HCl 50 ml @ 100 mls/hr Q12 IVPB Last administered on 11/05/18at 20:34; Admin Dose 100 MLS/HR; Start 11/04/18 at 21:00 Morphine Sulfate (morphine) 6 mg Q4H PRN PO SEVERE PAIN LEVEL 7-10; Start 11/05/18 at 23:00 DIANA ZHAO Nov 06, 2018 7:21 am
[2018-11-06] MEDS: PANTOPRAZOLE 40 MG INJ IV SCH (07:27)
[2018-11-06] MEDS ORDERED: GLUCAGON 1 MG INJ IM PRN (08:30)
[2018-11-06] MEDS ORDERED: GLUCOSE GEL 15 GRAM TUBE PO PRN ×2 (08:30)
[2018-11-06] MEDS ORDERED: GLUCOSE GEL 15 GRAM TUBE BUCCAL PRN (08:30)
[2018-11-06] MEDS ORDERED: DEXTROSE 50% 50 ML SYRINGE IV PRN ×2 (08:30)
[2018-11-06] MEDS ORDERED: INSULIN ASPART [NOVOLOG] 3 ML PEN SC SCH (09:30)
[2018-11-06] MEDS: CEFEPIME 1GM/50 ML (PMX) 50 ML IVPB SCH (09:58)
--- NOTE | 2018-11-06 10:05 | PDOCDIS ---
Discharge Instructions DIAGNOSIS Discharge Diagnosis Fevers resolved Ovarian cancer CONDITION [id number] Patient Condition: [id number] Fair HOME CARE INSTRUCTIONS: [id number] Special Diet: [id number] carb controlled ACTIVITY: [id number] Activity Restrictions: [id number] Slowly Increase Activity Rest between Activity Avoid heavy lifting FOLLOW UP/APPOINTMENTS Follow-up Plan f/u Dr Monroy in 1 week LIZZETH LAWRENCE MD Nov 06, 2018 10:05
[2018-11-06] MEDS ORDERED: LEVO500T48 PO (10:06)
--- NOTE | 2018-11-06 17:09 | DS ---
DATE OF ADMISSION: 11/05/2018 DATE OF DISCHARGE: 11/06/2018 HISTORY OF PRESENTING ILLNESS AND HOSPITAL COURSE: A 63-year-old female with past medical history of diabetes, hypertension, hyperlipidemia, and stage III ovarian cancer, presented to the emergency dep artment secondary to fevers. The patient, according to the daughter, was having fevers up to 102. T he patient was just recently admitted to [facility] and was discharged home. She w as seeing Dr. Monroy and was started on p.o. antibiotics. On admission, vital signs are temperature o f 100.0. Labs within normal limits, white count of 7.8. The patient was admitted to med/surg unit. Had UA and urine cultures that were negative. Had a CT of the abdomen and pelvis that was essential ly negative except for omental caking with ascites and presence of history of endometrial carcinoma. The patient also had a chest x-ray that was negative. Blood cultures were sent that were negative. The patient was initially started on cefepime. Urine culture was less than 10,000 for mixed positiv e organisms. The patient was seen by Dr. Monroy. Since the patient has been afebrile, was feeling mu ch better. White count has been stable. He is stable to be discharged home per Dr. Monroy. FINAL DISCHARGE DIAGNOSES: 1. Fevers, likely could be secondary to questionable tumor fevers. 2. Stage III ovarian cancer. 3. Pain. 4. Diabetes. 5. Hypertension. DISCHARGE CONDITION: Stable. DISCHARGE MEDICATIONS: Levaquin 500 mg p.o. daily for 5 more days and metformin. Continue with home medication. PLAN: The patient was instructed to follow up with Dr. Monroy in 1 week and return to the ER with sev ere abdominal pain, nausea, vomiting, fevers, or chills. Dictated By: LIZZETH RAMOS/LOREN Conf#: [id number] DID#: [id number]
== END 2018-11-06 12:40 | disposition home or self-care (01) | DRG 864 ==
LOC: E/R 11:43 → PP2 13:16 → UNDOADMIN 13:16 → MS1 14:28 → OBSVTOIN 11-05 09:24 → MS1 11-05 11:11
PROVIDERS: ADMIT Internal Medicine; ATTEND Internal Medicine
DX: R50.9 Fever, unspecified (principal); C56.9 Malignant neoplasm of unspecified ovary; C78.6 Secondary malignant neoplasm of retroperitoneum and peritoneum; C77.2 Secondary and unspecified malignant neoplasm of intra-abdominal lymph nodes; C78.7 Secondary malignant neoplasm of liver and intrahepatic bile duct; N39.0 Urinary tract infection, site not specified; R18.8 Other ascites; E11.9 Type 2 diabetes mellitus without complications; I10 Essential (primary) hypertension; R11.2 Nausea with vomiting, unspecified
CPT/HCPCS: 36415; 71045; 74176; 80053; 81001; 82962; 83605; 83690; 83735; 84100; 84484; 85025; 85610; 85730; 87040; 87086; 87400; 93005; 96365; 96375; G0378; C9113; J0692; J1170; J1815; J2405; J7030

== ENCOUNTER 2018-11-11 10:05 | Emergency (ER) | payer OTHER ==
[~2018-11-11] VITALS: Ht 160 cm; Wt 87.0 kg
[~2018-11-11 10:05] MED LIST changes: +LEVO500T48 PO
[2018-11-11 10:10] VITALS: Ht 160 cm; Wt 87.0 kg
--- NOTE | 2018-11-11 11:23 | ERD ---
ER Documentation Chief Complaint Chief Complaint generalized pain hx CA HPI 63-year-old female with a history of endometrial carcinoma with peritoneal carcinomatosis and malignant ascites presenting for diffuse abdominal pain radiating to her back. She was admitted recently for this as well. Nothing is changed. She states her pain medications at home are not helping. She is not sure what she is taking. No fevers or chills. She states she is unable to eat due to her pain and vomiting. Vomiting is nonbloody and nonbilious. No diarrhea or constipation. No dysuria or hematuria. ROS All systems reviewed and are negative except as per history of present illness. Medications Home Meds Reported Medications Metformin Hcl* (Metformin Hcl* ER) 500 Mg Tab.sr.24h, 500 MG PO DAILY, #30 TAB 11/11/18 Discontinued Scripts Levofloxacin* (Levaquin*) 500 Mg Tablet, 5 MG PO DAILY for 5 Days, TAB Prov:LIZZETH LAWRENCE MD 11/06/18 Allergies Allergies: Coded Allergies: No Known Drug Allergies (Verified Allergy, Unknown, 11/11/18) PMhx/Soc Diabetes mellitus, hypertension, hyperlipidemia, and stage III ovarian cancer, history of endometrial carcinoma. History of Surgery: No Anesthesia Reaction: No Hx Neurological Disorder: No Hx Respiratory Disorders: No Hx Cardiac Disorders: No Hx Psychiatric Problems: No Hx Miscellaneous Medical Probl: Yes Hx Alcohol Use: No Hx Substance Use: No Hx Tobacco Use: No Smoking Status: Never smoker FmHx Family History: No diabetes Physical Exam Vitals Vital Signs Date Temp Pulse Resp B/P (MAP) Pulse Ox O2 O2 Flow FiO2 Time Delivery Rate 11/11/18 98.9 95 20 125/66 96 10:10 (85) Physical Exam Const: No acute distress Head: Atraumatic Eyes: Normal Conjunctiva ENT: Normal External Ears, Nose and Mouth. Neck: Full range of motion. No meningismus. Resp: Clear to auscultation bilaterally Cardio: Regular rate and rhythm, no murmurs Abd: Soft, non tender, non distended. Normal bowel sounds Skin: No petechiae or rashes Back: No midline or flank tenderness Ext: No cyanosis, or edema Neur: Awake and alert Psych: Normal Mood and Affect Result Diagram: 11/11/18 1158 11/11/18 1158 Results 24 hrs Laboratory Tests Test 11/11/18 11:58 White Blood Count 7.6 10^3/ul Red Blood Count 3.46 10^6/ul Hemoglobin 9.7 g/dl Hematocrit 31.4 % Mean Corpuscular Volume 90.8 fl Mean Corpuscular Hemoglobin 28.0 pg Mean Corpuscular Hemoglobin Concent 30.9 g/dl Red Cell Distribution Width 17.8 % Platelet Count 310 10^3/UL Mean Platelet Volume 10.1 fl Immature Granulocytes % 0.700 % Neutrophils % 74.9 % Lymphocytes % 13.5 % Monocytes % 10.5 % Eosinophils % 0.1 % Basophils % 0.3 % Nucleated Red Blood Cells % 0.0 /100WBC Immature Granulocytes # 0.050 10^3/ul Neutrophils # 5.7 10^3/ul Lymphocytes # 1.0 10^3/ul Monocytes # 0.8 10^3/ul Eosinophils # 0.0 10^3/ul Basophils # 0.0 10^3/ul Nucleated Red Blood Cells # 0.0 10^3/ul Sodium Level 138 mmol/L Potassium Level 4.0 mmol/L Chloride Level 99 mmol/L Carbon Dioxide Level 33 mmol/L Anion Gap 6 Blood Urea Nitrogen 8 mg/dl Creatinine 0.60 mg/dl Est Glomerular Filtrat Rate mL/min > 60 mL/min Glucose Level 110 mg/dl Calcium Level 9.2 mg/dl Total Bilirubin 0.4 mg/dl Direct Bilirubin 0.00 mg/dl Indirect Bilirubin 0.4 mg/dl Aspartate Amino Transf (AST/SGOT) 30 IU/L Alanine Aminotransferase (ALT/SGPT) 11 IU/L Alkaline Phosphatase 87 IU/L Total Protein 7.7 g/dl Albumin 3.3 g/dl Globulin 4.40 g/dl Albumin/Globulin Ratio 0.75 Lipase 14 U/L Current Medications Medications Dose Sig/Burak Start Time Status Last (Trade) Ordered Route PRN Stop Time Admin Dose Reason Admin Sodium 1,000 ml @ Q1H STAT 11/11/18 Chloride 1,000 mls/hr IV 12:10 11/11/18 13:09 1 mg ONCE STAT 11/11/18 DC Hydromorphone IV 12:10 HCl 11/11/18 12:12 (Dilaudid) Ondansetron 4 mg ONCE STAT 11/11/18 DC HCl (Zofran IV 12:10 Inj) 11/11/18 12:12 YUDELKA GRANDE MD Nov 11, 2018 11:23 WILBER FELTON MD Nov 11, 2018 12:52
[2018-11-11] MEDS ORDERED: METF500T3 PO (11:48)
[2018-11-11] MEDS ORDERED: SOD CHLORIDE 0.9% 1,000 ML IV STA (12:10)
[2018-11-11] MEDS ORDERED: HYDROmorphONE 1 MG/ML SYG IV STA (12:10)
[2018-11-11] MEDS ORDERED: ONDANSETRON 4 MG INJ IV STA (12:10)
[2018-11-11] MEDS ORDERED: OXYC-279 PO (13:28)
[2018-11-11] MEDS ORDERED: NALO4SPR NS (13:28)
[2018-11-11] MEDS ORDERED: ONDA4TAB14 PO (13:32)
--- NOTE | 2018-11-11 13:41 | ERD ---
ER Documentation Chief Complaint Chief Complaint generalized pain hx CA HPI 63-year-old female with a history of uterine cancer with peritoneal carcinomatosis and ascites presenting with uncontrolled abdominal pain. She was recently admitted to the hospital on November 05 for similar symptoms. She was discharged with Levaquin and she takes Vicodin for pain without relief. She has not had chemotherapy for about 3 weeks as she has been very weak. She has poor appetite with decreased p.o. intake due to her pain and nausea. She denies any vomiting, diarrhea, hematochezia or melena. No fevers or chills. No dysuria. Her pain is her usual abdominal pain that is diffuse, radiating to the back. Newly alleviating or exacerbating factors. There is no change in her pain from previous. Currently she rates her pain at a 9 out of 10. ROS All systems reviewed and are negative except as per history of present illness. Medications Home Meds Active Scripts Naloxone HCl nasal spray (Narcan 4 mg/0.1 mL nasal) 4 Mg [place], 4 MG NS .Q2-3MIN for OPIOID OVERDOSE, #2 SPRAY 0 Refills [place] 0.1 mL into one nostril. Repeat with second device into other nostril after 2-3 minutes if no or minimal response Prov:WILBER PERDOMO MD 11/11/18 Oxycodone HCl/Acetaminophen (Percocet 5-325 mg Tablet) 1 Each Tablet, 1 EACH PO Q6 PRN for SEVERE PAIN LEVEL 7-10, #10 TAB Prov:WILBER PERDOMO MD 11/11/18 Reported Medications Metformin Hcl* (Metformin Hcl* ER) 500 Mg Tab.sr.24h, 500 MG PO DAILY, #30 TAB 11/11/18 Discontinued Scripts Levofloxacin* (Levaquin*) 500 Mg Tablet, 5 MG PO DAILY for 5 Days, TAB Prov:LIZZETH LAWRENCE MD 11/06/18 Allergies Allergies: Coded Allergies: No Known Drug Allergies (Verified Allergy, Unknown, 11/11/18) PMhx/Soc History of Surgery: Yes (Debulking surgery 06/2017) Anesthesia Reaction: No Hx Neurological Disorder: No Hx Respiratory Disorders: No Hx Cardiac Disorders: No Hx Psychiatric Problems: No Hx Miscellaneous Medical Probl: Yes (Uterine cancer, peritoneal carcinomatosis, hypertension, diabetes) Hx Alcohol Use: No Hx Substance Use: No Hx Tobacco Use: No Smoking Status: Never smoker FmHx Family History: No coronary disease Physical Exam Vitals Vital Signs Date Temp Pulse Resp B/P (MAP) Pulse Ox O2 O2 Flow FiO2 Time Delivery Rate 11/11/18 98.9 95 20 125/66 96 10:10 (85) Physical Exam Const: Chronically ill-appearing, mild distress secondary to pain. Nontoxic Head: Atraumatic Eyes: Normal Conjunctiva ENT: Normal External Ears, Nose and Mouth. Dry mucous membranes Neck: Full range of motion. No meningismus. Resp: Clear to auscultation bilaterally Cardio: Regular rate and rhythm, no murmurs Abd: Soft, mildly distended, mild diffuse abdominal tenderness with no peritoneal signs.Normal bowel sounds Skin: No petechiae or rashes Back: No midline or flank tenderness Ext: No cyanosis, or edema Neur: Awake and alert Psych: Normal Mood and Affect Result Diagram: 11/11/18 1158 11/11/18 1158 Results 24 hrs Laboratory Tests Test 11/11/18 11:58 White Blood Count 7.6 10^3/ul Red Blood Count 3.46 10^6/ul Hemoglobin 9.7 g/dl Hematocrit 31.4 % Mean Corpuscular Volume 90.8 fl Mean Corpuscular Hemoglobin 28.0 pg Mean Corpuscular Hemoglobin Concent 30.9 g/dl Red Cell Distribution Width 17.8 % Platelet Count 310 10^3/UL Mean Platelet Volume 10.1 fl Immature Granulocytes % 0.700 % Neutrophils % 74.9 % Lymphocytes % 13.5 % Monocytes % 10.5 % Eosinophils % 0.1 % Basophils % 0.3 % Nucleated Red Blood Cells % 0.0 /100WBC Immature Granulocytes # 0.050 10^3/ul Neutrophils # 5.7 10^3/ul Lymphocytes # 1.0 10^3/ul Monocytes # 0.8 10^3/ul Eosinophils # 0.0 10^3/ul Basophils # 0.0 10^3/ul Nucleated Red Blood Cells # 0.0 10^3/ul Sodium Level 138 mmol/L Potassium Level 4.0 mmol/L Chloride Level 99 mmol/L Carbon Dioxide Level 33 mmol/L Anion Gap 6 Blood Urea Nitrogen 8 mg/dl Creatinine 0.60 mg/dl Est Glomerular Filtrat Rate mL/min > 60 mL/min Glucose Level 110 mg/dl Calcium Level 9.2 mg/dl Total Bilirubin 0.4 mg/dl Direct Bilirubin 0.00 mg/dl Indirect Bilirubin 0.4 mg/dl Aspartate Amino Transf (AST/SGOT) 30 IU/L Alanine Aminotransferase (ALT/SGPT) 11 IU/L Alkaline Phosphatase 87 IU/L Total Protein 7.7 g/dl Albumin 3.3 g/dl Globulin 4.40 g/dl Albumin/Globulin Ratio 0.75 Lipase 14 U/L Current Medications Medications Dose Sig/Burak Start Time Status Last (Trade) Ordered Route PRN Stop Time Admin Dose Reason Admin Sodium 1,000 ml @ Q1H STAT 11/11/18 DC 11/11/18 Chloride 1,000 mls/hr IV 12:10 13:02 11/11/18 13:09 1 mg ONCE STAT 11/11/18 DC 11/11/18 Hydromorphone IV 12:10 13:02 HCl 11/11/18 12:12 (Dilaudid) Ondansetron 4 mg ONCE STAT 11/11/18 DC 11/11/18 HCl (Zofran IV 12:10 13:02 Inj) 11/11/18 12:12 Procedures/MDM EMERGENT LABS AND DIAGNOSTIC STUDIES: Lab Results above were reviewed and interpreted by me. CBC: Anemia, chronic on CMP: No evidence of electrolyte abnormality, renal failure, hypoglycemia, liver failure, or biliary obstruction Lipase: no evidence of pancreatitis Radiology Results as interpreted by Radiology below were reviewed by Jimi Perdomo MD: MARK shows no acute abnormalities Initial Nursing notes reviewed. Previous Medical Records requested via the Electronic Health Record. EMERGENCY DEPARTMENT COURSE / MEDICAL DECISION MAKING: Patient is presenting with uncontrolled chronic abdominal pain secondary to peritoneal carcinomatosis. Vitals are stable and she is afebrile with no peritoneal signs. I doubt acute surgical abdomen. I doubt SBP. Patient was treated with IV fluids and Dilaudid. She was drinking fluids in the ER without any difficulty. Upon reevaluation, her pain has significantly improved. I recommended starting Percocet for the time being until she is able to see her. Patient and family feel comfortable with this plan. Return precautions were discussed. . The patient has been educated on overdose prevention and the use of naloxone. The patient is a candidate for a prescription of naloxone based on the following high-risk criteria: Patient given concurrent prescription for opioids and benzodiazepines Departure Diagnosis: Primary Impression: Chronic pain Chronic pain type: chronic pain syndrome Qualified Codes: G89.4 - Chronic pain syndrome Additional Impression: Peritoneal carcinomatosis Condition: Stable Patient Instructions: Chronic Pain Referrals: MINAL RICHARDSON M.D. Additional Instructions: Make an appointment with Dr. chaney sign within the next few days. Return to the ER for worsening symptoms. You have been also provided with a prescription for naloxone nasal spray. This is for any signs of overdose on pain medications. Use as directed if there is any sign of overdose such as altered mental status, difficulty waking patient up with very slow respirations WILBER PERDOMO MD Nov 11, 2018 13:41
[2018-11-11 14:30] VITALS: BP 128/78; PULSE 76; RESP 19
== END 2018-11-11 14:59 | disposition home or self-care (01) ==
LOC: E/R 10:05
DX: G89.4 Chronic pain syndrome (principal); C78.6 Secondary malignant neoplasm of retroperitoneum and peritoneum; I10 Essential (primary) hypertension; E11.9 Type 2 diabetes mellitus without complications; Z85.42 Personal history of malignant neoplasm of other parts of uterus
CPT/HCPCS: 36415; 74018; 80053; 83690; 85025; 96374; 96375; J1170; J2405; J7030; Z7502

== ENCOUNTER 2018-11-15 16:20 | Inpatient (IN) | payer OTHER ==
[~2018-11-15] VITALS: Ht 160 cm; Wt 84.5 kg
[~2018-11-15 16:20] MED LIST changes: -LEVO500T48 PO; -METF500T24 PO; +METF500T3 PO; +NALO4SPR NS; +ONDA4TAB14 PO; +OXYC-279 PO
[2018-11-15 18:35] VITALS: BP 120/63; PULSE 100; RESP 18
[2018-11-15 20:00] VITALS: Ht 160 cm; Wt 84.5 kg
[2018-11-15] MEDS ORDERED: GLUCOSE GEL 15 GRAM TUBE PO PRN ×2 (20:00)
[2018-11-15] MEDS ORDERED: DEXTROSE 50% 50 ML SYRINGE IV PRN ×2 (20:00)
[2018-11-15] MEDS ORDERED: GLUCAGON 1 MG INJ IM PRN (20:00)
[2018-11-15] MEDS ORDERED: GLUCOSE GEL 15 GRAM TUBE BUCCAL PRN (20:00)
[2018-11-15] MEDS ORDERED: ACETAMINOPHEN 325 MG TAB PO PRN (20:00)
[2018-11-15] MEDS: ONDANSETRON 4 MG INJ IV PRN (20:06)
[2018-11-15] MEDS: PANTOPRAZOLE 40 MG INJ IV SCH (20:06)
[2018-11-15] MEDS: DEXTROSE 5%-0.45% NACL 1,000 ML IV SCH (20:09)
[2018-11-15] MEDS: INSULIN ASPART [NOVOLOG] 3 ML PEN SC SCH (21:00)
[2018-11-15] MEDS: HYDROmorphONE 0.5 MG/0.5 ML SYG IV PRN (21:31)
[2018-11-16 02:00] VITALS: BP 118/68; PULSE 89; RESP 20
[2018-11-16] MEDS: ACCU-CHEK XX SCH ×2 (02:00→20:34)
[2018-11-16] MEDS: PANTOPRAZOLE 40 MG INJ IV SCH (05:45)
[2018-11-16 07:13] VITALS: BP 107/68; PULSE 80; RESP 14
[2018-11-16] MEDS: HYDROmorphONE 0.5 MG/0.5 ML SYG IV PRN ×2 (09:48→15:23)
[2018-11-16] MEDS: INSULIN ASPART [NOVOLOG] 3 ML PEN SC SCH ×4 (10:00→20:34)
[2018-11-16 14:30] VITALS: BP 110/70; PULSE 80; RESP 14
--- NOTE | 2018-11-16 15:33 | QN ---
Documentation Comment [id number] LUPIS SUMMERS MD Nov 16, 2018 15:33
--- NOTE | 2018-11-16 16:50 | HP ---
DATE OF ADMISSION: 11/05/2018 HISTORY OF PRESENT ILLNESS: The patient is a 63-year-old female, previously was discharged with a di agnosis of diabetes mellitus, hypertension, dyslipidemia, history of stage III ovarian cancer. Tito morton's last chemotherapy was more than a month ago. She was supposed to have chemotherapy, but because of the pain and nausea she has not received chemotherapy. Was taken to _[facility] where she was evaluated, transferred here for further management, mainly for pain. PAST MEDICAL HISTORY: Positive for stage III ovarian cancer status post debulking surgery on 017 followed by cycles of adjuvant chemotherapy and carboplatin and Taxol. Patient noted to have car cinomatosis and malignant ascites in the past. The patient previously was discharged with fever, sta ge III ovarian cancer, pain, diabetes and hypertension. ALLERGY HISTORY: NEGATIVE. FAMILY HISTORY: Negative. SOCIAL HISTORY: Negative. MEDICATION HISTORY: 1. Metformin. 2. Zofran. 3. Oxycodone. REVIEW OF SYSTEMS: HEENT: Unremarkable. RESPIRATORY: Unremarkable. CARDIOVASCULAR: Unremarkable. ABDOMEN: Abdominal pain, nausea, vomiting. EXTREMITIES: No swelling. CENTRAL NERVOUS SYSTEM: Unremarkable. PHYSICAL EXAMINATION: GENERAL: The patient is awake, alert, in pain. VITAL SIGNS: Pulse 80, blood pressure 110/70. HEAD: Atraumatic and normocephalic. Pupils are equal, reactive. NECK: Supple. There is no JVD. LUNGS: Clear. CARDIOVASCULAR: S1, S2 normal. ABDOMEN: Obese. Bowel sounds positive, tender on palpation. Surgical scar noted ____. EXTREMITIES: There is no cyanosis, clubbing, or edema noted on lower extremities. LABORATORY DATA: Hemoglobin of 8.9, sodium 136, potassium 4.1, hemoglobin A1c 6.4. CT examination o f the abdomen and pelvis without IV contrast done shows linear atelectasis at the lung bases, posteri or left basilar pleural thickening, large volume, malignant ascites. Midline ventral hernias focal a dditional small bowel contents, hematocrit 30.9, sodium 131, potassium 3.9. IMPRESSION: The patient has ovarian cancer stage III, with peritoneal carcinomatosis, anemia, diabet es, pain, metastatic ovarian carcinoma. PLAN: To continue pain medication, IV fluid, and oncology consultation. The patient possibly rossy s poor prognosis with metastatic ovarian cancer with carcinomatosis. Dictated By: LUPIS SUMMERS MD JOANA Conf#: [id number] DID#: [id number]
--- NOTE | 2018-11-16 17:28 | CONS ---
Assessment/Plan Assessment/Plan Assessment/Plan (Daily) #. STAGE IIIC ovarian cancer- with widespread metastatic disease ( per CT abdomen) -s/p optimal debulking surgery in 06/2017 followed by 6 cycles of adjuvant chemotherapy with carboplatin and taxol -07/17/[address] reveals new peritoneal carcinomatosis and malignant ascites -07/2018-10/16/18 restarted on carboplatin and taxol -10/2018 CA 125 increasing and new 10/30/[address] reveals : PET only was done as an out patent which demonstrates worsening extensive mesenteric adenopathy in mid abdominal mesentery. omental disease is stable. new pelvic and inguinal LAD. new hepatic mets -given patient has progressed through carbo/ taxol ; she is SP carboplatin and gemcitabine per the following regimen: Carboplatin (Paraplatin) AUC 5 IV over 30 minutes once on day 1, given second Gemcitabine (Gemzar) 1000 mg/m2 IV over 30 minutes once per day on days 1 & 8, given first 21-day cycle for up to 6 cycles # Abdominal Pain 2/2 to above -continue Dilaudid 0.5 mg IV Q4 hrs Prn pain # Acute nausea/vomitting - Cont Zofran # Malignant Ascites # Diabetes -continue NovoLog sliding scale per PMD # Hypertension -continue current blood pressure meds Patient seen in collaboration with Dr Monroy Consultation Date/Type/Reason Admit Date/Time Nov 15, 2018 at 18:12 Type of Consult Oncology Reason for Consultation Ovarian Cancer Date/Time of Note DATE: 11/16/18 TIME: 16:52 Hx of Present Illness -awake; resting - feels tired -c/o nausea; loss of appetite - no new issues reported last night Eyes: no complaints ENT: no complaints Respiratory: no complaints Cardiovascular: no complaints Gastrointestinal: pain, nausea Genitourinary: no complaints Musculoskeletal: no complaints Skin: no complaints Neurologic: no complaints Endocrine: no complaints Lymphatic: no complaints Psychological: no complaints Immunologic: no complaints Past Medical History Past Medical History HTN DM Home Meds Reported Medications Metformin Hcl* (Metformin Hcl*) 500 Mg Tablet, 500 MG PO WITH BREAKFAST, #30 TAB 10/30/18 Discontinued Reported Medications Metformin Hcl* (Metformin Hcl*) 500 Mg Tablet, 500 MG PO WITH BREAKFAST DINNE, #60 TAB 04/26/18 Medications Current Medications Sodium Chloride 1,000 ml @ 50 mls/hr Q20H IV Last administered on 11/04/18at 22:22; Admin Dose 50 MLS/HR; Start 11/04/18 at 16:40 IV Flush (NS 3 ml) 3 ml PER PROTOCOL IV ; Start 11/04/18 at 17:00 Ondansetron HCl (Zofran Inj) 4 mg Q6H PRN IV NAUSEA/VOMITING; Start 11/04/18 at 17:00 Acetaminophen (Tylenol Tab) 650 mg Q6H PRN PO .PAIN 1-3 OR TEMP; Start 11/04/18 at 17:00 Acetaminophen/ Hydrocodone Bitart ([place] (5/325)) 1 tab Q6H PRN PO .MOD PAIN 4- 6 Last administered on 11/05/18at 08:05; Admin Dose 1 TAB; Start 11/04/18 at 17:00 Morphine Sulfate (morphine) 2 mg Q4H PRN IV .SEVERE PAIN 7-10; Start 11/04/18 at 17:00 Magnesium Hydroxide (Milk Of Mag) 30 ml DAILY PRN PO .CONSTIPATION; Start 11/04/18 at 17:00 Pantoprazole (Protonix Iv) 40 mg DAILY@06 IV Last administered on 11/05/18at 05:08; Admin Dose 40 MG; Start 11/05/18 at 06:00 Cefepime HCl 50 ml @ 100 mls/hr Q12 IVPB Last administered on 11/05/18at 08:05; Admin Dose 100 MLS/HR; Start 11/04/18 at 21:00 Allergies: Coded Allergies: No Known Drug Allergies (Verified Allergy, Unknown, 11/04/18) Past Surgical History S/P JESUS-BSO Past Surgical Hx: other Family History Significant Family History: no pertinent family hx Social History Alcohol Use: none Smoking Status: Never smoker Drug Use: none Home Meds Active Scripts Docusate Sodium* (Colace*) 250 Mg Capsule, 250 MG PO DAILY PRN for CONSTIPATION for 30 Days, CAP Prov:PAMELA FONTNEOT 11/22/18 Methylprednisolone* (Medrol* DOSE PACK) 4 Mg/Dose-Pack Tab.ds.pk, 4 MG PO . DIRECTED for 7 Days, PACKET Prov:PAMELA FONTENOT 11/22/18 Ondansetron Hcl* (Ondansetron Hcl*) 8 Mg Tablet, 8 MG PO Q6H PRN for NAUSEA AND OR VOMITING for 14 Days, TAB Prov:PAMELA FONTENOT 11/22/18 Polyethylene Glycol* (Miralax*) 17 Gm Powd.pack, 17 GM PO DAILY PRN for CONSTIPATION for 14 Days Prov:PAMELA FONTENOT 11/22/18 Scopolamine (Transderm-Scop) 1 Each Patch.td.3, 1 PATCH TRANSDERM Q72H for 30 Days Prov:PAMELA FONTENOT 11/22/18 Levofloxacin* (Levaquin*) 500 Mg Tablet, 500 MG PO DAILY for 7 Days, TAB Prov:PAMELA FONTENOT 11/22/18 Ondansetron (Ondansetron Odt) 4 Mg Tab.rapdis, 4 MG PO Q6H PRN for NAUSEA AND/OR VOMITING, #10 TAB Prov:WILBER FELTON MD 11/11/18 Naloxone HCl nasal spray (Narcan 4 mg/0.1 mL nasal) 4 Mg [place], 4 MG NS .Q2-3MIN for OPIOID OVERDOSE, #2 SPRAY 0 Refills Cornelia 0.1 mL into one nostril. Repeat with second device into other nostril after 2-3 minutes if no or minimal response Prov:WILBER FELTON MD 11/11/18 Oxycodone HCl/Acetaminophen (Percocet 5-325 mg Tablet) 1 Each Tablet, 1 EACH PO Q6 PRN for SEVERE PAIN LEVEL 7-10, #10 TAB Prov:WILBER FELTON MD 11/11/18 Reported Medications Metformin Hcl* (Metformin Hcl* ER) 500 Mg Tab.sr.24h, 500 MG PO DAILY, #30 TAB 11/11/18 Medications Current Medications Dextrose/Sodium Chloride 1,000 ml @ 40 mls/hr Q24H IV Last administered on 11/15/18at 20:09; Admin Dose 40 MLS/HR; Start 11/15/18 at 20:00 Ondansetron HCl (Zofran Inj) 4 mg Q6H PRN IV NAUSEA AND/OR VOMITING Last administered on 11/15/18at 20:06; Admin Dose 4 MG; Start 11/15/18 at 20:00 Pantoprazole (Protonix Iv) 40 mg DAILY@06 IV Last administered on 11/16/18at 05:45; Admin Dose 40 MG; Start 11/15/18 at 20:00 Acetaminophen (Tylenol Tab) 650 mg Q6H PRN PO MILD PAIN(1-3)OR ELEVATED TEMP; Start 11/15/18 at 20:00 Diagnostic Test (Pha) (Accu-Chek) 1 ea 02 XX ; Start 11/16/18 at 02:00 Insulin Aspart (Novolog Insulin Pen) NOVOLOG *MODERATE* ALGORITHM WITH MEALS BEDTIME SC ; Start 11/15/18 at 21:00 Miscellaneous Information 1 ea NOTE XX ; Start 11/15/18 at 20:00 Glucose (Glutose) 15 gm Q15M PRN PO DECREASED GLUCOSE; Start 11/15/18 at 20:00 Glucose (Glutose) 22.5 gm Q15M PRN PO DECREASED GLUCOSE; Start 11/15/18 at 20:00 Dextrose (D50w Syringe) 25 ml Q15M PRN IV DECREASED GLUCOSE; Start 11/15/18 at 20:00 Dextrose (D50w Syringe) 50 ml Q15M PRN IV DECREASED GLUCOSE; Start 11/15/18 at 20:00 Glucagon (Glucagen) 1 mg Q15M PRN IM DECREASED GLUCOSE; Start 11/15/18 at 20:00 Glucose (Glutose) 15 gm Q15M PRN BUCCAL DECREASED GLUCOSE; Start 11/15/18 at 20:00 Hydromorphone HCl (Dilaudid) 0.5 mg Q4 PRN IV SEVERE PAIN LEVEL 7-10 Last administered on 11/16/18at 15:23; Admin Dose 0.5 MG; Start 11/16/18 at 15:30 Allergies: Coded Allergies: No Known Drug Allergies (Verified Allergy, Unknown, 11/11/18) Past Surgical History Past Surgical Hx: other Social History Smoking Status: Never smoker Exam/Review of Systems Exam Vitals Vital Signs Date Temp Pulse Resp B/P (MAP) Pulse Ox O2 O2 Flow FiO2 Time Delivery Rate 11/16/18 98.1 80 14 110/70 100 Room Air 14:30 (83) Intake and Output 11/15/18 11/15/18 11/16/18 1515:00 23:00 07:00 IntakeIntake Total 420 ml 500 ml OutputOutput Total 50 ml BalanceBalance 370 ml 500 ml Constitutional: alert, well developed Psych: no complaints Eyes: EOMI, nl lids ENMT: nl external ears & nose Neck: non-tender Respiratory: diminished breath sounds Cardiovascular: nl pulses, other Gastrointestinal: soft, tender Musculoskeletal: nl extremities to inspection Extremities: normal pulses Neurological: nl speech, unresponsive Skin: nl turgor Lymph: nontender Results Result Diagram: 11/16/18 0429 11/16/18 0429 Results 24hrs Laboratory Tests Test 11/15/18 21:18 11/16/18 04:29 11/16/18 09:59 11/16/18 13:19 Bedside Glucose 94 101 120 White Blood Count 6.3 Red Blood Count 3.14 L Hemoglobin 8.9 L Hematocrit 29.0 L Mean Corpuscular 92.4 Volume Mean Corpuscular 28.3 L Hemoglobin Mean Corpuscular 30.7 L Hemoglobin Concent Red Cell 17.6 H Distribution Width Platelet Count 345 Mean Platelet Volume 9.7 Immature 0.300 Granulocytes % Neutrophils % 74.3 Lymphocytes % 13.1 L Monocytes % 10.7 Eosinophils % 1.1 Basophils % 0.5 Nucleated Red Blood 0.0 Cells % Immature 0.020 Granulocytes # Neutrophils # 4.7 Lymphocytes # 0.8 Monocytes # 0.7 Eosinophils # 0.1 Basophils # 0.0 Nucleated Red Blood 0.0 Cells # Sodium Level 136 Potassium Level 4.1 Chloride Level 100 Carbon Dioxide Level 30 Anion Gap 6 Blood Urea Nitrogen 7 Creatinine 0.70 Est Glomerular > 60 Filtrat Rate mL/min Glucose Level 119 Hemoglobin A1c 6.4 H Calcium Level 8.7 Total Bilirubin 0.2 Direct Bilirubin 0.00 Indirect Bilirubin 0.2 Aspartate Amino 32 Transf (AST/SGOT) Alanine 15 Aminotransferase (AL T/SGPT) Alkaline Phosphatase 83 Total Protein 7.2 Albumin 3.0 L Globulin 4.20 H Albumin/Globulin 0.71 Ratio Medications Medication Current Medications Dextrose/Sodium Chloride 1,000 ml @ 40 mls/hr Q24H IV Last administered on 11/15/18at 20:09; Admin Dose 40 MLS/HR; Start 11/15/18 at 20:00 Ondansetron HCl (Zofran Inj) 4 mg Q6H PRN IV NAUSEA AND/OR VOMITING Last administered on 11/15/18at 20:06; Admin Dose 4 MG; Start 11/15/18 at 20:00 Pantoprazole (Protonix Iv) 40 mg DAILY@06 IV Last administered on 11/16/18at 05:45; Admin Dose 40 MG; Start 11/15/18 at 20:00 Acetaminophen (Tylenol Tab) 650 mg Q6H PRN PO MILD PAIN(1-3)OR ELEVATED TEMP; Start 11/15/18 at 20:00 Diagnostic Test (Pha) (Accu-Chek) 1 ea 02 XX ; Start 11/16/18 at 02:00 Insulin Aspart (Novolog Insulin Pen) NOVOLOG *MODERATE* ALGORITHM WITH MEALS BEDTIME SC ; Start 11/15/18 at 21:00 Miscellaneous Information 1 ea NOTE XX ; Start 11/15/18 at 20:00 Glucose (Glutose) 15 gm Q15M PRN PO DECREASED GLUCOSE; Start 11/15/18 at 20:00 Glucose (Glutose) 22.5 gm Q15M PRN PO DECREASED GLUCOSE; Start 11/15/18 at 20:00 Dextrose (D50w Syringe) 25 ml Q15M PRN IV DECREASED GLUCOSE; Start 11/15/18 at 20:00 Dextrose (D50w Syringe) 50 ml Q15M PRN IV DECREASED GLUCOSE; Start 11/15/18 at 20:00 Glucagon (Glucagen) 1 mg Q15M PRN IM DECREASED GLUCOSE; Start 11/15/18 at 20:00 Glucose (Glutose) 15 gm Q15M PRN BUCCAL DECREASED GLUCOSE; Start 11/15/18 at 20:00 Hydromorphone HCl (Dilaudid) 0.5 mg Q4 PRN IV SEVERE PAIN LEVEL 7-10 Last administered on 11/16/18at 15:23; Admin Dose 0.5 MG; Start 11/16/18 at 15:30 DIANA ZHAO Nov 16, 2018 5:04 pm
[2018-11-16 19:56] VITALS: BP 96/59; PULSE 72; RESP 16
[2018-11-16] MEDS: DEXTROSE 5%-0.45% NACL 1,000 ML IV SCH (20:30)
[2018-11-17] MEDS: HYDROmorphONE 0.5 MG/0.5 ML SYG IV PRN ×4 (01:29→20:24)
[2018-11-17 01:39] VITALS: BP 120/65; PULSE 77; RESP 16
[2018-11-17] MEDS: PANTOPRAZOLE 40 MG INJ IV SCH (06:08)
[2018-11-17] MEDS: INSULIN ASPART [NOVOLOG] 3 ML PEN SC SCH ×4 (07:50→20:31)
[2018-11-17 08:47] VITALS: BP 117/56; PULSE 88; RESP 18
--- NOTE | 2018-11-17 11:56 | PN ---
Date/Time of Note Date/Time of Note DATE: 11/17/18 TIME: 11:51 Assessment/Plan VTE Prophylaxis Risk score (from Ns)>0 risk: 5 SCD applied (from Ns): Yes Pharmacological prophylaxis: NA/contraindicated Pharm contraindication: low risk/ambulating Lines/Catheters IV C[facility]ter Type (from [facility] Peripheral IV Urinary Cath still in place: No Assessment/Plan Hospital Course 63-year-old female with # Abdominal pain with ovarian cancer stage III, with peritoneal carcinomatosis with widespread metastatic disease # anemia, #diabetes # hx malignant ascites # constipation plan -Check to see to get an abdominal ultrasound to see if there is abdominal fluid that can be tapped -per Dr. Monroy patient will be started on chemo in-house - Pain control - stool softners - PPI - Zofran Result Diagram: 11/17/1843411/17/18434 Results 24hrs Laboratory Tests Test 11/16/18 13:19 11/16/18 17:45 11/16/18 20:33 11/17/18 02:00 Bedside Glucose 120 136 107 Urine Color YELLOW Urine Clarity CLEAR Urine pH 5.0 Urine Specific 1.018 [place] Urine Ketones NEGATIVE Urine Nitrite NEGATIVE Urine Bilirubin NEGATIVE Urine Urobilinogen NEGATIVE Urine Leukocyte NEGATIVE Esterase Urine Microscopic 0 RBC Urine Microscopic 1 WBC Urine Squamous FEW Epithelial Cells Urine Bacteria FEW A Urine Mucus MODERATE Urine Hemoglobin NEGATIVE Urine Glucose NEGATIVE Urine Total Protein NEGATIVE Test 11/17/18 04:35 11/17/18 08:44 White Blood Count 5.7 Red Blood Count 3.13 L Hemoglobin 8.8 L Hematocrit 28.8 L Mean Corpuscular 92.0 Volume Mean Corpuscular 28.1 L Hemoglobin Mean Corpuscular 30.6 L Hemoglobin Concent Red Cell 17.1 H Distribution Width Platelet Count 325 Mean Platelet Volume 9.9 Immature 0.500 H Granulocytes % Neutrophils % 70.1 Lymphocytes % 17.3 Monocytes % 10.6 Eosinophils % 1.1 Basophils % 0.4 Nucleated Red Blood 0.0 Cells % Immature 0.030 Granulocytes # Neutrophils # 4.0 Lymphocytes # 1.0 Monocytes # 0.6 Eosinophils # 0.1 Basophils # 0.0 Nucleated Red Blood 0.0 Cells # Sodium Level 137 Potassium Level 3.7 Chloride Level 103 Carbon Dioxide Level 28 Anion Gap 6 Blood Urea Nitrogen 7 Creatinine 0.57 Est Glomerular > 60 Filtrat Rate mL/min Glucose Level 151 Calcium Level 8.5 Total Bilirubin 0.1 L Direct Bilirubin 0.00 Indirect Bilirubin 0.1 Aspartate Amino 33 Transf (AST/SGOT) Alanine 11 L Aminotransferase (AL T/SGPT) Alkaline Phosphatase 82 Total Protein 6.8 Albumin 2.8 L Globulin 4.00 H Albumin/Globulin 0.70 Ratio Bedside Glucose 109 Subjective 24 Hr Interval Summary Free Text/Dictation abdominal pain.+ Exam/Review of Systems Exam Vitals Vital Signs Date Temp Pulse Resp B/P (MAP) Pulse Ox O2 O2 Flow FiO2 Time Delivery Rate 11/17/18 98.6 88 18 117/56 97 Room Air 08:47 (76) Intake and Output 11/16/18 11/16/18 11/17/18 1515:00 23:00 07:00 IntakeIntake Total 200 ml 1390 ml 740 ml OutputOutput Total 150 ml BalanceBalance 200 ml 1240 ml 740 ml Exam ITAL SIGNS: Pulse 80, blood pressure 110/70. HEAD: Atraumatic and normocephalic. Pupils are equal, reactive. NECK: Supple. There is no JVD. LUNGS: Clear. CARDIOVASCULAR: S1, S2 normal. ABDOMEN: Obese. Bowel sounds positive, tender on palpation. Surgical scar noted ____. EXTREMITIES: There is no cyanosis, clubbing, or edema noted on lower extremities. Results Results 24hrs Laboratory Tests Test 11/16/18 13:19 11/16/18 17:45 11/16/18 20:33 11/17/18 02:00 Bedside Glucose 120 136 107 Urine Color YELLOW Urine Clarity CLEAR Urine pH 5.0 Urine Specific 1.018 [place] Urine Ketones NEGATIVE Urine Nitrite NEGATIVE Urine Bilirubin NEGATIVE Urine Urobilinogen NEGATIVE Urine Leukocyte NEGATIVE Esterase Urine Microscopic 0 RBC Urine Microscopic 1 WBC Urine Squamous FEW Epithelial Cells Urine Bacteria FEW A Urine Mucus MODERATE Urine Hemoglobin NEGATIVE Urine Glucose NEGATIVE Urine Total Protein NEGATIVE Test 11/17/18 04:35 11/17/18 08:44 White Blood Count 5.7 Red Blood Count 3.13 L Hemoglobin 8.8 L Hematocrit 28.8 L Mean Corpuscular 92.0 Volume Mean Corpuscular 28.1 L Hemoglobin Mean Corpuscular 30.6 L Hemoglobin Concent Red Cell 17.1 H Distribution Width Platelet Count 325 Mean Platelet Volume 9.9 Immature 0.500 H Granulocytes % Neutrophils % 70.1 Lymphocytes % 17.3 Monocytes % 10.6 Eosinophils % 1.1 Basophils % 0.4 Nucleated Red Blood 0.0 Cells % Immature 0.030 Granulocytes # Neutrophils # 4.0 Lymphocytes # 1.0 Monocytes # 0.6 Eosinophils # 0.1 Basophils # 0.0 Nucleated Red Blood 0.0 Cells # Sodium Level 137 Potassium Level 3.7 Chloride Level 103 Carbon Dioxide Level 28 Anion Gap 6 Blood Urea Nitrogen 7 Creatinine 0.57 Est Glomerular > 60 Filtrat Rate mL/min Glucose Level 151 Calcium Level 8.5 Total Bilirubin 0.1 L Direct Bilirubin 0.00 Indirect Bilirubin 0.1 Aspartate Amino 33 Transf (AST/SGOT) Alanine 11 L Aminotransferase (AL T/SGPT) Alkaline Phosphatase 82 Total Protein 6.8 Albumin 2.8 L Globulin 4.00 H Albumin/Globulin 0.70 Ratio Bedside Glucose 109 Medications Medication Current Medications Dextrose/Sodium Chloride 1,000 ml @ 60 mls/hr [id number] IV Last administered on 11/16/18at 20:30; Admin Dose 60 MLS/HR; Start 11/15/18 at 20:00 Ondansetron HCl (Zofran Inj) 4 mg Q6H PRN IV NAUSEA AND/OR VOMITING Last administered on 11/15/18at 20:06; Admin Dose 4 MG; Start 11/15/18 at 20:00 Pantoprazole (Protonix Iv) 40 mg DAILY@06 IV Last administered on 11/17/18at 06:08; Admin Dose 40 MG; Start 11/15/18 at 20:00 Acetaminophen (Tylenol Tab) 650 mg Q6H PRN PO MILD PAIN(1-3)OR ELEVATED TEMP; Start 11/15/18 at 20:00 Diagnostic Test (Pha) (Accu-Chek) 1 ea 02 XX ; Start 11/16/18 at 02:00 Insulin Aspart (Novolog Insulin Pen) NOVOLOG *MODERATE* ALGORITHM WITH MEALS BEDTIME SC ; Start 11/15/18 at 21:00 Miscellaneous Information 1 ea NOTE XX ; Start 11/15/18 at 20:00 Glucose (Glutose) 15 gm Q15M PRN PO DECREASED GLUCOSE; Start 11/15/18 at 20:00 Glucose (Glutose) 22.5 gm Q15M PRN PO DECREASED GLUCOSE; Start 11/15/18 at 20:00 Dextrose (D50w Syringe) 25 ml Q15M PRN IV DECREASED GLUCOSE; Start 11/15/18 at 20:00 Dextrose (D50w Syringe) 50 ml Q15M PRN IV DECREASED GLUCOSE; Start 11/15/18 at 20:00 Glucagon (Glucagen) 1 mg Q15M PRN IM DECREASED GLUCOSE; Start 11/15/18 at 20:00 Glucose (Glutose) 15 gm Q15M PRN BUCCAL DECREASED GLUCOSE; Start 11/15/18 at 20:00 Hydromorphone HCl (Dilaudid) 0.5 mg Q4 PRN IV SEVERE PAIN LEVEL 7-10 Last administered on 11/17/18at 11:00; Admin Dose 0.5 MG; Start 11/16/18 at 15:30 LIZZETH LAWRENCE MD Nov 17, 2018 11:56
--- NOTE | 2018-11-17 14:13 | CONS ---
Assessment/Plan Assessment/Plan Assessment/Plan (Daily) #. STAGE IIIC ovarian cancer- with widespread metastatic disease ( per CT abdomen) -s/p optimal debulking surgery in 06/2017 followed by 6 cycles of adjuvant chemotherapy with carboplatin and taxol -07/17/[address] reveals new peritoneal carcinomatosis and malignant ascites -07/2018-10/16/18 restarted on carboplatin and taxol -10/2018 CA 125 increasing and new 10/30/[address] reveals : PET only was done as an out patent which demonstrates worsening extensive mesenteric adenopathy in mid abdominal mesentery. omental disease is stable. new pelvic and inguinal LAD. new hepatic mets -given patient has progressed through carbo/ taxol, she was to start carboplatin and gemcitabine per the following regimen: Carboplatin (Paraplatin) AUC 5 IV over 30 minutes once on day 1, given second Gemcitabine (Gemzar) 1000 mg/m2 IV over 30 minutes once per day on days 1 & 8, given first 21-day cycle for up to 6 cycles -will give first dose of chemotherapy in house. pt is is 10/10 pain with increasing abdominal distension. if she is able to tolerate this 1 cycle, we will continue as an out patient # Abdominal Pain 2/2 to above -continue Dilaudid 0.5 mg IV Q4 hrs Prn pain # Acute nausea/vomitting - Cont Zofran # Malignant Ascites # Diabetes -continue NovoLog sliding scale per PMD # Hypertension -continue current blood pressure meds Patient seen in collaboration with Dr Richardson Consultation Date/Type/Reason Admit Date/Time Nov 15, 2018 at 18:12 Initial Consult Date nov 16 Type of Consult oncology Reason for Consultation metastatic ovarian cancer Requesting Provider: LIZZETH LAWRENCE MD Date/Time of Note DATE: 11/17/18 TIME: 14:08 24 HR Interval Summary Free Text/Dictation no acute overnight events. pt c/o abdominal pain and increased abdominal distension Exam/Review of Systems Exam Vitals Vital Signs Date Temp Pulse Resp B/P (MAP) Pulse Ox O2 O2 Flow FiO2 Time Delivery Rate 11/17/18 98.6 88 18 117/56 97 Room Air 08:47 (76) Intake and Output 11/16/18 11/16/18 11/17/18 1515:00 23:00 07:00 IntakeIntake Total 200 ml 1390 ml 740 ml OutputOutput Total 150 ml BalanceBalance 200 ml 1240 ml 740 ml Constitutional: alert, oriented, distress, frail Psych: confusion, depression Head: normocephalic Eyes: nl conjunctiva ENMT: nl external ears & nose Neck: supple Respiratory: crackles/rales, diminished breath sounds, labored breathing Cardiovascular: regular rate and rhythm Gastrointestinal: ascites, distended, firm Musculoskeletal: nl extremities to inspection Extremities: edema Results Result Diagram: 11/17/18 0435 11/17/18 0435 Results 24hrs Laboratory Tests Test 11/16/18 17:45 11/16/18 20:33 11/17/18 02:00 11/17/18 04:35 Bedside Glucose 136 107 Urine Color YELLOW Urine Clarity CLEAR Urine pH 5.0 Urine Specific 1.018 [place] Urine Ketones NEGATIVE Urine Nitrite NEGATIVE Urine Bilirubin NEGATIVE Urine Urobilinogen NEGATIVE Urine Leukocyte NEGATIVE Esterase Urine Microscopic 0 RBC Urine Microscopic 1 WBC Urine Squamous FEW Epithelial Cells Urine Bacteria FEW A Urine Mucus MODERATE Urine Hemoglobin NEGATIVE Urine Glucose NEGATIVE Urine Total Protein NEGATIVE White Blood Count 5.7 Red Blood Count 3.13 L Hemoglobin 8.8 L Hematocrit 28.8 L Mean Corpuscular 92.0 Volume Mean Corpuscular 28.1 L Hemoglobin Mean Corpuscular 30.6 L Hemoglobin Concent Red Cell 17.1 H Distribution Width Platelet Count 325 Mean Platelet Volume 9.9 Immature 0.500 H Granulocytes % Neutrophils % 70.1 Lymphocytes % 17.3 Monocytes % 10.6 Eosinophils % 1.1 Basophils % 0.4 Nucleated Red Blood 0.0 Cells % Immature 0.030 Granulocytes # Neutrophils # 4.0 Lymphocytes # 1.0 Monocytes # 0.6 Eosinophils # 0.1 Basophils # 0.0 Nucleated Red Blood 0.0 Cells # Sodium Level 137 Potassium Level 3.7 Chloride Level 103 Carbon Dioxide Level 28 Anion Gap 6 Blood Urea Nitrogen 7 Creatinine 0.57 Est Glomerular > 60 Filtrat Rate mL/min Glucose Level 151 Calcium Level 8.5 Total Bilirubin 0.1 L Direct Bilirubin 0.00 Indirect Bilirubin 0.1 Aspartate Amino 33 Transf (AST/SGOT) Alanine 11 L Aminotransferase (AL T/SGPT) Alkaline Phosphatase 82 Total Protein 6.8 Albumin 2.8 L Globulin 4.00 H Albumin/Globulin 0.70 Ratio Test 11/17/18 08:44 11/17/18 12:21 11/17/18 12:48 Bedside Glucose 109 121 Prothrombin Time 16.1 H Prothrombin Time 1.3 Ratio INR International 1.28 Normalized Ratio Medications Medication Current Medications Ondansetron HCl (Zofran Inj) 4 mg Q6H PRN IV NAUSEA AND/OR VOMITING Last administered on 11/15/18at 20:06; Admin Dose 4 MG; Start 11/15/18 at 20:00 Pantoprazole (Protonix Iv) 40 mg DAILY@06 IV Last administered on 11/17/18at 06:08; Admin Dose 40 MG; Start 11/15/18 at 20:00 Acetaminophen (Tylenol Tab) 650 mg Q6H PRN PO MILD PAIN(1-3)OR ELEVATED TEMP; Start 11/15/18 at 20:00 Diagnostic Test (Pha) (Accu-Chek) 1 ea 02 XX ; Start 11/16/18 at 02:00 Insulin Aspart (Novolog Insulin Pen) NOVOLOG *MODERATE* ALGORITHM WITH MEALS BEDTIME SC ; Start 11/15/18 at 21:00 Miscellaneous Information 1 ea NOTE XX ; Start 11/15/18 at 20:00 Glucose (Glutose) 15 gm Q15M PRN PO DECREASED GLUCOSE; Start 11/15/18 at 20:00 Glucose (Glutose) 22.5 gm Q15M PRN PO DECREASED GLUCOSE; Start 11/15/18 at 20:00 Dextrose (D50w Syringe) 25 ml Q15M PRN IV DECREASED GLUCOSE; Start 11/15/18 at 20:00 Dextrose (D50w Syringe) 50 ml Q15M PRN IV DECREASED GLUCOSE; Start 11/15/18 at 20:00 Glucagon (Glucagen) 1 mg Q15M PRN IM DECREASED GLUCOSE; Start 11/15/18 at 20:00 Glucose (Glutose) 15 gm Q15M PRN BUCCAL DECREASED GLUCOSE; Start 11/15/18 at 20:00 Hydromorphone HCl (Dilaudid) 0.5 mg Q4 PRN IV SEVERE PAIN LEVEL 7-10 Last administered on 11/17/18at 11:00; Admin Dose 0.5 MG; Start 11/16/18 at 15:30 MINAL RICHARDSON M.D. Nov 17, 2018 14:13
[2018-11-17 15:17] VITALS: BP 116/61; PULSE 85; RESP 18
[2018-11-17] MEDS: ACCU-CHEK XX SCH (20:31)
[2018-11-17 20:51] VITALS: BP 110/66; PULSE 83; RESP 16
[2018-11-17] MEDS: ONDANSETRON 4 MG INJ IV PRN (21:56)
[2018-11-18] VITALS (8 sets, daily range): BP systolic 99–118; BP diastolic 53–68; PULSE 68–86; RESP 18–20
[2018-11-18] MEDS: HYDROmorphONE 0.5 MG/0.5 ML SYG IV PRN ×4 (01:00→17:25)
[2018-11-18] MEDS: ONDANSETRON 4 MG INJ IV PRN ×3 (04:44→17:19)
[2018-11-18] MEDS: PANTOPRAZOLE 40 MG INJ IV SCH (06:02)
[2018-11-18] MEDS: INSULIN ASPART [NOVOLOG] 3 ML PEN SC SCH ×4 (07:50→20:16)
[2018-11-18] MEDS ORDERED: LIDOCAINE 1% (MPF) 5 ML VIAL ONE (10:53)
[2018-11-18] MEDS ORDERED: DOCUSATE SODIUM 250 MG CAP PO PRN (12:30)
--- NOTE | 2018-11-18 13:09 | PN ---
Date/Time of Note Date/Time of Note DATE: 11/18/18 TIME: 13:07 Assessment/Plan VTE Prophylaxis Risk score (from Nsg)>0 risk: 6 SCD applied (from Nsg): Yes Pharmacological prophylaxis: NA/contraindicated Pharm contraindication: low risk/ambulating Lines/Catheters IV Catheter Type (from Nrsg): [place] Lock Urinary Cath still in place: No Assessment/Plan Hospital Course 63-year-old female with # Abdominal pain with ovarian cancer stage III, with peritoneal carcinomatosis with widespread metastatic disease # anemia, #diabetes # hx malignant ascites # constipation plan -s/p is post paracentesis today with removal of 3.2 L -per Dr. Monroy patient will be started on chemo in-house started today or tomorrow - Pain control, change dialudid to every 3 - stool softners - PPI - Zofran - SCD Result Diagram: 11/17/1843411/17/18434 Results 24hrs Laboratory Tests Test 11/17/18 17:46 11/17/18 20:30 11/18/18 07:49 11/18/18 11:52 Bedside Glucose 122 134 116 95 Subjective 24 Hr Interval Summary Free Text/Dictation Status post paracentesis today with removal of 3.2 L The pain is little better Constipated Exam/Review of Systems Exam Vitals Vital Signs Date Temp Pulse Resp B/P (MAP) Pulse Ox O2 O2 Flow FiO2 Time Delivery Rate 11/18/18 78 102/63 08:57 (76) 11/18/18 18 96 Room Air 08:40 11/18/18 98.6 07:20 Intake and Output 11/17/18 11/17/18 11/18/18 1515:00 23:00 07:00 IntakeIntake Total 500 ml BalanceBalance 500 ml Exam HEAD: Atraumatic and normocephalic. Pupils are equal, reactive. NECK: Supple. There is no JVD. LUNGS: Clear. CARDIOVASCULAR: S1, S2 normal. ABDOMEN: Obese. Bowel sounds positive, tender on palpation. Surgical scar noted ___s/p paracentesis_. EXTREMITIES: There is no cyanosis, clubbing, or edema noted on lower extremities. Results Results 24hrs Laboratory Tests Test 11/17/18 17:46 11/17/18 20:30 11/18/18 07:49 11/18/18 11:52 Bedside Glucose 122 134 116 95 Medications Medication Current Medications Ondansetron HCl (Zofran Inj) 4 mg Q6H PRN IV NAUSEA AND/OR VOMITING Last administered on 11/18/18at 11:49; Admin Dose 4 MG; Start 11/15/18 at 20:00 Pantoprazole (Protonix Iv) 40 mg DAILY@06 IV Last administered on 11/18/18at 06:02; Admin Dose 40 MG; Start 11/15/18 at 20:00 Acetaminophen (Tylenol Tab) 650 mg Q6H PRN PO MILD PAIN(1-3)OR ELEVATED TEMP; Start 11/15/18 at 20:00 Diagnostic Test (Pha) (Accu-Chek) 1 ea 02 XX ; Start 11/16/18 at 02:00 Insulin Aspart (Novolog Insulin Pen) NOVOLOG *MODERATE* ALGORITHM WITH MEALS BEDTIME SC ; Start 11/15/18 at 21:00 Miscellaneous Information 1 ea NOTE XX ; Start 11/15/18 at 20:00 Glucose (Glutose) 15 gm Q15M PRN PO DECREASED GLUCOSE; Start 11/15/18 at 20:00 Glucose (Glutose) 22.5 gm Q15M PRN PO DECREASED GLUCOSE; Start 11/15/18 at 20:00 Dextrose (D50w Syringe) 25 ml Q15M PRN IV DECREASED GLUCOSE; Start 11/15/18 at 20:00 Dextrose (D50w Syringe) 50 ml Q15M PRN IV DECREASED GLUCOSE; Start 11/15/18 at 20:00 Glucagon (Glucagen) 1 mg Q15M PRN IM DECREASED GLUCOSE; Start 11/15/18 at 20:00 Glucose (Glutose) 15 gm Q15M PRN BUCCAL DECREASED GLUCOSE; Start 11/15/18 at 20:00 Hydromorphone HCl (Dilaudid) 0.5 mg Q3H PRN IV SEVERE PAIN LEVEL 7-10; Start 11/18/18 at 13:00 Docusate Sodium (Colace) 100 mg BID PO ; Start 11/18/18 at 13:00 Docusate Sodium (Colace) 250 mg DAILY PRN PO CONSTIPATION; Start 11/18/18 at 12:30 Polyethylene Glycol (Miralax) 17 gm DAILY PRN PO CONSTIPATION; Start 11/18/18 at 12:30 LIZZETH LAWRENCE MD Nov 18, 2018 13:09
--- NOTE | 2018-11-18 14:05 | CONS ---
Assessment/Plan Assessment/Plan Hospital Course (Demo Recall) #. STAGE IIIC ovarian cancer- with widespread metastatic disease ( per CT abdomen) -s/p optimal debulking surgery in 06/2017 followed by 6 cycles of adjuvant chemotherapy with carboplatin and taxol -07/17/[address] reveals new peritoneal carcinomatosis and malignant ascites -07/2018-10/16/18 restarted on carboplatin and taxol -10/2018 CA 125 increasing and new 10/30/[address] reveals : PET only was done as an out patent which demonstrates worsening extensive mesenteric adenopathy in mid abdominal mesentery. omental disease is stable. new pelvic and inguinal LAD. new hepatic mets -given patient has progressed through carbo/ taxol, she was to start carboplatin and gemcitabine per the following regimen: Carboplatin (Paraplatin) AUC 5 IV over 30 minutes once on day 1, given second Gemcitabine (Gemzar) 1000 mg/m2 IV over 30 minutes once per day on days 1 & 8, given first 21-day cycle for up to 6 cycles -will give first dose of chemotherapy in house. pt is is 10/10 pain with in creasing abdominal distension. if she is able to tolerate this 1 cycle, we will continue as an out patient # Abdominal Pain 2/2 to above -continue Dilaudid 0.5 mg IV Q4 hrs Prn pain -paracentesis today # Acute nausea/vomitting - Cont Zofran # Diabetes -continue NovoLog sliding scale per PMD # Hypertension -continue current blood pressure meds Consultation Date/Type/Reason Admit Date/Time Nov 15, 2018 at 18:12 Initial Consult Date nov 16 Type of Consult oncology Reason for Consultation metastatic ovarian cancer Requesting Provider: LIZZETH LAWRENCE MD Date/Time of Note DATE: 11/18/18 TIME: 14:04 24 HR Interval Summary Free Text/Dictation no acute overnight events. pt to get paracentesis today Exam/Review of Systems Exam Vitals Vital Signs Date Temp Pulse Resp B/P (MAP) Pulse Ox O2 O2 Flow FiO2 Time Delivery Rate 11/18/18 78 102/63 08:57 (76) 11/18/18 18 96 Room Air 08:40 11/18/18 98.6 07:20 Intake and Output 11/17/18 11/17/18 11/18/18 1515:00 23:00 07:00 IntakeIntake Total 500 ml BalanceBalance 500 ml Constitutional: alert, distress, frail Psych: anxiety Head: normocephalic Eyes: nl conjunctiva ENMT: nl external ears & nose Neck: supple Respiratory: clear to auscultation Cardiovascular: regular rate and rhythm Gastrointestinal: ascites Results Result Diagram: 11/17/18 0435 11/17/18 0435 Results 24hrs Laboratory Tests Test 11/17/18 17:46 11/17/18 20:30 11/18/18 07:49 11/18/18 11:52 Bedside Glucose 122 134 116 95 Medications Medication Current Medications Ondansetron HCl (Zofran Inj) 4 mg Q6H PRN IV NAUSEA AND/OR VOMITING Last administered on 11/18/18at 11:49; Admin Dose 4 MG; Start 11/15/18 at 20:00 Pantoprazole (Protonix Iv) 40 mg DAILY@06 IV Last administered on 11/18/18at 06:02; Admin Dose 40 MG; Start 11/15/18 at 20:00 Acetaminophen (Tylenol Tab) 650 mg Q6H PRN PO MILD PAIN(1-3)OR ELEVATED TEMP; Start 11/15/18 at 20:00 Diagnostic Test (Pha) (Accu-Chek) 1 ea 02 XX ; Start 11/16/18 at 02:00 Insulin Aspart (Novolog Insulin Pen) NOVOLOG *MODERATE* ALGORITHM WITH MEALS BEDTIME SC ; Start 11/15/18 at 21:00 Miscellaneous Information 1 ea NOTE XX ; Start 11/15/18 at 20:00 Glucose (Glutose) 15 gm Q15M PRN PO DECREASED GLUCOSE; Start 11/15/18 at 20:00 Glucose (Glutose) 22.5 gm Q15M PRN PO DECREASED GLUCOSE; Start 11/15/18 at 20:00 Dextrose (D50w Syringe) 25 ml Q15M PRN IV DECREASED GLUCOSE; Start 11/15/18 at 20:00 Dextrose (D50w Syringe) 50 ml Q15M PRN IV DECREASED GLUCOSE; Start 11/15/18 at 20:00 Glucagon (Glucagen) 1 mg Q15M PRN IM DECREASED GLUCOSE; Start 11/15/18 at 20:00 Glucose (Glutose) 15 gm Q15M PRN BUCCAL DECREASED GLUCOSE; Start 11/15/18 at 20:00 Hydromorphone HCl (Dilaudid) 0.5 mg Q3H PRN IV SEVERE PAIN LEVEL 7-10; Start 11/18/18 at 13:00 Docusate Sodium (Colace) 100 mg BID PO ; Start 11/18/18 at 13:00 Docusate Sodium (Colace) 250 mg DAILY PRN PO CONSTIPATION; Start 11/18/18 at 12:30 Polyethylene Glycol (Miralax) 17 gm DAILY PRN PO CONSTIPATION; Start 11/18/18 at 12:30 Enoxaparin Sodium (Lovenox) 30 mg DAILY SC ; Start 11/18/18 at 13:30 MINAL RICHARDSON M.D. Nov 18, 2018 14:05
[2018-11-18] MEDS: DOCUSATE SODIUM 100 MG CAP PO SCH ×2 (14:26→20:17)
[2018-11-18] MEDS: ENOXAPARIN 30 MG/0.3 ML SYG SC SCH (14:28)
[2018-11-18] MEDS: ACCU-CHEK XX SCH (20:17)
[2018-11-19] VITALS (18 sets, daily range): BP systolic 99–130; BP diastolic 56–76; PULSE 81–101; RESP 18–20
[2018-11-19] MEDS: METOCLOPRAMIDE 10 MG INJ IV PRN (06:29)
[2018-11-19] MEDS: PANTOPRAZOLE 40 MG INJ IV SCH (06:29)
[2018-11-19] MEDS: INSULIN ASPART [NOVOLOG] 3 ML PEN SC SCH ×4 (07:50→21:00)
[2018-11-19] MEDS: DOCUSATE SODIUM 100 MG CAP PO SCH ×2 (08:55→21:04)
[2018-11-19] MEDS: POLYETHYLENE GLYCOL 17 GM PACKET PO PRN (08:55)
[2018-11-19] MEDS: ENOXAPARIN 30 MG/0.3 ML SYG SC SCH (08:57)
--- NOTE | 2018-11-19 09:09 | PN ---
Date/Time of Note Date/Time of Note DATE: 11/19/18 TIME: 09:09 Assessment/Plan VTE Prophylaxis Risk score (from Ns)>0 risk: 7 SCD applied (from Ns): Yes Pharmacological prophylaxis: NA/contraindicated, LMWH Pharm contraindication: low risk/ambulating Lines/Catheters IV Catheter Type (from Nrs): Saline Lock Urinary Cath still in place: No Assessment/Plan Hospital Course 63-year-old female with # Abdominal pain with ovarian cancer stage III, with peritoneal carcinomatosis with widespread metastatic disease # anemia, #diabetes # hx malignant ascites that is post paracentesis on 0 11/18 with removal of 3.2 L # constipation plan -Chemo to be started today with carboplatin/Gemzar -dilaudid 0.5 Every 3 - stool softners, spoke to the nurse - PPI - Zofran/reglan -Continue with Lovenox for DVT prophylaxis - SCD Result Diagram: 11/19/184 11/19/18 0424 Results 24hrs Laboratory Tests Test 11/18/18 11:52 11/18/18 18:04 11/18/18 20:16 11/19/18 04:24 Bedside Glucose 95 117 130 White Blood Count 7.3 # Red Blood Count 3.49 L Hemoglobin 9.7 L Hematocrit 31.5 L Mean Corpuscular 90.3 Volume Mean Corpuscular 27.8 L Hemoglobin Mean Corpuscular 30.8 L Hemoglobin Concent Red Cell 16.8 H Distribution Width Platelet Count 375 Mean Platelet Volume 9.9 Immature 0.600 H Granulocytes % Neutrophils % 77.0 Lymphocytes % 11.9 L Monocytes % 9.4 Eosinophils % 1.0 Basophils % 0.1 Nucleated Red Blood 0.0 Cells % Immature 0.040 H Granulocytes # Neutrophils # 5.6 Lymphocytes # 0.9 Monocytes # 0.7 Eosinophils # 0.1 Basophils # 0.0 Nucleated Red Blood 0.0 Cells # Sodium Level 136 Potassium Level 4.1 Chloride Level 101 Carbon Dioxide Level 29 Anion Gap 6 Blood Urea Nitrogen 8 Creatinine 0.59 Est Glomerular > 60 Filtrat Rate mL/min Glucose Level 105 # Calcium Level 8.7 Phosphorus Level 4.1 Magnesium Level 1.9 Test 11/19/18 08:54 Bedside Glucose 91 Subjective 24 Hr Interval Summary Free Text/Dictation Patient had 2 episodes of vomiting yesterday. Constipated, did not ask for stool softeners Exam/Review of Systems Exam Vitals Vital Signs Date Temp Pulse Resp B/P (MAP) Pulse Ox O2 O2 Flow FiO2 Time Delivery Rate 11/19/18 98.2 101 18 130/76 100 Room Air 08:14 (94) Intake and Output 11/18/18 11/18/18 11/19/18 1515:00 23:00 07:00 IntakeIntake Total 640 ml 240 ml OutputOutput Total 3700 ml 900 ml BalanceBalance -3060 ml 240 ml -900 ml Exam HEAD: Atraumatic and normocephalic. Pupils are equal, reactive. NECK: Supple. There is no JVD. LUNGS: Clear. CARDIOVASCULAR: S1, S2 normal. ABDOMEN: Obese. Bowel sounds positive, tender on palpation. Surgical scar noted ___s/p paracentesis_. EXTREMITIES: There is no cyanosis, clubbing, or edema noted on lower extremities. Results Results 24hrs Laboratory Tests Test 11/18/18 11:52 11/18/18 18:04 11/18/18 20:16 11/19/18 04:24 Bedside Glucose 95 117 130 White Blood Count 7.3 # Red Blood Count 3.49 L Hemoglobin 9.7 L Hematocrit 31.5 L Mean Corpuscular 90.3 Volume Mean Corpuscular 27.8 L Hemoglobin Mean Corpuscular 30.8 L Hemoglobin Concent Red Cell 16.8 H Distribution Width Platelet Count 375 Mean Platelet Volume 9.9 Immature 0.600 H Granulocytes % Neutrophils % 77.0 Lymphocytes % 11.9 L Monocytes % 9.4 Eosinophils % 1.0 Basophils % 0.1 Nucleated Red Blood 0.0 Cells % Immature 0.040 H Granulocytes # Neutrophils # 5.6 Lymphocytes # 0.9 Monocytes # 0.7 Eosinophils # 0.1 Basophils # 0.0 Nucleated Red Blood 0.0 Cells # Sodium Level 136 Potassium Level 4.1 Chloride Level 101 Carbon Dioxide Level 29 Anion Gap 6 Blood Urea Nitrogen 8 Creatinine 0.59 Est Glomerular > 60 Filtrat Rate mL/min Glucose Level 105 # Calcium Level 8.7 Phosphorus Level 4.1 Magnesium Level 1.9 Test 11/19/18 08:54 Bedside Glucose 91 Medications Medication Current Medications Ondansetron HCl (Zofran Inj) 4 mg Q6H PRN IV NAUSEA AND/OR VOMITING Last administered on 11/18/18at 17:19; Admin Dose 4 MG; Start 11/15/18 at 20:00 Pantoprazole (Protonix Iv) 40 mg DAILY@06 IV Last administered on 11/19/18at 06:29; Admin Dose 40 MG; Start 11/15/18 at 20:00 Acetaminophen (Tylenol Tab) 650 mg Q6H PRN PO MILD PAIN(1-3)OR ELEVATED TEMP; Start 11/15/18 at 20:00 Diagnostic Test (Pha) (Accu-Chek) 1 ea 02 XX ; Start 11/16/18 at 02:00 Insulin Aspart (Novolog Insulin Pen) NOVOLOG *MODERATE* ALGORITHM WITH MEALS BEDTIME SC ; Start 11/15/18 at 21:00 Miscellaneous Information 1 ea NOTE XX ; Start 11/15/18 at 20:00 Glucose (Glutose) 15 gm Q15M PRN PO DECREASED GLUCOSE; Start 11/15/18 at 20:00 Glucose (Glutose) 22.5 gm Q15M PRN PO DECREASED GLUCOSE; Start 11/15/18 at 2 0:00 Dextrose (D50w Syringe) 25 ml Q15M PRN IV DECREASED GLUCOSE; Start 11/15/18 at 20:00 Dextrose (D50w Syringe) 50 ml Q15M PRN IV DECREASED GLUCOSE; Start 11/15/18 at 20:00 Glucagon (Glucagen) 1 mg Q15M PRN IM DECREASED GLUCOSE; Start 11/15/18 at 20:00 Glucose (Glutose) 15 gm Q15M PRN BUCCAL DECREASED GLUCOSE; Start 11/15/18 at 20:00 Hydromorphone HCl (Dilaudid) 0.5 mg Q3H PRN IV SEVERE PAIN LEVEL 7-10 Last administered on 11/18/18at 17:25; Admin Dose 0.5 MG; Start 11/18/18 at 13:00 Docusate Sodium (Colace) 100 mg BID PO Last administered on 11/19/18at 08:55; Admin Dose 100 MG; Start 11/18/18 at 13:00 Docusate Sodium (Colace) 250 mg DAILY PRN PO CONSTIPATION; Start 11/18/18 at 12:30 Polyethylene Glycol (Miralax) 17 gm DAILY PRN PO CONSTIPATION Last administered on 11/19/18at 08:55; Admin Dose 17 GM; Start 2/26/19 at 12:30 Enoxaparin Sodium (Lovenox) 30 mg DAILY SC Last administered on 11/19/18at 08:57; Admin Dose 30 MG; Start 11/18/18 at 13:30 Metoclopramide HCl (Reglan) 10 mg Q6H PRN IV VOMITTING Last administered on 11/19/18at 06:29; Admin Dose 10 MG; Start 11/18/18 at 18:00 LIZZETH LAWRENCE MD Nov 19, 2018 09:09
[2018-11-19] MEDS ORDERED: DEXAMETHASONE 4 MG/ML 20 MG in DEXTROSE 5% 50 ML IVPB PRN (11:30)
[2018-11-19] MEDS ORDERED: MEPERIDINE 50 MG INJ IV PRN (11:30)
[2018-11-19] MEDS ORDERED: DIPHENHYDRAMINE 50 MG INJ IV PRN (11:30)
[2018-11-19] MEDS: SOD CHLORIDE 0.9% 1,000 ML IV SCH (12:14)
[2018-11-19] MEDS ORDERED: ONDANSETRON INJ 16 MG, DEXAMETHASONE 4 MG/ML 10 MG in DEXTROSE 5% 50 ML IV SCH (15:00)
[2018-11-19] MEDS ORDERED: DIPHENHYDRAMINE 50 MG INJ IV SCH (15:00)
[2018-11-19] MEDS ORDERED: GEMCITABINE IV SCH (16:00)
[2018-11-19] MEDS ORDERED: SOD CHLORIDE 0.9% IV SCH ×2 (16:00→17:00)
[2018-11-19] MEDS: HYDROmorphONE 0.5 MG/0.5 ML SYG IV PRN (16:26)
[2018-11-19] MEDS ORDERED: CARBOPLATIN IV SCH (17:00)
[2018-11-20] MEDS: SOD CHLORIDE 0.9% 1,000 ML IV SCH ×2 (01:21→17:58)
[2018-11-20] MEDS: ACCU-CHEK XX SCH (01:31)
[2018-11-20 02:51] VITALS: BP 116/70; PULSE 86; RESP 18
[2018-11-20] MEDS: PANTOPRAZOLE 40 MG INJ IV SCH (05:34)
[2018-11-20] MEDS: INSULIN ASPART [NOVOLOG] 3 ML PEN SC SCH ×4 (07:50→21:00)
[2018-11-20] MEDS: HYDROmorphONE 0.5 MG/0.5 ML SYG IV PRN ×2 (07:59→16:01)
[2018-11-20] MEDS ORDERED: HYDROCODONE/APAP (10/325) TAB PO PRN (08:30)
[2018-11-20] MEDS: ENOXAPARIN 30 MG/0.3 ML SYG SC SCH (08:45)
[2018-11-20] MEDS: DOCUSATE SODIUM 100 MG CAP PO SCH ×2 (08:46→21:00)
[2018-11-20 09:16] VITALS: BP 117/57; PULSE 77; RESP 18
[2018-11-20] MEDS: ONDANSETRON 4 MG INJ IV PRN ×2 (12:39→21:48)
--- NOTE | 2018-11-20 13:59 | CONS ---
Assessment/Plan Assessment/Plan Hospital Course (Demo Recall) #. STAGE IIIC ovarian cancer- with widespread metastatic disease ( per CT abdomen) -s/p optimal debulking surgery in 06/2017 followed by 6 cycles of adjuvant chemotherapy with carboplatin and taxol -07/17/[address] reveals new peritoneal carcinomatosis and malignant ascites -07/2018-10/16/18 restarted on carboplatin and taxol -10/2018 CA 125 increasing and new 10/30/[address] reveals : PET only was done as an out patent which demonstrates worsening extensive mesenteric adenopathy in mid abdominal mesentery. omental disease is stable. new pelvic and inguinal LAD. new hepatic mets -given patient has progressed through carbo/ taxol, she was to start carboplatin and gemcitabine per the following regimen: Carboplatin (Paraplatin) AUC 5 IV over 30 minutes once on day 1, given second Gemcitabine (Gemzar) 1000 mg/m2 IV over 30 minutes once per day on days 1 & 8, given first 21-day cycle for up to 6 cycles -cycle 1 day was 11/19 # Abdominal Pain / to above -continue Dilaudid 0.5 mg IV Q4 hrs Prn pain -given that patient cannot tolerate po pain medication will arrange for out patient [facility] [facility] # Acute nausea/vomitting - Cont Zofran # Diabetes -continue NovoLog sliding scale per PMD # Hypertension -continue current blood pressure meds Consultation Date/Type/Reason Admit Date/Time Nov 15, 2018 at 18:12 Initial Consult Date nov 16 Type of Consult oncology Reason for Consultation ovarian cancer Requesting Provider: LIZZETH LAWRENCE MD Date/Time of Note DATE: 11/20/18 TIME: 13:57 24 HR Interval Summary Free Text/Dictation pt completed chemotherapy yesterday. still with epigastric pain and nausea Exam/Review of Systems Exam Vitals Vital Signs Date Temp Pulse Resp B/P (MAP) Pulse Ox O2 O2 Flow FiO2 Time Delivery Rate 11/20/18 98.5 77 18 117/57 99 Room Air 09:16 (77) Intake and Output 11/19/18 11/19/18 11/20/18 1515:00 23:00 07:00 IntakeIntake Total 400 ml 930.5 ml 500 ml OutputOutput Total 300 ml 400 ml BalanceBalance 400 ml 630.5 ml 100 ml Constitutional: alert, oriented, distress, frail Psych: anxiety, depression Head: normocephalic Eyes: nl conjunctiva ENMT: nl external ears & nose Neck: supple Respiratory: clear to auscultation Cardiovascular: regular rate and rhythm Gastrointestinal: other (ascites) Musculoskeletal: nl extremities to inspection Results Result Diagram: 11/19/184 11/19/184 Results 24hrs Laboratory Tests Test 11/19/18 21:05 11/20/18 08:42 11/20/18 13:07 Bedside Glucose 174 115 101 Medications Medication Current Medications Ondansetron HCl (Zofran Inj) 4 mg Q6H PRN IV NAUSEA AND/OR VOMITING Last administered on 11/20/18at 12:39; Admin Dose 4 MG; Start 11/15/18 at 20:00 Pantoprazole (Protonix Iv) 40 mg DAILY@06 IV Last administered on 11/20/18at 05:34; Admin Dose 40 MG; Start 11/15/18 at 20:00 Acetaminophen (Tylenol Tab) 650 mg Q6H PRN PO MILD PAIN(1-3)OR ELEVATED TEMP; Start 11/15/18 at 20:00 Diagnostic Test (Pha) (Accu-Chek) 1 ea 02 XX ; Start 11/16/18 at 02:00 Insulin Aspart (Novolog Insulin Pen) NOVOLOG *MODERATE* ALGORITHM WITH MEALS BEDTIME SC ; Start 11/15/18 at 21:00 Miscellaneous Information 1 ea NOTE XX ; Start 11/15/18 at 20:00 Glucose (Glutose) 15 gm Q15M PRN PO DECREASED GLUCOSE; Start 11/15/18 at 20:00 Glucose (Glutose) 22.5 gm Q15M PRN PO DECREASED GLUCOSE; Start 11/15/18 at 20 :00 Dextrose (D50w Syringe) 25 ml Q15M PRN IV DECREASED GLUCOSE; Start 11/15/18 at 20:00 Dextrose (D50w Syringe) 50 ml Q15M PRN IV DECREASED GLUCOSE; Start 11/15/18 at 20:00 Glucagon (Glucagen) 1 mg Q15M PRN IM DECREASED GLUCOSE; Start 11/15/18 at 20:00 Glucose (Glutose) 15 gm Q15M PRN BUCCAL DECREASED GLUCOSE; Start 11/15/18 at 20:00 Hydromorphone HCl (Dilaudid) 0.5 mg Q3H PRN IV SEVERE PAIN LEVEL 7-10 Last administered on 11/20/18 07:59; Admin Dose 0.5 MG; Start 11/18/18 at 13:00 Docusate Sodium (Colace) 100 mg BID PO Last administered on 11/20/18 08:46; Admin Dose 100 MG; Start 11/18/18 at 13:00 Docusate Sodium (Colace) 250 mg DAILY PRN PO CONSTIPATION; Start 11/18/18 at 12:30 Polyethylene Glycol (Miralax) 17 gm DAILY PRN PO CONSTIPATION Last administered on 11/19/18 08:55; Admin Dose 17 GM; Start 11/18/18 at 12:30 Enoxaparin Sodium (Lovenox) 30 mg DAILY SC Last administered on 11/20/18 08:45; Admin Dose 30 MG; Start 11/18/18 at 13:30 Metoclopramide HCl (Reglan) 10 mg Q6H PRN IV VOMITTING Last administered on 11/19/18 06:29; Admin Dose 10 MG; Start 11/18/18 at 18:00 Sodium Chloride 1,000 ml @ 75 mls/hr [id number] IV Last administered on 11/20/18 01:21; Admin Dose 75 MLS/HR; Start 11/19/18 at 11:30 Diphenhydramine HCl (Benadryl) 25 mg Q4H PRN IV ALLERGIC REACTION Last administered on 11/19/18at 16:55; Admin Dose 25 MG; Start 11/19/18 at 11:30 Meperidine HCl (Demerol) 50 mg Q4H PRN IV ALLERGIC REACTION; Start 11/19/18 at 11:30 Dexamethasone 20 mg/Dextrose 55 ml @ 252 mls/hr Q4H PRN IVPB ALLERGIC REACTION; Start 11/19/18 at 11:30 Gemcitabine HCl 1.8 gm/Sodium Chloride 250 ml @ 500 mls/hr ONCE IV ; Start 11/26/18 at 14:00; Stop 11/26/18 at 23:45; Status UNV Fentanyl (Duragesic 25 Mcg/Hr Patch) 1 patch Q72H TRANSDERM ; Start 11/20/18 at 08:30; Status UNV Acetaminophen/ Hydrocodone Bitart ([place] ([address])) 1 tab Q4H PRN PO MODERATE PAIN LEVEL 4-6; Start 11/20/18 at 08:30 MINAL RICHARDSON M.D. Nov 20, 2018 13:59
[2018-11-20 14:25] VITALS: BP 115/67; PULSE 94; RESP 18
[2018-11-20] MEDS ORDERED: morphine LIQ (10 MG/5 ML) CUP PO PRN (14:30)
--- NOTE | 2018-11-20 15:05 | PN ---
Date/Time of Note Date/Time of Note DATE: 11/20/18 TIME: 15:05 Assessment/Plan VTE Prophylaxis Risk score (from Ns)>0 risk: 5 SCD applied (from Ns): Yes Pharmacological prophylaxis: NA/contraindicated, LMWH Pharm contraindication: other Lines/Catheters IV Catheter Type (from Nrsg): Peripheral IV Urinary Cath still in place: No Assessment/Plan Hospital Course 63-year-old female with # Abdominal pain with ovarian cancer stage III, with peritoneal carcinomatosis with widespread metastatic disease still with vommiting and constipation # anemia, #diabetes # hx malignant ascites that is post paracentesis on 0 11/18 with removal of 3.2 L # constipation plan -abdominal KUB to r/o ileus -dilaudid 0.5 Every 3, pain control per Dr Becerra - stool softners, spoke to the nurse - PPI - Zofran/reglan -Continue with Lovenox for DVT prophylaxis - SCD Result Diagram: 11/19/1842311/19/18 0424 Results 24hrs Laboratory Tests Test 11/19/18 21:05 11/20/18 08:42 11/20/18 13:07 Bedside Glucose 174 115 101 Subjective 24 Hr Interval Summary Free Text/Dictation S/P Chem yesterday vommited yesterday started on roxinel Exam/Review of Systems Exam Vitals Vital Signs Date Temp Pulse Resp B/P (MAP) Pulse Ox O2 O2 Flow FiO2 Time Delivery Rate 11/20/18 98.5 94 18 115/67 98 Room Air 14:25 (83) Intake and Output 11/19/18 11/19/18 11/20/18 1515:00 23:00 07:00 IntakeIntake Total 400 ml 930.5 ml 500 ml OutputOutput Total 300 ml 400 ml BalanceBalance 400 ml 630.5 ml 100 ml Exam HEAD: Atraumatic and normocephalic. Pupils are equal, reactive. NECK: Supple. There is no JVD. LUNGS: Clear. CARDIOVASCULAR: S1, S2 normal. ABDOMEN: Obese. Bowel sounds positive, tender on palpation. Surgical scar noted ___s/p paracentesis_. EXTREMITIES: There is no cyanosis, clubbing, or edema noted on lower extremities. Results Results 24hrs Laboratory Tests Test 11/19/18 21:05 11/20/18 08:42 11/20/18 13:07 Bedside Glucose 174 115 101 Medications Medication Current Medications Ondansetron HCl (Zofran Inj) 4 mg Q6H PRN IV NAUSEA AND/OR VOMITING Last administered on 11/20/18at 12:39; Admin Dose 4 MG; Start 11/15/18 at 20:00 Pantoprazole (Protonix Iv) 40 mg DAILY@06 IV Last administered on 11/20/18at 05:34; Admin Dose 40 MG; Start 11/15/18 at 20:00 Acetaminophen (Tylenol Tab) 650 mg Q6H PRN PO MILD PAIN(1-3)OR ELEVATED TEMP; Start 11/15/18 at 20:00 Diagnostic Test (Pha) (Accu-Chek) 1 ea 02 XX ; Start 11/16/18 at 02:00 Insulin Aspart (Novolog Insulin Pen) NOVOLOG *MODERATE* ALGORITHM WITH MEALS BEDTIME SC ; Start 11/15/18 at 21:00 Miscellaneous Information 1 ea NOTE XX ; Start 11/15/18 at 20:00 Glucose (Glutose) 15 gm Q15M PRN PO DECREASED GLUCOSE; Start 11/15/18 at 20:00 Glucose (Glutose) 22.5 gm Q15M PRN PO DECREASED GLUCOSE; Start 11/15/18 at 20:00 Dextrose (D50w Syringe) 25 ml Q15M PRN IV DECREASED GLUCOSE; Start 11/15/18 at 20:00 Dextrose (D50w Syringe) 50 ml Q15M PRN IV DECREASED GLUCOSE; Start 11/15/18 at 20:00 Glucagon (Glucagen) 1 mg Q15M PRN IM DECREASED GLUCOSE; Start 11/15/18 at 20:00 Glucose (Glutose) 15 gm Q15M PRN BUCCAL DECREASED GLUCOSE; Start 11/15/18 at 20:00 Hydromorphone HCl (Dilaudid) 0.5 mg Q3H PRN IV SEVERE PAIN LEVEL 7-10 Last administered on 11/20/18at 07:59; Admin Dose 0.5 MG; Start 11/18/18 at 13:00 Docusate Sodium (Colace) 100 mg BID PO Last administered on 11/20/18at 08:46; Admin Dose 100 MG; Start 11/18/18 at 13:00 Docusate Sodium (Colace) 250 mg DAILY PRN PO CONSTIPATION; Start 11/18/18 at 12:30 Polyethylene Glycol (Miralax) 17 gm DAILY PRN PO CONSTIPATION Last administered on 11/19/18at 08:55; Admin Dose 17 GM; Start 11/18/18 at 12:30 Enoxaparin Sodium (Lovenox) 30 mg DAILY SC Last administered on 11/20/18at 08:45; Admin Dose 30 MG; Start 11/18/18 at 13:30 Metoclopramide HCl (Reglan) 10 mg Q6H PRN IV VOMITTING Last administered on 11/19/18at 06:29; Admin Dose 10 MG; Start 11/18/18 at 18:00 Sodium Chloride 1,000 ml @ 75 mls/hr [id number] IV Last administered on 11/20/18at 01:21; Admin Dose 75 MLS/HR; Start 11/19/18 at 11:30 Diphenhydramine HCl (Benadryl) 25 mg Q4H PRN IV ALLERGIC REACTION Last administered on 11/19/18at 16:55; Admin Dose 25 MG; Start 11/19/18 at 11:30 Meperidine HCl (Demerol) 50 mg Q4H PRN IV ALLERGIC REACTION; Start 11/19/18 at 11:30 Dexamethasone 20 mg/Dextrose 55 ml @ 252 mls/hr Q4H PRN IVPB ALLERGIC REACTION; Start 11/19/18 at 11:30 Gemcitabine HCl 1.8 gm/Sodium Chloride 250 ml @ 500 mls/hr ONCE IV ; Start 11/26/18 at 14:00; Stop 11/26/18 at 23:45; Status UNV Acetaminophen/ Hydrocodone Bitart ([place] ()) 1 tab Q4H PRN PO MODERATE PAIN LEVEL 4-6; Start 11/20/18 at 08:30 Morphine Sulfate (morphine) 10 mg Q4H PRN PO SEVERE PAIN LEVEL 7-10; Start 11/20/18 at 14:30 LIZZETH LAWRENCE MD Nov 20, 2018 15:05
[2018-11-20] MEDS: METOCLOPRAMIDE 10 MG INJ IV PRN (15:07)
[2018-11-20] MEDS ORDERED: morphine 2 MG INJ IV STA (15:59)
[2018-11-20] MEDS ORDERED: morphine 1 MG/ML 30 ML (PCA) IV SCH (17:00)
--- NOTE | 2018-11-20 17:02 | CONS ---
Assessment/Plan Assessment/Plan Assessment/Plan (Daily) Abdominal pain secondary to advanced stage III ovarian cancer Malignant ascites Constipation Intolerance to opioids with nausea and vomiting No response relief of nausea vomiting with Zofran Reglan Benadryl and Decadron Have given her small test dose of 0.25 mg of morphine IV at the bedside with nurse present and her son. She has no nausea she became somewhat somnolent sleepy easily awake and states that her pain was alleviated without nausea. Would suggest that we continue with this low-dose, emphasize low dose JIRA ADMINISTRATOR morphine and will order a CADD pump for discharge. Unfortunately Kytril has been discontinued in the [place]. We will also add on a Transderm scopolamine patch. Consultation Date/Type/Reason Admit Date/Time Nov 15, 2018 at 18:12 Date/Time of Note DATE: 11/20/18 TIME: 16:58 Hx of Present Illness This is a 63-year-old patient Pain management consultation patient has a history of advanced stage IIIc ovarian carcinoma with widespread metastasis. I am asked see patient with abdominal discomfort radiating into her left and right flanks into her upper back.. So far with current pain control medications see their not effective or effective with protracted nausea and vomiting. The patient has had a long protracted course first diagnosed in per medical records 2017 in June 2018 PET scan revealed peritoneal carcinomatosis with malignant ascites as an outpatient patient has received chemotherapy in 2018 PET scan demonstrated worsening extensive mesenteric adenopathy in the mid abdomen new pelvic and inguinal lymphadenopathy. At the time I was in the room patient was receiving a low dose of Dilaudid 0.5 mg and she became profoundly nauseous began to have vomiting. According to her son is at the bedside she has had nausea vomiting associated with morphine in the past also as an IV push. Patient has been tried on a combination of Zofran and Benadryl Reglan and she has had no alleviation of her underlying nausea and vomiting. Patient's son is at the bedside and said that she has had problems with morphine in the past with nausea also. There is no current signs on physical examination that she has not tolerated that test dose of morphine at 0.5 mg blood pressure stable sats are stable patient is awake alert. Denies pruritus mental cloudiness sweating fatigue drowsiness dizziness diplopia disorientation. After morphine she states that her pain is completely alleviated without nausea at a very low dose. Eyes: no complaints ENT: no complaints Respiratory: no complaints Cardiovascular: no complaints Gastrointestinal: other (Complains both epigastric discomfort right upper quadrant pain left lower quadrant discomfort and right upper back pain constant gnawing without peaks and troughs somatic) Genitourinary: no complaints Musculoskeletal: no complaints Skin: no complaints Neurologic: no complaints Endocrine: no complaints Lymphatic: no complaints Psychological: no complaints, nl mood/affect Immunologic: no complaints Past Medical History Medical History: cancer Home Meds Active Scripts Ondansetron (Ondansetron Odt) 4 Mg Tab.rapdis, 4 MG PO Q6H PRN for NAUSEA AND/OR VOMITING, #10 TAB Prov:WILBER FELTON MD 11/11/18 Naloxone HCl nasal spray (Narcan 4 mg/0.1 mL nasal) 4 Mg [place], 4 MG NS .Q2-3MIN for OPIOID OVERDOSE, #2 SPRAY 0 Refills [place] 0.1 mL into one nostril. Repeat with second device into other nostril after 2-3 minutes if no or minimal response Prov:WILBER FELTON MD 11/11/18 Oxycodone HCl/Acetaminophen (Percocet 5-325 mg Tablet) 1 Each Tablet, 1 EACH PO Q6 PRN for SEVERE PAIN LEVEL 7-10, #10 TAB Prov:WILBER FELTON MD 11/11/18 Reported Medications Metformin Hcl* (Metformin Hcl* ER) 500 Mg Tab.sr.24h, 500 MG PO DAILY, #30 TAB 11/11/18 Medications Current Medications Ondansetron HCl (Zofran Inj) 4 mg Q6H PRN IV NAUSEA AND/OR VOMITING Last administered on 11/20/18at 12:39; Admin Dose 4 MG; Start 11/15/18 at 20:00 Pantoprazole (Protonix Iv) 40 mg DAILY@06 IV Last administered on 11/20/18at 05:34; Admin Dose 40 MG; Start 11/15/18 at 20:00 Acetaminophen (Tylenol Tab) 650 mg Q6H PRN PO MILD PAIN(1-3)OR ELEVATED TEMP; Start 11/15/18 at 20:00 Diagnostic Test (Pha) (Accu-Chek) 1 ea 02 XX ; Start 11/16/18 at 02:00 Insulin Aspart (Novolog Insulin Pen) NOVOLOG *MODERATE* ALGORITHM WITH MEALS BEDTIME SC ; Start 11/15/18 at 21:00 Miscellaneous Information 1 ea NOTE XX ; Start 11/15/18 at 20:00 Glucose (Glutose) 15 gm Q15M PRN PO DECREASED GLUCOSE; Start 11/15/18 at 20:00 Glucose (Glutose) 22.5 gm Q15M PRN PO DECREASED GLUCOSE; Start 11/15/18 at 20:00 Dextrose (D50w Syringe) 25 ml Q15M PRN IV DECREASED GLUCOSE; Start 11/15/18 at 20:00 Dextrose (D50w Syringe) 50 ml Q15M PRN IV DECREASED GLUCOSE; Start 11/15/18 at 20:00 Glucagon (Glucagen) 1 mg Q15M PRN IM DECREASED GLUCOSE; Start 11/15/18 at 20:00 Glucose (Glutose) 15 gm Q15M PRN BUCCAL DECREASED GLUCOSE; Start 11/15/18 at 20:00 Hydromorphone HCl (Dilaudid) 0.5 mg Q3H PRN IV SEVERE PAIN LEVEL 7-10 Last administered on 11/20/18at 07:59; Admin Dose 0.5 MG; Start 11/18/18 at 13:00 Docusate Sodium (Colace) 100 mg BID PO Last administered on 11/20/18at 08:46; Admin Dose 100 MG; Start 11/18/18 at 13:00 Docusate Sodium (Colace) 250 mg DAILY PRN PO CONSTIPATION; Start 11/18/18 at 12:30 Polyethylene Glycol (Miralax) 17 gm DAILY PRN PO CONSTIPATION Last administered on 11/19/18at 08:55; Admin Dose 17 GM; Start 11/18/18 at 12:30 Enoxaparin Sodium (Lovenox) 30 mg DAILY SC Last administered on 11/20/18at 08:45; Admin Dose 30 MG; Start 11/18/18 at 13:30 Metoclopramide HCl (Reglan) 10 mg Q6H PRN IV VOMITTING Last administered on 11/20/18at 15:07; Admin Dose 10 MG; Start 11/18/18 at 18:00 Sodium Chloride 1,000 ml @ 75 mls/hr [id number] IV Last administered on 11/20/18at 01:21; Admin Dose 75 MLS/HR; Start 11/19/18 at 11:30 Diphenhydramine HCl (Benadryl) 25 mg Q4H PRN IV ALLERGIC REACTION Last administered on 11/19/18at 16:55; Admin Dose 25 MG; Start 11/19/18 at 11:30 Meperidine HCl (Demerol) 50 mg Q4H PRN IV ALLERGIC REACTION; Start 11/19/18 at 11:30 Dexamethasone 20 mg/Dextrose 55 ml @ 252 mls/hr Q4H PRN IVPB ALLERGIC REACTION; Start 11/19/18 at 11:30 Gemcitabine HCl 1.8 gm/Sodium Chloride 250 ml @ 500 mls/hr ONCE IV ; Start 11/26/18 at 14:00; Stop 11/26/18 at 23:45; Status UNV Acetaminophen/ Hydrocodone Bitart ([place] ()) 1 tab Q4H PRN PO MODERATE PAIN LEVEL 4-6; Start 11/20/18 at 08:30 Morphine Sulfate (morphine) 10 mg Q4H PRN PO SEVERE PAIN LEVEL 7-10; Start 11/20/18 at 14:30 Allergies: Coded Allergies: No Known Drug Allergies (Verified Allergy, Unknown, 11/11/18) Past Surgical History Past Surgical Hx: other (Debulking) Social History Alcohol Use: none Smoking Status: Never smoker Drug Use: none Exam/Review of Systems Exam Vitals Vital Signs Date Temp Pulse Resp B/P (MAP) Pulse Ox O2 O2 Flow FiO2 Time Delivery Rate 11/20/18 98.5 94 18 115/67 98 Room Air 14:25 (83) Intake and Output 11/19/18 11/19/18 11/20/18 1515:00 23:00 07:00 IntakeIntake Total 400 ml 930.5 ml 500 ml OutputOutput Total 300 ml 400 ml BalanceBalance 400 ml 630.5 ml 100 ml Constitutional: alert, oriented, well developed, distress, frail Psych: anxiety Head: No normocephalic, No atraumatic, No lacerations, No hematomas, No other Eyes: No nl conjunctiva, No EOMI, No nl lids, No nl sclera, No PERRL, No icteric, No fundi, disc, No other ENMT: No nl external ears & nose, No nl lips & teeth, No nl nasal mucosa & septum, No mucosa pink and moist, No intubated, No tympanic membranes, No other Respiratory: No clear to auscultation, No normal air movement, No congested cough, No crackles/rales, No diminished breath sounds, No intercostal retraction, No labored breathing, No respirations, No tactile fremitus, No wheezing, No other Cardiovascular: No regular rate and rhythm, No nl pulses, No bruits, No diastolic murmur, No edema, No gallop, No irregular rhythm, No jugular venous distention (JVD), No murmurs/extra sounds, No rub, No systolic murmur, No S3, No S4, No other Gastrointestinal: bowel sounds, distended, tender Musculoskeletal: No nl extremities to inspection, No nl gait and stance, No joint tenderness, No muscle tone, No muscle weakness, No range of motion, No spine non-tender, No swelling, No other Neurological: RECOVERY ANALYST II-XII intact, nl mental status, nl speech, nl strength Results Result Diagram: 11/19/184 11/19/18 042 Results 24hrs Laboratory Tests Test 11/19/18 21:05 11/20/18 08:42 11/20/18 13:07 Bedside Glucose 174 115 101 Medications Medication Current Medications Ondansetron HCl (Zofran Inj) 4 mg Q6H PRN IV NAUSEA AND/OR VOMITING Last administered on 11/20/18at 12:39; Admin Dose 4 MG; Start 11/15/18 at 20:00 Pantoprazole (Protonix Iv) 40 mg DAILY@06 IV Last administered on 11/20/18at 05:34; Admin Dose 40 MG; Start 11/15/18 at 20:00 Acetaminophen (Tylenol Tab) 650 mg Q6H PRN PO MILD PAIN(1-3)OR ELEVATED TEMP; Start 11/15/18 at 20:00 Diagnostic Test (Pha) (Accu-Chek) 1 ea 02 XX ; Start 11/16/18 at 02:00 Insulin Aspart (Novolog Insulin Pen) NOVOLOG *MODERATE* ALGORITHM WITH MEALS BEDTIME SC ; Start 11/15/18 at 21:00 Miscellaneous Information 1 ea NOTE XX ; Start 11/15/18 at 20:00 Glucose (Glutose) 15 gm Q15M PRN PO DECREASED GLUCOSE; Start 11/15/18 at 20:00 Glucose (Glutose) 22.5 gm Q15M PRN PO DECREASED GLUCOSE; Start 11/15/18 at 20:00 Dextrose (D50w Syringe) 25 ml Q15M PRN IV DECREASED GLUCOSE; Start 11/15/18 at 20:00 Dextrose (D50w Syringe) 50 ml Q15M PRN IV DECREASED GLUCOSE; Start 11/15/18 at 20:00 Glucagon (Glucagen) 1 mg Q15M PRN IM DECREASED GLUCOSE; Start 11/15/18 at 20:00 Glucose (Glutose) 15 gm Q15M PRN BUCCAL DECREASED GLUCOSE; Start 11/15/18 at 20:00 Hydromorphone HCl (Dilaudid) 0.5 mg Q3H PRN IV SEVERE PAIN LEVEL 7-10 Last admi nistered on 11/20/18 07:59; Admin Dose 0.5 MG; Start 11/18/18 at 13:00 Docusate Sodium (Colace) 100 mg BID PO Last administered on 11/20/18 08:46; Admin Dose 100 MG; Start 11/18/18 at 13:00 Docusate Sodium (Colace) 250 mg DAILY PRN PO CONSTIPATION; Start 11/18/18 at 12:30 Polyethylene Glycol (Miralax) 17 gm DAILY PRN PO CONSTIPATION Last administered on 11/19/18 08:55; Admin Dose 17 GM; Start 11/18/18 at 12:30 Enoxaparin Sodium (Lovenox) 30 mg DAILY SC Last administered on 11/20/18 08:45 ; Admin Dose 30 MG; Start 11/18/18 at 13:30 Metoclopramide HCl (Reglan) 10 mg Q6H PRN IV VOMITTING Last administered on 11/20/18 15:07; Admin Dose 10 MG; Start 11/18/18 at 18:00 Sodium Chloride 1,000 ml @ 75 mls/hr [id number] IV Last administered on 11/20/18 01:21; Admin Dose 75 MLS/HR; Start 11/19/18 at 11:30 Diphenhydramine HCl (Benadryl) 25 mg Q4H PRN IV ALLERGIC REACTION Last administered on 11/19/18 16:55; Admin Dose 25 MG; Start 11/19/18 at 11:30 Meperidine HCl (Demerol) 50 mg Q4H PRN IV ALLERGIC REACTION; Start 11/19/18 at 11:30 Dexamethasone 20 mg/Dextrose 55 ml @ 252 mls/hr Q4H PRN IVPB ALLERGIC REACTION; Start 11/19/18 at 11:30 Gemcitabine HCl 1.8 gm/Sodium Chloride 250 ml @ 500 mls/hr ONCE IV ; Start 11/26/18 at 14:00; Stop 11/26/18 at 23:45; Status UNV Acetaminophen/ Hydrocodone Bitart ([place] ()) 1 tab Q4H PRN PO MODERATE PAIN LEVEL 4-6; Start 11/20/18 at 08:30 Morphine Sulfate (morphine) 10 mg Q4H PRN PO SEVERE PAIN LEVEL 7-10; Start 11/20/18 at 14:30 ANDREW PEDROZA Nov 20, 2018 17:02
[2018-11-20] MEDS: SCOPOLAMINE 1.5 MG PATCH TRANSDERM SCH (18:26)
[2018-11-20 19:35] VITALS: BP 105/54; PULSE 103; RESP 20
[2018-11-20] MEDS: POLYETHYLENE GLYCOL 17 GM PACKET PO PRN (21:48)
[2018-11-21] MEDS: METOCLOPRAMIDE 10 MG INJ IV PRN ×2 (00:40→06:44)
[2018-11-21] MEDS: ACCU-CHEK XX SCH (01:34)
[2018-11-21 02:46] VITALS: BP 124/67; PULSE 103; RESP 18
[2018-11-21] MEDS: ONDANSETRON 4 MG INJ IV PRN ×3 (03:41→20:14)
[2018-11-21] MEDS: SOD CHLORIDE 0.9% 1,000 ML IV SCH ×2 (03:42→18:09)
[2018-11-21] MEDS: PANTOPRAZOLE 40 MG INJ IV SCH (05:43)
[2018-11-21] MEDS: INSULIN ASPART [NOVOLOG] 3 ML PEN SC SCH ×4 (07:50→21:00)
[2018-11-21 07:59] VITALS: BP 111/62; RESP 19
[2018-11-21] MEDS: ENOXAPARIN 30 MG/0.3 ML SYG SC SCH (09:11)
[2018-11-21] MEDS: DOCUSATE SODIUM 100 MG CAP PO SCH ×2 (09:11→21:09)
--- NOTE | 2018-11-21 10:48 | CONS ---
Assessment/Plan Assessment/Plan Hospital Course (Demo Recall) #. STAGE IIIC ovarian cancer- with widespread metastatic disease ( per CT abdomen) -s/p optimal debulking surgery in 06/2017 followed by 6 cycles of adjuvant chemotherapy with carboplatin and taxol -07/17/[address] reveals new peritoneal carcinomatosis and malignant ascites -07/2018-10/16/18 restarted on carboplatin and taxol -10/2018 CA 125 increasing and new 10/30/[address] reveals : PET only was done as an out patent which demonstrates worsening extensive mesenteric adenopathy in mid abdominal mesentery. omental disease is stable. new pelvic and inguinal LAD. 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 -will dc continuous dosing at this time and start with liquid roxinol 10mg/5cc 1 q 4 hours prn # Acute nausea/vomitting - Cont Zofran # Diabetes -continue NovoLog sliding scale per PMD # Hypertension -continue current blood pressure meds Consultation Date/Type/Reason Admit Date/Time Nov 15, 2018 at 18:12 Initial Consult Date nov 16 Type of Consult oncology Reason for Consultation metastatic ovarian cancer Requesting Provider: LIZZETH LAWRENCE MD Date/Time of Note DATE: 11/21/18 TIME: 10:45 24 HR Interval Summary Free Text/Dictation pt was placed on [employer] last night, c/o more nausea Exam/Review of Systems Exam Vitals Vital Signs Date Temp Pulse Resp B/P (MAP) Pulse Ox O2 O2 Flow FiO2 Time Delivery Rate 11/21/18 20 09:40 11/21/18 99.2 111/62 96 07:59 (78) 11/21/18 103 02:46 11/20/18 Room Air 14:25 Intake and Output 11/20/18 11/20/18 11/21/18 1515:00 23:00 07:00 IntakeIntake Total 400 ml 1120 ml 830 ml OutputOutput Total 700 ml BalanceBalance 400 ml 1120 ml 130 ml Constitutional: alert, frail Psych: anxiety, depression Head: normocephalic Eyes: nl conjunctiva ENMT: nl external ears & nose Neck: supple Respiratory: clear to auscultation Cardiovascular: regular rate and rhythm Gastrointestinal: soft Musculoskeletal: nl extremities to inspection Results Result Diagram: 11/19/18 0424 11/19/18 0424 Results 24hrs Laboratory Tests Test 11/20/18 13:07 11/20/18 17:57 11/20/18 21:45 11/21/18 08:38 Bedside Glucose 101 118 125 125 Medications Medication Current Medications Pantoprazole (Protonix Iv) 40 mg DAILY@06 IV Last administered on 11/21/18at 05:43; Admin Dose 40 MG; Start 11/15/18 at 20:00 Acetaminophen (Tylenol Tab) 650 mg Q6H PRN PO MILD PAIN(1-3)OR ELEVATED TEMP; Start 11/15/18 at 20:00 Diagnostic Test (Pha) (Accu-Chek) 1 ea 02 XX ; Start 11/16/18 at 02:00 Insulin Aspart (Novolog Insulin Pen) NOVOLOG *MODERATE* ALGORITHM WITH MEALS BEDTIME SC ; Start 11/15/18 at 21:00 Miscellaneous Information 1 ea NOTE XX ; Start 11/15/18 at 20:00 Glucose (Glutose) 15 gm Q15M PRN PO DECREASED GLUCOSE; Start 11/15/18 at 20:00 Glucose (Glutose) 22.5 gm Q15M PRN PO DECREASED GLUCOSE; Start 11/15/18 at 20:00 Dextrose (D50w Syringe) 25 ml Q15M PRN IV DECREASED GLUCOSE; Start 11/15/18 at 20:00 Dextrose (D50w Syringe) 50 ml Q15M PRN IV DECREASED GLUCOSE; Start 11/15/18 at 20:00 Glucagon (Glucagen) 1 mg Q15M PRN IM DECREASED GLUCOSE; Start 11/15/18 at 20:00 Glucose (Glutose) 15 gm Q15M PRN BUCCAL DECREASED GLUCOSE; Start 11/15/18 at 20:00 Docusate Sodium (Colace) 100 mg BID PO Last administered on 11/21/18at 09:11; Admin Dose 100 MG; Start 11/18/18 at 13:00 Docusate Sodium (Colace) 250 mg DAILY PRN PO CONSTIPATION; Start 11/18/18 at 12:30 Polyethylene Glycol (Miralax) 17 gm DAILY PRN PO CONSTIPATION Last administered on 11/20/18 21:48; Admin Dose 17 GM; Start 11/18/18 at 12:30 Enoxaparin Sodium (Lovenox) 30 mg DAILY SC Last administered on 11/21/18 09:11; Admin Dose 30 MG; Start 11/18/18 at 13:30 Metoclopramide HCl (Reglan) 10 mg Q6H PRN IV VOMITTING Last administered on 11/21/18 06:44; Admin Dose 10 MG; Start 11/18/18 at 18:00 Sodium Chloride 1,000 ml @ 75 mls/hr [id number] IV Last administered on 11/21/18 03:42; Admin Dose 75 MLS/HR; Start 11/19/18 at 11:30 Diphenhydramine HCl (Benadryl) 25 mg Q4H PRN IV ALLERGIC REACTION Last administered on 11/19/18at 16:55; Admin Dose 25 MG; Start 11/19/18 at 11:30 Meperidine HCl (Demerol) 50 mg Q4H PRN IV ALLERGIC REACTION; Start 11/19/18 at 11:30 Dexamethasone 20 mg/Dextrose 55 ml @ 252 mls/hr Q4H PRN IVPB ALLERGIC REACTION; Start 11/19/18 at 11:30 Gemcitabine HCl 1.8 gm/Sodium Chloride 250 ml @ 500 mls/hr ONCE IV ; Start 11/26/18 at 14:00; Stop 11/26/18 at 23:45; Status UNV Ondansetron HCl (Zofran Inj) 4 mg Q4 PRN IV NAUSEA AND/OR VOMITING Last administered on 11/21/18 09:38; Admin Dose 4 MG; Start 11/20/18 at 17:00 Morphine Sulfate (morphine) 0.0 MG/HR CONTINUOUS RATE 0... Q4PCA IV Last administered on 11/20/18 18:32; Admin Dose 30 MG; Start 11/20/18 at 17:00 Scopolamine (Transderm-Scop) 1 patch Q72H TRANSDERM Last administered on 11/20/18 18:26; Admin Dose 1 PATCH; Start 11/20/18 at 17:30 Morphine Sulfate (morphine) 10 mg Q4H PRN PO SEVERE PAIN LEVEL 7-10; Start 11/21/18 at 09:30 MINAL RICHARDSON M.D. Nov 21, 2018 10:48
[2018-11-21] MEDS: morphine LIQ (10 MG/5 ML) CUP PO PRN (10:54)
--- NOTE | 2018-11-21 13:30 | PN ---
Date/Time of Note Date/Time of Note DATE: 11/21/18 TIME: 13:27 Assessment/Plan VTE Prophylaxis Risk score (from Nsg)>0 risk: 5 SCD applied (from Nsg): Yes Pharmacological prophylaxis: LMWH Lines/Catheters IV Catheter Type (from Nrsg): Peripheral IV Urinary Cath still in place: No Assessment/Plan Hospital Course # Abdominal pain with ovarian cancer stage III, with peritoneal carcinomatosis with widespread metastatic disease still with vomiting and constipation # anemia, # diabetes # hx malignant ascites that is post paracentesis on 11/18 with removal of 3.2 L # constipation # SIRS with tachycardia and temp spike # Obesity Assessment/Plan -abdominal KUB to r/o ileus, negative - pain control per Dr Becerra - stool softeners, - GI prophylaxis PPI - Zofran/reglan/scopolamine patch -start marinol to decrease nausea -start Levaquin -Continue with Lovenox for DVT prophylaxis - SCD Result Diagram: 11/19/1842311/19/18423 Results 24hrs Laboratory Tests Test 11/20/18 17:57 11/20/18 21:45 11/21/18 08:38 11/21/18 13:11 Bedside Glucose 118 125 125 115 Subjective 24 Hr Interval Summary ENT: no complaints Cardiovascular: paroxysmal nocturnal dyspnea Gastrointestinal: nausea Skin: no complaints Exam/Review of Systems Exam Vitals Vital Signs Date Temp Pulse Resp B/P (MAP) Pulse Ox O2 O2 Flow FiO2 Time Delivery Rate 11/21/18 20 09:40 11/21/18 99.2 111/62 96 07:59 (78) 11/21/18 103 02:46 11/20/18 Room Air 14:25 Intake and Output 11/20/18 11/20/18 11/21/18 1515:00 23:00 07:00 IntakeIntake Total 400 ml 1120 ml 830 ml OutputOutput Total 700 ml BalanceBalance 400 ml 1120 ml 130 ml Constitutional: alert, oriented Respiratory: clear to auscultation Cardiovascular: regular rate and rhythm Gastrointestinal: soft Results Results 24hrs Laboratory Tests Test 11/20/18 17:57 11/20/18 21:45 11/21/18 08:38 11/21/18 13:11 Bedside Glucose 118 125 125 115 Medications Medication Current Medications Pantoprazole (Protonix Iv) 40 mg DAILY@06 IV Last administered on 11/21/18at 05:43; Admin Dose 40 MG; Start 11/15/18 at 20:00 Acetaminophen (Tylenol Tab) 650 mg Q6H PRN PO MILD PAIN(1-3)OR ELEVATED TEMP; Start 11/15/18 at 20:00 Diagnostic Test (Pha) (Accu-Chek) 1 ea 02 XX ; Start 11/16/18 at 02:00 Insulin Aspart (Novolog Insulin Pen) NOVOLOG *MODERATE* ALGORITHM WITH MEALS BEDTIME SC ; Start 11/15/18 at 21:00 Miscellaneous Information 1 ea NOTE XX ; Start 11/15/18 at 20:00 Glucose (Glutose) 15 gm Q15M PRN PO DECREASED GLUCOSE; Start 11/15/18 at 20:00 Glucose (Glutose) 22.5 gm Q15M PRN PO DECREASED GLUCOSE; Start 11/15/18 at 20:00 Dextrose (D50w Syringe) 25 ml Q15M PRN IV DECREASED GLUCOSE; Start 11/15/18 at 20:00 Dextrose (D50w Syringe) 50 ml Q15M PRN IV DECREASED GLUCOSE; Start 11/15/18 at 20:00 Glucagon (Glucagen) 1 mg Q15M PRN IM DECREASED GLUCOSE; Start 11/15/18 at 20:00 Glucose (Glutose) 15 gm Q15M PRN BUCCAL DECREASED GLUCOSE; Start 11/15/18 at 20:00 Docusate Sodium (Colace) 100 mg BID PO Last administered on 11/21/18at 09:11; Admin Dose 100 MG; Start 11/18/18 at 13:00 Docusate Sodium (Colace) 250 mg DAILY PRN PO CONSTIPATION; Start 11/18/18 at 12:30 Polyethylene Glycol (Miralax) 17 gm DAILY PRN PO CONSTIPATION Last administered on 11/20/18at 21:48; Admin Dose 17 GM; Start 11/18/18 at 12:30 Enoxaparin Sodium (Lovenox) 30 mg DAILY SC Last administered on 11/21/18at 09:11; Admin Dose 30 MG; Start 11/18/18 at 13:30 Metoclopramide HCl (Reglan) 10 mg Q6H PRN IV VOMITTING Last administered on 11/21/18at 06:44; Admin Dose 10 MG; Start 11/18/18 at 18:00 Sodium Chloride 1,000 ml @ 75 mls/hr [id number] IV Last administered on 11/21/18 03:42; Admin Dose 75 MLS/HR; Start 11/19/18 at 11:30 Diphenhydramine HCl (Benadryl) 25 mg Q4H PRN IV ALLERGIC REACTION Last administered on 11/19/18at 16:55; Admin Dose 25 MG; Start 11/19/18 at 11:30 Meperidine HCl (Demerol) 50 mg Q4H PRN IV ALLERGIC REACTION; Start 11/19/18 at 11:30 Dexamethasone 20 mg/Dextrose 55 ml @ 252 mls/hr Q4H PRN IVPB ALLERGIC REACTION; Start 11/19/18 at 11:30 Gemcitabine HCl 1.8 gm/Sodium Chloride 250 ml @ 500 mls/hr ONCE IV ; Start 11/26/18 at 14:00; Stop 11/26/18 at 23:45; Status UNV Ondansetron HCl (Zofran Inj) 4 mg Q4 PRN IV NAUSEA AND/OR VOMITING Last administered on 11/21/18at 09:38; Admin Dose 4 MG; Start 11/20/18 at 17:00 Morphine Sulfate (morphine) 0.0 MG/HR CONTINUOUS RATE 0... Q4PCA IV Last administered on 11/20/18 18:32; Admin Dose 30 MG; Start 11/20/18 at 17:00 Scopolamine (Transderm-Scop) 1 patch Q72H TRANSDERM Last administered on 11/20/18 18:26; Admin Dose 1 PATCH; Start 11/20/18 at 17:30 Morphine Sulfate (morphine) 10 mg Q4H PRN PO SEVERE PAIN LEVEL 7-10 Last administered on 11/21/18 10:54; Admin Dose 10 MG; Start 11/21/18 at 09:30 PAMELA FONTENOT Nov 21, 2018 13:30
[2018-11-21 14:10] VITALS: BP 122/67; PULSE 98; RESP 19
[2018-11-21] MEDS: LEVOFLOXACIN 500MG/D5W (PMX) 100 ML IVPB SCH (14:16)
[2018-11-21] MEDS ORDERED: morphine LIQ (10 MG/5 ML) CUP PO PRN (14:30)
[2018-11-21] MEDS: DRONABINOL 2.5 MG CAP PO SCH ×2 (15:08→21:10)
[2018-11-21 20:35] VITALS: BP 105/57; PULSE 90; RESP 18
[2018-11-22] MEDS: METOCLOPRAMIDE 10 MG INJ IV PRN ×3 (01:53→20:12)
[2018-11-22] MEDS: ACCU-CHEK XX SCH ×2 (02:00→21:16)
[2018-11-22 02:15] VITALS: BP 110/78; PULSE 86; RESP 19
[2018-11-22] MEDS: SOD CHLORIDE 0.9% 1,000 ML IV SCH ×2 (05:21→19:37)
[2018-11-22] MEDS: PANTOPRAZOLE (EC) 40 MG TAB PO SCH (05:21)
[2018-11-22] MEDS: ONDANSETRON 4 MG INJ IV PRN ×3 (05:21→13:40)
--- NOTE | 2018-11-22 07:09 | CONS ---
Assessment/Plan Assessment/Plan Assessment/Plan (Daily) Dictating a postdated note for patient visit on November 21, 2018. Patient was still nauseous overnight on very low-dose of morphine [employer]. IV morphine has been discontinued and patient has been switched over to Roxanol and plan is for discharge and treatment of nausea with other antiemetics are not available in the hospital. At this time she is not having discomfort, however throughout the night she was in pain. Consultation Date/Type/Reason Admit Date/Time Nov 15, 2018 at 18:12 Date/Time of Note DATE: 11/22/18 TIME: 07:09 Past Medical History Medical History: cancer Home Meds Active Scripts Ondansetron (Ondansetron Odt) 4 Mg Tab.rapdis, 4 MG PO Q6H PRN for NAUSEA AND/OR VOMITING, #10 TAB Prov:WILBER FELTON MD 11/11/18 Naloxone HCl nasal spray (Narcan 4 mg/0.1 mL nasal) [address], 4 MG NS .Q2-3MIN for OPIOID OVERDOSE, #2 SPRAY [address] 0.1 mL into one nostril. Repeat with second device into other nostril after 2-3 minutes if no or minimal response Prov:WILBER FELTON MD 11/11/18 Oxycodone HCl/Acetaminophen (Percocet 5-325 mg Tablet) 1 Each Tablet, 1 EACH PO Q6 PRN for SEVERE PAIN LEVEL 7-10, #10 TAB Prov:WILBER FELTON MD 11/11/18 Reported Medications Metformin Hcl* (Metformin Hcl* ER) 500 Mg Tab.sr.24h, 500 MG PO DAILY, #30 TAB 11/11/18 Medications Current Medications Acetaminophen (Tylenol Tab) 650 mg Q6H PRN PO MILD PAIN(1-3)OR ELEVATED TEMP; Start 11/15/18 at 20:00 Diagnostic Test (Pha) (Accu-Chek) 1 ea 02 XX ; Start 11/16/18 at 02:00 Insulin Aspart (Novolog Insulin Pen) NOVOLOG *MODERATE* ALGORITHM WITH MEALS BEDTIME SC ; Start 11/15/18 at 21:00 Miscellaneous Information 1 ea NOTE XX ; Start 11/15/18 at 20:00 Glucose (Glutose) 15 gm Q15M PRN PO DECREASED GLUCOSE; Start 11/15/18 at 20:00 Glucose (Glutose) 22.5 gm Q15M PRN PO DECREASED GLUCOSE; Start 11/15/18 at 20:00 Dextrose (D50w Syringe) 25 ml Q15M PRN IV DECREASED GLUCOSE; Start 11/15/18 at 20:00 Dextrose (D50w Syringe) 50 ml Q15M PRN IV DECREASED GLUCOSE; Start 11/15/18 at 20:00 Glucagon (Glucagen) 1 mg Q15M PRN IM DECREASED GLUCOSE; Start 11/15/18 at 20:00 Glucose (Glutose) 15 gm Q15M PRN BUCCAL DECREASED GLUCOSE; Start 11/15/18 at 20:00 Docusate Sodium (Colace) 100 mg BID PO Last administered on 11/21/18 21:09; Admin Dose 100 MG; Start 11/18/18 at 13:00 Docusate Sodium (Colace) 250 mg DAILY PRN PO CONSTIPATION; Start 11/18/18 at 12:30 Polyethylene Glycol (Miralax) 17 gm DAILY PRN PO CONSTIPATION Last administered on 11/20/18at 21:48; Admin Dose 17 GM; Start 11/18/18 at 12:30 Enoxaparin Sodium (Lovenox) 30 mg DAILY SC Last administered on 11/21/18 09:11; Admin Dose 30 MG; Start 11/18/18 at 13:30 Metoclopramide HCl (Reglan) 10 mg Q6H PRN IV VOMITTING Last administered on 11/22/18 01:53; Admin Dose 10 MG; Start 11/18/18 at 18:00 Sodium Chloride 1,000 ml @ 75 mls/hr [id number] IV Last administered on 11/22/18 05:21; Admin Dose 75 MLS/HR; Start 11/19/18 at 11:30 Diphenhydramine HCl (Benadryl) 25 mg Q4H PRN IV ALLERGIC REACTION Last administered on 11/19/18at 16:55; Admin Dose 25 MG; Start 11/19/18 at 11:30 Meperidine HCl (Demerol) 50 mg Q4H PRN IV ALLERGIC REACTION; Start 11/19/18 at 11:30 Dexamethasone 20 mg/Dextrose 55 ml @ 252 mls/hr Q4H PRN IVPB ALLERGIC REACTION; Start 11/19/18 at 11:30 Gemcitabine HCl 1.8 gm/Sodium Chloride 250 ml @ 500 mls/hr ONCE IV ; Start 11/26/18 at 14:00; Stop 11/26/18 at 23:45; Status UNV Ondansetron HCl (Zofran Inj) 4 mg Q4 PRN IV NAUSEA AND/OR VOMITING Last administered on 11/22/18at 05:21; Admin Dose 4 MG; Start 11/20/18 at 17:00 Scopolamine (Transderm-Scop) 1 patch Q72H TRANSDERM Last administered on 11/20/18at 18:26; Admin Dose 1 PATCH; Start 11/20/18 at 17:30 Morphine Sulfate (morphine) 10 mg Q4H PRN PO SEVERE PAIN LEVEL 7-10 Last administered on 11/21/18at 10:54; Admin Dose 10 MG; Start 11/21/18 at 09:30 Levofloxacin/ Dextrose 100 ml @ 100 mls/hr Q24H IVPB Last administered on 11/21/18at 14:16; Admin Dose 100 MLS/HR; Start 11/21/18 at 14:00 Pantoprazole (Protonix Tab) 40 mg DAILY@06 PO Last administered on 11/22/18at 05:21; Admin Dose 40 MG; Start 11/22/18 at 06:00 Dronabinol (Marinol) 2.5 mg BID PO Last administered on 11/21/18at 21:10; Admin Dose 2.5 MG; Start 11/21/18 at 14:30 Morphine Sulfate (morphine) 6 mg Q4H PRN PO moderate pain; Start 11/21/18 at 14:30 Allergies: Coded Allergies: No Known Drug Allergies (Verified Allergy, Unknown, 11/11/18) Past Surgical History Past Surgical Hx: other (Debulking) Social History Alcohol Use: none Smoking Status: Never smoker Drug Use: none Exam/Review of Systems Exam Vitals Vital Signs Date Temp Pulse Resp B/P (MAP) Pulse Ox O2 O2 Flow FiO2 Time Delivery Rate 11/22/18 98.1 86 19 110/78 96 02:15 (89) 11/20/18 Room Air 14:25 Intake and Output 11/21/18 11/21/18 11/22/18 1515:00 23:00 07:00 IntakeIntake Total 1220 ml 980 ml BalanceBalance 1220 ml 980 ml Results Result Diagram: 11/22/18 0457 11/22/18 0457 Results 24hrs Laboratory Tests Test 11/21/18 08:38 11/21/18 13:11 11/21/18 17:48 11/21/18 21:11 Bedside Glucose 125 115 112 111 Test 11/22/18 04:56 11/22/18 04:57 Lactic Acid Level 1.0 White Blood Count 6.8 Red Blood Count 3.16 L Hemoglobin 8.8 L Hematocrit 28.8 L Mean Corpuscular Volume 91.1 Mean Corpuscular 27.8 L Hemoglobin Mean Corpuscular 30.6 L Hemoglobin Concent Red Cell Distribution 16.7 H Width Platelet Count 300 Mean Platelet Volume 9.9 Immature Granulocytes % 0.400 Neutrophils % 91.5 H Lymphocytes % 6.6 L Monocytes % 0.4 Eosinophils % 1.0 Basophils % 0.1 Nucleated Red Blood 0.0 Cells % Immature Granulocytes # 0.030 Neutrophils # 6.2 Lymphocytes # 0.5 L Monocytes # 0.0 L Eosinophils # 0.1 Basophils # 0.0 Nucleated Red Blood 0.0 Cells # Sodium Level 137 Potassium Level 4.0 Chloride Level 100 Carbon Dioxide Level 28 Anion Gap 9 Blood Urea Nitrogen 8 Creatinine 0.55 Est Glomerular Filtrat > 60 Rate mL/min Glucose Level 104 Calcium Level 8.2 L Medications Medication Current Medications Acetaminophen (Tylenol Tab) 650 mg Q6H PRN PO MILD PAIN(1-3)OR ELEVATED TEMP; Start 11/15/18 at 20:00 Diagnostic Test (Pha) (Accu-Chek) 1 ea 02 XX ; Start 11/16/18 at 02:00 Insulin Aspart (Novolog Insulin Pen) NOVOLOG *MODERATE* ALGORITHM WITH MEALS BEDTIME SC ; Start 11/15/18 at 21:00 Miscellaneous Information 1 ea NOTE XX ; Start 11/15/18 at 20:00 Glucose (Glutose) 15 gm Q15M PRN PO DECREASED GLUCOSE; Start 11/15/18 at 20:00 Glucose (Glutose) 22.5 gm Q15M PRN PO DECREASED GLUCOSE; Start 11/15/18 at 20:00 Dextrose (D50w Syringe) 25 ml Q15M PRN IV DECREASED GLUCOSE; Start 11/15/18 at 20:00 Dextrose (D50w Syringe) 50 ml Q15M PRN IV DECREASED GLUCOSE; Start 11/15/18 at 20:00 Glucagon (Glucagen) 1 mg Q15M PRN IM DECREASED GLUCOSE; Start 11/15/18 at 20:00 Glucose (Glutose) 15 gm Q15M PRN BUCCAL DECREASED GLUCOSE; Start 11/15/18 at 20:00 Docusate Sodium (Colace) 100 mg BID PO Last administered on 11/21/18at 21:09; Admin Dose 100 MG; Start 11/18/18 at 13:00 Docusate Sodium (Colace) 250 mg DAILY PRN PO CONSTIPATION; Start 11/18/18 at 12:30 Polyethylene Glycol (Miralax) 17 gm DAILY PRN PO CONSTIPATION Last administered on 11/20/18at 21:48; Admin Dose 17 GM; Start 11/18/18 at 12:30 Enoxaparin Sodium (Lovenox) 30 mg DAILY SC Last administered on 11/21/18at 09:11; Admin Dose 30 MG; Start 11/18/18 at 13:30 Metoclopramide HCl (Reglan) 10 mg Q6H PRN IV VOMITTING Last administered on 11/22/18at 01:53; Admin Dose 10 MG; Start 11/18/18 at 18:00 Sodium Chloride 1,000 ml @ 75 mls/hr [id number] IV Last administered on 11/22/18at 05:21; Admin Dose 75 MLS/HR; Start 11/19/18 at 11:30 Diphenhydramine HCl (Benadryl) 25 mg Q4H PRN IV ALLERGIC REACTION Last administered on 11/19/18at 16:55; Admin Dose 25 MG; Start 11/19/18 at 11:30 Meperidine HCl (Demerol) 50 mg Q4H PRN IV ALLERGIC REACTION; Start 11/19/18 at 11:30 Dexamethasone 20 mg/Dextrose 55 ml @ 252 mls/hr Q4H PRN IVPB ALLERGIC SARABJIT CTION; Start 11/19/18 at 11:30 Gemcitabine HCl 1.8 gm/Sodium Chloride 250 ml @ 500 mls/hr ONCE IV ; Start 11/26/18 at 14:00; Stop 11/26/18 at 23:45; Status UNV Ondansetron HCl (Zofran Inj) 4 mg Q4 PRN IV NAUSEA AND/OR VOMITING Last administered on 11/22/18 05:21; Admin Dose 4 MG; Start 11/20/18 at 17:00 Scopolamine (Transderm-Scop) 1 patch Q72H TRANSDERM Last administered on 11/20/18 18:26; Admin Dose 1 PATCH; Start 11/20/18 at 17:30 Morphine Sulfate (morphine) 10 mg Q4H PRN PO SEVERE PAIN LEVEL 7-10 Last administered on 11/21/18 10:54; Admin Dose 10 MG; Start 11/21/18 at 09:30 Levofloxacin/ Dextrose 100 ml @ 100 mls/hr Q24H IVPB Last administered on 11/21/18 14:16; Admin Dose 100 MLS/HR; Start 11/21/18 at 14:00 Pantoprazole (Protonix Tab) 40 mg DAILY@06 PO Last administered on 11/22/18 05:21; Admin Dose 40 MG; Start 11/22/18 at 06:00 Dronabinol (Marinol) 2.5 mg BID PO Last administered on 11/21/18 21:10; Admin Dose 2.5 MG; Start 11/21/18 at 14:30 Morphine Sulfate (morphine) 6 mg Q4H PRN PO moderate pain; Start 11/21/18 at 14:30 ANDREW PEDROZA Nov 22, 2018 07:09
[2018-11-22] MEDS: INSULIN ASPART [NOVOLOG] 3 ML PEN SC SCH ×4 (07:50→21:00)
[2018-11-22] MEDS: DRONABINOL 2.5 MG CAP PO SCH ×2 (09:23→21:55)
[2018-11-22] MEDS: DOCUSATE SODIUM 100 MG CAP PO SCH ×2 (09:23→20:13)
[2018-11-22] MEDS: ENOXAPARIN 30 MG/0.3 ML SYG SC SCH (09:26)
[2018-11-22] MEDS: LEVOFLOXACIN 500MG/D5W (PMX) 100 ML IVPB SCH (13:40)
[2018-11-22 14:36] VITALS: BP 122/75; PULSE 86; RESP 18
--- NOTE | 2018-11-22 14:58 | PDOCDIS ---
Discharge Instructions DIAGNOSIS Discharge Diagnosis nausea, vomiting CONDITION [id number] Patient Condition: [id number] Stable FOLLOW UP/APPOINTMENTS Follow-up Plan PAMELA Mack Nov 22, 2018 14:58
[2018-11-22] MEDS ORDERED: DOCU250C58 PO (15:04)
[2018-11-22] MEDS ORDERED: MED4DP PO (15:04)
[2018-11-22] MEDS ORDERED: LEVO500T48 PO (15:04)
[2018-11-22] MEDS ORDERED: SCOP1PAT10 TRANSDERM (15:04)
[2018-11-22] MEDS ORDERED: ONDA8TAB83 PO (15:04)
[2018-11-22] MEDS ORDERED: POLY17PO6 PO (15:04)
[2018-11-22] MEDS ORDERED: ONDANSETRON (ODT) 4 MG TAB ODT STA (15:04)
[2018-11-22] MEDS ORDERED: MORP10SO PO (15:04)
--- NOTE | 2018-11-22 15:07 | DS ---
Date/Time of Note Date/Time of Note DATE: 11/22/18 TIME: 15:06 Discharge Summary Admission/Discharge Info Admit Date/Time Nov 15, 2018 at 18:12 Discharge Date/Time Discharge Diagnosis nausea, vomiting Hospital Course # Abdominal pain with ovarian cancer stage III, with peritoneal carcinomatosis with widespread metastatic disease still with vomiting and constipation # anemia, # diabetes # hx malignant ascites that is post paracentesis on 11/18 with removal of 3.2 L # constipation # SIRS with tachycardia and temp spike # Obesity Home Meds Active Scripts Docusate Sodium* (Colace*) 250 Mg Capsule, 250 MG PO DAILY PRN for CONSTIPATION for 30 Days, CAP Prov:PAMELA FONTENOT 11/22/18 Methylprednisolone* (Medrol* DOSE PACK) 4 Mg/Dose-Pack Tab.ds.pk, 4 MG PO . DIRECTED for 7 Days, PACKET Prov:PAMELA FONTENOT 11/22/18 Ondansetron Hcl* (Ondansetron Hcl*) 8 Mg Tablet, 8 MG PO Q6H PRN for NAUSEA AND OR VOMITING for 14 Days, TAB Prov:PAMELA FONTENOT 11/22/18 Polyethylene Glycol* (Miralax*) 17 Gm Powd.pack, 17 GM PO DAILY PRN for CONSTIPATION for 14 Days Prov:PAMELA FONTENOT 11/22/18 Scopolamine (Transderm-Scop) 1 Each Patch.td.3, 1 PATCH TRANSDERM Q72H for 30 Days Prov:PAMELA FONTENOT 11/22/18 Levofloxacin* (Levaquin*) 500 Mg Tablet, 500 MG PO DAILY for 7 Days, TAB Prov:PAMELA FONTENOT 11/22/18 Ondansetron (Ondansetron Odt) 4 Mg Tab.rapdis, 4 MG PO Q6H PRN for NAUSEA AND/OR VOMITING, #10 TAB Prov:WILBER FELTON MD 11/11/18 Naloxone HCl nasal spray (Narcan 4 mg/0.1 mL nasal) 4 Mg [place], 4 MG NS .Q2-3MIN for OPIOID OVERDOSE, #2 SPRAY 0 Refills [place] 0.1 mL into one nostril. Repeat with second device into other nostril after 2-3 minutes if no or minimal response Prov:WILBER FELTON MD 11/11/18 Oxycodone HCl/Acetaminophen (Percocet 5-325 mg Tablet) 1 Each Tablet, 1 EACH PO Q6 PRN for SEVERE PAIN LEVEL 7-10, #10 TAB Prov:WILBER FELTON MD 11/11/18 Reported Medications Metformin Hcl* (Metformin Hcl* ER) 500 Mg Tab.sr.24h, 500 MG PO DAILY, #30 TAB 11/11/18 Follow-up Plan Dr Cameron Primary Care Provider Not On Staff Doctor Pending Labs Laboratory Tests Test 11/21/18 17:48 11/21/18 21:11 11/22/18 04:56 11/22/18 04:57 Bedside 112 111 Glucose mg/dL (70-220) mg/dL (70-220) Lactic Acid 1.0 Level mmol/L (0.5-2. 0) White Blood 6.8 Count 10^3/ul (4.8-1 0.8) Red Blood 3.16 Count 10^6/ul (4.20- 5.40) Hemoglobin 8.8 g/dl (12.0-16. 0) Hematocrit 28.8 % (37.0-47.0) Mean 91.1 Corpuscular fl (82.0-101.0 Volume ) Mean 27.8 Corpuscular pg (29.0-33.0) Hemoglobin Mean 30.6 Corpuscular g/dl (32.0-37. Hemoglobin Conc 0) ent Red Cell 16.7 Distribution % (11.5-14.5) Width Platelet Count 300 10^3/UL (140-4 15) Mean Platelet 9.9 Volume fl (7.4-10.4) Immature 0.400 Granulocytes % % (0.001-0.429 ) Neutrophils % 91.5 % (39.0-77.0) Lymphocytes % 6.6 % (15.0-51.0) Monocytes % 0.4 % (0.0-11.0) Eosinophils % 1.0 % (0.0-7.0) Basophils % 0.1 % (0.0-2.0) Nucleated Red 0.0 Blood Cells % /100WBC (0.0-0 .0) Immature 0.030 Granulocytes # 10^3/ul (0.0-0 .031) Neutrophils # 6.2 10^3/ul (1.6-7 .5) Lymphocytes # 0.5 10^3/ul (0.8-2 .9) Monocytes # 0.0 10^3/ul (0.3-0 .9) Eosinophils # 0.1 10^3/ul (0.0-0 .5) Basophils # 0.0 10^3/ul (0.0-0 .1) Nucleated Red 0.0 Blood Cells # 10^3/ul (0.0-0 .0) Sodium Level 137 mmol/L (135-14 4) Potassium 4.0 Level mmol/L (3.5-5. 1) Chloride Level 100 mmol/L (97-110 ) Carbon Dioxide 28 Level mmol/L (21-31) Anion Gap 9 (5-13) Blood Urea 8 mg/dl (7-20) Nitrogen Creatinine 0.55 mg/dl (0.44-1. 00) Est Glomerular > 60 Filtrat mL/min (>60) Rate mL/min Glucose Level 104 mg/dl (70-220) Calcium Level 8.2 mg/dl (8.4-10. 2) Test 11/22/18 08:28 11/22/18 12:36 Bedside 99 97 Glucose mg/dL (70-220) mg/dL (70-220) PAMELA FONTENOT 2, 2019 15:07
--- NOTE | 2018-11-22 15:19 | CONS ---
Assessment/Plan Assessment/Plan Assessment/Plan (Daily) #. STAGE IIIC ovarian cancer- with widespread metastatic disease ( per CT abdomen) -s/p optimal debulking surgery in 06/2017 followed by 6 cycles of adjuvant chemotherapy with carboplatin and taxol -07/17/[address] reveals new peritoneal carcinomatosis and malignant ascites -07/2018-10/16/18 restarted on carboplatin and taxol -10/2018 CA 125 increasing and new 10/30/[address] reveals : PET only was done as an out patent which demonstrates worsening extensive mesenteric adenopathy in mid abdominal mesentery. omental disease is stable. new pelvic and inguinal LAD. 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 Dw Staff Consultation Date/Type/Reason Admit Date/Time Nov 15, 2018 at 18:12 Initial Consult Date Type of Consult Oncology Reason for Consultation Ovarian Cancer Requesting Provider: LIZZETH LAWRENCE MD Date/Time of Note DATE: 11/22/18 TIME: 15:18 24 HR Interval Summary Free Text/Dictation -awake; resting - feels tired -c/o nausea; loss of appetite - no new issues reported last night Detailed Summary Eyes: no complaints ENT: no complaints Respiratory: no complaints Cardiovascular: no complaints Gastrointestinal: no complaints Musculoskeletal: no complaints Skin: no complaints Neurologic: no complaints Endocrine: no complaints Exam/Review of Systems Exam Vitals Vital Signs Date Temp Pulse Resp B/P (MAP) Pulse Ox O2 O2 Flow FiO2 Time Delivery Rate 11/22/18 98.2 86 18 122/75 94 14:36 (91) 11/20/18 Room Air 14:25 Intake and Output 11/21/18 11/21/18 11/22/18 1515:00 23:00 07:00 IntakeIntake Total 1220 ml 1180 ml OutputOutput Total 350 ml BalanceBalance 1220 ml 830 ml Constitutional: alert, well developed Psych: nl mood/affect Eyes: nl lids, nl sclera ENMT: nl external ears & nose Neck: non-tender Respiratory: clear to auscultation Cardiovascular: nl pulses, other (s1s2) Gastrointestinal: soft, tender Musculoskeletal: nl extremities to inspection Extremities: normal pulses Neurological: nl speech Skin: nl turgor Lymph: nontender Results Result Diagram: 11/22/1845611/22/18456 Results 24hrs Laboratory Tests Test 11/21/18 17:48 11/21/18 21:11 11/22/18 04:56 11/22/18 04:57 Bedside Glucose 112 111 Lactic Acid Level 1.0 White Blood Count 6.8 Red Blood Count 3.16 L Hemoglobin 8.8 L Hematocrit 28.8 L Mean Corpuscular Volume 91.1 Mean Corpuscular 27.8 L Hemoglobin Mean Corpuscular 30.6 L Hemoglobin Concent Red Cell Distribution 16.7 H Width Platelet Count 300 Mean Platelet Volume 9.9 Immature Granulocytes % 0.400 Neutrophils % 91.5 H Lymphocytes % 6.6 L Monocytes % 0.4 Eosinophils % 1.0 Basophils % 0.1 Nucleated Red Blood 0.0 Cells % Immature Granulocytes # 0.030 Neutrophils # 6.2 Lymphocytes # 0.5 L Monocytes # 0.0 L Eosinophils # 0.1 Basophils # 0.0 Nucleated Red Blood 0.0 Cells # Sodium Level 137 Potassium Level 4.0 Chloride Level 100 Carbon Dioxide Level 28 Anion Gap 9 Blood Urea Nitrogen 8 Creatinine 0.55 Est Glomerular Filtrat > 60 Rate mL/min Glucose Level 104 Calcium Level 8.2 L Test 11/22/18 08:28 11/22/18 12:36 Bedside Glucose 99 97 Medications Medication Current Medications Acetaminophen (Tylenol Tab) 650 mg Q6H PRN PO MILD PAIN(1-3)OR ELEVATED TEMP; Start 11/15/18 at 20:00 Diagnostic Test (Pha) (Accu-Chek) 1 ea 02 XX ; Start 11/16/18 at 02:00 Insulin Aspart (Novolog Insulin Pen) NOVOLOG *MODERATE* ALGORITHM WITH MEALS BEDTIME SC ; Start 11/15/18 at 21:00 Miscellaneous Information 1 ea NOTE XX ; Start 11/15/18 at 20:00 Glucose (Glutose) 15 gm Q15M PRN PO DECREASED GLUCOSE; Start 11/15/18 at 20:00 Glucose (Glutose) 22.5 gm Q15M PRN PO DECREASED GLUCOSE; Start 11/15/18 at 20:00 Dextrose (D50w Syringe) 25 ml Q15M PRN IV DECREASED GLUCOSE; Start 11/15/18 at 20:00 Dextrose (D50w Syringe) 50 ml Q15M PRN IV DECREASED GLUCOSE; Start 11/15/18 at 20:00 Glucagon (Glucagen) 1 mg Q15M PRN IM DECREASED GLUCOSE; Start 11/15/18 at 20:00 Glucose (Glutose) 15 gm Q15M PRN BUCCAL DECREASED GLUCOSE; Start 11/15/18 at 20:00 Docusate Sodium (Colace) 100 mg BID PO Last administered on 11/22/18at 09:23; Admin Dose 100 MG; Start 11/18/18 at 13:00 Docusate Sodium (Colace) 250 mg DAILY PRN PO CONSTIPATION; Start 11/18/18 at 12:30 Polyethylene Glycol (Miralax) 17 gm DAILY PRN PO CONSTIPATION Last administered on 11/20/18at 21:48; Admin Dose 17 GM; Start 11/18/18 at 12:30 Enoxaparin Sodium (Lovenox) 30 mg DAILY SC Last administered on 11/22/18 09:26; Admin Dose 30 MG; Start 11/18/18 at 13:30 Metoclopramide HCl (Reglan) 10 mg Q6H PRN IV VOMITTING Last administered on 11/22/18 08:23; Admin Dose 10 MG; Start 11/18/18 at 18:00 Sodium Chloride 1,000 ml @ 75 mls/hr [id number] IV Last administered on 11/22/18 05:21; Admin Dose 75 MLS/HR; Start 11/19/18 at 11:30 Diphenhydramine HCl (Benadryl) 25 mg Q4H PRN IV ALLERGIC REACTION Last administered on 11/19/18at 16:55; Admin Dose 25 MG; Start 11/19/18 at 11:30 Meperidine HCl (Demerol) 50 mg Q4H PRN IV ALLERGIC REACTION; Start 11/19/18 at 11:30 Dexamethasone 20 mg/Dextrose 55 ml @ 252 mls/hr Q4H PRN IVPB ALLERGIC REACTION; Start 11/19/18 at 11:30 Gemcitabine HCl 1.8 gm/Sodium Chloride 250 ml @ 500 mls/hr ONCE IV ; Start 11/26/18 at 14:00; Stop 11/26/18 at 23:45; Status UNV Ondansetron HCl (Zofran Inj) 4 mg Q4 PRN IV NAUSEA AND/OR VOMITING Last administered on 11/22/18 13:40; Admin Dose 4 MG; Start 11/20/18 at 17:00 Scopolamine (Transderm-Scop) 1 patch Q72H TRANSDERM Last administered on 11/20/18at 18:26; Admin Dose 1 PATCH; Start 11/20/18 at 17:30 Morphine Sulfate (morphine) 10 mg Q4H PRN PO SEVERE PAIN LEVEL 7-10 Last adm inistered on 11/21/18at 10:54; Admin Dose 10 MG; Start 11/21/18 at 09:30 Levofloxacin/ Dextrose 100 ml @ 100 mls/hr Q24H IVPB Last administered on 11/22/18at 13:40; Admin Dose 100 MLS/HR; Start 11/21/18 at 14:00 Pantoprazole (Protonix Tab) 40 mg DAILY@06 PO Last administered on 11/22/18at 05:21; Admin Dose 40 MG; Start 11/22/18 at 06:00 Dronabinol (Marinol) 2.5 mg BID PO Last administered on 11/22/18at 09:23; Admin Dose 2.5 MG; Start 11/21/18 at 14:30 Morphine Sulfate (morphine) 6 mg Q4H PRN PO moderate pain; Start 11/21/18 at 14:30 DIANA ZHAO Nov 22, 2018 3:19 pm
[2018-11-22 20:35] VITALS: BP 122/75; PULSE 89; RESP 20
[2018-11-23] VITALS (9 sets, daily range): BP systolic 119–138; BP diastolic 58–77; PULSE 79–88; RESP 18–20
[2018-11-23] MEDS: ONDANSETRON 4 MG INJ IV PRN ×2 (03:18→08:46)
[2018-11-23] MEDS: PANTOPRAZOLE (EC) 40 MG TAB PO SCH (05:23)
[2018-11-23] MEDS: SOD CHLORIDE 0.9% 1,000 ML IV SCH ×2 (07:01→21:24)
[2018-11-23] MEDS: METOCLOPRAMIDE 10 MG INJ IV PRN (07:01)
[2018-11-23] MEDS: INSULIN ASPART [NOVOLOG] 3 ML PEN SC SCH ×4 (07:50→21:00)
[2018-11-23] MEDS: ENOXAPARIN 30 MG/0.3 ML SYG SC SCH (08:42)
[2018-11-23] MEDS: DOCUSATE SODIUM 100 MG CAP PO SCH ×2 (08:43→21:19)
[2018-11-23] MEDS: DRONABINOL 2.5 MG CAP PO SCH ×2 (08:43→21:19)
--- NOTE | 2018-11-23 11:51 | PN ---
Date/Time of Note Date/Time of Note DATE: 11/23/18 TIME: 11:51 Assessment/Plan VTE Prophylaxis Risk score (from Nsg)>0 risk: 5 SCD applied (from Nsg): Yes Pharmacological prophylaxis: LMWH Lines/Catheters IV Catheter Type (from Nrsg): Peripheral IV Urinary Cath still in place: No Assessment/Plan Hospital Course # Abdominal pain with ovarian cancer stage III, with peritoneal carcinomatosis with widespread metastatic disease still with vomiting and constipation # anemia, # diabetes # hx malignant ascites that is post paracentesis on 11/18 with removal of 3.2 L # constipation # SIRS with tachycardia and temp spike # Obesity Assessment/Plan -paracentesis. - pain control per Dr Becerra - stool softeners Amitiza - GI prophylaxis PPI - Zofran/reglan/scopolamine patch. -Marinol BID to decrease nausea -c/w Levaquin -Continue with Lovenox for DVT prophylaxis - SCD Result Diagram: 11/22/187 11/22/18456 Results 24hrs Laboratory Tests Test 11/22/18 12:36 11/22/18 17:45 11/22/18 20:17 11/23/18 08:24 Bedside Glucose 97 86 89 84 Subjective 24 Hr Interval Summary Gastrointestinal: constipation (6 days), other (pressure on abdomen) Exam/Review of Systems Exam Vitals Vital Signs Date Temp Pulse Resp B/P (MAP) Pulse Ox O2 O2 Flow FiO2 Time Delivery Rate 11/23/18 98.3 83 20 133/69 95 Room Air 07:46 (90) Intake and Output 11/22/18 11/22/18 11/23/18 1515:00 23:00 07:00 IntakeIntake Total 100 ml 1850 ml 600 ml OutputOutput Total 75 ml BalanceBalance 25 ml 1850 ml 600 ml Constitutional: alert, oriented Respiratory: clear to auscultation Cardiovascular: regular rate and rhythm Gastrointestinal: soft, distended Results Results 24hrs Laboratory Tests Test 11/22/18 12:36 11/22/18 17:45 11/22/18 20:17 11/23/18 08:24 Bedside Glucose 97 86 89 84 Medications Medication Current Medications Acetaminophen (Tylenol Tab) 650 mg Q6H PRN PO MILD PAIN(1-3)OR ELEVATED TEMP; Start 11/15/18 at 20:00 Diagnostic Test (Pha) (Accu-Chek) 1 ea 02 XX ; Start 11/16/18 at 02:00 Insulin Aspart (Novolog Insulin Pen) NOVOLOG *MODERATE* ALGORITHM WITH MEALS BEDTIME SC ; Start 11/15/18 at 21:00 Miscellaneous Information 1 ea NOTE XX ; Start 11/15/18 at 20:00 Glucose (Glutose) 15 gm Q15M PRN PO DECREASED GLUCOSE; Start 11/15/18 at 20:00 Glucose (Glutose) 22.5 gm Q15M PRN PO DECREASED GLUCOSE; Start 11/15/18 at 20:00 Dextrose (D50w Syringe) 25 ml Q15M PRN IV DECREASED GLUCOSE; Start 11/15/18 at 20:00 Dextrose (D50w Syringe) 50 ml Q15M PRN IV DECREASED GLUCOSE; Start 11/15/18 at 20:00 Glucagon (Glucagen) 1 mg Q15M PRN IM DECREASED GLUCOSE; Start 11/15/18 at 20:00 Glucose (Glutose) 15 gm Q15M PRN BUCCAL DECREASED GLUCOSE; Start 11/15/18 at 20:00 Docusate Sodium (Colace) 100 mg BID PO Last administered on 11/23/18at 08:43; Admin Dose 100 MG; Start 11/18/18 at 13:00 Docusate Sodium (Colace) 250 mg DAILY PRN PO CONSTIPATION; Start 11/18/18 at 12:30 Polyethylene Glycol (Miralax) 17 gm DAILY PRN PO CONSTIPATION Last administered on 11/20/18at 21:48; Admin Dose 17 GM; Start 11/18/18 at 12:30 Enoxaparin Sodium (Lovenox) 30 mg DAILY SC Last administered on 11/23/18at 08:42; Admin Dose 30 MG; Start 11/18/18 at 13:30 Metoclopramide HCl (Reglan) 10 mg Q6H PRN IV VOMITTING Last administered on 11/23/18at 07:01; Admin Dose 10 MG; Start 11/18/18 at 18:00 Sodium Chloride 1,000 ml @ 75 mls/hr [id number] IV Last administered on 11/23/18at 07:01; Admin Dose 75 MLS/HR; Start 11/19/18 at 11:30 Diphenhydramine HCl (Benadryl) 25 mg Q4H PRN IV ALLERGIC REACTION Last administ ered on 11/19/18 16:55; Admin Dose 25 MG; Start 11/19/18 at 11:30 Meperidine HCl (Demerol) 50 mg Q4H PRN IV ALLERGIC REACTION; Start 11/19/18 at 11:30 Dexamethasone 20 mg/Dextrose 55 ml @ 252 mls/hr Q4H PRN IVPB ALLERGIC REACTION; Start 11/19/18 at 11:30 Gemcitabine HCl 1.8 gm/Sodium Chloride 250 ml @ 500 mls/hr ONCE IV ; Start 11/26/18 at 14:00; Stop 11/26/18 at 23:45; Status UNV Ondansetron HCl (Zofran Inj) 4 mg Q4 PRN IV NAUSEA AND/OR VOMITING Last administered on 11/23/18 08:46; Admin Dose 4 MG; Start 11/20/18 at 17:00 Scopolamine (Transderm-Scop) 1 patch Q72H TRANSDERM Last administered on 11/20/18 18:26; Admin Dose 1 PATCH; Start 11/20/18 at 17:30 Morphine Sulfate (morphine) 10 mg Q4H PRN PO SEVERE PAIN LEVEL 7-10 Last administered on 11/21/18 10:54; Admin Dose 10 MG; Start 11/21/18 at 09:30 Levofloxacin/ Dextrose 100 ml @ 100 mls/hr Q24H IVPB Last administered on 11/22/18 13:40; Admin Dose 100 MLS/HR; Start 11/21/18 at 14:00 Pantoprazole (Protonix Tab) 40 mg DAILY@06 PO Last administered on 11/23/18 05:23; Admin Dose 40 MG; Start 11/22/18 at 06:00 Dronabinol (Marinol) 2.5 mg BID PO Last administered on 11/23/18 08:43; Admin Dose 2.5 MG; Start 11/21/18 at 14:30 Morphine Sulfate (morphine) 6 mg Q4H PRN PO moderate pain; Start 11/21/18 at 14:30 PAMELA FONTENOT Nov 23, 2018 11:51
[2018-11-23] MEDS ORDERED: LORAZEPAM 1 MG TAB PO PRN (12:00)
[2018-11-23] MEDS ORDERED: ONDANSETRON (ODT) 4 MG TAB ODT PRN (12:00)
[2018-11-23] MEDS: METOCLOPRAMIDE 10 MG TAB PO SCH ×2 (13:17→18:00)
[2018-11-23] MEDS: LEVOFLOXACIN 500MG/D5W (PMX) 100 ML IVPB SCH (13:17)
[2018-11-23] MEDS ORDERED: LIDOCAINE 1% (MPF) 5 ML VIAL ONE (14:23)
[2018-11-23] MEDS: LUBIPROSTONE 8 MCG CAPSULE PO SCH ×2 (15:16→21:18)
[2018-11-23] MEDS: morphine LIQ (10 MG/5 ML) CUP PO PRN (16:52)
[2018-11-23] MEDS: SCOPOLAMINE 1.5 MG PATCH TRANSDERM SCH (18:12)
--- NOTE | 2018-11-23 22:34 | CONS ---
Assessment/Plan Assessment/Plan Assessment/Plan (Daily) #. STAGE IIIC ovarian cancer- with widespread metastatic disease ( per CT abdomen) -s/p optimal debulking surgery in 06/2017 followed by 6 cycles of adjuvant chemotherapy with carboplatin and taxol -07/17/[address] reveals new peritoneal carcinomatosis and malignant ascites -07/2018-10/16/18 restarted on carboplatin and taxol -10/2018 CA 125 increasing and new 10/30/[address] reveals : PET only was done as an out patent which demonstrates worsening extensive mesenteric adenopathy in mid abdominal mesentery. omental disease is stable. new pelvic and inguinal LAD. 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 Dw Staff Consultation Date/Type/Reason Admit Date/Time Nov 15, 2018 at 6:12 pm Initial Consult Date Type of Consult Oncology Reason for Consultation Ovarian cancer Requesting Provider: LIZZETH LAWRENCE MD Date/Time of Note DATE: 11/23/18 TIME: 22:21 24 HR Interval Summary Free Text/Dictation -awake; resting - feels better today - daughter at bed side- meeting with hospice tomorrow. - nausea is better; able to eat little bit today - no new issues reported last night Detailed Summary Eyes: no complaints ENT: no complaints Respiratory: no complaints Cardiovascular: no complaints Gastrointestinal: nausea Genitourinary: no complaints Musculoskeletal: no complaints Skin: no complaints Neurologic: no complaints Exam/Review of Systems Exam Vitals Vital Signs Date Temp Pulse Resp B/P (MAP) Pulse Ox O2 O2 Flow FiO2 Time Delivery Rate 11/23/18 98.9 87 19 125/66 93 20:25 (85) 11/23/18 Room Air 16:15 Intake and Output 11/22/18 11/22/18 11/23/18 1414:59 22:59 06:59 IntakeIntake Total 100 ml 1850 ml 600 ml OutputOutput Total 75 ml BalanceBalance 25 ml 1850 ml 600 ml Constitutional: alert, well developed Psych: nl mood/affect Head: atraumatic Eyes: nl lids, nl sclera ENMT: nl external ears & nose Neck: non-tender Respiratory: clear to auscultation Cardiovascular: nl pulses, other (s1s2) Gastrointestinal: soft, tender Musculoskeletal: muscle weakness Extremities: normal pulses Neurological: nl speech, other (alerty/awake) Skin: nl turgor Lymph: nontender Results Result Diagram: 11/22/18 0457 11/22/18 0457 Results 24hrs Laboratory Tests Test 11/23/18 08:24 11/23/18 12:37 11/23/18 17:54 11/23/18 21:06 Bedside Glucose 84 83 96 88 Medications Medication Current Medications Acetaminophen (Tylenol Tab) 650 mg Q6H PRN PO MILD PAIN(1-3)OR ELEVATED TEMP; Start 11/15/18 at 20:00 Diagnostic Test (Pha) (Accu-Chek) 1 ea 02 XX ; Start 11/16/18 at 02:00 Insulin Aspart (Novolog Insulin Pen) NOVOLOG *MODERATE* ALGORITHM WITH MEALS BEDTIME SC ; Start 11/15/18 at 21:00 Miscellaneous Information 1 ea NOTE XX ; Start 11/15/18 at 20:00 Glucose (Glutose) 15 gm Q15M PRN PO DECREASED GLUCOSE; Start 11/15/18 at 20:00 Glucose (Glutose) 22.5 gm Q15M PRN PO DECREASED GLUCOSE; Start 11/15/18 at 20:00 Dextrose (D50w Syringe) 25 ml Q15M PRN IV DECREASED GLUCOSE; Start 11/15/18 at 20:00 Dextrose (D50w Syringe) 50 ml Q15M PRN IV DECREASED GLUCOSE; Start 11/15/18 at 20:00 Glucagon (Glucagen) 1 mg Q15M PRN IM DECREASED GLUCOSE; Start 11/15/18 at 20:00 Glucose (Glutose) 15 gm Q15M PRN BUCCAL DECREASED GLUCOSE; Start 11/15/18 at 20:00 Docusate Sodium (Colace) 100 mg BID PO Last administered on 11/23/18 21:19; Admin Dose 100 MG; Start 11/18/18 at 13:00 Docusate Sodium (Colace) 250 mg DAILY PRN PO CONSTIPATION; Start 11/18/18 at 12:30 Polyethylene Glycol (Miralax) 17 gm DAILY PRN PO CONSTIPATION Last administered on 11/20/18 21:48; Admin Dose 17 GM; Start 11/18/18 at 12:30 Enoxaparin Sodium (Lovenox) 30 mg DAILY SC Last administered on 11/23/18 08:42; Admin Dose 30 MG; Start 11/18/18 at 13:30 Sodium Chloride 1,000 ml @ 75 mls/hr [id number] IV Last administered on 11/23/18 21:24; Admin Dose 75 MLS/HR; Start 11/19/18 at 11:30 Diphenhydramine HCl (Benadryl) 25 mg Q4H PRN IV ALLERGIC REACTION Last administered on 11/19/18 16:55; Admin Dose 25 MG; Start 11/19/18 at 11:30 Meperidine HCl (Demerol) 50 mg Q4H PRN IV ALLERGIC REACTION; Start 11/19/18 at 11:30 Dexamethasone 20 mg/Dextrose 55 ml @ 252 mls/hr Q4H PRN IVPB ALLERGIC REACTION; Start 11/19/18 at 11:30 Gemcitabine HCl 1.8 gm/Sodium Chloride 250 ml @ 500 mls/hr ONCE IV ; Start 11/26/18 at 14:00; Stop 11/26/18 at 23:45; Status UNV Scopolamine (Transderm-Scop) 1 patch Q72H TRANSDERM Last administered on 11/23/18 18:12; Admin Dose 1 PATCH; Start 11/20/18 at 17:30 Morphine Sulfate (morphine) 10 mg Q4H PRN PO SEVERE PAIN LEVEL 7-10 Last administered on 11/23/18 16:52; Admin Dose 10 MG; Start 11/21/18 at 09:30 Levofloxacin/ Dextrose 100 ml @ 100 mls/hr Q24H IVPB Last administered on 11/23/18 13:17; Admin Dose 100 MLS/HR; Start 11/21/18 at 14:00 Pantoprazole (Protonix Tab) 40 mg DAILY@06 PO Last administered on 11/23/18 05:23; Admin Dose 40 MG; Start 11/22/18 at 06:00 Dronabinol (Marinol) 2.5 mg BID PO Last administered on 11/23/18 21:19; Admin Dose 2.5 MG; Start 11/21/18 at 14:30 Morphine Sulfate (morphine) 6 mg Q4H PRN PO moderate pain; Start 11/21/18 at 14:30 Lubiprostone (Amitiza) 16 mcg BID PO Last administered on 11/23/18 21:18; Admin Dose 16 MCG; Start 11/23/18 at 13:30 Ondansetron HCl (Zofran Odt) 8 mg Q6H PRN ODT nausea; Start 11/23/18 at 12:00 Metoclopramide HCl (Reglan) 10 mg Q6 PO Last administered on 11/23/18 13:17; Admin Dose 10 MG; Start 11/23/18 at 12:30 Lorazepam (Ativan) 1 mg Q12H PRN PO breaktrough nausea; Start 11/23/18 at 12:00 DIANA ZHAO Nov 23, 2018 10:32 pm
[2018-11-24] MEDS: ACCU-CHEK XX SCH (01:23)
[2018-11-24 02:34] VITALS: BP 124/58; PULSE 74; RESP 18
[2018-11-24] MEDS: PANTOPRAZOLE (EC) 40 MG TAB PO SCH (05:58)
[2018-11-24] MEDS: METOCLOPRAMIDE 10 MG TAB PO SCH ×3 (05:58→09:01)
[2018-11-24 07:33] VITALS: BP 122/73; PULSE 70; RESP 19
[2018-11-24] MEDS: INSULIN ASPART [NOVOLOG] 3 ML PEN SC SCH ×2 (07:50→11:40)
[2018-11-24] MEDS: SOD CHLORIDE 0.9% 1,000 ML IV SCH (08:56)
[2018-11-24] MEDS: DOCUSATE SODIUM 100 MG CAP PO SCH (08:56)
[2018-11-24] MEDS: DRONABINOL 2.5 MG CAP PO SCH (08:56)
[2018-11-24] MEDS: LUBIPROSTONE 8 MCG CAPSULE PO SCH (08:56)
[2018-11-24] MEDS: ENOXAPARIN 30 MG/0.3 ML SYG SC SCH (08:58)
--- NOTE | 2018-11-24 10:55 | CONS ---
Assessment/Plan Assessment/Plan Hospital Course (Demo Recall) #. STAGE IIIC ovarian cancer- with widespread metastatic disease ( per CT abdomen) -s/p optimal debulking surgery in 06/2017 followed by 6 cycles of adjuvant chemotherapy with carboplatin and taxol -07/17/[address] reveals new peritoneal carcinomatosis and malignant ascites -07/2018-10/16/18 restarted on carboplatin and taxol -10/2018 CA 125 increasing and new 10/30/[address] reveals : PET only was done as an out patent which demonstrates worsening extensive mesenteric adenopathy in mid abdominal mesentery. omental disease is stable. new pelvic and inguinal LAD. new hepatic mets -given patient has progressed through carbo/ taxol, she was given 1 dose of carboplatin and gemcitabine -pt now understands that her prognosis is poor and that chemotherapy is only decreasing her quality of life rather than helping it. We will continue to have conversations regarding hospice care and refer her as an outpatient once she and her family are on board -ok for dc from oncology standpoint # Abdominal Pain 2/2 to above -pt is currently on morphine [employer] requiring 6mg morphine over 24 hours -will dc continuous dosing at this time and continue with liquid roxinol 10mg/5cc 1 q 4 hours prn # Acute nausea/vomitting - Cont Zofran # Diabetes -continue NovoLog sliding scale per PMD # Hypertension -continue current blood pressure meds Consultation Date/Type/Reason Admit Date/Time Nov 15, 2018 at 18:12 Initial Consult Date nov 16 Type of Consult oncology Reason for Consultation metastatic uterine cancer Requesting Provider: LIZZETH LAWRENCE MD Date/Time of Note DATE: 11/24/18 TIME: 10:50 24 HR Interval Summary Free Text/Dictation feels better this morning. pain is controlled on oral roxinol Exam/Review of Systems Exam Vitals Vital Signs Date Temp Pulse Resp B/P (MAP) Pulse Ox O2 O2 Flow FiO2 Time Delivery Rate 11/24/18 97.2 70 19 122/73 96 Room Air 07:33 (89) Intake and Output 11/23/18 11/23/18 11/24/18 1515:00 23:00 07:00 IntakeIntake Total 700 ml 925 ml 600 ml OutputOutput Total 2850 ml BalanceBalance -2150 ml 925 ml 600 ml Constitutional: alert, oriented, frail Psych: anxiety, depression Head: normocephalic Eyes: nl conjunctiva ENMT: nl external ears & nose Neck: supple Respiratory: clear to auscultation Cardiovascular: regular rate and rhythm Gastrointestinal: soft Musculoskeletal: nl extremities to inspection Extremities: normal pulses Results Result Diagram: 11/24/18 0437 11/24/18 0437 Results 24hrs Laboratory Tests Test 11/23/18 12:37 11/23/18 17:54 11/23/18 21:06 11/24/18 04:37 Bedside Glucose 83 96 88 White Blood Count 2.7 #L Red Blood Count 2.85 L Hemoglobin 8.1 L Hematocrit 25.6 L Mean Corpuscular Volume 89.8 Mean Corpuscular 28.4 L Hemoglobin Mean Corpuscular 31.6 L Hemoglobin Concent Red Cell Distribution 16.4 H Width Platelet Count 230 # Mean Platelet Volume 9.5 Immature Granulocytes % 0.400 Neutrophils % 75.5 Segmented Neutrophils 79 H % (Manual) Lymphocytes % 20.8 Lymphocytes % (Manual) 18 Reactive Lymphocytes 1 H % (Manual) Monocytes % 1.1 Monocytes % (Manual) 1 Eosinophils % 1.5 Eosinophils % (Manual) 1 Basophils % 0.7 Nucleated Red Blood 0.0 Cells % Immature Granulocytes # 0.010 Neutrophils # 2.1 Lymphocytes (Manual) 0.4 L Lymphocytes # 0.6 L Reactive Lymphocytes # 0.0 Monocytes # 0.0 L Monocytes # (Manual) 0.0 L Eosinophils # 0.0 Basophils # 0.0 Nucleated Red Blood 0.0 Cells # Platelet Estimate NORMAL Giant Platelets 1 H Poikilocytosis 1+ Anisocytosis 1+ Sodium Level 137 Potassium Level 3.5 Chloride Level 100 Carbon Dioxide Level 29 Anion Gap 8 Blood Urea Nitrogen 5 L Creatinine 0.50 Est Glomerular Filtrat > 60 Rate mL/min Glucose Level 90 Calcium Level 8.1 L Test 11/24/18 08:35 Bedside Glucose 84 Medications Medication Current Medications Acetaminophen (Tylenol Tab) 650 mg Q6H PRN PO MILD PAIN(1-3)OR ELEVATED TEMP; Start 11/15/18 at 20:00 Diagnostic Test (Pha) (Accu-Chek) 1 ea 02 XX ; Start 11/16/18 at 02:00 Insulin Aspart (Novolog Insulin Pen) NOVOLOG *MODERATE* ALGORITHM WITH MEALS BEDTIME SC ; Start 11/15/18 at 21:00 Miscellaneous Information 1 ea NOTE XX ; Start 11/15/18 at 20:00 Glucose (Glutose) 15 gm Q15M PRN PO DECREASED GLUCOSE; Start 11/15/18 at 20:00 Glucose (Glutose) 22.5 gm Q15M PRN PO DECREASED GLUCOSE; Start 11/15/18 at 20:00 Dextrose (D50w Syringe) 25 ml Q15M PRN IV DECREASED GLUCOSE; Start 11/15/18 at 20:00 Dextrose (D50w Syringe) 50 ml Q15M PRN IV DECREASED GLUCOSE; Start 11/15/18 at 20:00 Glucagon (Glucagen) 1 mg Q15M PRN IM DECREASED GLUCOSE; Start 11/15/18 at 20:00 Glucose (Glutose) 15 gm Q15M PRN BUCCAL DECREASED GLUCOSE; Start 11/15/18 at 20:00 Docusate Sodium (Colace) 100 mg BID PO Last administered on 11/24/18 08:56; Admin Dose 100 MG; Start 11/18/18 at 13:00 Docusate Sodium (Colace) 250 mg DAILY PRN PO CONSTIPATION; Start 11/18/18 at 12:30 Polyethylene Glycol (Miralax) 17 gm DAILY PRN PO CONSTIPATION Last administered on 11/20/18at 21:48; Admin Dose 17 GM; Start 11/18/18 at 12:30 Enoxaparin Sodium (Lovenox) 30 mg DAILY SC Last administered on 11/24/18 08:58; Admin Dose 30 MG; Start 11/18/18 at 13:30 Sodium Chloride 1,000 ml @ 75 mls/hr [id number] IV Last administered on 11/24/18at 08:56; Admin Dose 75 MLS/HR; Start 11/19/18 at 11:30 Diphenhydramine HCl (Benadryl) 25 mg Q4H PRN IV ALLERGIC REACTION Last administered on 11/19/18at 16:55; Admin Dose 25 MG; Start 11/19/18 at 11:30 Meperidine HCl (Demerol) 50 mg Q4H PRN IV ALLERGIC REACTION; Start 11/19/18 at 11:30 Dexamethasone 20 mg/Dextrose 55 ml @ 252 mls/hr Q4H PRN IVPB ALLERGIC REACTION; Start 11/19/18 at 11:30 Gemcitabine HCl 1.8 gm/Sodium Chloride 250 ml @ 500 mls/hr ONCE IV ; Start 11/26/18 at 14:00; Stop 11/26/18 at 23:45; Status UNV Scopolamine (Transderm-Scop) 1 patch Q72H TRANSDERM Last administered on 11/23/18 18:12; Admin Dose 1 PATCH; Start 11/20/18 at 17:30 Morphine Sulfate (morphine) 10 mg Q4H PRN PO SEVERE PAIN LEVEL 7-10 Last administered on 11/23/18 16:52; Admin Dose 10 MG; Start 11/21/18 at 09:30 Levofloxacin/ Dextrose 100 ml @ 100 mls/hr Q24H IVPB Last administered on 11/23/18 13:17; Admin Dose 100 MLS/HR; Start 11/21/18 at 14:00 Pantoprazole (Protonix Tab) 40 mg DAILY@06 PO Last administered on 11/24/18 05:58; Admin Dose 40 MG; Start 11/22/18 at 06:00 Dronabinol (Marinol) 2.5 mg BID PO Last administered on 11/24/18 08:56; Admin Dose 2.5 MG; Start 11/21/18 at 14:30 Morphine Sulfate (morphine) 6 mg Q4H PRN PO moderate pain; Start 11/21/18 at 14:30 Lubiprostone (Amitiza) 16 mcg BID PO Last administered on 11/24/18 08:56; Admin Dose 16 MCG; Start 11/23/18 at 13:30 Ondansetron HCl (Zofran Odt) 8 mg Q6H PRN ODT nausea; Start 11/23/18 at 12:00 Metoclopramide HCl (Reglan) 10 mg Q6 PO Last administered on 11/24/18 09:01; Admin Dose 10 MG; Start 11/23/18 at 12:30 Lorazepam (Ativan) 1 mg Q12H PRN PO breaktrough nausea; Start 11/23/18 at 12:00 MINAL RICHARDSON M.D. Nov 24, 2018 10:55
--- NOTE | 2018-11-24 12:58 | PN ---
Date/Time of Note Date/Time of Note DATE: 11/24/18 TIME: 12:56 Assessment/Plan VTE Prophylaxis Risk score (from Ns)>0 risk: 5 SCD applied (from Ns): Yes Pharmacological prophylaxis: NA/contraindicated Pharm contraindication: low risk/ambulating Lines/Catheters [facility]from [facility] Peripheral IV Urinary Cath still in place: No Assessment/Plan Hospital Course 63-year-old female with # Abdominal pain with ovarian cancer stage III, with peritoneal carcinomatosis with widespread metastatic disease still with vommiting and constipation # anemia, #diabetes # hx malignant ascites that is post paracentesis on 0 11/18 with removal of 3.2 L # constipation plan -Post paracentesis yesterday - stool softners, spoke to the nurse - PPI - Zofran/reglan -Continue with Lovenox for DVT prophylaxis - SCD dC planning today patient will be introduced to hospice as an outpatient per Dr. Monroy Result Diagram: 11/24/18 0437 11/24/18 0437 Results 24hrs Laboratory Tests Test 11/23/18 17:54 11/23/18 21:06 11/24/18 04:37 11/24/18 08:35 Bedside Glucose 96 88 84 White Blood Count 2.7 #L Red Blood Count 2.85 L Hemoglobin 8.1 L Hematocrit 25.6 L Mean Corpuscular Volume 89.8 Mean Corpuscular 28.4 L Hemoglobin Mean Corpuscular 31.6 L Hemoglobin Concent Red Cell Distribution 16.4 H Width Platelet Count 230 # Mean Platelet Volume 9.5 Immature Granulocytes % 0.400 Neutrophils % 75.5 Segmented Neutrophils 79 H % (Manual) Lymphocytes % 20.8 Lymphocytes % (Manual) 18 Reactive Lymphocytes 1 H % (Manual) Monocytes % 1.1 Monocytes % (Manual) 1 Eosinophils % 1.5 Eosinophils % (Manual) 1 Basophils % 0.7 Nucleated Red Blood 0.0 Cells % Immature Granulocytes # 0.010 Neutrophils # 2.1 Lymphocytes (Manual) 0.4 L Lymphocytes # 0.6 L Reactive Lymphocytes # 0.0 Monocytes # 0.0 L Monocytes # (Manual) 0.0 L Eosinophils # 0.0 Basophils # 0.0 Nucleated Red Blood 0.0 Cells # Platelet Estimate NORMAL Giant Platelets 1 H Poikilocytosis 1+ Anisocytosis 1+ Sodium Level 137 Potassium Level 3.5 Chloride Level 100 Carbon Dioxide Level 29 Anion Gap 8 Blood Urea Nitrogen 5 L Creatinine 0.50 Est Glomerular Filtrat > 60 Rate mL/min Glucose Level 90 Calcium Level 8.1 L Test 11/24/18 12:29 Bedside Glucose 90 Subjective 24 Hr Interval Summary Free Text/Dictation Only one episode of vomiting today Small BM Exam/Review of Systems Exam Vitals Vital Signs Date Temp Pulse Resp B/P (MAP) Pulse Ox O2 O2 Flow FiO2 Time Delivery Rate 11/24/18 97.2 70 19 122/73 96 Room Air 07:33 (89) Intake and Output 11/23/18 11/23/18 11/24/18 1515:00 23:00 07:00 IntakeIntake Total 700 ml 925 ml 600 ml OutputOutput Total 2850 ml BalanceBalance -2150 ml 925 ml 600 ml Exam onstitutional: alert, oriented Respiratory: clear to auscultation Cardiovascular: regular rate and rhythm Gastrointestinal: soft, distended Results Results 24hrs Laboratory Tests Test 11/23/18 17:54 11/23/18 21:06 11/24/18 04:37 11/24/18 08:35 Bedside Glucose 96 88 84 White Blood Count 2.7 #L Red Blood Count 2.85 L Hemoglobin 8.1 L Hematocrit 25.6 L Mean Corpuscular Volume 89.8 Mean Corpuscular 28.4 L Hemoglobin Mean Corpuscular 31.6 L Hemoglobin Concent Red Cell Distribution 16.4 H Width Platelet Count 230 # Mean Platelet Volume 9.5 Immature Granulocytes % 0.400 Neutrophils % 75.5 Segmented Neutrophils 79 H % (Manual) Lymphocytes % 20.8 Lymphocytes % (Manual) 18 Reactive Lymphocytes 1 H % (Manual) Monocytes % 1.1 Monocytes % (Manual) 1 Eosinophils % 1.5 Eosinophils % (Manual) 1 Basophils % 0.7 Nucleated Red Blood 0.0 Cells % Immature Granulocytes # 0.010 Neutrophils # 2.1 Lymphocytes (Manual) 0.4 L Lymphocytes # 0.6 L Reactive Lymphocytes # 0.0 Monocytes # 0.0 L Monocytes # (Manual) 0.0 L Eosinophils # 0.0 Basophils # 0.0 Nucleated Red Blood 0.0 Cells # Platelet Estimate NORMAL Giant Platelets 1 H Poikilocytosis 1+ Anisocytosis 1+ Sodium Level 137 Potassium Level 3.5 Chloride Level 100 Carbon Dioxide Level 29 Anion Gap 8 Blood Urea Nitrogen 5 L Creatinine 0.50 Est Glomerular Filtrat > 60 Rate mL/min Glucose Level 90 Calcium Level 8.1 L Test 11/24/18 12:29 Bedside Glucose 90 Medications Medication Current Medications Acetaminophen (Tylenol Tab) 650 mg Q6H PRN PO MILD PAIN(1-3)OR ELEVATED TEMP; Start 11/15/18 at 20:00 Diagnostic Test (Pha) (Accu-Chek) 1 ea 02 XX ; Start 11/16/18 at 02:00 Insulin Aspart (Novolog Insulin Pen) NOVOLOG *MODERATE* ALGORITHM WITH MEALS BEDTIME SC ; Start 11/15/18 at 21:00 Miscellaneous Information 1 ea NOTE XX ; Start 11/15/18 at 20:00 Glucose (Glutose) 15 gm Q15M PRN PO DECREASED GLUCOSE; Start 11/15/18 at 20:00 Glucose (Glutose) 22.5 gm Q15M PRN PO DECREASED GLUCOSE; Start 11/15/18 at 20:00 Dextrose (D50w Syringe) 25 ml Q15M PRN IV DECREASED GLUCOSE; Start 11/15/18 at 20:00 Dextrose (D50w Syringe) 50 ml Q15M PRN IV DECREASED GLUCOSE; Start 11/15/18 at 20:00 Glucagon (Glucagen) 1 mg Q15M PRN IM DECREASED GLUCOSE; Start 11/15/18 at 20:00 Glucose (Glutose) 15 gm Q15M PRN BUCCAL DECREASED GLUCOSE; Start 11/15/18 at 20:00 Docusate Sodium (Colace) 100 mg BID PO Last administered on 11/24/18at 08:56; Admin Dose 100 MG; Start 11/18/18 at 13:00 Docusate Sodium (Colace) 250 mg DAILY PRN PO CONSTIPATION; Start 11/18/18 at 12:30 Polyethylene Glycol (Miralax) 17 gm DAILY PRN PO CONSTIPATION Last administered on 11/20/18at 21:48; Admin Dose 17 GM; Start 11/18/18 at 12:30 Enoxaparin Sodium (Lovenox) 30 mg DAILY SC Last administered on 11/24/18at 08:58; Admin Dose 30 MG; Start 11/18/18 at 13:30 Sodium Chloride 1,000 ml @ 75 mls/hr [id number] IV Last administered on 11/24/18at 08:56; Admin Dose 75 MLS/HR; Start 11/19/18 at 11:30 Diphenhydramine HCl (Benadryl) 25 mg Q4H PRN IV ALLERGIC REACTION Last administered on 11/19/18 16:55; Admin Dose 25 MG; Start 11/19/18 at 11:30 Meperidine HCl (Demerol) 50 mg Q4H PRN IV ALLERGIC REACTION; Start 11/19/18 at 11:30 Dexamethasone 20 mg/Dextrose 55 ml @ 252 mls/hr Q4H PRN IVPB ALLERGIC REACTION; Start 11/19/18 at 11:30 Gemcitabine HCl 1.8 gm/Sodium Chloride 250 ml @ 500 mls/hr ONCE IV ; Start 11/26/18 at 14:00; Stop 11/26/18 at 23:45; Status UNV Scopolamine (Transderm-Scop) 1 patch Q72H TRANSDERM Last administered on 11/23/18 18:12; Admin Dose 1 PATCH; Start 11/20/18 at 17:30 Morphine Sulfate (morphine) 10 mg Q4H PRN PO SEVERE PAIN LEVEL 7-10 Last administered on 11/23/18 16:52; Admin Dose 10 MG; Start 11/21/18 at 09:30 Levofloxacin/ Dextrose 100 ml @ 100 mls/hr Q24H IVPB Last administered on 11/23/18 13:17; Admin Dose 100 MLS/HR; Start 11/21/18 at 14:00 Pantoprazole (Protonix Tab) 40 mg DAILY@06 PO Last administered on 11/24/18 05:58; Admin Dose 40 MG; Start 11/22/18 at 06:00 Dronabinol (Marinol) 2.5 mg BID PO Last administered on 11/24/18 08:56; Admin Dose 2.5 MG; Start 11/21/18 at 14:30 Morphine Sulfate (morphine) 6 mg Q4H PRN PO moderate pain; Start 11/21/18 at 14:30 Lubiprostone (Amitiza) 16 mcg BID PO Last administered on 11/24/18 08:56; Admin Dose 16 MCG; Start 11/23/18 at 13:30 Ondansetron HCl (Zofran Odt) 8 mg Q6H PRN ODT nausea; Start 11/23/18 at 12:00 Metoclopramide HCl (Reglan) 10 mg Q6 PO Last administered on 11/24/18at 09:01; Admin Dose 10 MG; Start 11/23/18 at 12:30 Lorazepam (Ativan) 1 mg Q12H PRN PO breaktrough nausea; Start 11/23/18 at 12:00 LIZZETH LAWRENCE MD Nov 24, 2018 12:57
[2018-11-24] MEDS ORDERED: LACTULOSE 30ML CUP GTB ONE (13:00)
--- NOTE | 2018-11-24 13:07 | PDOCDIS ---
Discharge Instructions DIAGNOSIS Discharge Diagnosis nausea, vomiting likely secondary to cancer/chemotherapy CONDITION [id number] Patient Condition: [id number] Fair HOME CARE INSTRUCTIONS: [id number] Diet Instructions: [id number] Regular ACTIVITY: [id number] Activity Restrictions: [id number] Slowly Increase Activity Rest between Activity Avoid heavy lifting [id number] Bathing Restrictions: [id number] Shower FOLLOW UP/APPOINTMENTS Follow-up Plan f/u Dr Cameron in 1 week LIZZETH LAWRENCE MD Nov 24, 2018 13:07
[2018-11-24] MEDS ORDERED: DRON2.5C PO (13:11)
[2018-11-24] MEDS: LEVOFLOXACIN 500MG/D5W (PMX) 100 ML IVPB SCH (13:55)
[2018-11-24 15:24] VITALS: BP 129/69; PULSE 98; RESP 19
--- NOTE | 2018-11-24 15:39 | DS ---
DATE OF ADMISSION: 11/15/2018 DATE OF DISCHARGE: 11/24/2018 HOSPITAL COURSE: A 63-year-old female previously discharged with diagnoses of diabetes, hypertensio n, dyslipidemia, history of stage III ovarian cancer. Last chemotherapy was a month ago, presented t o the Emergency Department complaining of pain, nausea. On admission, hemoglobin 8.9, sodium 136, po tassium 4.1. Patient had an abdominal ultrasound that showed moderate ascites. The patient received paracentesis twice in the hospital. Patient had multiple CAT scans in the last visit. The patient was seen by oncology consultation with Dr. Monroy. According to her, patient has progressed through t he carbotaxol. She was given 1 dose of carboplatin and gemcitabine. She was given a dose of carbopl atin in house. The patient now was explained that her prognosis is poor, and chemotherapy is only de creasing her quality of life, rather than helping. Patient was having some episodes are nausea, vomi ting, continued on steroids, Zofran, Reglan around the clock. Initially Dr. Becerra was called and PEDIATRIC OPHTHALMOLOGIST pump was started; however, was discontinued because the requirements were very less. The patient 's condition was improving, considerations were made about also hospice Dr. Monroy's plan was to start her on probably hospice as an outpatient if the patient does not respond to this chemotherapy. FINAL DISCHARGE DIAGNOSES: 1. Stage III ovarian cancer, widespread metastatic disease. 2. Nausea, vomiting, abdominal pain secondary to above. Abdominal KUB negative. Patient had multip le CT scans last visit. No evidence of any obstruction. 3. Diabetes. 4. Hypertension. 5. Status post chemo in the hospital. 6. Constipation. 7. Anemia. DISCHARGE CONDITION: Fair. DISCHARGE DIET: Diabetic diet. DISCHARGE MEDICATIONS: 1. Zofran for nausea, vomiting, Reglan 10 mg p.o. for nausea, vomiting, liquid Roxanol 10 mg/500 mL 1 gram q.4h. p.r.n. pain. 2. Colace 250 mg daily p.r.n. constipation. 3. Medrol Dosepak. 4. MiraLax 17 grams p.r.n. constipation. 5. Levaquin 500 mg p.o. daily for 7 days. The patient was also given a prescription of Medolin 2.5 b.i.d. p.r.n. nausea. Patient was instructe d to follow up with Dr. Monroy in about 1 week. Arrangements will be probably made about hospice if t he patient does not respond to chemotherapy. Dictated By: LIZZETH RAMOS/LOREN Conf#: [id number] DID#: [id number] CC: LUPIS SUMMERS MD;*EndCC*
[2018-11-26] MEDS ORDERED: SOD CHLORIDE 0.9% IV SCH (14:00)
[2018-11-26] MEDS ORDERED: GEMCITABINE IV SCH (14:00)
== END 2018-11-24 16:45 | disposition home or self-care (01) | DRG 375 ==
LOC: MS1 18:12
PROVIDERS: ADMIT Internal Medicine Nephrology; ATTEND Internal Medicine Nephrology
PROC: 0W9G3ZZ Drainage of Peritoneal Cavity, Percutaneous Approach (ICD-10-PCS; principal; 2018-11-18)
PROC: 3E04305 Introduction of Other Antineoplastic into Central Vein, Percutaneous Approach (ICD-10-PCS; 2018-11-19)
PROC: 0W9G3ZZ Drainage of Peritoneal Cavity, Percutaneous Approach (ICD-10-PCS; 2018-11-23)
DX: C78.6 Secondary malignant neoplasm of retroperitoneum and peritoneum (principal); C56.9 Malignant neoplasm of unspecified ovary; R18.0 Malignant ascites; R65.10 Systemic inflammatory response syndrome (SIRS) of non-infectious origin without acute organ dysfunction; C78.7 Secondary malignant neoplasm of liver and intrahepatic bile duct; G89.3 Neoplasm related pain (acute) (chronic); Z51.11 Encounter for antineoplastic chemotherapy; D64.9 Anemia, unspecified; E11.8 Type 2 diabetes mellitus with unspecified complications; R10.9 Unspecified abdominal pain; R11.2 Nausea with vomiting, unspecified; I10 Essential (primary) hypertension; K59.00 Constipation, unspecified; E66.9 Obesity, unspecified; Z68.33 Body mass index [BMI] 33.0-33.9, adult; R59.0 Localized enlarged lymph nodes; R59.1 Generalized enlarged lymph nodes; T40.695A Adverse effect of other narcotics, initial encounter; Y92.239 Unspecified place in hospital as the place of occurrence of the external cause
CPT/HCPCS: 74018; 76705; 80048; 80053; 81003; 82962; 83036; 83605; 83735; 84100; 85025; 85610; 87086; J9045; J9201; C9113; J1100; J1170; J1200; J1650; J1815; J1956; J2270; J2405; J2765; J7030; J7040; J7042; J7050